=== PATIENT | female | born 1940 | race Caucasian/White ===

== ENCOUNTER 2016-12-22 07:22 | Day surgery (SDC) | payer MEDICARE, BC ==
[2016-12-22] MEDS ORDERED: Dextrose 5%-Lactated Ringers 1,000 ML IV SCH (07:45)
[2016-12-22] MEDS ORDERED: Midazolam 1 MG/ML 2 ML SDV ONE (08:13)
[2016-12-22] MEDS ORDERED: Propofol 200 MG/20 ML SDV ONE (08:13)
[2016-12-22] MEDS ORDERED: fentaNYL 100 MCG/2 ML SDV ONE (08:13)
[2016-12-22] MEDS ORDERED: Glycopyrrolate 0.2 MG/ML 2 ML SYRINGE IVPUSH ONE (08:15)
[2016-12-22 11:10] VITALS: BP 144/96
--- NOTE | 2016-12-28 16:12 | OR ---
DATE OF PROCEDURE: 12/22/2016 PREOPERATIVE DIAGNOSES: 1. Increasing gastroesophageal reflux symptoms. 2. Constipation, alternating with diarrhea. POSTOPERATIVE DIAGNOSES: 1. Diffuse bile gastritis with large volume of retained gastric bile. 2. Uncomplicated left colonic diverticulosis. OPERATIVE PROCEDURE: 1. Esophagogastroduodenoscopy with biopsies of antrum for CLOtest. 2. Flexible colonoscopy. ANESTHESIA: IV sedation. 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 She has had increasing problems with reflux symptoms. In the past, she has been treated successfully with Reglan and/or erythromycin; presently, she has omeprazole 20 mg a day. Additionally, the patient has some constipation, alternating with frequent loose stools or diarrhea. CT scan showed some colonic diverticulosis on the left side, but otherwise was unremarkable. Plan is to proceed with upper and lower endoscopy with biopsies as indicated. Potential risks including bleeding and perforation were discussed, and the patient wishes to proceed. DETAILS OF PROCEDURE: The patient was taken to the operating room and placed in left lateral decubitus position. IV sedation was administered, after which the upper GI endoscope was passed orally through the length of the esophagus. The patient had a relatively short esophagus with a cervical-esophagogastric anastomosis, this was widely patent. Upon entering the stomach, the patient had a large volume of bile and had a more or less diffuse gastritis, likely related to the bile retention. The pyloric channel and proximal duodenum were otherwise unremarkable. The patient had a concurrent pyloroplasty at the time of the esophagectomy and this was widely patent. 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 Biopsies were obtained from the stomach and sent for CLOtest to assess the patient's H. pylori status. After evacuation of the bowel, scope was then withdrawn and the procedure then concluded. At this point, an initial digital rectal exam was performed and was unremarkable. Colonoscope was then passed into the rectum with retroflexion revealing complicated hemorrhoidal columns. The scope was then eventually passed to the level of cecum. The prep was fairly good with there being only a small amount of liquid stool present. The patient had some uncomplicated left colonic diverticulosis. Otherwise, there were no areas of concern. Specifically, no areas of colitis, and no polyps or signs of neoplasia. The scope was then withdrawn. The above findings reconfirmed, and the procedure was then concluded. Plan will be to have the patient continue the omeprazole 20 mg a day. We will add erythromycin 125 mg p.o. t.i.d., to be taken one-half hour before breakfast, supper, and at bedtime, to augment gastric motility. We will see her back in 2 to 3 weeks for a recheck and make any adjustments as needed at that point. Benton Washington MD /[id number]
== END 2016-12-22 11:00 | disposition home or self-care (01) ==
LOC: JP.SDS 07:22
PROVIDERS: ATTEND Surgery
DX: K29.70 Gastritis, unspecified, without bleeding (principal); K57.30 Diverticulosis of large intestine without perforation or abscess without bleeding; I10 Essential (primary) hypertension; E78.00 Pure hypercholesterolemia, unspecified; K21.9 Gastro-esophageal reflux disease without esophagitis; Z88.8 Allergy status to other drugs, medicaments and biological substances; Z91.013 Allergy to seafood
CPT/HCPCS: 43239; 45378; 87081; J2250; J2704; J3010; J7042

== ENCOUNTER 2016-12-29 07:05 | Day surgery (SDC) | payer MEDICARE, BC ==
[~2016-12-29 07:05] MED LIST: Lidocaine 1% with EPINEPHrine 1:100,000 50 ML MDV ONE; Sodium Chloride 0.9% 1,000 ML IV SCH; Sodium Chloride 0.9% 10 ML ONE; Sodium Tetradecyl Sulfate 1% 20 MG/2 ML SDV ONE
[2016-12-29] MEDS ORDERED: fentaNYL 100 MCG/2 ML SDV ONE (08:03)
[2016-12-29] MEDS ORDERED: Propofol 200 MG/20 ML SDV ONE ×2 (08:03→08:38)
[2016-12-29] MEDS ORDERED: Midazolam 1 MG/ML 2 ML SDV ONE (08:03)
[2016-12-29] MEDS: Lidocaine 1% w/EPINEPHrine 50 ML, Sodium Bicarbonate 5 MEQ in Sodium Chloride 0.9% 950 ML INJECT SCH (08:46)
[2016-12-29 10:00] VITALS: BP 124/82
--- NOTE | 2016-12-29 14:52 | OR ---
DATE OF PROCEDURE: 12/29/2016 PROCEDURE: 1. Radiofrequency ablation of the left lesser saphenous vein. 2. Radiofrequency ablation of right greater saphenous vein. 3. Sclerotherapy, left leg, multiple. 4. Sclerotherapy, right leg, multiple. COMPLICATION: None. STOCK DRIER TENDER: None. ANESTHESIA: MAC/local. INDICATIONS: Risks, benefits, alternatives, including, but not limited to infection, bleeding, and DVT were explained to the patient, who wished to proceed. PROCEDURE IN DETAIL: The patient was placed in supine position. The left LSV was identified at the level of the ankle first. This was accessed using a 0.035 wire via a 21- gauge needle. This was then exchanged for a 7-Ukrainian sheath. RFA probe was advanced to 3 cm from the deep junction. Tumescent fluid was injected a 1 cm jacket around this and verified a second and third time. Direct even pressure was held as the RFA probe was deployed x2 proximally and distally and x1 in all other segments. The sheath and device were then removed. Dermabond was applied. The GSV on the right leg was then performed in the same manner, same fashion, same technique, and same sequence using the same equipment. This was also verified a second and third time with tumescent fluid. Sclerotherapy was then performed in left and right legs using 0.33% sodium tetradecyl, slightly drawn back to ensure intravascular injection. It was 6 on the right and 6 on the left. Dressings were applied. The patient tolerated the procedure well. Diaz Arias MD /[id number]
== END 2016-12-29 11:00 | disposition home or self-care (01) ==
LOC: JP.SDS 07:05
PROVIDERS: ATTEND Surgery
DX: M79.605 Pain in left leg (principal); M79.89 Other specified soft tissue disorders; M79.604 Pain in right leg; I10 Essential (primary) hypertension; E78.5 Hyperlipidemia, unspecified; Z88.8 Allergy status to other drugs, medicaments and biological substances
CPT/HCPCS: 36471; 36475; J1642; J2250; J2704; J3010; J7040; J7050; J3490

== ENCOUNTER 2018-03-19 10:26 | Emergency (ER) | payer MEDICARE, BC ==
[2018-03-19] MEDS ORDERED: Sodium Chloride 0.9% 10 ML Syringe FLUSH PRN (12:05)
[2018-03-19] MEDS ORDERED: Nitroglycerin 0.4 MG Tab.SL SL ONE (12:08)
--- NOTE | 2018-03-19 12:34 | EDM.PDOC ---
ED HPI GENERAL MEDICAL PROBLEM - General Chief Complaint: Cardiovascular Problem Stated Complaint: RINGING IN EARS BLOOD PRESSURE UP??? Time Seen by Provider: 03/19/18 12:10 Source of Information: Reports: Patient History Limitations: Reports: No Limitations - History of Present Illness INITIAL COMMENTS - FREE TEXT/NARRATIVE: Aby is a 77-year-old female, history of osteoporosis and hypertension who presents to the emergency Department today with complaints of lightheadedness, shortness of breath and headache. Patient reports that her blood pressure has been running high, they recently decreased her Hytrin secondary to kidney issues and increased her lisinopril. Patient reports her lisinopril was increased to 40 mg a day a week ago. Patient reports her blood pressure has not been any better. Patient denies any chest pain. Patient does report that her left leg has been swollen which is unusual for her. Patient denies any fever chills, cough or cold symptoms. Patient denies any vomiting or diarrhea. Patient reports that they told her to increase her fluid intake, she reports she has been drinking quite a bit of water daily. Patient arrives here mildly hypertensive, more concerning her heart rate is 50, her last clinic visit her heart rate was 68. Onset: Gradual Duration: Day(s): (2) Headache Pain Score (Numeric/FACES): 5 - Related Data Allergies Allergy/AdvReac Type Severity Reaction Status Date / Time amlodipine [From Norvasc] Allergy Other Verified 03/19/18 12:08 metronidazole [From Flagyl] Allergy Difficulty Verified 03/19/18 12:08 Breathing shellfish derived Allergy Difficulty Verified 03/19/18 12:08 Swallowing Home Meds: Home Meds Metoprolol Tartrate [Lopressor] 25 mg PO BID 08/27/14 [History] Naproxen Sodium [Aleve] 220 mg PO DAILY 08/27/14 [History] Omeprazole [Prilosec] 20 mg PO DAILY 08/27/14 [History] Terazosin [Hytrin] 2 mg PO BID 08/27/14 [History] Acetaminophen 500 mg PO Q6HR PRN 03/01/16 [History] Cyanocobalamin (Vitamin B-12) [B-12] 1,000 mcg PO DAILY 03/01/16 [History] Fluticasone Propionate [Flonase] 2 sprays NS DAILY 03/01/16 [History] Folic Acid 1 mg PO DAILY 03/01/16 [History] Gabapentin [Neurontin] 300 mg PO BEDTIME 03/01/16 [History] Potassium Chloride [Klor-Con] 20 meq PO DAILY 10/26/16 [History] Ranitidine HCl [Ranitidine] 1 tab PO BID 03/19/18 [History] Past Medical History HEENT History: Reports: Allergic Rhinitis, Impaired Vision Cardiovascular History: Reports: Hypertension Respiratory History: Reports: None Gastrointestinal History: Reports: Cholelithiasis, Colon Polyp, GERD, Other ( See Below) Other Gastrointestinal History: Hx of Barretts Genitourinary History: Reports: Urinary Incontinence, UTI, Recurrent CATHE[employer] INS[employer]OR History: Reports: Dysfunctional Uterine Bleeding, , Prolapsed Uterus Musculoskeletal History: Reports: Back Pain, Chronic, Osteoarthritis Other Musculoskeletal History: right knee pain Neurological History: Reports: Neuropathy, Peripheral Psychiatric History: Reports: None Endocrine/Metabolic History: Reports: Osteoporosis Hematologic History: Reports: Anemia, B12 Deficiency, Blood Transfusion(s), Iron Deficiency Oncologic (Cancer) History: Reports: None Dermatologic History: Reports: None - Infectious Disease History Infectious Disease History: Reports: Chicken Pox, Measles, Mumps Other Infectious Disease History: abdomen mesh - Past Surgical History Head Surgeries/Procedures: Reports: None HEENT Surgical History: Reports: Naso-Sinus Surgery GI Surgical History: Reports: Cholecystectomy, Colonoscopy, EGD, Hernia, Inguinal, Other (See Below) Other GI Surgeries/Procedures: 2 hernia repair, esophagus removed Female Surgical History: Reports: Breast Biopsy, Hysterectomy, Oophorectomy Musculoskeletal Surgical History: Reports: Shoulder Surgery Oncologic Surgical History: Reports: Biopsy of Breast Social & Family History - Family History Family Medical History: Noncontributory - Tobacco Use Smoking Status *Q: Never Smoker - Caffeine Use Caffeine Use: Reports: Coffee - Alcohol Use Days Per Week of Alcohol Use: 3 Number of Drinks Per Day: 2 Total Drinks Per Week: 6 - Recreational Drug Use Recreational Drug Use: No ED ROS GENERAL - Review of Systems Review Of Systems: See Below Constitutional: Reports: No Symptoms HEENT: Reports: No Symptoms Respiratory: Reports: Shortness of Breath Cardiovascular: Denies: Chest Pain Endocrine: Reports: No Symptoms GI/Abdominal: Reports: No Symptoms : Reports: No Symptoms Musculoskeletal: Reports: No Symptoms Skin: Reports: No Symptoms Neurological: Reports: Dizziness, Headache Psychiatric: Reports: No Symptoms Hematologic/Lymphatic: Reports: No Symptoms Immunologic: Reports: No Symptoms ED EXAM, GENERAL - Physical Exam Exam: See Below Exam Limited By: No Limitations General Appearance: Alert, WD/WN, No Apparent Distress Eye Exam: Bilateral Eye: EOMI, PERRL Ears: Normal External Exam Throat/Mouth: Normal Inspection, Normal Oropharynx Head: Atraumatic Neck: Normal Inspection Respiratory/Chest: Crackles (Bibasilar) Cardiovascular: Bradycardia, Other (Left lower extremity swelling from mid ramírez down to the foot, nonpitting) GI/Abdominal: Normal Bowel Sounds, Soft Extremities: Normal Inspection Neurological: Alert, Oriented, CN II-XII Intact Psychiatric: Normal Affect, Normal Mood Skin Exam: Warm, Dry, Intact Lymphatic: No Adenopathy EKG INTERPRETATION EKG Date: 03/19/18 Time: 12:37 Rhythm: NSR Rate (Beats/Min): 61 Sigurd: Normal P-Wave: Present QRS: Normal ST-T: Normal QT: Normal EKG Interpretation Comments: T wave inversion V4 Course - Vital Signs Last Recorded V/S: Last Vital Signs Temp 35.9 C 03/19/18 12:07 Pulse 60 03/19/18 13:27 Resp 16 03/19/18 13:27 BP 159/120 H 03/19/18 14:41 Pulse Ox 95 03/19/18 12:36 Aby is a 77-year-old female who presents to the emergency Department today concerned for her hypertension and headache. Patient arrives here pressure 170/ 90, initially and ordered a dose of nitroglycerin for patient to bring her blood pressure down in the hopes of not affecting her heart rate as it is only 50. Throat ED stay however, patient's blood pressure has come down on its own nicely to 146/98. Blood work was obtained to rule out any electrolyte abnormalities as well as BNP to rule out failure as patient does have lower extremity edema to the left side and bibasilar crackles, BNP is normal, troponin is undetectable, EKG is negative for any acute ischemic findings. CBC returns with a mildly low lymphocyte count, CMP returns with a calcium of 8.2 and potassium of 3.5 and is otherwise within normal limits. Magnesium is normal today. Patient was given a dose of oral potassium for replacement here, chest x- ray was obtained and is consistent with CHF with left sided effusion, reviewed with Officer. 1320-patient is lying in the bed in no acute distress, it was noted on the electronic device monitor at the nursing station the patient's heart rate has dipped as low as 38 and has a tendency to hang around in the low 40s before climbed back up to 60 and then going down again. There is no evidence to indicate a block as there is P waves with every QRS complex it is likely this is what is attributing to patient's dizziness and mild fluid up status. 1425-Discussed findings with patient, would like to admit patient for ongoing monitoring and medication adjustments, likely needs decrease in her metoprolol and restarted on HCTZ. We unfortunately have no beds here. Patient really does not want to be transferred. Heart rate at present time in the mid to upper 50's. I discussed with patient giving her lasix here and monitoring her here for a couple of hours to see how she does. She is agreeable to this. 1535-patient is feeling much better here, her heart rate has stayed above 60 for the last hour and a half. Patient has urinated over 800 mL's of urine. Her color has improved, her blood pressure has remained stable, she is eaten lunch and a feeling this time she is stable to be discharged home. For now I am going to decrease her metoprolol to 12.5 mg twice daily and restart her hydrochlorothiazide at 12.5 mg once daily. A follow-up appointment was made with her primary care provider for Monday at 1:30. Patient was encouraged to stay well-hydrated, avoid excessive salt and if she experiences any worsening symptoms or changes to return to the emergency department. Patient is agreeable to plan of care and was discharged in stable condition. - Orders/Labs/Meds Orders: Active Orders 24 hr Category Date Time Status EKG Documentation Completion [RC] ASDIRECTED Care 03/19/18 12:06 Active Peripheral IV Care [RC] . DIRECTED Care 03/19/18 12:05 Active URINALYSIS W/MICROSCOPIC [UA W/MICROSCOPIC] [URIN] Stat Lab 03/19/18 14:56 Ordered Sodium Chloride 0.9% [Saline Flush] Med 03/19/18 12:05 Active 10 ml FLUSH ASDIRECTED PRN Peripheral IV Insertion Adult [OM.PC] Routine Oth 03/19/18 12:05 Ordered EKG 12 Lead [EK] Stat Ther 03/19/18 12:06 Ordered Medication Orders Sodium Chloride (Saline Flush) 10 ml FLUSH ASDIRECTED PRN PRN Reason: Keep Vein Open Last Admin: 03/19/18 14:42 Dose: 10 ml Labs: Laboratory Tests 03/19/18 03/19/18 03/19/18 Range/Units 12:17 12:17 12:17 WBC 5.1 (4.5-11.0) K/uL RBC 4.15 (3.30-5.50) M/uL Hgb 12.6 (12.0-15.0) g/dL Hct 37.8 (36.0-48.0) % MCV 91 (80-98) fL MCH 30 (27-31) pg MCHC 33 (32-36) % Plt Count 265 (150-400) K/uL Neut % (Auto) 63 (36-66) % Lymph % (Auto) 23 L (24-44) % [place] % (Auto) 10 H (2-6) % Eos % (Auto) 4 (2-4) % Baso % (Auto) 0 (0-1) % Sodium 140 (140-148) mmol/L Potassium 3.5 L (3.6-5.2) mmol/L Chloride 103 (100-108) mmol/L Carbon Dioxide 31 (21-32) mmol/L Anion Gap 9.5 (5.0-14.0) mmol/L BUN 13 (7-18) mg/dL Creatinine 0.9 (0.6-1.0) mg/dL Est Cr Clr Drug Dosing 44.68 mL/min Estimated GFR (MDRD) > 60 (>60) Glucose 93 (74-106) mg/dL Calcium 8.2 L (8.5-10.1) mg/dL Magnesium 1.9 (1.8-2.4) mg/dL Total Bilirubin 0.6 (0.2-1.0) mg/dL AST 24 (15-37) U/L ALT 21 (12-78) U/L Alkaline Phosphatase 89 (46-116) U/L Troponin I < 0.017 (0.000-0.056) ng/mL NT-Pro-B Natriuret Pep 444 (5-450) pg/mL Total Protein 6.9 (6.4-8.2) g/dL Albumin 3.5 (3.4-5.0) g/dL Globulin 3.4 (2.3-3.5) g/dL Albumin/Globulin Ratio 1.0 L (1.2-2.2) Urine Color Urine Appearance Urine pH (4.5-8.0) Ur Specific [place] (1.008-1.030) Urine Protein (NEGATIVE) mg/dL Urine Glucose (UA) (NEGATIVE) mg/dL Urine Ketones (NEGATIVE) mg/dL Urine Occult Blood (NEGATIVE) Urine Nitrite (NEGATIVE) Urine Bilirubin (NEGATIVE) Urine Urobilinogen (NORMAL) mg/dL Ur Leukocyte Esterase (NEGATIVE) Urine RBC (0-5) Urine WBC (0-5) Ur Epithelial Cells Amorphous Sediment Urine Bacteria Urine Mucus 03/19/18 Range/Units 14:56 WBC (4.5-11.0) K/uL RBC (3.30-5.50) M/uL Hgb (12.0-15.0) g/dL Hct (36.0-48.0) % MCV (80-98) fL MCH (27-31) pg MCHC (32-36) % Plt Count (150-400) K/uL Neut % (Auto) (36-66) % Lymph % (Auto) (24-44) % [place] % (Auto) (2-6) % Eos % (Auto) (2-4) % Baso % (Auto) (0-1) % Sodium (140-148) mmol/L Potassium (3.6-5.2) mmol/L Chloride (100-108) mmol/L Carbon Dioxide (21-32) mmol/L Anion Gap (5.0-14.0) mmol/L BUN (7-18) mg/dL Creatinine (0.6-1.0) mg/dL Est Cr Clr Drug Dosing mL/min Estimated GFR (MDRD) (>60) Glucose (74-106) mg/dL Calcium (8.5-10.1) mg/dL Magnesium (1.8-2.4) mg/dL Total Bilirubin (0.2-1.0) mg/dL AST (15-37) U/L ALT (12-78) U/L Alkaline Phosphatase (46-116) U/L Troponin I (0.000-0.056) ng/mL NT-Pro-B Natriuret Pep (5-450) pg/mL Total Protein (6.4-8.2) g/dL Albumin (3.4-5.0) g/dL Globulin (2.3-3.5) g/dL Albumin/Globulin Ratio (1.2-2.2) Urine Color Yellow Urine Appearance Clear Urine pH 8.0 (4.5-8.0) Ur Specific [place] 1.010 (1.008-1.030) Urine Protein Negative (NEGATIVE) mg/dL Urine Glucose (UA) Normal (NEGATIVE) mg/dL Urine Ketones Negative (NEGATIVE) mg/dL Urine Occult Blood Negative (NEGATIVE) Urine Nitrite Negative (NEGATIVE) Urine Bilirubin Negative (NEGATIVE) Urine Urobilinogen Normal (NORMAL) mg/dL Ur Leukocyte Esterase Negative (NEGATIVE) Urine RBC 0-5 (0-5) Urine WBC Not seen (0-5) Ur Epithelial Cells Not seen Amorphous Sediment Not seen Urine Bacteria Not seen Urine Mucus Not seen Meds: Medications Generic Name Dose Route Start Last Admin Trade Name Fretonie PRN Reason Stop Dose Admin Sodium Chloride 10 ml 03/19/18 12:05 03/19/18 14:42 Saline Flush FLUSH 10 ml ASDIRECTED PRN Administration Keep Vein Open Discontinued Medications Generic Name Dose Route Start Last Admin Trade Name Fretonie PRN Reason Stop Dose Admin Acetaminophen 650 mg 03/19/18 12:39 03/19/18 13:26 Tylenol PO 03/19/18 12:40 650 mg NOW ONE Administration Furosemide 40 mg 03/19/18 14:24 03/19/18 14:41 Lasix IVPUSH 03/19/18 14:25 40 mg ONETIME ONE Administration Nitroglycerin 0.4 mg 03/19/18 12:08 Nitrostat SL 03/19/18 12:09 ONETIME ONE Potassium Chloride 40 meq 03/19/18 13:04 03/19/18 13:26 Klor-Con M20 PO 03/19/18 13:05 40 meq ONETIME ONE Administration Departure - Departure Time of Disposition: 16:00 Disposition: Home, Self-Care 01 Condition: Good Clinical Impression: Bradycardia, Pleural effusion due to congestive heart failure Hypertension Qualifiers: Hypertension type: unspecified Qualified Code(s): I10 - Essential (primary) hypertension Instructions: Bradycardia, Adult, Heart Failure, Edema, [id number] Referrals: Filiberto Perdue MD [Primary Care Provider] - Forms: ED Department Discharge Additional Instructions: Decrease your metoprolol to 12.5 mg twice daily, take first dose this evening. Restart HCTC starting tomorrow morning. Follow-up with Dr. Loera on Monday at 1:30 PM. Make sure you are staying well-hydrated. If you develop any other complications or worsening symptoms and will need to return to the emergency department. Please make sure when you get up from a sitting position or lying position you are getting up slowly. - My Orders Last 24 Hours: My Active Orders 03/19/18 12:05 Peripheral IV Care [RC] . DIRECTED Sodium Chloride 0.9% [Saline Flush] 10 ml FLUSH ASDIRECTED PRN Peripheral IV Insertion Adult [OM.PC] Routine 03/19/18 12:06 EKG Documentation Completion [RC] ASDIRECTED EKG 12 Lead [EK] Stat 03/19/18 14:56 URINALYSIS W/MICROSCOPIC [UA W/MICROSCOPIC] [URIN] Stat - Assessment/Plan Last 24 Hours: My Active Orders 03/19/18 12:05 Peripheral IV Care [RC] . DIRECTED Sodium Chloride 0.9% [Saline Flush] 10 ml FLUSH ASDIRECTED PRN Peripheral IV Insertion Adult [OM.PC] Routine 03/19/18 12:06 EKG Documentation Completion [RC] ASDIRECTED EKG 12 Lead [EK] Stat 03/19/18 14:56 URINALYSIS W/MICROSCOPIC [UA W/MICROSCOPIC] [URIN] Stat
[2018-03-19] MEDS ORDERED: Acetaminophen 325 MG Tab PO ONE (12:39)
[2018-03-19] MEDS ORDERED: Potassium Chloride 20 MEQ Tab.ER PO ONE (13:04)
--- NOTE | 2018-03-19 13:54 | CR ---
Chest 2V INDICATION: crackles to bases FINDINGS: Comparison 04/19/2011. Opacity in the left lung base, worrisome for infiltrate. A lateral vi ew would be helpful when clinically feasible. Mild cardiac enlargement. Exam otherwise unremarkable.
[2018-03-19] MEDS ORDERED: Furosemide 40 MG/4 ML VIAL IVPUSH ONE (14:24)
[2018-03-19 14:41] VITALS: BP 159/120
== END 2018-03-19 16:16 | disposition home or self-care (01) ==
LOC: JP.ED 10:26
DX: I11.0 Hypertensive heart disease with heart failure (principal); I50.9 Heart failure, unspecified; J90 Pleural effusion, not elsewhere classified; D64.9 Anemia, unspecified; Z79.899 Other long term (current) drug therapy; Z91.013 Allergy to seafood; Z88.8 Allergy status to other drugs, medicaments and biological substances
CPT/HCPCS: 36415; 71046; 80053; 81001; 83735; 83880; 84484; 85025; 93005; 96374; 99284; A9270; J1940; J7050

== ENCOUNTER 2018-04-19 19:59 | Observation (INO) | payer MEDICARE, BC ==
[2018-04-19] MEDS ORDERED: Ketorolac 30 MG/ML SDV IM ONE (22:26)
[2018-04-19] MEDS ORDERED: Colchicine 0.6 MG Tab PO ONE (22:26)
--- NOTE | 2018-04-19 22:30 | EDM.PDOC ---
ED HPI GENERAL MEDICAL PROBLEM - General Chief Complaint: Lower Extremity Injury/Pain Stated Complaint: UNABLE TO WALK, BOTH KNEES HURT Time Seen by Provider: 04/19/18 22:20 Source of Information: Reports: Patient, Family, Old Records, RN Notes Reviewed History Limitations: Reports: No Limitations - History of Present Illness INITIAL COMMENTS - FREE TEXT/NARRATIVE: 77-year-old female presents emergency department today complaint of bilateral knee pain she does have a history of severe osteoarthritis with a history of pseudogout as well, was scheduled to have bilateral knee replacement however canceled the surgery has received steroid injections in both knees which did provide significant relief., She states the pain has gotten padded both knees to the point where she can no longer ambulate Treatments LICENSED AUDIOLOGIST: Reports: Other (see below) Other Treatments LICENSED AUDIOLOGIST: none Right and Left Knees Pain Score (Numeric/FACES): 9 - Related Data Allergies Allergy/AdvReac Type Severity Reaction Status Date / Time amlodipine [From Norvasc] Allergy Other Verified 04/19/18 20:59 metronidazole [From Flagyl] Allergy Difficulty Verified 04/19/18 20:59 Breathing shellfish derived Allergy Difficulty Verified 04/19/18 20:59 Swallowing Home Meds: Home Meds Metoprolol Tartrate [Lopressor] 25 mg PO BID 08/27/14 [History] Naproxen Sodium [Aleve] 220 mg PO DAILY 08/27/14 [History] Omeprazole [Prilosec] 20 mg PO DAILY 08/27/14 [History] Terazosin [Hytrin] 2 mg PO BID 08/27/14 [History] Acetaminophen 500 mg PO Q6HR PRN 03/01/16 [History] Cyanocobalamin (Vitamin B-12) [B-12] 1,000 mcg PO DAILY 03/01/16 [History] Fluticasone Propionate [Flonase] 2 sprays NS DAILY 03/01/16 [History] Folic Acid 1 mg PO DAILY 03/01/16 [History] Gabapentin [Neurontin] 300 mg PO BEDTIME 03/01/16 [History] Potassium Chloride [Klor-Con] 20 meq PO DAILY 10/26/16 [History] Ranitidine HCl [Ranitidine] 1 tab PO BID 03/19/18 [History] Past Medical History HEENT History: Reports: Allergic Rhinitis, Impaired Vision Cardiovascular History: Reports: Hypertension Gastrointestinal History: Reports: Cholelithiasis, Colon Polyp, GERD, Other ( See Below) Other Gastrointestinal History: Hx of Barretts Genitourinary History: Reports: Urinary Incontinence, UTI, 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: Dysfunctional Uterine Bleeding, , Prolapsed Uterus Musculoskeletal History: Reports: Back Pain, Chronic, Osteoarthritis Other Musculoskeletal History: right knee pain Neurological History: Reports: Neuropathy, Peripheral Endocrine/Metabolic History: Reports: Osteoporosis Hematologic History: Reports: Anemia, B12 Deficiency, Blood Transfusion(s), Iron Deficiency - Infectious Disease History Infectious Disease History: Reports: Chicken Pox Other Infectious Disease History: abdomen mesh - Past Surgical History HEENT Surgical History: Reports: Naso-Sinus Surgery GI Surgical History: Reports: Cholecystectomy, Colonoscopy, EGD, Hernia, Inguinal, Other (See Below) Other GI Surgeries/Procedures: 2 hernia repair, esophagus removed Female Surgical History: Reports: Breast Biopsy, Hysterectomy, Oophorectomy Musculoskeletal Surgical History: Reports: Shoulder Surgery Oncologic Surgical History: Reports: Biopsy of Breast Social & Family History - Family History Family Medical History: Noncontributory - Tobacco Use Smoking Status *Q: Never Smoker Second Hand Smoke Exposure: No - Caffeine Use Caffeine Use: Reports: Coffee - Recreational Drug Use Recreational Drug Use: No Review of Systems - Review of Systems Review Of Systems: See Below Musculoskeletal: Reports: Joint Pain ED EXAM, GENERAL - Physical Exam Exam: See Below Free Text/Narrative:: Examination of both knees she does have limited range of motion secondary to pain I don't appreciate any warmth there is no edema there is no erythema noted Exam Limited By: No Limitations General Appearance: Alert, WD/WN, No Apparent Distress Course - Vital Signs Last Recorded V/S: Last Vital Signs Temp 98.5 F 04/20/18 02:16 Pulse 83 04/20/18 02:16 Resp 14 04/20/18 02:16 BP 178/99 H 04/20/18 02:16 Pulse Ox 94 L 04/20/18 02:16 - Orders/Labs/Meds Orders: Active Orders 24 hr Category Date Time Status Peripheral IV Care [RC] . DIRECTED Care 04/20/18 01:07 Active Knee 3V Bi [CR] Stat Exams 04/20/18 00:48 Taken URIC ACID [CHEM] Stat Lab 04/20/18 01:00 Ordered URINALYSIS W/MICROSCOPIC [UA W/MICROSCOPIC] [URIN] Stat Lab 04/19/18 23:41 Ordered Potassium Chloride [KCL 20 MEQ in Water 100 ML] 20 meq Med 04/20/18 01:39 Active Premix Bag 1 bag IV ONETIME Sodium Chloride 0.9% [Saline Flush] Med 04/20/18 01:07 Active 10 ml FLUSH ASDIRECTED PRN Peripheral IV Insertion Adult [OM.PC] Urgent Oth 04/20/18 01:07 Ordered Medication Orders Potassium Chloride 20 meq/ (Premix) 100 mls @ 50 mls/hr IV ONETIME ONE Stop: 04/20/18 03:38 Last Admin: 04/20/18 02:01 Dose: 50 mls/hr Sodium Chloride (Saline Flush) 10 ml FLUSH ASDIRECTED PRN PRN Reason: Keep Vein Open Last Admin: 04/20/18 01:45 Dose: 10 ml Labs: Laboratory Tests 04/19/18 04/20/18 04/20/18 Range/Units 23:41 01:00 01:00 WBC 10.0 (4.5-11.0) K/uL RBC 3.90 (3.30-5.50) M/uL Hgb 11.9 L (12.0-15.0) g/dL Hct 34.1 L (36.0-48.0) % MCV 87 (80-98) fL MCH 31 (27-31) pg MCHC 35 (32-36) % Plt Count 241 (150-400) K/uL Neut % (Auto) 76 H (36-66) % Lymph % (Auto) 10 L (24-44) % [place] % (Auto) 14 H (2-6) % Eos % (Auto) 1 L (2-4) % Baso % (Auto) 0 (0-1) % Sodium (140-148) mmol/L Potassium (3.6-5.2) mmol/L Chloride (100-108) mmol/L Carbon Dioxide (21-32) mmol/L Anion Gap (5.0-14.0) mmol/L BUN (7-18) mg/dL Creatinine (0.6-1.0) mg/dL Est Cr Clr Drug Dosing mL/min Estimated GFR (MDRD) (>60) Glucose (74-106) mg/dL Uric Acid 5.1 (2.6-6.2) mg/dL Calcium (8.5-10.1) mg/dL Total Bilirubin (0.2-1.0) mg/dL AST (15-37) U/L ALT (12-78) U/L Alkaline Phosphatase (46-116) U/L C-Reactive Protein (0.0-0.3) mg/dL Total Protein (6.4-8.2) g/dL Albumin (3.4-5.0) g/dL Globulin (2.3-3.5) g/dL Albumin/Globulin Ratio (1.2-2.2) Urine Color Yellow Urine Appearance Clear Urine pH 6.5 (4.5-8.0) Ur Specific [place] 1.010 (1.008-1.030) Urine Protein Negative (NEGATIVE) mg/dL Urine Glucose (UA) Normal (NEGATIVE) mg/dL Urine Ketones 15 H (NEGATIVE) mg/dL Urine Occult Blood Moderate (NEGATIVE) Urine Nitrite Negative (NEGATIVE) Urine Bilirubin Negative (NEGATIVE) Urine Urobilinogen Normal (NORMAL) mg/dL Ur Leukocyte Esterase Negative (NEGATIVE) Urine RBC 0-5 (0-5) Urine WBC 0-5 (0-5) Ur Epithelial Cells Rare Amorphous Sediment Not seen Urine Bacteria Rare Urine Mucus Not seen 04/20/18 Range/Units 01:00 WBC (4.5-11.0) K/uL RBC (3.30-5.50) M/uL Hgb (12.0-15.0) g/dL Hct (36.0-48.0) % MCV (80-98) fL MCH (27-31) pg MCHC (32-36) % Plt Count (150-400) K/uL Neut % (Auto) (36-66) % Lymph % (Auto) (24-44) % [place] % (Auto) (2-6) % Eos % (Auto) (2-4) % Baso % (Auto) (0-1) % Sodium 128 L (140-148) mmol/L Potassium 2.5 L* (3.6-5.2) mmol/L Chloride 91 L (100-108) mmol/L Carbon Dioxide 28 (21-32) mmol/L Anion Gap 11.5 (5.0-14.0) mmol/L BUN 15 (7-18) mg/dL Creatinine 0.8 (0.6-1.0) mg/dL Est Cr Clr Drug Dosing 50.26 mL/min Estimated GFR (MDRD) > 60 (>60) Glucose 133 H (74-106) mg/dL Uric Acid (2.6-6.2) mg/dL Calcium 8.0 L (8.5-10.1) mg/dL Total Bilirubin 0.9 (0.2-1.0) mg/dL AST 21 (15-37) U/L ALT 19 (12-78) U/L Alkaline Phosphatase 79 (46-116) U/L C-Reactive Protein 13.25 H (0.0-0.3) mg/dL Total Protein 6.5 (6.4-8.2) g/dL Albumin 2.9 L (3.4-5.0) g/dL Globulin 3.6 H (2.3-3.5) g/dL Albumin/Globulin Ratio 0.8 L (1.2-2.2) Urine Color Urine Appearance Urine pH (4.5-8.0) Ur Specific [place] (1.008-1.030) Urine Protein (NEGATIVE) mg/dL Urine Glucose (UA) (NEGATIVE) mg/dL Urine Ketones (NEGATIVE) mg/dL Urine Occult Blood (NEGATIVE) Urine Nitrite (NEGATIVE) Urine Bilirubin (NEGATIVE) Urine Urobilinogen (NORMAL) mg/dL Ur Leukocyte Esterase (NEGATIVE) Urine RBC (0-5) Urine WBC (0-5) Ur Epithelial Cells Amorphous Sediment Urine Bacteria Urine Mucus Meds: Medications Generic Name Dose Route Start Last Admin Trade Name Freq PRN Reason Stop Dose Admin Potassium Chloride 20 meq/ 100 mls @ 50 mls/hr 04/20/18 01:39 04/20/18 02:01 Premix IV 04/20/18 03:38 50 mls/hr ONETIME ONE Administration Sodium Chloride 10 ml 04/20/18 01:07 04/20/18 01:45 Saline Flush FLUSH 10 ml ASDIRECTED PRN Administration Keep Vein Open Discontinued Medications Generic Name Dose Route Start Last Admin Trade Name Freq PRN Reason Stop Dose Admin Colchicine 1.2 mg 04/19/18 22:26 04/19/18 23:05 Colcrys PO 04/19/18 22:27 1.2 mg ONETIME ONE Administration Fentanyl 50 mcg 04/20/18 01:07 04/20/18 01:45 Sublimaze IVPUSH 04/20/18 01:08 50 mcg ONETIME ONE Administration Hydromorphone HCl 1 mg 04/19/18 23:23 04/19/18 23:35 Dilaudid IM 04/19/18 23:24 1 mg ONETIME ONE Administration Hydromorphone HCl 1 mg 04/20/18 03:26 Dilaudid IVPUSH 04/20/18 03:27 ONETIME ONE Lactated Ringer's 1,000 mls @ 999 mls/hr 04/20/18 01:07 04/20/18 01:43 Ringers, Lactated IV 04/20/18 02:07 999 mls/hr BOLUS ONE Administration Ketorolac Tromethamine 30 mg 04/19/18 22:26 04/19/18 22:42 Toradol IM 04/19/18 22:27 30 mg ONETIME ONE Administration Lidocaine HCl 2 ml 04/20/18 01:51 04/20/18 02:06 Xylocaine-Mpf 1% INJECT 04/20/18 01:52 2 ml ONETIME ONE Administration Potassium Chloride 40 meq 04/20/18 01:39 04/20/18 01:57 Klor-Con M20 PO 04/20/18 01:40 40 meq ONETIME ONE Administration Departure - Departure Time of Disposition: 03:33 Disposition: Admitted As Inpatient 68 Condition: Fair Clinical Impression: Weakness - Discharge Information Referrals: Filiberto Perdue MD [Primary Care Provider] - Forms: ED Department Discharge - My Orders Last 24 Hours: My Active Orders 04/19/18 23:41 URINALYSIS W/MICROSCOPIC [UA W/MICROSCOPIC] [URIN] Stat 04/20/18 00:48 Knee 3V Bi [CR] Stat 04/20/18 01:00 URIC ACID [CHEM] Stat 04/20/18 01:07 Peripheral IV Care [RC] . DIRECTED Sodium Chloride 0.9% [Saline Flush] 10 ml FLUSH ASDIRECTED PRN Peripheral IV Insertion Adult [OM.PC] Urgent 04/20/18 01:39 Potassium Chloride [KCL 20 MEQ in Water 100 ML] 20 meq Premix Bag 1 bag IV ONETIME - Assessment/Plan Last 24 Hours: My Active Orders 04/19/18 23:41 URINALYSIS W/MICROSCOPIC [UA W/MICROSCOPIC] [URIN] Stat 04/20/18 00:48 Knee 3V Bi [CR] Stat 04/20/18 01:00 URIC ACID [CHEM] Stat 04/20/18 01:07 Peripheral IV Care [RC] . DIRECTED Sodium Chloride 0.9% [Saline Flush] 10 ml FLUSH ASDIRECTED PRN Peripheral IV Insertion Adult [OM.PC] Urgent 04/20/18 01:39 Potassium Chloride [KCL 20 MEQ in Water 100 ML] 20 meq Premix Bag 1 bag IV ONETIME Plan: Assessment Acuity = acute Site and laterality = bilateral knee pain probable related to the CP DD with pain control complicated patient with known history of hypertension Etiology = unclear etiology of exacerbation Manifestations = severe pain weakness unable to walk or bend knees Location of injury = Home Lab values = CBC unremarkable sodium low at 128 consistent hyponatremia potassium low at 2.5 consistent hypokalemia CRP elevated at 13.25, urinalysis unremarkable x-rays show severe osteoarthritis but otherwise no acute process Plan I did call discussed case with Dr. Hobbs kindly agreed to evaluate the patient in the hospital she'll be admitted for pain control and further evaluation by orthopedics in the morning This note was dictated using [email or web address] voice recognition software please call with any questions on syntax or grammar.
[2018-04-19] MEDS ORDERED: HYDROmorphone 1 MG/ML Syringe IM ONE (23:23)
[2018-04-20] MEDS ORDERED: fentaNYL 100 MCG/2 ML SDV IVPUSH ONE (01:07)
[2018-04-20] MEDS ORDERED: Lactated Ringers 1,000 ML IV ONE (01:07)
[2018-04-20] MEDS ORDERED: Potassium Chloride 20 MEQ Tab.ER PO ONE ×2 (01:39→08:00)
[2018-04-20] MEDS ORDERED: Potassium Chloride 20 MEQ in Premix Bag 1 BAG IV ONE (01:39)
[2018-04-20] MEDS: Sodium Chloride 0.9% 10 ML Syringe FLUSH PRN ×2 (01:45→03:39)
[2018-04-20] MEDS ORDERED: HYDROmorphone 1 MG/ML Syringe IVPUSH ONE (03:26)
[2018-04-20] MEDS ORDERED: Ondansetron 4 MG Tab.DIS PO PRN ×2 (03:35→07:49)
[2018-04-20] MEDS ORDERED: Acetaminophen/HYDROcodone 325-5 MG Tab PO PRN (03:35)
[2018-04-20] MEDS ORDERED: Lactated Ringers 1,000 ML IV SCH ×2 (03:45→07:45)
[2018-04-20] MEDS ORDERED: Pantoprazole 40 MG Tab.CR PO SCH (07:30)
--- NOTE | 2018-04-20 07:41 | PCM.HP ---
H&P History of Present Illness - General Date of Service: 04/20/18 Admit Problem/Dx: Admission Diagnosis/Problem Admission Diagnosis/Problem Weakness Source of Information: Patient History Limitations: Reports: No Limitations Right and Left Knees Pain Score (Numeric/FACES): 6 - Related Data Allergies/Adverse Reactions: Allergies Allergy/AdvReac Type Severity Reaction Status Date / Time metronidazole [From Flagyl] Allergy Severe Difficulty Verified 04/20/18 07:15 Breathing shellfish derived Allergy Intermediate Difficulty Verified 04/20/18 07:15 Swallowing amlodipine [From Norvasc] Allergy Other Verified 04/19/18 20:59 Home Medications: Home Meds Metoprolol Tartrate [Lopressor] 25 mg PO BID 08/27/14 [History] Naproxen Sodium [Aleve] 220 mg PO DAILY 08/27/14 [History] Omeprazole [Prilosec] 20 mg PO DAILY 08/27/14 [History] Terazosin [Hytrin] 2 mg PO BID 08/27/14 [History] Acetaminophen 500 mg PO Q6HR PRN 03/01/16 [History] Cyanocobalamin (Vitamin B-12) [B-12] 1,000 mcg PO DAILY 03/01/16 [History] Fluticasone Propionate [Flonase] 2 sprays NS DAILY 03/01/16 [History] Folic Acid 1 mg PO DAILY 03/01/16 [History] Gabapentin [Neurontin] 300 mg PO BEDTIME 03/01/16 [History] Potassium Chloride [Klor-Con] 20 meq PO DAILY 10/26/16 [History] Ranitidine HCl [Ranitidine] 1 tab PO BID 03/19/18 [History] Past Medical History HEENT History: Reports: Allergic Rhinitis, Impaired Vision Cardiovascular History: Reports: Hypertension Respiratory History: Reports: None Gastrointestinal History: Reports: Cholelithiasis, Colon Polyp, GERD, Other ( See Below) Other Gastrointestinal History: Hx of Barretts Genitourinary History: Reports: Urinary Incontinence, UTI, Recurrent [employer] History: Reports: Dysfunctional Uterine Bleeding, , Prolapsed Uterus Musculoskeletal History: Reports: Back Pain, Chronic, Osteoarthritis Other Musculoskeletal History: right knee pain Neurological History: Reports: Neuropathy, Peripheral Psychiatric History: Reports: None Endocrine/Metabolic History: Reports: Osteoporosis Hematologic History: Reports: Anemia, B12 Deficiency, Blood Transfusion(s), Iron Deficiency Oncologic (Cancer) History: Reports: None Dermatologic History: Reports: None - Infectious Disease History Infectious Disease History: Reports: Chicken Pox Other Infectious Disease History: abdomen mesh - Past Surgical History Head Surgeries/Procedures: Reports: None HEENT Surgical History: Reports: Naso-Sinus Surgery GI Surgical History: Reports: Cholecystectomy, Colonoscopy, EGD, Hernia, Inguinal, Other (See Below) Other GI Surgeries/Procedures: 2 hernia repair, esophagus removed Female Surgical History: Reports: Breast Biopsy, Hysterectomy, Oophorectomy Musculoskeletal Surgical History: Reports: Shoulder Surgery Oncologic Surgical History: Reports: Biopsy of Breast Social & Family History - Family History Family Medical History: Noncontributory - Tobacco Use Smoking Status *Q: Never Smoker Second Hand Smoke Exposure: No - Caffeine Use Caffeine Use: Reports: Coffee - Recreational Drug Use Recreational Drug Use: No H&P Review of Systems - Review of Systems: Review Of Systems: See Below General: Denies: Fever, Chills Pulmonary: Denies: Shortness of Breath, Wheezing, Pleuritic Chest Pain, Cough Cardiovascular: Denies: Chest Pain, Palpitations, Dyspnea on Exertion, Orthopnea Gastrointestinal: Denies: Abdominal Pain Genitourinary: Denies: Dysuria, Frequency Musculoskeletal: Reports: Joint Pain, Joint Swelling, Muscle Pain, Muscle Stiffness. Denies: Neck Pain, Shoulder Pain Skin: Denies: Cyanosis, Jaundice, Mottled Psychiatric: Denies: Confusion, Depression Neurological: Denies: Confusion, Dizziness Hematologic/Lymphatic: Denies: Anemia Exam - Exam Exam: See Below - Vital Signs Vital Signs: Last Vital Signs Temp 37.5 C 04/20/18 04:21 Pulse 86 04/20/18 04:21 Resp 16 04/20/18 04:21 BP 174/94 H 04/20/18 04:21 Pulse Ox 96 04/20/18 04:21 Weight: 72.121 kg - Exam General: Alert, Oriented Neck: Supple, Trachea Midline Lungs: Clear to Auscultation, Normal Respiratory Effort Cardiovascular: Regular Rate, Regular Rhythm GI/Abdominal Exam: Normal Bowel Sounds, Soft Extremities: Joint Swelling, Leg Pain, Limited Range of Motion, Increased Warmth. No: Pallor, Redness - Patient Data Lab Results Last 24 hrs: Laboratory Results - last 24 hr 04/19/18 04/20/18 04/20/18 Range/Units 23:41 01:00 01:00 WBC 10.0 (4.5-11.0) K/uL RBC 3.90 (3.30-5.50) M/uL Hgb 11.9 L (12.0-15.0) g/dL Hct 34.1 L (36.0-48.0) % MCV 87 (80-98) fL MCH 31 (27-31) pg MCHC 35 (32-36) % Plt Count 241 (150-400) K/uL Neut % (Auto) 76 H (36-66) % Lymph % (Auto) 10 L (24-44) % [place] % (Auto) 14 H (2-6) % Eos % (Auto) 1 L (2-4) % Baso % (Auto) 0 (0-1) % Sodium (140-148) mmol/L Potassium (3.6-5.2) mmol/L Chloride (100-108) mmol/L Carbon Dioxide (21-32) mmol/L Anion Gap (5.0-14.0) mmol/L BUN (7-18) mg/dL Creatinine (0.6-1.0) mg/dL Est Cr Clr Drug Dosing mL/min Estimated GFR (MDRD) (>60) Glucose (74-106) mg/dL Uric Acid 5.1 (2.6-6.2) mg/dL Calcium (8.5-10.1) mg/dL Total Bilirubin (0.2-1.0) mg/dL AST (15-37) U/L ALT (12-78) U/L Alkaline Phosphatase (46-116) U/L C-Reactive Protein (0.0-0.3) mg/dL Total Protein (6.4-8.2) g/dL Albumin (3.4-5.0) g/dL Globulin (2.3-3.5) g/dL Albumin/Globulin Ratio (1.2-2.2) Urine Color Yellow Urine Appearance Clear Urine pH 6.5 (4.5-8.0) Ur Specific [place] 1.010 (1.008-1.030) Urine Protein Negative (NEGATIVE) mg/dL Urine Glucose (UA) Normal (NEGATIVE) mg/dL Urine Ketones 15 H (NEGATIVE) mg/dL Urine Occult Blood Moderate (NEGATIVE) Urine Nitrite Negative (NEGATIVE) Urine Bilirubin Negative (NEGATIVE) Urine Urobilinogen Normal (NORMAL) mg/dL Ur Leukocyte Esterase Negative (NEGATIVE) Urine RBC 0-5 (0-5) Urine WBC 0-5 (0-5) Ur Epithelial Cells Rare Amorphous Sediment Not seen Urine Bacteria Rare Urine Mucus Not seen 04/20/18 04/20/18 04/20/18 Range/Units 01:00 05:00 05:00 WBC 11.8 H (4.5-11.0) K/uL RBC 4.03 (3.30-5.50) M/uL Hgb 12.4 (12.0-15.0) g/dL Hct 35.3 L (36.0-48.0) % MCV 88 (80-98) fL MCH 31 (27-31) pg MCHC 35 (32-36) % Plt Count 251 (150-400) K/uL Neut % (Auto) 81 H (36-66) % Lymph % (Auto) 6 L (24-44) % [place] % (Auto) 13 H (2-6) % Eos % (Auto) 0 L (2-4) % Baso % (Auto) 0 (0-1) % Sodium 128 L 128 L (140-148) mmol/L Potassium 2.5 L* 2.7 L* (3.6-5.2) mmol/L Chloride 91 L 90 L (100-108) mmol/L Carbon Dioxide 28 29 (21-32) mmol/L Anion Gap 11.5 11.7 (5.0-14.0) mmol/L BUN 15 12 (7-18) mg/dL Creatinine 0.8 0.8 (0.6-1.0) mg/dL Est Cr Clr Drug Dosing 50.26 50.26 mL/min Estimated GFR (MDRD) > 60 > 60 (>60) Glucose 133 H 141 H (74-106) mg/dL Uric Acid (2.6-6.2) mg/dL Calcium 8.0 L 8.3 L (8.5-10.1) mg/dL Total Bilirubin 0.9 (0.2-1.0) mg/dL AST 21 (15-37) U/L ALT 19 (12-78) U/L Alkaline Phosphatase 79 (46-116) U/L C-Reactive Protein 13.25 H (0.0-0.3) mg/dL Total Protein 6.5 (6.4-8.2) g/dL Albumin 2.9 L (3.4-5.0) g/dL Globulin 3.6 H (2.3-3.5) g/dL Albumin/Globulin Ratio 0.8 L (1.2-2.2) Urine Color Urine Appearance Urine pH (4.5-8.0) Ur Specific [place] (1.008-1.030) Urine Protein (NEGATIVE) mg/dL Urine Glucose (UA) (NEGATIVE) mg/dL Urine Ketones (NEGATIVE) mg/dL Urine Occult Blood (NEGATIVE) Urine Nitrite (NEGATIVE) Urine Bilirubin (NEGATIVE) Urine Urobilinogen (NORMAL) mg/dL Ur Leukocyte Esterase (NEGATIVE) Urine RBC (0-5) Urine WBC (0-5) Ur Epithelial Cells Amorphous Sediment Urine Bacteria Urine Mucus Result Diagrams: 04/20/18 05:00 04/20/18 05:00 - Problem List (1) Hx of calcium pyrophosphate deposition disease (CPPD) SNOMED Code(s): 768896485, 814084818 ICD Code: Z87.39 - PERSONAL HISTORY OF DISEASES OF THE MS SYS AND CONN TISS Status: Acute Current Visit: Yes (2) Weakness SNOMED Code(s): 41250321 ICD Code: R53.1 - WEAKNESS Status: Acute Current Visit: Yes (3) Hypertension SNOMED Code(s): 75073850 ICD Code: I10 - ESSENTIAL (PRIMARY) HYPERTENSION Status: Acute Current Visit: No Qualifiers: Hypertension type: unspecified Qualified Code(s): I10 - Essential (primary ) hypertension (4) Bilateral primary osteoarthritis of knee SNOMED Code(s): 794387978, 308618735419321, 506579271617709 ICD Code: M17.0 - BILATERAL PRIMARY OSTEOARTHRITIS OF KNEE Status: Chronic Current Visit: No (5) Gastroesophageal reflux disease SNOMED Code(s): 385206143 ICD Code: K21.9 - GASTRO-ESOPHAGEAL REFLUX DISEASE WITHOUT ESOPHAGITIS Status: Chronic Current Visit: No Problem List Initiated/Reviewed/Updated: Yes Orders Last 24hrs: Active Orders 24 hr Category Date Time Status Patient Status [ADT] Routine ADT 04/20/18 03:35 Active Height and Weight [RC] DAILY Care 04/20/18 03:35 Active Intake and Output [RC] QSHIFT Care 04/20/18 03:36 Active Notify Provider Consults [RC] ASDIRECTED Care 04/20/18 07:11 Active Oxygen Therapy [RC] PRN Care 04/20/18 03:35 Active Peripheral IV Care [RC] . DIRECTED Care 04/20/18 01:07 Active Up With Assistance [RC] ASDIRECTED Care 04/20/18 03:35 Active VTE/DVT Education [RC] Per Unit Routine Care 04/20/18 03:35 Active Vital Signs [RC] Q4H Care 04/20/18 03:35 Active Consult to Physician [CONS] Routine Cons 04/20/18 07:10 Ordered Regular Diet [DIET] Diet 04/20/18 Breakfast Active Knee 3V Bi [CR] Stat Exams 04/20/18 00:48 Taken URIC ACID [CHEM] Stat Lab 04/20/18 01:00 Ordered URINALYSIS W/MICROSCOPIC [UA W/MICROSCOPIC] [URIN] Stat Lab 04/19/18 23:41 Ordered Acetaminophen/HYDROcodone [Avon 325-5 MG] Med 04/20/18 03:35 Active 1 tab PO Q4H PRN Cyanocobalamin (Vitamin B12) [Vitamin B12] Med 04/20/18 09:00 Active 1,000 mcg PO DAILY Enoxaparin [Lovenox] Med 04/20/18 09:00 Active 40 mg SUBCUT DAILY Fluticasone Propionate [Flonase] Med 04/20/18 09:00 Active 0 gm JORGE DAILY Folic Acid Med 04/20/18 09:00 Active 1 mg PO DAILY Gabapentin [Neurontin] Med 04/20/18 21:00 Active 300 mg PO BEDTIME Lactated Ringers [Ringers, Lactated] 1,000 ml Med 04/20/18 03:45 Active IV ASDIRECTED Metoprolol Tartrate [Lopressor] Med 04/20/18 09:00 Active 25 mg PO BID Ondansetron [Zofran ODT] Med 04/20/18 03:35 Active 4 mg PO Q6H PRN Pantoprazole [ProTONIX] Med 04/20/18 07:30 Active 40 mg PO ACBREAKFAST Potassium Chloride [Klor-Con M20] Med 04/20/18 08:00 Once 40 meq PO ONETIME ONE Potassium Chloride [Potassium Chloride Solution] Med 04/20/18 09:00 Active 20 meq PO DAILY Ranitidine [Zantac] Med 04/20/18 09:00 Active 150 mg PO BID Sodium Chloride 0.9% [Saline Flush] Med 04/20/18 01:07 Active 10 ml FLUSH ASDIRECTED PRN Terazosin [Hytrin] Med 04/20/18 09:00 Active 2 mg PO BID Peripheral IV Insertion Adult [OM.PC] Urgent Oth 04/20/18 01:07 Ordered Resuscitation Status Routine Resus Stat 04/20/18 03:35 Ordered Medication Orders Hydrocodone Bitart/Acetaminophen (Avon 325-5 Mg) 1 tab PO Q4H PRN PRN Reason: Pain (moderate 4-6) Last Admin: 04/20/18 04:47 Dose: 1 tab Cyanocobalamin (Vitamin B12) 1,000 mcg PO DAILY [facility] Enoxaparin Sodium (Lovenox) 40 mg SUBCUT DAILY [facility] Fluticasone Propionate (Flonase) 0 gm JORGE DAILY [facility] Folic Acid (Folic Acid) 1 mg PO DAILY [facility] Gabapentin (Neurontin) 300 mg PO BEDTIME LORENA Lactated Ringer's (Ringers, Lactated) 1,000 mls @ 125 mls/hr IV ASDIRECTED LORENA Last Admin: 04/20/18 04:17 Dose: 125 mls/hr Metoprolol Tartrate (Lopressor) 25 mg PO BID [facility] Non-Formulary Medication (Terazosin [Hytrin]) 2 mg PO BID [place] Ondansetron HCl (Zofran Odt) 4 mg PO Q6H PRN PRN Reason: Nausea able to take PO Pantoprazole Sodium (Protonix) 40 mg PO ACBREAKFAST [facility] Potassium Chloride (Potassium Chloride Solution) 20 meq PO DAILY [facility] Potassium Chloride (Klor-Con M20) 40 meq PO ONETIME ONE Stop: 04/20/18 08:01 Ranitidine HCl (Zantac) 150 mg PO BID [facility] Sodium Chloride (Saline Flush) 10 ml FLUSH ASDIRECTED PRN PRN Reason: Keep Vein Open Last Admin: 04/20/18 03:39 Dose: 10 ml Admin: 04/20/18 01:45 Dose: 10 ml Assessment/Plan Comment:: 76-year-old female with past medical history of severe bilateral knee osteoarthritis, hypertension, hypokalemia came to the ED with the concerns of severe knee pain associated with restriction of movements. Patient admitted to the hospital in observation status for pain control and further management of acute on chronic knee osteoarthritis. Patient x-ray showed significant severe bilateral knee osteoarthritis, patient wbc count is elevated. Patient recently received steroid injection in bilateral knees. Acute onset since last 2 days Cannot rule out septic arthritis Will continue pain management with Avon and morphine as needed Patient K levels are low, supplemented,repeat K in 6 hours DVT prophylaxis Lovenox 40 mg subcutaneous daily Diet regular diet IV Fluids Ringer lactate 125 mL per hour CODE STATUS full code
[2018-04-20] MEDS ORDERED: Morphine 2 MG/ML Syringe IVPUSH PRN (07:45)
[2018-04-20] MEDS ORDERED: Acetaminophen/oxyCODONE 325-7.5 MG Tab PO PRN (07:45)
[2018-04-20 08:09] VITALS: BP 145/78
[2018-04-20] MEDS ORDERED: Magnesium Sulfate/Water 2 GM in Premix Bag 1 BAG IV ONE (08:30)
--- NOTE | 2018-04-20 08:38 | CR ---
Knee 3V Bi CLINICAL HISTORY: Pain, history of calcium deposition disease FINDINGS: Limited study. Lateral view could not be obtained. No acute fracture or dislocation is note d. There are no osseous lesions. There is joint space narrowing in the lateral compartment. There is moderate periarticular spurring. There is meniscal calcification. Impression: Limited study Advanced osteoarthritic change Calcification of the menisci correlates to the history of calcium deposition disease
[2018-04-20] MEDS ORDERED: Cyanocobalamin (Vitamin B12) 1,000 MCG Tab PO SCH (09:00)
[2018-04-20] MEDS ORDERED: Fluticasone Propionate Nasal Spray 16 GM Bottle NAS SCH (09:00)
[2018-04-20] MEDS ORDERED: TERAZOSIN 2 MG PO SCH (09:00)
[2018-04-20] MEDS ORDERED: Enoxaparin 40 MG/0.4 ML Syringe SUBCUT SCH (09:00)
[2018-04-20] MEDS ORDERED: Folic Acid 1 MG Tab PO SCH (09:00)
[2018-04-20] MEDS ORDERED: Magnesium Oxide 400 MG Tab PO SCH (09:00)
[2018-04-20] MEDS ORDERED: Potassium Chloride 10% 20 MEQ/15 ML Soln 15 ML UD Cup PO SCH (09:00)
[2018-04-20] MEDS ORDERED: Metoprolol Tartrate 25 MG Tab PO SCH (09:00)
--- NOTE | 2018-04-20 11:14 | PCM.HPR ---
H & P Addendum review - H & P Addendum Review Date of Original H & P: 04/20/18 Date Reviewed: 04/20/18 Time Reviewed: 08:30 Patient was Examined: No Changes (Patient complaining of severe pain in the bilateral knees unable to ambulate. Today there is no orthopedic services are available in the hospital. Discussed with the patient and patient agreed to transfer to higher center. Discussed with hospitalist at [facility], who kindly accepted the patient. Transferred the patient in ambulance. All questions are answered.)
[2018-04-20] MEDS ORDERED: Gabapentin 300 MG Cap PO SCH (21:00)
== END 2018-04-20 10:30 ==
LOC: JP.ED 19:59 → JP.MS 04-20 03:35
PROVIDERS: ADMIT Family Medicine; ATTEND Internal Medicine
DX: M17.0 Bilateral primary osteoarthritis of knee (principal); I10 Essential (primary) hypertension; J30.9 Allergic rhinitis, unspecified; K21.9 Gastro-esophageal reflux disease without esophagitis; M81.0 Age-related osteoporosis without current pathological fracture; D50.9 Iron deficiency anemia, unspecified; E53.8 Deficiency of other specified B group vitamins; E87.6 Hypokalemia; Z79.899 Other long term (current) drug therapy; Z88.1 Allergy status to other antibiotic agents; Z88.8 Allergy status to other drugs, medicaments and biological substances; Z91.013 Allergy to seafood
CPT/HCPCS: 36415; 73562; 80048; 80053; 81001; 83735; 84550; 85025; 85651; 86140; 96361; 96372; 96374; 96375; 99285; A9270; J1170; J1650; J1885; J2270; J3010; J3475; J3480; J7050; J7120; 99283

== ENCOUNTER 2018-06-18 07:05 | Day surgery (SDC) | payer MEDICARE, BC ==
[~2018-06-18 07:05] MED LIST changes: -Lidocaine 1% with EPINEPHrine 1:100,000 50 ML MDV ONE; +Propofol 200 MG/20 ML SDV ONE; -Sodium Chloride 0.9% 1,000 ML IV SCH; -Sodium Chloride 0.9% 10 ML ONE; -Sodium Tetradecyl Sulfate 1% 20 MG/2 ML SDV ONE; +fentaNYL 100 MCG/2 ML SDV ONE
[2018-06-18] MEDS ORDERED: Dextrose 5%-Lactated Ringers 1,000 ML IV SCH (07:30)
[2018-06-18 11:22] VITALS: BP 168/94
--- NOTE | 2018-06-25 15:06 | OR ---
DATE OF PROCEDURE: 06/18/2018 PREOPERATIVE DIAGNOSES: 1. 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 2. Gastric bezoars. POSTOPERATIVE DIAGNOSES: 1. 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 2. Persistent gastric bezoar. PROCEDURE: Esophagogastroduodenoscopy with a biopsies of antrum for CLOtest. ANESTHESIA: IV sedation. 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 She is undergoing followup endoscopy for followup of any possible remaining recurrent Tam esophagus. She also has history of gastric bezoar for which she has been receiving Zofran, which seems to help quite a bit with regard to her nausea associated with this. She is also on Zantac. She reports that her insurance coverage for Zofran for control of nausea associated with bezoar is coming to an end. Plan is to proceed with upper GI endoscopy with biopsies as indicated. Potential risks including bleeding and perforation were discussed, and the patient wishes to proceed. DETAILS OF PROCEDURE: The patient was taken to the operating room and placed in a left lateral decubitus position. IV sedation was administered, after which the upper GI endoscope was passed orally through the length of the esophagus, which was within the level of the cervical esophagus through the esophagojejunostomy, from there through the length of the stomach and through the pyloric channel and into the proximal duodenum. Findings included minimal inflammation present at the level of the esophagojejunostomy and no stricturing or other complications noted within the remaining stomach. There was a large amount of bezoar present, was associated with some mild contact-type gastritis, but without erosions or ulcers. The pyloric channel and proximal duodenum were wide open, i.e. 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 At this point, biopsies were obtained from the area of the esophagogastrostomy and sent for histologic evaluation. Procedure was then concluded. Given the insurance coverage stopping for the Zofran, we will try a course of Compazine 5 mg p.o. t.i.d. one-half hour before meals. If this fails or has significant side effects, we could then recontact the insurance company to restart the Zofran, which has been working fairly well. Otherwise, we will have Dietary review the anti-bezoar diet with the patient and we will see the patient back in 1 week for recheck to see how well the Compazine is working at that point. There will be no indication for restarting any proton pump inhibitors since result in a significant improvement in patient's symptoms given what is presently only mild contact gastritis associated with bezoar. Benton Washington MD /[id number]
== END 2018-06-18 11:36 | disposition home or self-care (01) ==
LOC: JP.SDS 07:05
PROVIDERS: ATTEND Surgery
DX: K22.70 Barrett's esophagus without dysplasia (principal); T18.2XXA Foreign body in stomach, initial encounter; Z88.8 Allergy status to other drugs, medicaments and biological substances; Z91.013 Allergy to seafood; Z90.49 Acquired absence of other specified parts of digestive tract
CPT/HCPCS: 43239; 88305; J2704; J3010; J7042

== ENCOUNTER 2018-12-24 20:40 | Emergency (ER) | payer MEDICARE, BC ==
[2018-12-24] MEDS ORDERED: Sodium Chloride 0.9% 10 ML Syringe FLUSH PRN (21:44)
[2018-12-24] MEDS ORDERED: Lactated Ringers 1,000 ML IV SCH (21:45)
--- NOTE | 2018-12-24 21:49 | EDM.PDOC ---
ED HPI GENERAL MEDICAL PROBLEM - General Chief Complaint: Gastrointestinal Problem Stated Complaint: PASSING BLOOD Time Seen by Provider: 12/24/18 21:38 Source of Information: Reports: Patient, Family, RN Notes Reviewed History Limitations: Reports: No Limitations - History of Present Illness INITIAL COMMENTS - FREE TEXT/NARRATIVE: 78-year-old female presents to the emergency department today with complaint of bright red blood per rectum, she states this just started today she has felt lightheaded and weak prior to this she noticed some dark tarry stools. Has had a colonoscopy last was in 2017 does have a history of diverticular disease as well as gastritis. States she has had multiple bloody stools today, stool is present while she is in the emergency department it is bright red Bilateral Lower Abdomen Pain Score (Numeric/FACES): 5 - Related Data Allergies Allergy/AdvReac Type Severity Reaction Status Date / Time metronidazole [From Flagyl] Allergy Severe Difficulty Verified 12/24/18 20:59 Breathing shellfish derived Allergy Intermediate Difficulty Verified 12/24/18 20:59 Swallowing amlodipine [From Norvasc] Allergy Other Verified 12/24/18 20:59 Home Meds: Home Meds Metoprolol Tartrate [Lopressor] 25 mg PO BID 08/27/14 [History] Naproxen Sodium [Aleve] 220 mg PO DAILY PRN 08/27/14 [History] Omeprazole [Prilosec] 20 mg PO DAILY 08/27/14 [History] Terazosin [Hytrin] 2 mg PO BID 08/27/14 [History] Acetaminophen 500 mg PO Q6HR PRN 03/01/16 [History] Cyanocobalamin (Vitamin B-12) [B-12] 1,000 mcg PO DAILY 03/01/16 [History] Fluticasone Propionate [Flonase] 2 sprays NS DAILY 03/01/16 [History] Folic Acid 1 mg PO DAILY 03/01/16 [History] Gabapentin [Neurontin] 300 mg PO BEDTIME 03/01/16 [History] Potassium Chloride [Klor-Con] 20 meq PO DAILY 10/26/16 [History] Ranitidine HCl [Ranitidine] 1 tab PO BID 03/19/18 [History] Cetirizine HCl [Zyrtec] 10 mg PO DAILY PRN 06/14/18 [History] Docusate Sodium [Stool Softener] 2 tab PO DAILY 06/14/18 [History] Ketotifen [Ketotifen 0.025% Ophth Soln] 1 drop EYEBOTH BID PRN 06/14/18 [History ] Lisinopril [Prinivil] 40 mg PO BID 06/14/18 [History] Ondansetron [Zofran ODT] 4 mg SL Q4HR PRN 06/14/18 [History] Sodium Chloride 0.65% [[place] Saline] 0.1 ml JORGE DAILY PRN 06/14/18 [History] Aspirin [Aspirin EC] 1 tab PO BID 12/24/18 [History] Furosemide [Lasix] 20 mg PO DAILY 12/24/18 [History] Hydrocodone/Acetaminophen [Hydrocodon-Acetaminophn 10-325] 1 tab PO Q4H PRN [History] Polyethylene Glycol 3350 [MiraLAX] 17 gm PO DAILY 12/24/18 [History] Prochlorperazine [Compazine] 5 mg PO TID 12/24/18 [History] Past Medical History HEENT History: Reports: Allergic Rhinitis, Impaired Vision Cardiovascular History: Reports: Hypertension Gastrointestinal History: Reports: Cholelithiasis, Colon Polyp, Diverticulosis, GERD, Other (See Below) Other Gastrointestinal History: Hx of Barretts Genitourinary History: Reports: Urinary Incontinence, UTI, 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 History: Reports: Dysfunctional Uterine Bleeding, , Prolapsed Uterus Musculoskeletal History: Reports: Back Pain, Chronic, Osteoarthritis Other Musculoskeletal History: right knee pain Neurological History: Reports: Neuropathy, Peripheral Endocrine/Metabolic History: Reports: Osteoporosis Hematologic History: Reports: Anemia, B12 Deficiency, Blood Transfusion(s), Iron Deficiency Oncologic (Cancer) History: Reports: None Dermatologic History: Reports: None - Infectious Disease History Infectious Disease History: Reports: None Other Infectious Disease History: abdomen mesh - Past Surgical History Head Surgeries/Procedures: Reports: None HEENT Surgical History: Reports: Naso-Sinus Surgery Cardiovascular Surgical History: Reports: None GI Surgical History: Reports: Cholecystectomy, Colonoscopy, EGD, Hernia, Inguinal, Other (See Below) Other GI Surgeries/Procedures: 2 hernia repair, esophagus removed Female Surgical History: Reports: Breast Biopsy, Hysterectomy, Oophorectomy Endocrine Surgical History: Reports: None Neurological Surgical History: Reports: None Musculoskeletal Surgical History: Reports: Shoulder Surgery, Other (See Below) Other Musculoskeletal Surgeries/Procedures:: back surgery x2 Oncologic Surgical History: Reports: Biopsy of Breast Dermatological Surgical History: Reports: None Social & Family History - Family History Family Medical History: Noncontributory HEENT: Reports: Impaired Vision Cardiac: Reports: Hypertension Respiratory: Reports: COPD GI: Reports: Cholelithiasis, Colon Polyps, GERD OBGYN: Reports: Musculoskeletal: Reports: Gout Endocrine/Metabolic: Reports: Diabetes, type II Oncologic: Reports: Prostate, Renal - Tobacco Use Smoking Status *Q: Never Smoker Second Hand Smoke Exposure: No - Caffeine Use Caffeine Use: Reports: Coffee, Soda, Tea Caffeine Use Comment: DAILY - Alcohol Use Days Per Week of Alcohol Use: 3 Number of Drinks Per Day: 2 Total Drinks Per Week: 6 Date of Last Drink: 12/22/18 Time of Last Drink: 18:00 - Recreational Drug Use Recreational Drug Use: No ED ROS GENERAL - Review of Systems Review Of Systems: See Below Constitutional: Reports: Weakness HEENT: Reports: No Symptoms Respiratory: Reports: No Symptoms Cardiovascular: Reports: Lightheadedness GI/Abdominal: Reports: Abdominal Pain, Black Stool, Bloody Stool. Denies: Nausea, Vomiting : Reports: No Symptoms Musculoskeletal: Reports: No Symptoms Skin: Reports: No Symptoms Neurological: Reports: No Symptoms ED EXAM, GI/ABD - Physical Exam Exam: See Below Exam Limited By: No Limitations General Appearance: Alert Throat/Mouth: Normal Inspection, Normal Lips, Normal Teeth, Normal Gums, Normal Oropharynx, Normal Voice, No Airway Compromise Head: Atraumatic, Normocephalic Respiratory/Chest: No Respiratory Distress, Lungs Clear, Normal Breath Sounds, No Accessory Muscle Use, Chest Non-Tender Cardiovascular: Regular Rate, Rhythm, No Murmur, Irregularly Irregular GI/Abdominal Exam: Non-Tender Rectal (Female) Exam: Hemorrhoids. No: Bloody Stool, Decreased Rectal Tone, Perirectal Abscess, Rectal Fissure, Tenderness Back Exam: Normal Inspection, Full Range of Motion. No: CVA Tenderness (R), CVA Tenderness (L) Course - Vital Signs Last Recorded V/S: Last Vital Signs Temp 96.5 F 12/24/18 20:55 Pulse 69 12/24/18 23:05 Resp 18 12/24/18 23:05 BP 147/88 H 12/24/18 23:05 Pulse Ox 96 12/24/18 23:05 - Orders/Labs/Meds Orders: Active Orders 24 hr Category Date Time Status Peripheral IV Care [RC] . DIRECTED Care 12/24/18 21:45 Active Lactated Ringers [Ringers, Lactated] 1,000 ml Med 12/24/18 21:45 Active IV ASDIRECTED Sodium Chloride 0.9% [Saline Flush] Med 12/24/18 21:44 Active 10 ml FLUSH ASDIRECTED PRN Peripheral IV Insertion Adult [OM.PC] Urgent Oth 12/24/18 21:44 Ordered Medication Orders Lactated Ringer's (Ringers, Lactated) 1,000 mls @ 125 mls/hr IV ASDIRECTED LORENA Last Admin: 12/24/18 22:28 Dose: 125 mls/hr Sodium Chloride (Saline Flush) 10 ml FLUSH ASDIRECTED PRN PRN Reason: Keep Vein Open Last Admin: 12/24/18 22:29 Dose: 10 ml Labs: Laboratory Tests 12/24/18 12/24/18 12/24/18 Range/Units 22:11 22:11 22:11 WBC 9.8 (4.5-11.0) K/uL RBC 4.40 (3.30-5.50) M/uL Hgb 12.4 (12.0-15.0) g/dL Hct 38.6 (36.0-48.0) % MCV 88 (80-98) fL MCH 28 (27-31) pg MCHC 32 (32-36) % Plt Count 293 (150-400) K/uL Neut % (Auto) 78 H (36-66) % Lymph % (Auto) 13 L (24-44) % [place] % (Auto) 8 H (2-6) % Eos % (Auto) 1 L (2-4) % Baso % (Auto) 0 (0-1) % PT 10.7 (9.5-12.0) sec INR 0.97 (0.80-1.20) APTT 26.8 L (27.0-36.0) sec Sodium 138 L (140-148) mmol/L Potassium 3.7 (3.6-5.2) mmol/L Chloride 101 (100-108) mmol/L Carbon Dioxide 27 (21-32) mmol/L Anion Gap 13.7 (5.0-14.0) mmol/L BUN 22 H D (7-18) mg/dL Creatinine 1.1 H (0.6-1.0) mg/dL Est Cr Clr Drug Dosing 35.99 mL/min Estimated GFR (MDRD) 48 L (>60) Glucose 102 (74-106) mg/dL Lactic Acid (0.4-2.0) mmol/L Calcium 9.1 (8.5-10.1) mg/dL Total Bilirubin 0.6 (0.2-1.0) mg/dL AST 20 (15-37) U/L ALT 14 (12-78) U/L Alkaline Phosphatase 103 (46-116) U/L Total Protein 7.3 (6.4-8.2) g/dL Albumin 3.5 (3.4-5.0) g/dL Globulin 3.8 H (2.3-3.5) g/dL Albumin/Globulin Ratio 0.9 L (1.2-2.2) 12/24/18 Range/Units 22:11 WBC (4.5-11.0) K/uL RBC (3.30-5.50) M/uL Hgb (12.0-15.0) g/dL Hct (36.0-48.0) % MCV (80-98) fL MCH (27-31) pg MCHC (32-36) % Plt Count (150-400) K/uL Neut % (Auto) (36-66) % Lymph % (Auto) (24-44) % [place] % (Auto) (2-6) % Eos % (Auto) (2-4) % Baso % (Auto) (0-1) % PT (9.5-12.0) sec INR (0.80-1.20) APTT (27.0-36.0) sec Sodium (140-148) mmol/L Potassium (3.6-5.2) mmol/L Chloride (100-108) mmol/L Carbon Dioxide (21-32) mmol/L Anion Gap (5.0-14.0) mmol/L BUN (7-18) mg/dL Creatinine (0.6-1.0) mg/dL Est Cr Clr Drug Dosing mL/min Estimated GFR (MDRD) (>60) Glucose (74-106) mg/dL Lactic Acid 1.2 (0.4-2.0) mmol/L Calcium (8.5-10.1) mg/dL Total Bilirubin (0.2-1.0) mg/dL AST (15-37) U/L ALT (12-78) U/L Alkaline Phosphatase (46-116) U/L Total Protein (6.4-8.2) g/dL Albumin (3.4-5.0) g/dL Globulin (2.3-3.5) g/dL Albumin/Globulin Ratio (1.2-2.2) Meds: Medications Generic Name Dose Route Start Last Admin Trade Name Freq PRN Reason Stop Dose Admin Lactated Ringer's 1,000 mls @ 125 mls/hr 12/24/18 21:45 12/24/18 22:28 Ringers, Lactated IV 125 mls/hr ASDIRECTED LORENA Administration Sodium Chloride 10 ml 12/24/18 21:44 12/24/18 22:29 Saline Flush FLUSH 10 ml ASDIRECTED PRN Administration Keep Vein Open Departure - Departure Time of Disposition: 00:17 Disposition: Refer to Observation Condition: Fair Clinical Impression: Bright red blood per rectum - Discharge Information Referrals: Filiberto Perdue MD [Primary Care Provider] - Forms: ED Department Discharge - My Orders Last 24 Hours: My Active Orders 12/24/18 21:44 Sodium Chloride 0.9% [Saline Flush] 10 ml FLUSH ASDIRECTED PRN Peripheral IV Insertion Adult [OM.PC] Urgent 12/24/18 21:45 Peripheral IV Care [RC] . DIRECTED Lactated Ringers [Ringers, Lactated] 1,000 ml IV ASDIRECTED - Assessment/Plan Last 24 Hours: My Active Orders 12/24/18 21:44 Sodium Chloride 0.9% [Saline Flush] 10 ml FLUSH ASDIRECTED PRN Peripheral IV Insertion Adult [OM.PC] Urgent 12/24/18 21:45 Peripheral IV Care [RC] . DIRECTED Lactated Ringers [Ringers, Lactated] 1,000 ml IV ASDIRECTED Plan: Assessment Acuity = acute Site and laterality = bright red blood per rectum Etiology = probable GI bleed Manifestations = lightheadedness Location of injury = Home Lab values = hemoglobin 12.4 normal at this time creatinine elevated 1.1 consistent chronic renal failure stage GIII a Plan Called discussed case with Dr. Salamanca physician real estate consultant at 11:30 he kindly agreed to admit the patient will evaluate the patient in the hospital plan for colonoscopy and EGD with Dr. Washington serial hemoglobins This note was dictated using [employer] voice recognition software please call with any questions on syntax or grammar.
[2018-12-25] MEDS ORDERED: Pantoprazole 40 MG Vial IV ONE (00:19)
[2018-12-25] MEDS ORDERED: Ondansetron 4 MG Tab.DIS PO PRN (00:22)
[2018-12-25] MEDS ORDERED: Acetaminophen/HYDROcodone 325-10 MG Tab PO PRN (00:22)
[2018-12-25] MEDS ORDERED: Acetaminophen 500 MG Tab PO PRN (00:22)
[2018-12-25] MEDS ORDERED: Ketotifen 0.025% Ophth Soln 5 ML Bottle EYEBOTH PRN (00:22)
[2018-12-25] MEDS ORDERED: Polyethylene Glycol 3350 Powder 238 GM Bot PO ONE (00:41)
[2018-12-25] MEDS ORDERED: Bisacodyl 5 MG Tab PO ONE (00:43)
[2018-12-25] MEDS: Lactated Ringers 1,000 ML IV SCH ×3 (06:12→22:00)
--- NOTE | 2018-12-25 07:49 | HP ---
CHIEF COMPLAINT: Blood in stool. HISTORY OF PRESENT ILLNESS: A 78-year-old who states that on the , started having some abdominal discomfort, felt nauseated, but cannot throw up because she had her esophagus surgically removed because of the Tam esophagus, started having bloody stools. She described as bright red blood, but it sounds like it was dark at times too. She felt lightheaded and weak, came into the emergency room. Hemoglobin was stable, but definitely had blood in her stool. She had a colonoscopy, evidence of some diverticula back in 2017. I was asked to admit the patient for further evaluation and treatment. The patient otherwise denies any other complaints. PAST MEDICAL HISTORY: 1. Removal of esophagus for Tam esophagus. 2. Cholecystectomy. 3. Hysterectomy with the left one ovary. 4. Two hernia repairs in the past. 5. Breast biopsy. 6. Essential hypertension. 7. Diverticulosis. 8. Gastroesophageal reflux disease. 9. Recurrent urinary tract infections with urinary incontinence. 10.Hysterectomy for dysfunctional uterine bleeding and prolapse. 11.Chronic back pain. 12.Osteoarthritis. 13.Peripheral neuropathy. 14.B12 deficiency. 15.Iron deficiency. MEDICATIONS: Metoprolol 25 mg b.i.d., naproxen 220 mg p.r.n., omeprazole 20 mg daily, terazosin 2 mg b.i.d., acetaminophen p.r.n., B12 daily, Flonase 2 sprays daily, folic acid 1 mg daily, gabapentin 300 mg at bedtime, potassium chloride 20 mEq daily, ranitidine b.i.d., cetirizine 10 mg daily p.r.n., ketotifen eyedrops, lisinopril 40 mg b.i.d., Zofran p.r.n., aspirin one b.i.d., Lasix 20 mg daily, hydrocodone p.r.n., MiraLax p.r.n., Compazine p.r.n. ALLERGIES: METRONIDAZOLE, SHELLFISH, AMLODIPINE. SOCIAL HISTORY: Never smoked. Alcohol: She does drink 3 days a week socially. Sounds like she has a couple each time. FAMILY HISTORY: Positive for COPD, reflux, gout, diabetes, prostate, and kidney cancer. REVIEW OF SYSTEMS: Denies headaches, vision changes, upper respiratory symptoms. No chest pain, shortness of breath, cough. She does have nausea but cannot throw out. She has had bloody bright red blood and dark stools and abdominal pain. Denies any urinary problems other than above. No swelling in her legs. No skin problems reported. Neurologic complaints as above. OBJECTIVE: VITAL SIGNS: Pulse 69, blood pressure 147/88, respirations 18, O2 saturation 96% on room air. GENERAL: The patient is alert and oriented x3. HEENT: Pharynx is clear. NECK: Supple. No adenopathy, thyromegaly, JVD, carotid bruits. LUNGS: Clear. HEART: Regular without murmurs. ABDOMEN: Soft. Mild diffuse tenderness throughout. No distention, mass, organomegaly palpated. EXTREMITIES: No significant edema. SKIN: Negative. NEUROLOGIC: She does have peripheral neuropathy in her feet. LABORATORY DATA: Hemoglobin 12.4, white count 9.8, platelets 293,000. PT 10.7, INR 0.97, PTT 26.8. Sodium 138, potassium 3.7, chloride 101, BUN is 22, creatinine 1.1. Liver functions were normal. ASSESSMENT: 1. Gastrointestinal bleed. Consult Dr. Washington for upper and lower endoscopy to see if we can find a source for bleeding. We will check serial hemoglobins. Continue with IV fluid that was started in the ER. 2. Essential hypertension, which is stable. 3. Gastroesophageal reflux disease with Tam esophagus and esophagus removal in the past. Other surgeries and medical problems as listed above. Paulo Salamanca MD /[id number]
[2018-12-25] MEDS ORDERED: Lisinopril 20 MG Tab PO SCH (09:00)
[2018-12-25] MEDS ORDERED: Terazosin 1 MG Cap PO SCH (09:00)
--- NOTE | 2018-12-25 09:09 | CONS ---
DATE OF SERVICE: 12/25/2018 REFERRING PHYSICIAN: CONSULTING PHYSICIAN: Hemalatha Naranjo PA-C HISTORY OF PRESENT ILLNESS: Aby is a 78-year-old female, who presented to the emergency room yesterday with complaints of bright red blood per rectum less than 24 hours. She states she is feeling lightheaded and weak prior to noticing on her stools. Her stools are anywhere from bright red to dark tarry stools. History of diverticulitis as well as gastritis. She states she has had too many bloody stools to count. Reports generalized abdominal pain more in the form of cramping pain; on the pain scale of 1-10, she reports as 5. ALLERGIES: FLAGYL, SHELLFISH, AND AMLODIPINE. HOME MEDICATION: Lopressor 25 mg p.o. b.i.d., naproxen (Aleve) 220 mg p.o. daily p.r.n. pain, omeprazole 20 mg p.o. daily, terazosin (Hytrin) 2 mg p.o. b.i.d., acetaminophen 500 mg p.o. q.6 hours p.r.n. pain, vitamin B12 1000 mcg p.o. oral, Flonase 2 sprays in each nostril at bedtime, folic acid 1 mg p.o. daily, gabapentin (Neurontin) 300 mg p.o. at bedtime, potassium chloride 20 mEq p.o. daily, ranitidine one tablet p.o. b.i.d., zyrtec 10 mg p.o. daily p.r.n., Colace two tabs p.o. daily, ketotifen 0.025% ophthalmic solution 1 drop both eyes b.i.d. p.r.n., lisinopril 40 mg p.o. b.i.d., Zofran ODT 4 mg sublingual q.4 hours p.r.n. nausea, aspirin 1 tablet p.o. b.i.d., dose not listed, Lasix 20 mg p.o. daily, [place] 10/325 mg one tablet every 4 hours p.r.n. pain, MiraLAX 17 g p.o. daily, and Compazine 5 mg p.o. t.i.d. PAST MEDICAL HISTORY: HEENT: Allergic rhinitis, impaired vision, nearsighted and farsightedness. CARDIOVASCULAR: Hypertension. GI: Diverticulitis, GERD, colon polyp and Tam's esophagus as well as bezoar. : Urinary incontinence, has recurrent UTI. 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 MUSCULOSKELETAL: Osteoarthritis, chronic back pain, right knee pain. NEUROLOGICAL: Peripheral neuropathy, TIA. ENDOCRINE: Osteoporosis. HEMATOLOGY: Anemia, B12 deficiency, has had history of blood transfusion and iron deficiency anemia. INFECTIOUS DISEASE: Negative. PAST SURGICAL HISTORY: 1. Nasal sinus surgery. 2. Cholecystectomy. 3. several EGDs and colonoscopies. 4. Inguinal hernia x2. 5. Esophagogastrectomy. 6. Breast biopsy. 7. Hysterectomy with oophorectomy. 8. Shoulder surgery. 9. Back surgery x2. 10.Breast biopsy. FAMILY HISTORY: Noncontributory. SOCIAL HISTORY: Does not smoke. Alcohol, two drinks three times weekly. Daily use of caffeine in the form of coffee, soda and tea. REVIEW OF SYSTEMS: GENERAL: Reports dizziness and weakness. No headache. HEENT: Negative. RESPIRATORY: No shortness of breath or cough. CARDIOVASCULAR: No chest pain, shortness of breath, fast or irregular heart beat. GI: As above. : Negative. MUSCULOSKELETAL: Chronic back and knee pain. SKIN: No rash. NEURO: Neuropathy bilaterally. EXTREMITIES and SKIN: No rash. PHYSICAL EXAMINATION: GENERAL: Aby Dumont is a pleasant 78-year-old female, height is 5 feet 3 inches. Weight is 144 pounds. BMI is 25.5. TPR is 98, 66, 18, blood pressure 144/80. HEENT: Negative. NECK: Supple. HEART: Regular rate and rhythm. LUNGS: Clear. ABDOMEN: Generalized tenderness. Slight distention. EXTREMITIES: Without peripheral edema. NEURO: Intact. SKIN: Without rash. PSYCHIATRIC: Mood and affect appropriate. ASSESSMENT: Gastrointestinal bleed, weakness, hypertension, osteoarthritis, gastroesophageal reflux disease, bilateral primary osteoarthritis of knees, history of transient ischemic attack, history of Tam's esophagus, urinary incontinence, history of blood transfusion B12 deficiency, iron deficiency anemia, diverticulosis. PLAN: Schedule and have consent signed for upper endoscopy and colonoscopy with possible hemorrhoid banding. Case to follow 12/25/2018, IV local sedation, n.p.o., Benton Washington MD. Check CBC, CMP, mag, phos, and BNP in a.m. We will evaluate p.r.n. or in a.m. Thank you for this consultation. Hemalatha Naranjo PA-C /[id number]
[2018-12-25] MEDS ORDERED: fentaNYL 100 MCG/2 ML SDV ONE (10:08)
[2018-12-25] MEDS ORDERED: Propofol 200 MG/20 ML SDV ONE (10:08)
[2018-12-25] MEDS: METOPROLOL TARTRATE 25 MG PO SCH ×2 (10:24→20:13)
--- NOTE | 2018-12-25 12:22 | PCM.PN ---
- General Info Date of Service: 12/25/18 Subjective Update: Ayb was admitted last night after episodes of abdominal pain and bright red blood per rectum. She had a bowel prep overnight which was uneventful. EGD this morning showed some gastritis. Colonoscopy showed colitis of the descending colon. I was asked to comment on the nature of the colitis today. She reports mild left upper quadrant abdominal pain. She has been passing gas. No significant blood in her stool since the bowel prep. Symptoms came on suddenly yesterday and were associated with diaphoresis and chills. Clostridium difficile testing was negative. No sick contacts or travel. Functional Status: Reports: Pain Controlled - Review of Systems General: Denies: Fever Gastrointestinal: Reports: Abdominal Pain, Diarrhea, Hematochezia - Patient Data Vitals - Most Recent: Last Vital Signs Temp 36.1 C 12/25/18 11:26 Pulse 62 12/25/18 11:26 Resp 18 12/25/18 11:26 BP 156/89 H 12/25/18 11:26 Pulse Ox 100 12/25/18 11:26 Weight - Most Recent: 65.317 kg I&O - Last 24 Hours: Intake & Output 12/24/18 12/25/18 12/25/18 22:59 06:59 14:59 Intake Total 1983 Output Total 200 50 Balance 1783 -50 Lab Results Last 24 Hours: Laboratory Results - last 24 hr 12/24/18 12/24/18 12/24/18 Range/Units 22:11 22:11 22:11 WBC 9.8 (4.5-11.0) K/uL RBC 4.40 (3.30-5.50) M/uL Hgb 12.4 (12.0-15.0) g/dL Hct 38.6 (36.0-48.0) % MCV 88 (80-98) fL MCH 28 (27-31) pg MCHC 32 (32-36) % Plt Count 293 (150-400) K/uL Neut % (Auto) 78 H (36-66) % Lymph % (Auto) 13 L (24-44) % Howard % (Auto) 8 H (2-6) % Eos % (Auto) 1 L (2-4) % Baso % (Auto) 0 (0-1) % PT 10.7 (9.5-12.0) sec INR 0.97 (0.80-1.20) APTT 26.8 L (27.0-36.0) sec Sodium 138 L (140-148) mmol/L Potassium 3.7 (3.6-5.2) mmol/L Chloride 101 (100-108) mmol/L Carbon Dioxide 27 (21-32) mmol/L Anion Gap 13.7 (5.0-14.0) mmol/L BUN 22 H D (7-18) mg/dL Creatinine 1.1 H (0.6-1.0) mg/dL Est Cr Clr Drug Dosing 35.99 mL/min Estimated GFR (MDRD) 48 L (>60) Glucose 102 (74-106) mg/dL Lactic Acid (0.4-2.0) mmol/L Calcium 9.1 (8.5-10.1) mg/dL Total Bilirubin 0.6 (0.2-1.0) mg/dL AST 20 (15-37) U/L ALT 14 (12-78) U/L Alkaline Phosphatase 103 (46-116) U/L Total Protein 7.3 (6.4-8.2) g/dL Albumin 3.5 (3.4-5.0) g/dL Globulin 3.8 H (2.3-3.5) g/dL Albumin/Globulin Ratio 0.9 L (1.2-2.2) 12/24/18 12/25/18 12/25/18 Range/Units 22:11 00:19 03:31 WBC (4.5-11.0) K/uL RBC (3.30-5.50) M/uL Hgb 11.6 L 11.6 L (12.0-15.0) g/dL Hct (36.0-48.0) % MCV (80-98) fL MCH (27-31) pg MCHC (32-36) % Plt Count (150-400) K/uL Neut % (Auto) (36-66) % Lymph % (Auto) (24-44) % Howard % (Auto) (2-6) % Eos % (Auto) (2-4) % Baso % (Auto) (0-1) % PT (9.5-12.0) sec INR (0.80-1.20) APTT (27.0-36.0) sec Sodium (140-148) mmol/L Potassium (3.6-5.2) mmol/L Chloride (100-108) mmol/L Carbon Dioxide (21-32) mmol/L Anion Gap (5.0-14.0) mmol/L BUN (7-18) mg/dL Creatinine (0.6-1.0) mg/dL Est Cr Clr Drug Dosing mL/min Estimated GFR (MDRD) (>60) Glucose (74-106) mg/dL Lactic Acid 1.2 (0.4-2.0) mmol/L Calcium (8.5-10.1) mg/dL Total Bilirubin (0.2-1.0) mg/dL AST (15-37) U/L ALT (12-78) U/L Alkaline Phosphatase (46-116) U/L Total Protein (6.4-8.2) g/dL Albumin (3.4-5.0) g/dL Globulin (2.3-3.5) g/dL Albumin/Globulin Ratio (1.2-2.2) 12/25/18 12/25/18 12/25/18 Range/Units 05:43 07:25 09:25 WBC (4.5-11.0) K/uL RBC (3.30-5.50) M/uL Hgb 11.3 L 11.3 L 10.8 L (12.0-15.0) g/dL Hct (36.0-48.0) % MCV (80-98) fL MCH (27-31) pg MCHC (32-36) % Plt Count (150-400) K/uL Neut % (Auto) (36-66) % Lymph % (Auto) (24-44) % Howard % (Auto) (2-6) % Eos % (Auto) (2-4) % Baso % (Auto) (0-1) % PT (9.5-12.0) sec INR (0.80-1.20) APTT (27.0-36.0) sec Sodium (140-148) mmol/L Potassium (3.6-5.2) mmol/L Chloride (100-108) mmol/L Carbon Dioxide (21-32) mmol/L Anion Gap (5.0-14.0) mmol/L BUN (7-18) mg/dL Creatinine (0.6-1.0) mg/dL Est Cr Clr Drug Dosing mL/min Estimated GFR (MDRD) (>60) Glucose (74-106) mg/dL Lactic Acid (0.4-2.0) mmol/L Calcium (8.5-10.1) mg/dL Total Bilirubin (0.2-1.0) mg/dL AST (15-37) U/L ALT (12-78) U/L Alkaline Phosphatase (46-116) U/L Total Protein (6.4-8.2) g/dL Albumin (3.4-5.0) g/dL Globulin (2.3-3.5) g/dL Albumin/Globulin Ratio (1.2-2.2) Med Orders - Current: Current Medications Acetaminophen (Tylenol Extra Strength) 500 mg PO Q6H PRN PRN Reason: Pain Hydrocodone Bitart/Acetaminophen ([place] 325-10 Mg) 1 tab PO Q4H PRN PRN Reason: Pain Furosemide (Lasix) 20 mg PO DAILY [facility] Gabapentin (Neurontin) 300 mg PO BEDTIME [facility] Lactated Ringer's (Ringers, Lactated) 1,000 mls @ 125 mls/hr IV ASDIRECTED [facility] Last Admin: 12/25/18 06:12 Dose: 125 mls/hr Ciprofloxacin/Dextrose 400 mg/ (Premix) 200 mls @ 200 mls/hr IV Q12H [facility] Ketotifen Fumarate (Ketotifen 0.025% Ophth Soln) 0 ml EYEBOTH BID PRN PRN Reason: Allergies Metoprolol Tartrate (Lopressor) 25 mg PO BID [facility] Last Admin: 12/25/18 10:24 Dose: 25 mg Ondansetron HCl (Zofran Odt) 4 mg PO Q4H PRN PRN Reason: Nausea Lisinopril 40mg ( (Ptom)) 0 each PO BID [facility] Terazosin 2mg (Ptom) 0 each PO BID [facility] Potassium Chloride (Klor-Con M20) 20 meq PO DAILY [facility] Sodium Chloride (Saline Flush) 10 ml FLUSH ASDIRECTED PRN PRN Reason: Keep Vein Open Last Admin: 12/24/18 22:29 Dose: 10 ml Discontinued Medications Bisacodyl (Dulcolax) 10 mg PO ONETIME ONE Stop: 12/25/18 00:44 Last Admin: 12/25/18 01:29 Dose: 10 mg Fentanyl (Sublimaze) Confirm Administered Dose 100 mcg .ROUTE .STK-MED ONE Stop: 12/25/18 10:09 Lactated Ringer's (Ringers, Lactated) 1,000 mls @ 125 mls/hr IV ASDIRECTED [facility] Last Admin: 12/24/18 22:28 Dose: 125 mls/hr Pantoprazole Sodium (Protonix Iv) 40 mg IV ONETIME ONE Stop: 12/25/18 00:20 Last Admin: 12/25/18 01:30 Dose: 40 mg Polyethylene Glycol (Miralax) 238 gm PO ONETIME ONE Stop: 12/25/18 00:42 Last Admin: 12/25/18 01:29 Dose: 238 gm Propofol (Diprivan 20 Ml) Confirm Administered Dose 200 mg .ROUTE .STK-MED ONE Stop: 12/25/18 10:09 - Exam Quality Assessment: No: Supplemental Oxygen General: Alert, Oriented, Cooperative, No Acute Distress Lungs: Normal Respiratory Effort GI/Abdominal Exam: Soft, No Distention, Tender Extremities: No Pedal Edema Psy/Mental Status: Alert, Normal Affect - Problem List & Annotations (1) Colitis presumed infectious SNOMED Code(s): 59415893 Code(s): K52.9 - NONINFECTIVE GASTROENTERITIS AND COLITIS, UNSPECIFIED Status: Acute Current Visit: Yes - Problem List Review Problem List Initiated/Reviewed/Updated: Yes - My Orders Last 24 Hours: My Active Orders 12/25/18 12:16 Ang Abdomen [CT] Routine 12/25/18 12:30 Ciprofloxacin in D5W [Cipro in D5W 400 MG/200 ML] 400 mg Premix Bag 1 bag IV Q12H - Plan Plan:: ASSESSMENT AND PLAN - Colitis involving the descending colon - most likely infectious. CT scan of the abdomen did not show any vascular abnormalities. Symptom onset was associated with diaphoresis and chills raising concern for bacterial infection. No suspect ingestions or recent travel or sick contacts. Stool studies are pending but Clostridium difficile testing was negative. -Empiric ciprofloxacin -Follow-up stool studies and culture -Follow-up biopsy results -Pain control and symptom management Acute gastrointestinal bleeding - Seems to be relatively mild at this time with only minimal drop in hemoglobin. No indication for transfusion. Bleeding likely related to the colitis. -Recheck hemoglobin in the morning and management as above Maintenance issues - - DVT prophylaxis - mechanical with active bleeding - GI prophylaxis - PPI - Nutrition - nothing by mouth currently Disposition - I would anticipate discharge home after the hospital stay Holland Bruce M.D.
[2018-12-25] MEDS: POTASSIUM CHLORIDE 20 MEQ PO SCH (13:15)
[2018-12-25] MEDS ORDERED: Sodium Chloride 0.9% 10 ML Syringe FLUSH ONE (13:17)
[2018-12-25] MEDS: TERAZOSIN 2 MG PO SCH ×2 (13:17→20:13)
[2018-12-25] MEDS: Furosemide 20 MG Tab PO SCH (13:18)
[2018-12-25] MEDS: LISINOPRIL 40MG (PTOM) PO SCH ×2 (13:19→20:14)
[2018-12-25] MEDS ORDERED: Iopamidol 755 Mg/ML 100 ML Bottle IV SCH (13:30)
[2018-12-25] MEDS ORDERED: Sodium Chloride 0.9% 100 ML IV SCH (13:30)
[2018-12-25] MEDS: Ciprofloxacin in D5W 400 MG in Premix Bag 1 BAG IV SCH ×4 (14:00→23:57)
--- NOTE | 2018-12-25 14:25 | CRLCT ---
INDICATION: Left-sided colitis. Assess for SYLVIA occlusion. TECHNIQUE: CT abdomen angio acquired with 100 cc Isovue 370 IV contrast. COMPARISON: None. FINDINGS: Lower chest: Large hiatal hernia contains the majority of the stomach. Liver: Unremarkable. Normal in size and attenuation. No masses. Gallbladder and bile ducts: Status post cholecystectomy. Pancreas: Unremarkable. No mass or inflammation. Spleen: Unremarkable. Normal in size. No masses. Adrenal glands: Unremarkable. No nodules. Kidneys: Unremarkable. No masses, stones, or hydronephrosis. GI tract: Wall thickening and inflammation in the descending colon consistent with colitis. There is air and fluid distension of the remainder of the colon proximal to the colitis. Small bowel is unremarkable. Vasculature: Mild ectasia of the abdominal aorta without aneurysm. The celiac, superior mesenteric, and inferior mesenteric arteries are patent. Lymph nodes: No lymphadenopathy. Omentum/Peritoneum/Abdominal Wall: Ventral midline abdominal hernia repair changes are present. No free air and no fluid collection. Bones: Unremarkable for age. IMPRESSION: 1. Acute colitis in the descending colon, likely infectious in nature. 2. Unremarkable vasculature. The mesenteric arteries are patent. 3. Large hiatal hernia with the majority of the stomach in the chest. Dictated by Andrea Perry MD @ 12/25/2018 2:23:59 PM Please note that all CT scans at this facility use dose modulation, iterative reconstruction, and/or weight-based dosing when appropriate to reduce radiation dose to as low as reasonably achievable. Dictated by: Andrea Perry MD @ 12/25/2018 14:24:07 (Electronically Signed)
[2018-12-25] MEDS: Pantoprazole 40 MG Vial IV SCH (15:30)
[2018-12-25] MEDS: Gabapentin 300 MG (PTOM) PO SCH (20:12)
[2018-12-26] MEDS: Pantoprazole 40 MG Vial IV SCH (01:31)
[2018-12-26] MEDS: Furosemide 20 MG Tab PO SCH (09:19)
[2018-12-26] MEDS: TERAZOSIN 2 MG PO SCH ×2 (09:20→21:57)
[2018-12-26] MEDS: LISINOPRIL 40MG (PTOM) PO SCH ×2 (09:20→21:59)
[2018-12-26] MEDS: METOPROLOL TARTRATE 25 MG PO SCH ×2 (09:20→21:59)
[2018-12-26] MEDS: POTASSIUM CHLORIDE 20 MEQ PO SCH (09:21)
[2018-12-26] MEDS ORDERED: Potassium Chloride 20 MEQ Tab.ER PO ONE (09:30)
--- NOTE | 2018-12-26 10:10 | PN ---
DATE OF SERVICE: 12/26/2018 SUBJECTIVE: Aby had an EGD and colonoscopy yesterday, did show some gastritis and severe colitis. She was started on Cipro. She continues to have red stools, which is concerning for her. Hemoglobin this morning was 10.6. Reports minimal pain. REVIEW OF SYSTEMS: Remainder of review of systems negative for any pertinent positives and negatives. OBJECTIVE: GENERAL: Aby Dumont is a 78-year-old female. She is alert, orientated, color pale. VITAL SIGNS: TPR 97.6, 57, 16, blood pressure is 138/77. HEENT: Negative. NECK: Supple. HEART: Regular rate and rhythm. LUNGS: Clear. ABDOMEN: Soft. Minimal tenderness is noted in all 4 quadrants. EXTREMITIES: Without peripheral edema. ASSESSMENT: 1. Colitis. 2. Gastritis. 3. EGD and colonoscopy, date 12/25/2018. PLAN: 1. Continue same orders. 2. We will evaluate p.r.n. or in a.m. Hemalatha Naranjo PA-C /[id number]
[2018-12-26] MEDS ORDERED: Magnesium Sulfate/Water 2 GM in Premix Bag 1 BAG IV ONE (10:30)
[2018-12-26] MEDS: Ciprofloxacin in D5W 400 MG in Premix Bag 1 BAG IV SCH ×2 (11:46)
--- NOTE | 2018-12-26 13:40 | PCM.PN ---
- General Info Date of Service: 12/26/18 Subjective Update: there were no acute events overnight. She has only very mild left-sided abdominal pain. She does continue to have some blood in her diarrhea bowel movements. These are less frequent. She has not had any fevers. Stool studies so far are unremarkable. She feels a fair amount better today than yesterday. Appetite is improving. Tolerating full liquids with no problems. Hemoglobin stable. Functional Status: Reports: Pain Controlled, Tolerating Diet - Review of Systems General: Denies: Fever Gastrointestinal: Reports: Abdominal Pain (mild), Hematochezia - Patient Data Vitals - Most Recent: Last Vital Signs Temp 36.3 C 12/26/18 08:16 Pulse 59 L 12/26/18 10:59 Resp 16 12/26/18 10:59 BP 156/84 H 12/26/18 10:59 Pulse Ox 98 12/26/18 10:59 Weight - Most Recent: 65.771 kg I&O - Last 24 Hours: Intake & Output 12/25/18 12/26/18 12/26/18 22:59 06:59 14:59 Intake Total 1437 1732 480 Output Total 900 2200 1500 Balance 537 468 1020 Lab Results Last 24 Hours: Laboratory Results - last 24 hr 12/26/18 12/26/18 Range/Units 04:20 04:20 WBC 7.0 (4.5-11.0) K/uL RBC 3.78 (3.30-5.50) M/uL Hgb 10.6 L (12.0-15.0) g/dL Hct 33.4 L (36.0-48.0) % MCV 88 (80-98) fL MCH 28 (27-31) pg MCHC 32 (32-36) % Plt Count 260 (150-400) K/uL Sodium 141 (140-148) mmol/L Potassium 3.0 L (3.6-5.2) mmol/L Chloride 104 (100-108) mmol/L Carbon Dioxide 28 (21-32) mmol/L Anion Gap 12.0 (5.0-14.0) mmol/L BUN 10 D (7-18) mg/dL Creatinine 0.7 (0.6-1.0) mg/dL Est Cr Clr Drug Dosing 56.54 mL/min Estimated GFR (MDRD) > 60 (>60) Glucose 86 (74-106) mg/dL Calcium 8.5 (8.5-10.1) mg/dL Phosphorus 3.4 (2.5-4.9) mg/dL Magnesium 1.5 L (1.8-2.4) mg/dL Total Bilirubin 0.5 (0.2-1.0) mg/dL AST 13 L (15-37) U/L ALT 11 L (12-78) U/L Alkaline Phosphatase 78 (46-116) U/L Total Protein 5.8 L (6.4-8.2) g/dL Albumin 2.6 L (3.4-5.0) g/dL Globulin 3.2 (2.3-3.5) g/dL Albumin/Globulin Ratio 0.8 L (1.2-2.2) [place] Results Last 24 Hours: Microbiology 12/25/18 10:54 CLOtest - Final Stomach NEGATIVE CLOTEST 12/25/18 11:32 Stool Culture - Preliminary Stool / Feces - Stool, Liquid NORMAL ENTERIC AISHA 1 DAY Shiga Toxin I - Final NEGATIVE FOR SHIGA TOXIN 1 Shiga Toxin II - Final NEGATIVE FOR SHIGA TOXIN 2 Clostridium difficile (PCR) - Final NEGATIVE CDIFF TOXIN Med Orders - Current: Current Medications Acetaminophen (Tylenol Extra Strength) 500 mg PO Q6H PRN PRN Reason: Pain Last Admin: 12/25/18 17:12 Dose: 500 mg Hydrocodone Bitart/Acetaminophen ([place] 325-10 Mg) 1 tab PO Q4H PRN PRN Reason: Pain Ciprofloxacin (Ciprofloxacin Hcl) 500 mg PO BID [facility] Ciprofloxacin (Ciprofloxacin Hcl) 500 mg PO ONETIME ONE Stop: 12/26/18 23:01 Furosemide (Lasix) 20 mg PO DAILY [facility] Last Admin: 12/26/18 09:19 Dose: 20 mg Gabapentin (Neurontin) 300 mg PO BEDTIME [facility] Last Admin: 12/25/18 20:12 Dose: 300 mg Ciprofloxacin/Dextrose 400 mg/ (Premix) 200 mls @ 200 mls/hr IV Q12H [facility] Stop: 12/26/18 15:00 Last Admin: 12/26/18 11:46 Dose: 200 mls/hr Magnesium Sulfate 2 gm/ Premix 50 mls @ 12.5 mls/hr IV ONETIME ONE Stop: 12/26/18 14:29 Ketotifen Fumarate (Ketotifen 0.025% Ophth Soln) 0 ml EYEBOTH BID PRN PRN Reason: Allergies Lactobacillus Rhamnosus (Culturelle) 1 cap PO BID [facility] Metoprolol Tartrate (Lopressor) 25 mg PO BID [facility] Last Admin: 12/26/18 09:20 Dose: 25 mg Ondansetron HCl (Zofran Odt) 4 mg PO Q4H PRN PRN Reason: Nausea Pantoprazole Sodium (Protonix) 40 mg PO BIDAC [facility] Lisinopril 40mg ( (Ptom)) 0 each PO BID [facility] Last Admin: 12/26/18 09:20 Dose: 1 each Terazosin 2mg (Ptom) 0 each PO BID [facility] Last Admin: 12/26/18 09:20 Dose: 1 each Potassium Chloride (Klor-Con M20) 20 meq PO DAILY [facility] Last Admin: 12/26/18 09:21 Dose: 20 meq Sodium Chloride (Saline Flush) 10 ml FLUSH ASDIRECTED PRN PRN Reason: Keep Vein Open Last Admin: 12/24/18 22:29 Dose: 10 ml Discontinued Medications Bisacodyl (Dulcolax) 10 mg PO ONETIME ONE Stop: 12/25/18 00:44 Last Admin: 12/25/18 01:29 Dose: 10 mg Fentanyl (Sublimaze) Confirm Administered Dose 100 mcg .ROUTE .STK-MED ONE Stop: 12/25/18 10:09 Lactated Ringer's (Ringers, Lactated) 1,000 mls @ 125 mls/hr IV ASDIRECTED [facility] Last Admin: 12/24/18 22:28 Dose: 125 mls/hr Lactated Ringer's (Ringers, Lactated) 1,000 mls @ 125 mls/hr IV ASDIRECTED [facility] Last Admin: 12/25/18 22:00 Dose: 125 mls/hr Sodium Chloride (Normal Saline) 100 mls @ 3 mls/sec IV ASDIRECTED [facility] Stop: 12/25/18 14:00 Last Admin: 12/25/18 13:47 Dose: 3 mls/sec Iopamidol (Isovue-370 (76%)) 100 ml IV . DIRECTED [facility] Stop: 12/25/18 14:00 Last Admin: 12/25/18 13:47 Dose: 100 ml Pantoprazole Sodium (Protonix Iv) 40 mg IV ONETIME ONE Stop: 12/25/18 00:20 Last Admin: 12/25/18 01:30 Dose: 40 mg Pantoprazole Sodium (Protonix Iv) 40 mg IV Q12H [facility] Last Admin: 12/26/18 01:31 Dose: 40 mg Polyethylene Glycol (Miralax) 238 gm PO ONETIME ONE Stop: 12/25/18 00:42 Last Admin: 12/25/18 01:29 Dose: 238 gm Potassium Chloride (Klor-Con M20) 40 meq PO ONETIME ONE Stop: 12/26/18 09:31 Last Admin: 12/26/18 09:23 Dose: 40 meq Propofol (Diprivan 20 Ml) Confirm Administered Dose 200 mg .ROUTE .STK-MED ONE Stop: 12/25/18 10:09 Sodium Chloride (Saline Flush) 10 ml FLUSH ONETIME ONE Stop: 12/25/18 13:18 Last Admin: 12/25/18 13:48 Dose: 10 ml - Exam Quality Assessment: No: Supplemental Oxygen General: Alert, Oriented, Cooperative, No Acute Distress Lungs: Normal Respiratory Effort GI/Abdominal Exam: Soft, No Distention Extremities: No Pedal Edema Psy/Mental Status: Alert, Normal Affect - Problem List & Annotations (1) Colitis presumed infectious SNOMED Code(s): 60240395 Code(s): K52.9 - NONINFECTIVE GASTROENTERITIS AND COLITIS, UNSPECIFIED Status: Acute Current Visit: Yes - Problem List Review Problem List Initiated/Reviewed/Updated: Yes - My Orders Last 24 Hours: My Active Orders 12/26/18 10:30 Magnesium Sulfate/Water [Magnesium Sulfate 2 GM in Water 50 ML] 2 gm Premix Bag 1 bag IV ONETIME 12/26/18 16:30 Pantoprazole [ProTONIX] 40 mg PO BIDAC 12/26/18 21:00 Lactobacillus Rhamnosus GG [Culturelle] 1 cap PO BID 12/26/18 23:00 Ciprofloxacin [Ciprofloxacin HCl] 500 mg PO ONETIME ONE 12/26/18 Lunch Mechanical Soft Diet [DIET] 12/27/18 05:00 BASIC METABOLIC PANEL,BMP [CHEM] Timed HGB [HEMOGLOBIN] [HEME] Timed 12/27/18 09:00 Ciprofloxacin [Ciprofloxacin HCl] 500 mg PO BID - Plan Plan:: ASSESSMENT AND PLAN - Colitis involving the descending colon - most likely infectious. CT scan of the abdomen did not show any vascular abnormalities. stool studies unremarkable so far. Still having some hematochezia but clinically improving and the amount of blood is decreasing. bacterial source still suspected. -Empiric ciprofloxacin (transitioning to oral this evening) -probiotics -Follow-up stool studies and culture -Follow-up biopsy results -Pain control and symptom management Acute gastrointestinal bleeding - mild but persistent. Hemoglobin stable. Secondary to colitis. -Recheck hemoglobin in the morning and management as above Gastritis - noted on the EGD. Moderate in nature. -Twice daily PPI Maintenance issues - - DVT prophylaxis - mechanical with active bleeding - GI prophylaxis - PPI - Nutrition - mechanical soft diet Disposition - I would anticipate discharge home after the hospital stay Holland Bruce M.D.
[2018-12-26] MEDS: Pantoprazole 40 MG Tab.CR PO SCH (17:54)
[2018-12-26] MEDS: Lactobacillus Rhamnosus GG (Probiotic) Cap PO SCH (21:57)
[2018-12-26] MEDS: Gabapentin 300 MG (PTOM) PO SCH (21:59)
[2018-12-26] MEDS ORDERED: Ciprofloxacin 500 MG Tab PO ONE (23:00)
[2018-12-27] MEDS: Pantoprazole 40 MG Tab.CR PO SCH (07:41)
[2018-12-27] MEDS: Lactobacillus Rhamnosus GG (Probiotic) Cap PO SCH (08:50)
[2018-12-27] MEDS: POTASSIUM CHLORIDE 20 MEQ PO SCH (08:52)
[2018-12-27] MEDS: METOPROLOL TARTRATE 25 MG PO SCH (08:53)
[2018-12-27] MEDS: LISINOPRIL 40MG (PTOM) PO SCH (08:53)
[2018-12-27] MEDS: Furosemide 20 MG Tab PO SCH (08:53)
[2018-12-27] MEDS: TERAZOSIN 2 MG PO SCH (08:55)
[2018-12-27] MEDS ORDERED: Potassium Chloride 20 MEQ Tab.ER PO ONE (09:00)
[2018-12-27] MEDS ORDERED: Ciprofloxacin 500 MG Tab PO SCH (09:00)
[2018-12-27 11:29] VITALS: BP 174/92
--- NOTE | 2018-12-27 11:50 | PN ---
DATE OF SERVICE: 12/27/2018 SUBJECTIVE: Aby will be discharged today per Holland Bruce MD. She has had no further bloody stools. She is on ciprofloxacin twice daily, tolerating that well. REVIEW OF SYSTEMS: HEENT: Negative. NECK: Negative. HEART: No chest pain, shortness of breath, fast or irregular heart beat. LUNGS: No shortness of breath. ABDOMEN: No further bloody stools. Denies any heartburn, nausea, vomiting, diarrhea, or constipation. EXTREMITIES: Negative. NEUROLOGIC: Negative for headache or dizziness. PSYCHIATRIC: Negative. SKIN: Negative for rash. Remainder of review of systems negative for any pertinent positives and negatives. OBJECTIVE: GENERAL: Aby Dumont is a pleasant 78-year-old female. VITAL SIGNS: TPR, 97.2, 57, 18, blood pressure 165/97. HEENT: Negative. NECK: Supple. HEART: Regular rate and rhythm. LUNGS: Clear. ABDOMEN: Soft, nontender. EXTREMITIES: Without peripheral edema. NEUROLOGIC: Intact. PSYCHIATRIC: Mood and affect appropriate. ASSESSMENT: 1. Colitis. 2. Minimal gastritis seen on EGD. 3. EGD and colonoscopy, B[place] MD, 12/25/2018. PLAN: Discharge orders per Holland Bruce MD. Hemalatha Naranjo PA-C /[id number]
--- NOTE | 2018-12-27 11:59 | PCM.DCSUM1 ---
Discharge Summary - Hospital Course Brief History: 78-year-old female who presented with bright red blood per rectum and left-sided abdominal pain. She was admitted for management of GI bleed. Diagnosis: Stroke: No - Discharge Data Discharge Date: 12/27/18 Discharge Disposition: Home, Self-Care 01 Condition: Good - Discharge Diagnosis/Problem(s) (1) Colitis presumed infectious SNOMED Code(s): 42088845 ICD Code: K52.9 - NONINFECTIVE GASTROENTERITIS AND COLITIS, UNSPECIFIED Status: Acute (2) Bright red blood per rectum SNOMED Code(s): 48699516 ICD Code: K62.5 - HEMORRHAGE OF ANUS AND RECTUM Status: Acute - Patient Summary/Data Consults: Consultations 12/25/18 12:20 Consult to Physician [CONS] Routine Consulting Provider: Benton Washington Call Completed to Consulting Physician: Yes Reason for Consult: colitis Person Notified: Yes Date Notified: 12/25/18 Time Notified: 12:21 Special Instructions: Notified by Dr. Washington Labs Pending at D/C: Colonoscopy biopsy results are pending at the time of discharge Hospital Course: Aby presented to the emergency room with left-sided abdominal pain, nausea and bloody stools. Workup in the emergency room revealed a stable hemoglobin and mildly elevated white blood cell count. There was theo blood noted in her stool in the emergency room. She was admitted for EGD and colonoscopy as well as further evaluation and management. The morning after admission she had an EGD which showed some gastritis and a hiatal hernia. She also had a colonoscopy which showed colitis with evidence for some bleeding on the left side of her colon mostly in the descending colon. Biopsies were taken. Internal medicine was consulted after the colonoscopy revealed colitis and a CT scan was obtained. This was done with IV contrast to look for evidence of obstruction of the inferior mesenteric artery and for chewing on was seen. It did confirm colitis involving the descending colon and appeared to be infectious based on its appearance. She was empirically started on ciprofloxacin and stool studies were obtained. Clostridium difficile testing was negative and stool studies have all been unremarkable throughout the first 48 hours postoperatively. Her pain and bleeding have improved significantly. She has not had any blood in her stool in 24 hours. She has not had any fevers. Appetite has been good and she's been tolerating advances in her diet. The exact cause for the colitis is not entirely clear but I'm strongly suspecting that this was a bacterial infection. She seems to be getting better with the ciprofloxacin and I will continue this for a total of one week of therapy. She will be following up in 1 week's time and will return if symptoms do not continue to get better or if they worsen in the meantime. In addition to her prescription for ciprofloxacin she does have a prescription for pantoprazole which she will take twice daily to help with her gastritis as well as a probiotics for the next 2 weeks or so. - Patient Instructions Diet: Regular Diet as Tolerated Activity: As Tolerated Showering/Bathing: May Shower Notify Provider of: Fever, Increased Pain, Nausea and/or Vomiting Other/Special Instructions: 1. You were in the hospital for evaluation of bright red blood per rectum. We performed an EGD which revealed some inflammation in your stomach but was likely not the source of bleeding. I do recommend pantoprazole 40 mg twice daily with meals for one month to help heal up the inflammation. We also completed a colonoscopy which showed colitis involving the left side of your colon. I suspect that this was related to a bacterial infection though we did not determine a definite causative bacteria. I recommend 11 additional doses of ciprofloxacin. You should take 500 mg twice daily with your next dose being due tonight. I would also recommend that you take a probiotic twice daily for the next 2 weeks or so. This will help to restore normal bacterial micaela in your intestine and improve your digestive health. 2. Continue your other home medications as previously prescribed. 3. Follow up with Dr. Perdue next week as scheduled. 4. Seek medical attention if you have fever greater than 101, significant blood in your stool or if you develop severe abdominal pain. - Discharge Plan *PRESCRIPTION DRUG MONITORING PROGRAM REVIEWED*: Not Applicable *COPY OF PRESCRIPTION DRUG MONITORING REPORT IN PATIENT JESUS: Not Applicable Prescriptions/Med Rec: Ciprofloxacin [Ciprofloxacin HCl] 500 mg PO BID #11 tablet Pantoprazole [ProTONIX] 40 mg PO BIDAC #60 tab.cr Home Medications: Home Meds Metoprolol Tartrate [Lopressor] 25 mg PO BID 08/27/14 [History] Naproxen Sodium [Aleve] 220 mg PO DAILY PRN 08/27/14 [History] Terazosin [Hytrin] 2 mg PO BID 08/27/14 [History] Acetaminophen 500 mg PO Q6HR PRN 03/01/16 [History] Cyanocobalamin (Vitamin B-12) [B-12] 1,000 mcg PO DAILY 03/01/16 [History] Fluticasone Propionate [Flonase] 2 sprays NS DAILY 03/01/16 [History] Folic Acid 1 mg PO DAILY 03/01/16 [History] Gabapentin [Neurontin] 300 mg PO BEDTIME 03/01/16 [History] Potassium Chloride [Klor-Con] 20 meq PO DAILY 10/26/16 [History] Ranitidine HCl [Ranitidine] 1 tab PO BID 03/19/18 [History] Cetirizine HCl [Zyrtec] 10 mg PO DAILY PRN 06/14/18 [History] Docusate Sodium [Stool Softener] 2 tab PO DAILY 06/14/18 [History] Ketotifen [Ketotifen 0.025% Ophth Soln] 1 drop EYEBOTH BID PRN 06/14/18 [History ] Lisinopril [Prinivil] 40 mg PO BID 06/14/18 [History] Ondansetron [Zofran ODT] 4 mg SL Q4HR PRN 06/14/18 [History] Sodium Chloride 0.65% [[place] Saline] 0.1 ml JORGE DAILY PRN 06/14/18 [History] Aspirin [Aspirin EC] 1 tab PO BID 12/24/18 [History] Furosemide [Lasix] 20 mg PO DAILY 12/24/18 [History] Hydrocodone/Acetaminophen [Hydrocodon-Acetaminophn 10-325] 1 tab PO Q4H PRN [History] Polyethylene Glycol 3350 [MiraLAX] 17 gm PO DAILY 12/24/18 [History] Prochlorperazine [Compazine] 5 mg PO TID 12/24/18 [History] Ciprofloxacin [Ciprofloxacin HCl] 500 mg PO BID #11 tablet 12/27/18 [Rx] Pantoprazole [ProTONIX] 40 mg PO BIDAC #60 tab.cr 12/27/18 [Rx] Oxygen Therapy Mode: Room Air Patient Handouts: Colitis, Ciprofloxacin tablets Referrals: Filiberto Perdue MD [Primary Care Provider] - 01/02/19 1:00 pm (Please arrive 15 minutes early to register for your appointment.) - Discharge Summary/Plan Comment DC Time >30 min.: No - Patient Data Vitals - Most Recent: Last Vital Signs Temp 36.7 C 12/27/18 11:26 Pulse 52 L 12/27/18 11:26 Resp 16 12/27/18 11:26 BP 174/92 H 12/27/18 11:26 Pulse Ox 96 12/27/18 11:26 Weight - Most Recent: 65.68 kg I&O - Last 24 hours: Intake & Output 12/26/18 12/27/18 12/27/18 22:59 06:59 14:59 Intake Total 500 480 Output Total 200 1200 50 Balance -200 -700 430 Lab Results - Last 24 hrs: Laboratory Results - last 24 hr 12/27/18 12/27/18 Range/Units 04:42 04:42 Hgb 11.5 L (12.0-15.0) g/dL Sodium 142 (140-148) mmol/L Potassium 3.5 L (3.6-5.2) mmol/L Chloride 104 (100-108) mmol/L Carbon Dioxide 29 (21-32) mmol/L Anion Gap 12.5 (5.0-14.0) mmol/L BUN 13 (7-18) mg/dL Creatinine 0.9 (0.6-1.0) mg/dL Est Cr Clr Drug Dosing 43.97 mL/min Estimated GFR (MDRD) > 60 (>60) Glucose 93 (74-106) mg/dL Calcium 8.8 (8.5-10.1) mg/dL NITISH Results - Last 24 hrs: Microbiology 12/25/18 11:32 Stool Culture - Preliminary Stool / Feces - Stool, Liquid NORMAL ENTERIC MICAELA 2 DAYS Shiga Toxin I - Final NEGATIVE FOR SHIGA TOXIN 1 Shiga Toxin II - Final NEGATIVE FOR SHIGA TOXIN 2 Clostridioides difficile (PCR) - Final NEGATIVE CDIFF TOXIN 12/25/18 10:54 CLOtest - Final Stomach NEGATIVE CLOTEST Med Orders - Current: Current Medications Acetaminophen (Tylenol Extra Strength) 500 mg PO Q6H PRN PRN Reason: Pain Last Admin: 12/25/18 17:12 Dose: 500 mg Hydrocodone Bitart/Acetaminophen ([place] 325-10 Mg) 1 tab PO Q4H PRN PRN Reason: Pain Ciprofloxacin (Ciprofloxacin Hcl) 500 mg PO BID [place] Last Admin: 12/27/18 08:49 Dose: 500 mg Furosemide (Lasix) 20 mg PO DAILY [facility] Last Admin: 12/27/18 08:53 Dose: Not Given Gabapentin (Neurontin) 300 mg PO BEDTIME [facility] Last Admin: 12/26/18 21:59 Dose: 300 mg Ketotifen Fumarate (Ketotifen 0.025% Ophth Soln) 0 ml EYEBOTH BID PRN PRN Reason: Allergies Lactobacillus Rhamnosus (Culturelle) 1 cap PO BID [facility] Last Admin: 12/27/18 08:50 Dose: Not Given Metoprolol Tartrate (Lopressor) 25 mg PO BID [facility] Last Admin: 12/27/18 08:53 Dose: 25 mg Ondansetron HCl (Zofran Odt) 4 mg PO Q4H PRN PRN Reason: Nausea Pantoprazole Sodium (Protonix) 40 mg PO BIDAC [facility] Last Admin: 12/27/18 07:41 Dose: 40 mg Lisinopril 40mg ( (Ptom)) 0 each PO BID [facility] Last Admin: 12/27/18 08:53 Dose: 1 each Terazosin 2mg (Ptom) 0 each PO BID [facility] Last Admin: 12/27/18 08:55 Dose: 1 each Potassium Chloride (Klor-Con M20) 20 meq PO DAILY [facility] Last Admin: 12/27/18 08:52 Dose: 20 meq Sodium Chloride (Saline Flush) 10 ml FLUSH ASDIRECTED PRN PRN Reason: Keep Vein Open Last Admin: 12/24/18 22:29 Dose: 10 ml Discontinued Medications Bisacodyl (Dulcolax) 10 mg PO ONETIME ONE Stop: 12/25/18 00:44 Last Admin: 12/25/18 01:29 Dose: 10 mg Ciprofloxacin (Ciprofloxacin Hcl) 500 mg PO ONETIME ONE Stop: 12/26/18 23:01 Last Admin: 12/26/18 22:00 Dose: 500 mg Fentanyl (Sublimaze) Confirm Administered Dose 100 mcg .ROUTE .STK-MED ONE Stop: 12/25/18 10:09 Lactated Ringer's (Ringers, Lactated) 1,000 mls @ 125 mls/hr IV ASDIRECTED [facility] Last Admin: 12/24/18 22:28 Dose: 125 mls/hr Lactated Ringer's (Ringers, Lactated) 1,000 mls @ 125 mls/hr IV ASDIRECTED [facility] Last Admin: 12/25/18 22:00 Dose: 125 mls/hr Ciprofloxacin/Dextrose 400 mg/ (Premix) 200 mls @ 200 mls/hr IV Q12H [facility] Stop: 12/26/18 15:00 Last Admin: 12/26/18 11:46 Dose: 200 mls/hr Sodium Chloride (Normal Saline) 100 mls @ 3 mls/sec IV ASDIRECTED [facility] Stop: 12/25/18 14:00 Last Admin: 12/25/18 13:47 Dose: 3 mls/sec Magnesium Sulfate 2 gm/ Premix 50 mls @ 12.5 mls/hr IV ONETIME ONE Stop: 12/26/18 14:29 Last Admin: 12/26/18 13:50 Dose: Not Given Iopamidol (Isovue-370 (76%)) 100 ml IV . DIRECTED [facility] Stop: 12/25/18 14:00 Last Admin: 12/25/18 13:47 Dose: 100 ml Pantoprazole Sodium (Protonix Iv) 40 mg IV ONETIME ONE Stop: 12/25/18 00:20 Last Admin: 12/25/18 01:30 Dose: 40 mg Pantoprazole Sodium (Protonix Iv) 40 mg IV Q12H [facility] Last Admin: 12/26/18 01:31 Dose: 40 mg Polyethylene Glycol (Miralax) 238 gm PO ONETIME ONE Stop: 12/25/18 00:42 Last Admin: 12/25/18 01:29 Dose: 238 gm Potassium Chloride (Klor-Con M20) 40 meq PO ONETIME ONE Stop: 12/26/18 09:31 Last Admin: 12/26/18 09:23 Dose: 40 meq Potassium Chloride (Klor-Con M20) 40 meq PO ONETIME ONE Stop: 12/27/18 09:01 Last Admin: 12/27/18 08:52 Dose: 40 meq Propofol (Diprivan 20 Ml) Confirm Administered Dose 200 mg .ROUTE .STK-MED ONE Stop: 12/25/18 10:09 Sodium Chloride (Saline Flush) 10 ml FLUSH ONETIME ONE Stop: 12/25/18 13:18 Last Admin: 12/25/18 13:48 Dose: 10 ml - Exam Quality Assessment: Denies: Supplemental Oxygen General: Reports: Alert, Oriented, Cooperative, No Acute Distress Lungs: Reports: Normal Respiratory Effort GI/Abdominal Exam: Soft, No Distention Extremities: No Pedal Edema Psy/Mental Status: Reports: Alert, Normal Affect
--- NOTE | 2018-12-27 15:10 | OR ---
DATE OF PROCEDURE: 12/25/2018 PREOPERATIVE DIAGNOSIS: Rectal bleeding. POSTOPERATIVE DIAGNOSES: 1. Erosive antral gastritis. 2. Severe colitis involving the descending and sigmoid colon. OPERATIVE PROCEDURES: 1. Esophagogastroduodenoscopy with antral biopsies for CLOtest (37895). 2. Flexible colonoscopy with: a. Collection of stool for culture and sensitivity (38487). b. Biopsies of the descending and sigmoid colon (68445). ANESTHESIA: IV sedation. INDICATIONS FOR PROCEDURE: This is a 78-year-old presenting overnight with some rectal bleeding, along with some lower abdominal pain. The plan was to proceed with upper and lower endoscopy. The potential risks, including bleeding and perforation, were discussed, and the patient wished to proceed. DETAILS OF PROCEDURE: The patient was taken to the operating room and placed in a left lateral decubitus position. IV sedation was administered, after which the upper GI endoscope was passed orally through the cervical esophagogastric anastomosis and from there into the stomach, through the pyloric channel, and into the proximal duodenum. Findings included normal hypopharynx, larynx, and upper esophageal sphincter. Just below the upper esophageal sphincter was the esophagogastric anastomosis, with the patient having had a previous transhiatal esophagectomy for early-stage carcinoma in the mid . To that level, no abnormalities were noted. In the stomach, the patient, as expected, did have some persistent bezoar formation and some patchy areas of gastritis in the antrum. No blood or bleeding was seen in these areas. The pyloric channel and proximal duodenum were unremarkable. Biopsy was then obtained from the antrum and sent for CLOtest for H. pylori. Minimal bleeding from the biopsy site was seen, and the procedure was then concluded. Attention was then taken to the colonoscopy. Initial digital rectal examination was performed and was unremarkable. Colonoscope was then passed up to the level of the cecum. The patient had severe colitis beginning around 10 cm to 15 cm in from the dentate line. There was rectal sparing. The worst of this was in the sigmoid colon, where there was diffuse ulceration, a large amount of fibrinous exudate, and some scattered blood present. Above the level of the splenic flexure, the findings normalized, and the more proximal colon was unremarkable. Stool was collected diffusely through the exam and was sent for microbiologic workup, and then multiple biopsies in the sigmoid and descending colon were obtained for histologic evaluation. Minimal bleeding from the biopsy site was seen, and the procedure was then concluded. The patient was taken to the recovery room in satisfactory condition. PLAN: The case was reviewed with Dr. Bruce, the hospitalist, who will assume care of this issue. We will obtain a CT angiogram of the abdomen and pelvis to rule out any vascular compromise, as the distribution would be in the inferior mesenteric artery distribution. It will also tell us whether or not there is anyting else going on in the abdomen or pelvis, and we will, in the meantime, add Protonix 40 mg IV q.12 hours for the gastritis. Benton Washington MD /[id number]
== END 2018-12-27 13:23 | disposition home or self-care (01) ==
LOC: JP.ED 20:40 → JP.MS 12-25 00:19
PROVIDERS: ADMIT Family Medicine; ATTEND Surgery
DX: K62.5 Hemorrhage of anus and rectum (principal); I10 Essential (primary) hypertension; K21.9 Gastro-esophageal reflux disease without esophagitis; Z79.899 Other long term (current) drug therapy; Z79.82 Long term (current) use of aspirin; Z88.8 Allergy status to other drugs, medicaments and biological substances
CPT/HCPCS: 36415; 43239; 45380; 74175; 80048; 80053; 83605; 83735; 84100; 85018; 85025; 85027; 85610; 85730; 87046; 87081; 87177; 87209; 87493; 87899; 88305; 96361; 96365; 96366; 96375; 96376; 99284; 99285; A9270; C9113; G0378; J0744; J2704; J3010; J7030; J7120; Q9967; 96360

== ENCOUNTER 2020-01-18 14:45 | Emergency (ER) | payer MEDICARE, BC ==
[2020-01-18] MEDS ORDERED: Aspirin 325 MG Tab.EC PO ONE (15:24)
--- NOTE | 2020-01-18 15:29 | EDM.PDOC ---
ED HPI GENERAL MEDICAL PROBLEM - General Chief Complaint: Neuro Symptoms/Deficits Stated Complaint: STROKE? Time Seen by Provider: 01/18/20 15:12 Source of Information: Reports: Patient, Family, RN Notes Reviewed History Limitations: Reports: No Limitations - History of Present Illness INITIAL COMMENTS - FREE TEXT/NARRATIVE: 79-year-old female presents emergency department today with complaint of disrupted speech, she states that happened about 1400 this afternoon where she had a half an hour episode of difficulty speaking by the time she arrived to the emergency department all of her symptoms now have resolved 1 hour later she states the only past medical history she has is reflux, hypertension and sinus problems - Related Data Allergies Allergy/AdvReac Type Severity Reaction Status Date / Time metronidazole [From Flagyl] Allergy Severe Difficulty Verified 01/18/20 14:53 Breathing shellfish derived Allergy Intermediate Difficulty Verified 01/18/20 14:53 Swallowing amlodipine [From Norvasc] Allergy Other Verified 01/18/20 14:53 Home Meds: Home Meds Metoprolol Tartrate [Lopressor] 25 mg PO BID 08/27/14 [History] Naproxen Sodium [Aleve] 220 mg PO DAILY PRN 08/27/14 [History] Terazosin [Hytrin] 2 mg PO BID 08/27/14 [History] Acetaminophen 500 mg PO Q6HR PRN 03/01/16 [History] Cyanocobalamin (Vitamin B-12) [B-12] 1,000 mcg PO DAILY 03/01/16 [History] Fluticasone Propionate [Flonase] 2 sprays NS DAILY 03/01/16 [History] Folic Acid 1 mg PO DAILY 03/01/16 [History] Gabapentin [Neurontin] 300 mg PO BEDTIME 03/01/16 [History] Potassium Chloride [Klor-Con] 20 meq PO DAILY 10/26/16 [History] Cetirizine HCl [Zyrtec] 10 mg PO DAILY PRN 06/14/18 [History] Docusate Sodium [Stool Softener] 2 tab PO DAILY 06/14/18 [History] Sodium Chloride 0.65% [[place] Saline] 0.1 ml JORGE DAILY PRN 06/14/18 [History] lisinopriL [Prinivil] 40 mg PO BID 06/14/18 [History] polyethylene glycoL 3350 [MiraLAX] 17 gm PO DAILY 12/24/18 [History] Cefdinir 300 mg PO Q12H 01/18/20 [History] Pantoprazole [ProTONIX] 20 mg PO BIDAC 01/18/20 [History] Prochlorperazine [Compazine] 1 tab PO TID 01/18/20 [History] Past Medical History HEENT History: Reports: Allergic Rhinitis, Impaired Vision Cardiovascular History: Reports: Hypertension Gastrointestinal History: Reports: Cholelithiasis, Colon Polyp, Diverticulosis, GERD, Other (See Below) Other Gastrointestinal History: Hx of Barretts Genitourinary History: Reports: Urinary Incontinence, UTI, Recurrent STAND GRINDER History: Reports: Dysfunctional Uterine Bleeding, , Prolapsed Uterus Musculoskeletal History: Reports: Back Pain, Chronic, Osteoarthritis Other Musculoskeletal History: right knee pain. left knee pain Neurological History: Reports: Neuropathy, Peripheral Endocrine/Metabolic History: Reports: Osteoporosis Hematologic History: Reports: Anemia, B12 Deficiency, Blood Transfusion(s), Iron Deficiency - Infectious Disease History Other Infectious Disease History: abdomen mesh - Past Surgical History HEENT Surgical History: Reports: Naso-Sinus Surgery Cardiovascular Surgical History: Reports: None GI Surgical History: Reports: Cholecystectomy, Colonoscopy, EGD, Hernia, Inguinal, Other (See Below) Other GI Surgeries/Procedures: 2 hernia repair, esophagus removed Female Surgical History: Reports: Breast Biopsy, Hysterectomy, Oophorectomy Endocrine Surgical History: Reports: None Neurological Surgical History: Reports: Laminectomy Musculoskeletal Surgical History: Reports: Knee Replacement, Shoulder Surgery, Other (See Below) Other Musculoskeletal Surgeries/Procedures:: back surgery x2 right total knee Oncologic Surgical History: Reports: Biopsy of Breast Dermatological Surgical History: Reports: None Social & Family History - Family History Family Medical History: Noncontributory HEENT: Reports: Impaired Vision Cardiac: Reports: Hypertension Respiratory: Reports: COPD GI: Reports: Cholelithiasis, Colon Polyps, GERD OBGYN: Reports: Musculoskeletal: Reports: Gout Endocrine/Metabolic: Reports: None Hematologic: Reports: None Oncologic: Reports: Prostate, Renal - Tobacco Use Smoking Status *Q: Never Smoker - Caffeine Use Caffeine Use: Reports: Coffee Caffeine Use Comment: DAILY ED ROS GENERAL - Review of Systems Review Of Systems: See Below Constitutional: Reports: No Symptoms HEENT: Reports: No Symptoms Respiratory: Reports: No Symptoms Cardiovascular: Reports: No Symptoms GI/Abdominal: Reports: No Symptoms : Reports: No Symptoms Musculoskeletal: Reports: No Symptoms Neurological: Reports: Trouble Speaking ED EXAM, NEURO - Physical Exam Exam: See Below Text/Narrative:: General: Female, not in any distress, alert and oriented x3 HEENT: head is atraumatic normocephalic, eyes pupils equal round reactive to light, sclera clear no conjunctivitis appreciated, extraocular eye movements intact. Ears tympanic membranes clear and andrade landmarks and light reflex are present bilaterally canals are clear. Nose no septal deviation, nares are clear, no blood present. Mouth mucosa is moist and pink no erythema or exudate noted in soft palate, tongue is midline uvula is midline, dentition is intact. Neck: Supple no thyromegaly no tracheal deviation. Nodes: Cervical nodes subclavicular nodes nontender no palpable lymphadenopathy noted. Lungs: clear to auscultation bilaterally with symmetrical respirations, no adventitious noise appreciated. CV: Regular rate and rhythm S1 and S2 appreciated no murmurs rubs or gallops noted. Abdomen: Soft, nontender, no palpable masses or organomegaly appreciated, no distention no guarding bowel sounds are present, [scars ]. Neuro: Cranial nerves II test with pupillary light reflex 3 mm to 2 mm bilaterally, CN III test pupillary constriction, lid elevation and eye abduction bilaterally, CN IV downward movement of eyes bilaterally, CN V good jaw movement, CN lateral deviation of the eyes bilaterally to finger movement , CN VII symmetrical smile shows teeth without difficulty, CN VIII pass finger rub to ears bilaterally, CN IX adequate voice and tone, CN X adequate voice and tone no difficulty swallowing, CN XI can shrug shoulders without difficulty, CN XII can stick tongue out without difficulty, cranial nerves II to XII intact as tested, power is 5 out 5 in upper and lower extremities, patellar reflex, biceps reflex +2 can do finger to nose without difficulty, no dysdiadochokinesis , no difficulty with rapid alternating movements can do [id number] without difficulty, Romberg is negative, no focal neurologic deficit Skin: Warm and dry, intact Extremities: No lower extremity edema appreciated Course - Vital Signs Last Recorded V/S: Last Vital Signs Temp 97.2 F 01/18/20 15:03 Pulse 57 L 01/18/20 17:37 Resp 16 01/18/20 15:17 BP 163/101 H 01/18/20 17:37 Pulse Ox 96 01/18/20 17:37 - Orders/Labs/Meds Orders: Active Orders 24 hr Category Date Time Status EKG Documentation Completion [RC] ASDIRECTED Care 01/18/20 15:23 Active Peripheral IV Care [RC] . DIRECTED Care 01/18/20 16:43 Active Iopamidol [Isovue-370 (76%)] Med 01/18/20 17:00 Active 100 ml IV . DIRECTED Sodium Chloride 0.9% [Normal Saline] 1,000 ml Med 01/18/20 16:45 Active IV ASDIRECTED Sodium Chloride 0.9% [Normal Saline] 100 ml Med 01/18/20 17:00 Active IV ASDIRECTED Sodium Chloride 0.9% [Saline Flush] Med 01/18/20 16:43 Active 10 ml FLUSH ASDIRECTED PRN Peripheral IV Insertion Adult [OM.PC] Urgent Oth 01/18/20 16:43 Ordered EKG 12 Lead [EK] Urgent Ther 01/18/20 15:22 Ordered Medication Orders Sodium Chloride (Normal Saline) 1,000 mls @ 500 mls/hr IV ASDIRECTED [facility] Last Admin: 01/18/20 17:27 Dose: 500 mls/hr Sodium Chloride (Normal Saline) 100 mls @ 3 mls/sec IV ASDIRECTED [facility] Last Admin: 01/18/20 18:01 Dose: 4 mls/sec Iopamidol (Isovue-370 (76%)) 100 ml IV . DIRECTED [facility] Last Admin: 01/18/20 18:00 Dose: 100 ml Sodium Chloride (Saline Flush) 10 ml FLUSH ASDIRECTED PRN PRN Reason: Keep Vein Open Last Admin: 01/18/20 18:00 Dose: 10 ml Labs: Laboratory Tests 01/18/20 01/18/20 01/18/20 Range/Units 15:36 15:36 15:36 WBC 6.8 (4.5-11.0) K/uL RBC 4.28 (3.30-5.50) M/uL Hgb 12.9 (12.0-15.0) g/dL Hct 39.4 (36.0-48.0) % MCV 92 (80-98) fL MCH 30 (27-31) pg MCHC 33 (32-36) % Plt Count 258 (150-400) K/uL Neut % (Auto) 70 H (36-66) % Lymph % (Auto) 18 L (24-44) % [place] % (Auto) 8 H (2-6) % Eos % (Auto) 4 (2-4) % Baso % (Auto) 0 (0-1) % PT 10.0 (9.5-12.0) sec INR 0.92 (0.80-1.20) APTT 26.3 L (27.0-36.0) sec Sodium 135 L (140-148) mmol/L Potassium 3.5 L (3.6-5.2) mmol/L Chloride 101 (100-108) mmol/L Carbon Dioxide 28 (21-32) mmol/L Anion Gap 9.5 (5.0-14.0) mmol/L BUN 23 H D (7-18) mg/dL Creatinine 1.0 (0.6-1.0) mg/dL Est Cr Clr Drug Dosing 39.83 mL/min Estimated GFR (MDRD) 54 L (>60) Glucose 123 H (74-106) mg/dL Lactic Acid (0.4-2.0) mmol/L Calcium 8.5 (8.5-10.1) mg/dL Total Bilirubin 0.5 (0.2-1.0) mg/dL AST 17 (15-37) U/L ALT 20 D (12-78) U/L Alkaline Phosphatase 115 (46-116) U/L Total Protein 7.0 (6.4-8.2) g/dL Albumin 3.2 L (3.4-5.0) g/dL Globulin 3.8 H (2.3-3.5) g/dL Albumin/Globulin Ratio 0.8 L (1.2-2.2) / Range/Units 15:36 WBC (4.5-11.0) K/uL RBC (3.30-5.50) M/uL Hgb (12.0-15.0) g/dL Hct (36.0-48.0) % MCV (80-98) fL MCH (27-31) pg MCHC (32-36) % Plt Count (150-400) K/uL Neut % (Auto) (36-66) % Lymph % (Auto) (24-44) % [place] % (Auto) (2-6) % Eos % (Auto) (2-4) % Baso % (Auto) (0-1) % PT (9.5-12.0) sec INR (0.80-1.20) APTT (27.0-36.0) sec Sodium (140-148) mmol/L Potassium (3.6-5.2) mmol/L Chloride (100-108) mmol/L Carbon Dioxide (21-32) mmol/L Anion Gap (5.0-14.0) mmol/L BUN (7-18) mg/dL Creatinine (0.6-1.0) mg/dL Est Cr Clr Drug Dosing mL/min Estimated GFR (MDRD) (>60) Glucose (74-106) mg/dL Lactic Acid 1.8 (0.4-2.0) mmol/L Calcium (8.5-10.1) mg/dL Total Bilirubin (0.2-1.0) mg/dL AST (15-37) U/L ALT (12-78) U/L Alkaline Phosphatase (46-116) U/L Total Protein (6.4-8.2) g/dL Albumin (3.4-5.0) g/dL Globulin (2.3-3.5) g/dL Albumin/Globulin Ratio (1.2-2.2) Meds: Medications Generic Name Dose Route Start Last Admin Trade Name Freq PRN Reason Stop Dose Admin Sodium Chloride 1,000 mls @ 500 mls/hr 01/18/20 16:45 01/18/20 17:27 Normal Saline IV 500 mls/hr ASDIRECTED LORENA Administration Sodium Chloride 100 mls @ 3 mls/sec 01/18/20 17:00 01/18/20 18:01 Normal Saline IV 4 mls/sec ASDIRECTED LORENA Administration Iopamidol 100 ml 01/18/20 17:00 01/18/20 18:00 Isovue-370 (76%) IV 100 ml . DIRECTED LORENA Administration Sodium Chloride 10 ml 01/18/20 16:43 01/18/20 18:00 Saline Flush FLUSH 10 ml ASDIRECTED PRN Administration Keep Vein Open Discontinued Medications Generic Name Dose Route Start Last Admin Trade Name Freq PRN Reason Stop Dose Admin Aspirin 325 mg 01/18/20 15:24 01/18/20 15:34 Ecotrin PO 01/18/20 15:25 325 mg ONETIME ONE Administration Sodium Chloride 10 ml 01/18/20 16:48 01/18/20 17:27 Saline Flush FLUSH 01/18/20 16:49 10 ml ONETIME ONE Administration - Re-Assessments/Exams Free Text/Narrative Re-Assessment/Exam: 01/18/20 16:46 Called and discussed the case with Dr. [place] interventional neurology at [address] [facility] recommends CTA head neck if normal get echocardiogram and MRI within the next week if abnormal transfer to [place], start on daily aspirin 01/18/20 16:47 Departure - Departure Time of Disposition: 18:22 Disposition: Home, Self-Care 01 Condition: Fair Clinical Impression: TIA (transient ischemic attack) - Discharge Information Instructions: Transient Ischemic Attack Referrals: Filiberto Perdue MD [Primary Care Provider] - Forms: ED Department Discharge Additional Instructions: Please contact your primary care provider on Monday recommended tests from neurology including MRI and an echocardiogram recommend these tests be done within the next week Sepsis Event Note - Evaluation Sepsis Screening Result: No Definite Risk - Focused Exam Vital Signs: Vital Signs Temp Pulse Resp BP Pulse Ox 01/18/20 17:37 57 L 163/101 H 96 01/18/20 17:21 56 L 173/104 H 01/18/20 16:28 52 L 160/91 H 96 01/18/20 15:45 57 L 150/88 H 97 01/18/20 15:17 74 16 168/100 H 96 01/18/20 15:03 97.2 F 76 18 175/102 H 97 01/18/20 14:52 97.2 F 76 18 175/102 H 97 Date Exam was Performed: 01/18/20 Time Exam was Performed: 18:21 - My Orders Last 24 Hours: My Active Orders 01/18/20 15:22 EKG 12 Lead [EK] Urgent 01/18/20 15:23 EKG Documentation Completion [RC] ASDIRECTED 01/18/20 16:43 Peripheral IV Care [RC] . DIRECTED Sodium Chloride 0.9% [Saline Flush] 10 ml FLUSH ASDIRECTED PRN Peripheral IV Insertion Adult [OM.PC] Urgent 01/18/20 16:45 Sodium Chloride 0.9% [Normal Saline] 1,000 ml IV ASDIRECTED 01/18/20 17:00 Iopamidol [Isovue-370 (76%)] 100 ml IV . DIRECTED Sodium Chloride 0.9% [Normal Saline] 100 ml IV ASDIRECTED - Assessment/Plan Last 24 Hours: My Active Orders 01/18/20 15:22 EKG 12 Lead [EK] Urgent 01/18/20 15:23 EKG Documentation Completion [RC] ASDIRECTED 01/18/20 16:43 Peripheral IV Care [RC] . DIRECTED Sodium Chloride 0.9% [Saline Flush] 10 ml FLUSH ASDIRECTED PRN Peripheral IV Insertion Adult [OM.PC] Urgent 01/18/20 16:45 Sodium Chloride 0.9% [Normal Saline] 1,000 ml IV ASDIRECTED 01/18/20 17:00 Iopamidol [Isovue-370 (76%)] 100 ml IV . DIRECTED Sodium Chloride 0.9% [Normal Saline] 100 ml IV ASDIRECTED Plan: Assessment Acuity = acute Site and laterality = dysarthria consistent with TIA Etiology = unknown Manifestations = none Location of injury = Home Lab values = CBC, CMP, EKG unremarkable CT scan of the head shows no acute process CTA head and neck also no acute process Plan She will start an aspirin daily full dose plan is to get MRI of the head and echocardiogram within the next week I have asked her to contact her primary care on Monday to arrange for these tests This note was dictated using [employer] voice recognition software please call with any questions on syntax or grammar.
--- NOTE | 2020-01-18 16:16 | CRLCT ---
TECHNIQUE: CT head without IV contrast. Indication : Dysarthria COMPARISON: MRI brain 10/27/2016. FINDINGS: No intracranial hemorrhage. Patchy low density change in the white matter of both cerebral hemispheres which allowing for differences in technique has progressed since 2016. Some of the signal areas of abnormality in the white matter of the cerebral hemispheres on the prior MRI were rounded in the right frontal parietal region including a 1.6 cm rounded area of abnormal signal abnormality. In this region today, there is a more prominent focal area of low-density today be measuring 1.7 cm. The findings are likely all related to small vessel ischemic disease which is thought to be most likely, although the possibility of low-density in the right frontal region being related to a white infarct other lesion is less likely. Mild cerebral and minimal cerebellar atrophy. Remainder negative. IMPRESSION: 1. No acute intracranial disease. 2. Patchy [id number] confluent and nodular areas of abnormal low density throughout the white matter of both cerebral hemispheres has progressed since 2016 for likely related small vessel ischemic disease. More prominent focal area of low-density in the right frontal white matter is likely related to more severe small vessel ischemic disease less likely old white matter infarct. Other chronic changes as above. Please note that all CT scans at this facility use dose modulation, iterative reconstruction, and/or weight-based dosing when appropriate to reduce radiation dose to as low as reasonably achievable. Dictated by Adi Perez MD @ Jan 18 2020 4:08PM Signed by Dr. Adi Perez @ Jan 18 2020 4:15PM
[2020-01-18] MEDS ORDERED: Sodium Chloride 0.9% 10 ML Syringe FLUSH PRN (16:43)
[2020-01-18] MEDS ORDERED: Sodium Chloride 0.9% 1,000 ML IV SCH (16:45)
[2020-01-18] MEDS ORDERED: Sodium Chloride 0.9% 10 ML Syringe FLUSH ONE (16:48)
[2020-01-18] MEDS ORDERED: Iopamidol 755 Mg/ML 100 ML Bottle IV SCH (17:00)
[2020-01-18] MEDS ORDERED: Sodium Chloride 0.9% 100 ML IV SCH (17:00)
[2020-01-18 17:37] VITALS: BP 163/101; PULSE 57
--- NOTE | 2020-01-18 18:11 | CRLCT ---
DATE: 01/18/2020 CLINICAL HISTORY: Patient with transient neurological deficits. TECHNIQUE: Standard helical CT image acquisition through the head and neck was performed after intravenous contrast bolus enhancement. Multiplanar reconstructed images were performed and interpreted. COMPARISON: CT same day. FINDINGS: The origins of the great vessels from the aortic arch are patent. The origin of the right vertebral artery is patent. The origin of the left vertebral artery is patent. The common carotid arteries are patent There is no stenosis at the origin of the right internal carotid artery. There is no stenosis at the origin of the left internal carotid artery. The rest of the cervical segments of the internal carotid arteries are patent up to their intracranial segments. The intracranial segments of the internal carotid arteries are patent. The left vertebral artery is dominant. The cervical segments of the vertebral arteries are patent. The intracranial segments of the vertebral arteries are patent. The middle cerebral arteries are normal without aneurysm or proximal occlusion identified. The anterior cerebral arteries are normal without aneurysm or proximal occlusion identified. The anterior communicating artery is well visualized and appears normal. The basilar artery is normal without aneurysm or occlusion. The posterior cerebral arteries are normal without aneurysm or proximal occlusion. There is normal opacification of major intracranial venous structures. The visualized lung apices are unremarkable The thyroid gland is unremarkable. The soft tissues of the neck demonstrate marked esophageal dilatation. There are degenerative changes in the cervical spine. IMPRESSION: 1. Patent cervical and proximal intracranial vasculature. 2. Marked esophageal dilatation. Clinical correlation and if indicated further evaluation with an esophagogram is recommended. Please note that all CT scans at this facility use dose modulation, iterative reconstruction, and/or weight-based dosing when appropriate to reduce radiation dose to as low as reasonably achievable. Dictated by Elina Phipps MD @ Jan 18 2020 6:46PM Signed by Dr. Elina Phipps @ Jan 18 2020 7:16PM
== END 2020-01-18 18:44 | disposition home or self-care (01) ==
LOC: JP.ED 14:45
DX: G45.9 Transient cerebral ischemic attack, unspecified (principal); I10 Essential (primary) hypertension; K21.9 Gastro-esophageal reflux disease without esophagitis; Z88.8 Allergy status to other drugs, medicaments and biological substances; Z91.013 Allergy to seafood; Z79.899 Other long term (current) drug therapy
CPT/HCPCS: 36415; 70450; 70496; 70498; 80053; 83605; 85025; 85610; 85730; 93005; 96360; 99285; A9270; J7030; J7050; Q9967

== ENCOUNTER 2020-02-15 21:30 | Emergency (ER) | payer MEDICARE, BC ==
[2020-02-15] MEDS ORDERED: LORazepam 1 MG Tab PO ONE (22:06)
--- NOTE | 2020-02-15 22:09 | EDM.PDOC ---
ED HPI GENERAL MEDICAL PROBLEM - General Chief Complaint: Cardiovascular Problem Stated Complaint: HIGH BLOOD PRESSURE Time Seen by Provider: 02/15/20 21:57 Source of Information: Reports: Patient, Old Records, RN Notes Reviewed History Limitations: Reports: No Limitations - History of Present Illness INITIAL COMMENTS - FREE TEXT/NARRATIVE: 79-year-old female presents emergency department today concerned about blood pressure, she does have blood pressure cuff at home she takes her blood pressure multiple times per day at home blood pressure was around 200 systolically she states that she has been trying to decrease her salt intake but today she had chicken wild rice hot dish where she made it with a can of cream of mushroom soup and a can of cream of chicken soup., She is asymptomatic with her blood pressure at this time - Related Data Allergies Allergy/AdvReac Type Severity Reaction Status Date / Time metronidazole [From Flagyl] Allergy Severe Difficulty Verified 02/15/20 21:48 Breathing shellfish derived Allergy Intermediate Difficulty Verified 02/15/20 21:48 Swallowing amlodipine [From Norvasc] Allergy Other Verified 02/15/20 21:48 Home Meds: Home Meds Metoprolol Tartrate [Lopressor] 25 mg PO BID 08/27/14 [History] Naproxen Sodium [Aleve] 220 mg PO DAILY PRN 08/27/14 [History] Terazosin [Hytrin] 2 mg PO BID 08/27/14 [History] Acetaminophen 500 mg PO Q6HR PRN 03/01/16 [History] Fluticasone Propionate [Flonase] 2 sprays NS DAILY 03/01/16 [History] Gabapentin [Neurontin] 300 mg PO BEDTIME 03/01/16 [History] Potassium Chloride [Klor-Con] 20 meq PO DAILY 10/26/16 [History] Cetirizine HCl [Zyrtec] 10 mg PO DAILY PRN 06/14/18 [History] Docusate Sodium [Stool Softener] 2 tab PO DAILY PRN 06/14/18 [History] Sodium Chloride 0.65% [[place] Saline] 0.1 ml JORGE DAILY PRN 06/14/18 [History] lisinopriL [Prinivil] 40 mg PO BID 06/14/18 [History] polyethylene glycoL 3350 [MiraLAX] 17 gm PO DAILY PRN 12/24/18 [History] Prochlorperazine [Compazine] 1 tab PO TID PRN 01/18/20 [History] Aspirin 325 mg PO DAILY 02/15/20 [History] Omeprazole 20 mg PO DAILY PRN 02/15/20 [History] Ondansetron [Zofran ODT] 4 mg PO Q6H PRN 02/15/20 [History] Rosuvastatin Calcium 1 tab PO DAILY 02/15/20 [History] Past Medical History HEENT History: Reports: Allergic Rhinitis, Impaired Vision Cardiovascular History: Reports: High Cholesterol, Hypertension Gastrointestinal History: Reports: Cholelithiasis, Colon Polyp, Diverticulosis, GERD, Other (See Below) Other Gastrointestinal History: Hx of Barretts Genitourinary History: Reports: Urinary Incontinence, UTI, 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 left knee pain Neurological History: Reports: Neuropathy, Peripheral, TIA, Other (See Below) Other Neuro History: TIA December 2019 Endocrine/Metabolic History: Reports: Osteoporosis Hematologic History: Reports: Anemia, B12 Deficiency, Blood Transfusion(s), Iron Deficiency Immunologic History: Reports: None Oncologic (Cancer) History: Reports: None Dermatologic History: Reports: None - Infectious Disease History Other Infectious Disease History: abdomen mesh - Past Surgical History HEENT Surgical History: Reports: Naso-Sinus Surgery Cardiovascular Surgical History: Reports: None GI Surgical History: Reports: Cholecystectomy, Colonoscopy, EGD, Hernia, Inguinal, Other (See Below) Other GI Surgeries/Procedures: 2 hernia repair, esophagus removed Female Surgical History: Reports: Breast Biopsy, Hysterectomy, Oophorectomy Endocrine Surgical History: Reports: None Neurological Surgical History: Reports: Laminectomy Musculoskeletal Surgical History: Reports: Knee Replacement, Shoulder Surgery, Other (See Below) Other Musculoskeletal Surgeries/Procedures:: back surgery x2 right total knee Oncologic Surgical History: Reports: Biopsy of Breast Dermatological Surgical History: Reports: None Social & Family History - Family History Family Medical History: Noncontributory HEENT: Reports: Impaired Vision Cardiac: Reports: Hypertension Respiratory: Reports: COPD GI: Reports: Cholelithiasis, Colon Polyps, GERD OBGYN: Reports: Musculoskeletal: Reports: Gout Endocrine/Metabolic: Reports: None Hematologic: Reports: None Oncologic: Reports: Prostate, Renal - Tobacco Use Smoking Status *Q: Never Smoker - Caffeine Use Caffeine Use: Reports: Coffee, Tea Caffeine Use Comment: DAILY - Alcohol Use Days Per Week of Alcohol Use: 3 Number of Drinks Per Day: 1 Total Drinks Per Week: 3 - Recreational Drug Use Recreational Drug Use: No ED ROS GENERAL - Review of Systems Review Of Systems: See Below Constitutional: Reports: No Symptoms HEENT: Reports: No Symptoms Respiratory: Reports: No Symptoms Cardiovascular: Reports: Blood Pressure Problem GI/Abdominal: Reports: No Symptoms ED EXAM, GENERAL - Physical Exam Exam: See Below Exam Limited By: No Limitations General Appearance: Alert, WD/WN, Anxious Respiratory/Chest: No Respiratory Distress, Lungs Clear, Normal Breath Sounds, No Accessory Muscle Use, Chest Non-Tender Cardiovascular: Regular Rate, Rhythm, No Murmur GI/Abdominal: Soft, Non-Tender Extremities: No Pedal Edema Course - Vital Signs Last Recorded V/S: Last Vital Signs Temp 98.2 F 02/15/20 21:52 Pulse 55 L 02/15/20 22:54 Resp 16 02/15/20 21:52 BP 134/93 H 02/15/20 23:13 Pulse Ox 96 02/15/20 21:52 - Orders/Labs/Meds Meds: Medications Discontinued Medications Generic Name Dose Route Start Last Admin Trade Name Freq PRN Reason Stop Dose Admin Lorazepam 1 mg 02/15/20 22:06 02/15/20 22:13 Ativan PO 02/15/20 22:07 1 mg ONETIME ONE Administration Nitroglycerin 0.4 mg 02/15/20 23:03 02/15/20 23:08 Nitrostat SL 02/15/20 23:04 0.4 mg ONETIME ONE Administration Departure - Departure Time of Disposition: 23:15 Disposition: Home, Self-Care 01 Condition: Fair Clinical Impression: HTN, Benign hypertension Instructions: Hypertension, Adult, [id number] Referrals: Filiberto Perdue MD [Primary Care Provider] - Forms: ED Department Discharge Additional Instructions: Continue with your regular medications, please followup with your primary care provider in 3-5 days if not better, please call return to the emergency department with worsening of symptoms. Sepsis Event Note - Evaluation Sepsis Screening Result: No Definite Risk - Focused Exam Vital Signs: Vital Signs Temp Pulse Resp BP BP Pulse Ox 02/15/20 23:13 134/93 H 02/15/20 23:08 176/113 H 02/15/20 22:54 55 L 176/113 H 02/15/20 22:17 53 L 179/105 H 02/15/20 21:52 98.2 F 54 L 16 180/113 H 96 Date Exam was Performed: 02/15/20 Time Exam was Performed: 23:14 - Assessment/Plan Plan: Assessment Acuity = acute Site and laterality = hypertensive urgency Etiology = probably related to salt intake Manifestations = none Location of injury = Home Lab values = none Plan Initially was given Ativan and rest with no improvement in her blood pressure subsequently given 1 nitro which improved her blood pressure significantly she remained asymptomatic of asked her to review her salt intake and then follow-up with her primary care in the next 3 to 5 days for reevaluation This note was dictated using [employer] voice recognition software please call with any questions on syntax or grammar.
[2020-02-15] MEDS ORDERED: Nitroglycerin 0.4 MG Tab.SL SL ONE (23:03)
[2020-02-15 23:15] VITALS: PULSE 55
[2020-02-15 23:18] VITALS: BP 144/96
== END 2020-02-15 23:24 | disposition home or self-care (01) ==
LOC: JP.ED 21:30
DX: I10 Essential (primary) hypertension (principal); E78.00 Pure hypercholesterolemia, unspecified; K21.9 Gastro-esophageal reflux disease without esophagitis; M19.90 Unspecified osteoarthritis, unspecified site; Z86.73 Personal history of transient ischemic attack (TIA), and cerebral infarction without residual deficits; Z91.013 Allergy to seafood; Z88.8 Allergy status to other drugs, medicaments and biological substances; Z79.899 Other long term (current) drug therapy; Z79.82 Long term (current) use of aspirin
CPT/HCPCS: 99283; A9270

== ENCOUNTER 2020-02-27 09:13 | Observation (INO) | payer MEDICARE, BC ==
[2020-02-27] MEDS ORDERED: Aspirin 81 MG Tab.Chew PO ONE (09:28)
--- NOTE | 2020-02-27 09:31 | EDM.PDOC ---
ED HPI GENERAL MEDICAL PROBLEM - General Chief Complaint: Chest Pain Stated Complaint: FAILED STRESS TEST Time Seen by Provider: 02/27/20 09:29 Source of Information: Reports: Patient History Limitations: Reports: No Limitations - History of Present Illness INITIAL COMMENTS - FREE TEXT/NARRATIVE: pt arrived with pain in the left chest. She has been having pain in the left shoulder and did see a chiropractor yesterday. Onset: Other (pt was in the midst of a chemical stress test for her heart and the camera broke. ) Duration: Hour(s): Location: Reports: Chest, Other (left shoulder area. ) Associated Symptoms: Reports: Other (pt has had some upper abdoman discomfort. She has had surgery on her esophagus. ) Left Upper Chest Pain Score (Numeric/FACES): 8 Left Posterior Shoulder Pain Score (Numeric/FACES): 3 - Related Data Allergies Allergy/AdvReac Type Severity Reaction Status Date / Time metronidazole [From Flagyl] Allergy Severe Difficulty Verified 02/27/20 09:22 Breathing shellfish derived Allergy Intermediate Difficulty Verified 02/27/20 09:22 Swallowing amlodipine [From Norvasc] Allergy Other Verified 02/27/20 09:22 Home Meds: Home Meds Metoprolol Tartrate [Lopressor] 25 mg PO BID 08/27/14 [History] Naproxen Sodium [Aleve] 220 mg PO DAILY PRN 08/27/14 [History] Terazosin [Hytrin] 2 mg PO BID 08/27/14 [History] Acetaminophen 500 mg PO Q6HR PRN 03/01/16 [History] Fluticasone Propionate [Flonase] 2 sprays NS DAILY 03/01/16 [History] Gabapentin [Neurontin] 300 mg PO BEDTIME 03/01/16 [History] Potassium Chloride [Klor-Con] 20 meq PO DAILY 10/26/16 [History] Cetirizine HCl [Zyrtec] 10 mg PO DAILY PRN 06/14/18 [History] Docusate Sodium [Stool Softener] 2 tab PO DAILY PRN 06/14/18 [History] Sodium Chloride 0.65% [[place] Saline] 0.1 ml JORGE DAILY PRN 06/14/18 [History] lisinopriL [Prinivil] 40 mg PO BID 06/14/18 [History] polyethylene glycoL 3350 [MiraLAX] 17 gm PO DAILY PRN 12/24/18 [History] Prochlorperazine [Compazine] 1 tab PO TID PRN 01/18/20 [History] Aspirin 325 mg PO DAILY 02/15/20 [History] Omeprazole 20 mg PO DAILY PRN 02/15/20 [History] Ondansetron [Zofran ODT] 4 mg PO Q6H PRN 02/15/20 [History] Rosuvastatin Calcium 1 tab PO DAILY 02/15/20 [History] Furosemide [Lasix] 20 mg PO DAILY 02/25/20 [History] Past Medical History HEENT History: Reports: Allergic Rhinitis, Impaired Vision Cardiovascular History: Reports: High Cholesterol, Hypertension Respiratory History: Reports: None Gastrointestinal History: Reports: Cholelithiasis, Colon Polyp, Diverticulosis, GERD, Other (See Below) Other Gastrointestinal History: Hx of Barretts Genitourinary History: Reports: Urinary Incontinence, UTI, 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 left knee pain Neurological History: Reports: Neuropathy, Peripheral, TIA, Other (See Below) Other Neuro History: TIA December 2019 Psychiatric History: Reports: None Endocrine/Metabolic History: Reports: Osteoporosis Hematologic History: Reports: Anemia, B12 Deficiency, Blood Transfusion(s), Iron Deficiency Immunologic History: Reports: None Oncologic (Cancer) History: Reports: None Dermatologic History: Reports: None - Infectious Disease History Other Infectious Disease History: abdomen mesh - Past Surgical History HEENT Surgical History: Reports: Naso-Sinus Surgery Cardiovascular Surgical History: Reports: None GI Surgical History: Reports: Cholecystectomy, Colonoscopy, EGD, Hernia, Inguinal, Other (See Below) Other GI Surgeries/Procedures: 2 hernia repair, esophagus removed Female Surgical History: Reports: Breast Biopsy, Hysterectomy, Oophorectomy Endocrine Surgical History: Reports: None Neurological Surgical History: Reports: Laminectomy Musculoskeletal Surgical History: Reports: Knee Replacement, Shoulder Surgery, Other (See Below) Other Musculoskeletal Surgeries/Procedures:: back surgery x2 right total knee Oncologic Surgical History: Reports: Biopsy of Breast Dermatological Surgical History: Reports: None Social & Family History - Family History Family Medical History: Noncontributory HEENT: Reports: Impaired Vision Cardiac: Reports: Hypertension Respiratory: Reports: COPD GI: Reports: Cholelithiasis, Colon Polyps, GERD OBGYN: Reports: Musculoskeletal: Reports: Gout Endocrine/Metabolic: Reports: None Hematologic: Reports: None Oncologic: Reports: Prostate, Renal - Caffeine Use Caffeine Use: Reports: Coffee, Tea Caffeine Use Comment: DAILY ED ROS GENERAL - Review of Systems Review Of Systems: See Below Constitutional: Reports: No Symptoms HEENT: Reports: No Symptoms Respiratory: Reports: Shortness of Breath Cardiovascular: Reports: Chest Pain, Other (left shoulder pain) Endocrine: Reports: No Symptoms GI/Abdominal: Reports: Other (pt has upper abdomanal distress. ) : Reports: No Symptoms Musculoskeletal: Reports: No Symptoms Skin: Reports: No Symptoms Neurological: Reports: No Symptoms Psychiatric: Reports: Anxiety ED EXAM, GENERAL - Physical Exam Exam: See Below Free Text/Narrative:: pt arrived having left sied chest pain. She was in the xray department getting a cardiac stress test when the camera broke. She was still having chest pain so she was sent here. Exam Limited By: No Limitations General Appearance: Alert, Anxious, Moderate Distress, Other (pupils equal and reactive. ) Ears: Normal TMs Nose: Normal Inspection Throat/Mouth: Normal Inspection Head: Atraumatic Neck: Normal Inspection Respiratory/Chest: No Respiratory Distress Cardiovascular: Regular Rate, Rhythm, Bradycardia GI/Abdominal: Soft, Non-Tender (Female) Exam: Deferred Rectal (Female) Exam: Deferred Back Exam: Normal Inspection Extremities: Normal Inspection Neurological: Alert, Oriented, Normal Cognition Course - Vital Signs Last Recorded V/S: Last Vital Signs Temp 36.1 C 02/27/20 09:37 Pulse 54 L 02/27/20 10:22 Resp 14 02/27/20 10:22 BP 123/79 02/27/20 10:22 Pulse Ox 92 L 02/27/20 10:22 - Orders/Labs/Meds Orders: Active Orders 24 hr Category Date Time Status EKG Documentation Completion [RC] ASDIRECTED Care 02/27/20 09:23 Active Nitroglycerin [Nitrostat] Med 02/27/20 09:29 Active 0.4 mg SL Q5M PRN Sodium Chloride 0.9% [Normal Saline] 1,000 ml Med 02/27/20 10:30 Active IV ASDIRECTED EKG 12 Lead [EK] Routine Ther 02/27/20 09:22 Ordered Medication Orders Sodium Chloride (Normal Saline) 1,000 mls @ 500 mls/hr IV ASDIRECTED LORENA Last Admin: 02/27/20 10:29 Dose: 500 mls/hr Nitroglycerin (Nitrostat) 0.4 mg SL Q5M PRN PRN Reason: Chest Pain Last Admin: 02/27/20 09:44 Dose: 0.4 mg Admin: 02/27/20 09:36 Dose: 0.4 mg Labs: Laboratory Tests 02/27/20 02/27/20 Range/Units 09:27 09:27 WBC 6.5 (4.5-11.0) K/uL RBC 4.23 (3.30-5.50) M/uL Hgb 12.9 (12.0-15.0) g/dL Hct 38.9 (36.0-48.0) % MCV 92 (80-98) fL MCH 31 (27-31) pg MCHC 33 (32-36) % Plt Count 265 (150-400) K/uL Neut % (Auto) 68 H (36-66) % Lymph % (Auto) 16 L (24-44) % [place] % (Auto) 8 H (2-6) % Eos % (Auto) 7 H (2-4) % Baso % (Auto) 1 (0-1) % Sodium 140 (140-148) mmol/L Potassium 3.4 L (3.6-5.2) mmol/L Chloride 101 (100-108) mmol/L Carbon Dioxide 29 (21-32) mmol/L Anion Gap 13.4 (5.0-14.0) mmol/L BUN 18 (7-18) mg/dL Creatinine 0.9 (0.6-1.0) mg/dL Est Cr Clr Drug Dosing 43.30 mL/min Estimated GFR (MDRD) > 60 (>60) Glucose 85 (74-106) mg/dL Calcium 8.6 (8.5-10.1) mg/dL Total Bilirubin 0.5 (0.2-1.0) mg/dL AST 20 (15-37) U/L ALT 22 (12-78) U/L Alkaline Phosphatase 100 (46-116) U/L Troponin I 0.029 (0.000-0.056) ng/mL Total Protein 7.4 (6.4-8.2) g/dL Albumin 3.3 L (3.4-5.0) g/dL Globulin 4.1 H (2.3-3.5) g/dL Albumin/Globulin Ratio 0.8 L (1.2-2.2) Meds: Medications Generic Name Dose Route Start Last Admin Trade Name Freq PRN Reason Stop Dose Admin Sodium Chloride 1,000 mls @ 500 mls/hr 02/27/20 10:30 02/27/20 10:29 Normal Saline IV 500 mls/hr ASDIRECTED LORENA Administration Nitroglycerin 0.4 mg 02/27/20 09:29 02/27/20 09:44 Nitrostat SL 0.4 mg Q5M PRN Administration Chest Pain Discontinued Medications Generic Name Dose Route Start Last Admin Trade Name Freq PRN Reason Stop Dose Admin Aspirin 324 mg 02/27/20 09:28 02/27/20 09:36 Aspirin PO 02/27/20 09:29 324 mg ONETIME ONE Administration Hydromorphone HCl 0.5 mg 02/27/20 10:43 02/27/20 10:50 Dilaudid IVPUSH 02/27/20 10:44 0.5 mg ONETIME ONE Administration - Re-Assessments/Exams Free Text/Narrative Re-Assessment/Exam: 02/27/20 11:09 pt has a normal trop. She is noted to have a petiachal rash on her upper breast. She alos has an area over her upper blade area posteriorly. She states the rash appeared this am. She was in the midst of a cardiac stress test today when the camera broke and she had chest pain so she was sent to The ER. 02/27/20 11:12 Her Ekg does show some T wave inversion otherwise no acute changes. Departure - Departure Time of Disposition: 11:13 Disposition: Admitted As Inpatient 68 Condition: Fair Clinical Impression: Atypical chest pain, Shingles outbreak Referrals: PCP,None [Primary Care Provider] - Forms: ED Department Discharge Care Plan Goals: admit to Dr Glass Sepsis Event Note - Focused Exam Vital Signs: Vital Signs Temp Pulse Resp BP BP Pulse Ox 02/27/20 10:22 54 L 14 123/79 92 L 02/27/20 10:17 53 L 13 63/30 L 93 L 02/27/20 10:12 51 L 16 84/64 L 89 L 02/27/20 10:05 49 L 9 L 74/48 L 94 L 02/27/20 09:59 56 L 11 L 94/61 92 L 02/27/20 09:44 63 13 155/109 H 92 L 02/27/20 09:37 36.1 C 50 L 19 205/111 H 02/27/20 09:36 192/104 H 02/27/20 09:16 36.1 C 50 L 19 205/111 H Date Exam was Performed: 02/27/20 Time Exam was Performed: 11:15 - My Orders Last 24 Hours: My Active Orders 02/27/20 09:22 EKG 12 Lead [EK] Routine 02/27/20 09:23 EKG Documentation Completion [RC] ASDIRECTED 02/27/20 09:29 Nitroglycerin [Nitrostat] 0.4 mg SL Q5M PRN 02/27/20 10:30 Sodium Chloride 0.9% [Normal Saline] 1,000 ml IV ASDIRECTED - Assessment/Plan Last 24 Hours: My Active Orders 02/27/20 09:22 EKG 12 Lead [EK] Routine 02/27/20 09:23 EKG Documentation Completion [RC] ASDIRECTED 02/27/20 09:29 Nitroglycerin [Nitrostat] 0.4 mg SL Q5M PRN 02/27/20 10:30 Sodium Chloride 0.9% [Normal Saline] 1,000 ml IV ASDIRECTED
[2020-02-27] MEDS: Nitroglycerin 0.4 MG Tab.SL SL PRN ×2 (09:36→09:44)
--- NOTE | 2020-02-27 10:21 | CR ---
CHEST: Portable 02/27/2020 19/07/1957 CLINICAL HISTORY:Chest pain COMPARISON:2018 FINDINGS: Patient has had a previous partial esophagectomy and gastric pull-up. There is some elevation of the left hemidiaphragm as well as a large portion of the stomach superimposed over the left heart. There is some scarring and/or atelectasis in the left lower lobe and lingula. Heart size and pulmonary vascularity are normal. Right lung is clear. There are atherosclerotic changes in the aorta. IMPRESSION: Retrocardiac and left lung base density is secondary to previous partial esophagectomy and gastric pull-up procedure. Appearance is similar to 2018 There is some patchy left lower lobe airspace disease which is likely scarring and atelectasis
[2020-02-27] MEDS ORDERED: Sodium Chloride 0.9% 1,000 ML IV SCH (10:30)
[2020-02-27] MEDS ORDERED: HYDROmorphone 0.5 MG/0.5 ML Syringe IVPUSH ONE (10:43)
--- NOTE | 2020-02-27 10:54 | CT ---
Head wo Cont CLINICAL HISTORY: Syncopal episode COMPARISON: MR brain 01/23/2020 TECHNIQUE: Transverse scans were obtained from the base of the skull through the vertex without IV contrast on a multislice, multidetector CT scanner. Auto dosage reduction and iterative reconstruction techniques employed. FINDINGS: No focal abnormal parenchymal density is identified. There is some moderate periventricular lucency bilaterally greater in the right frontoparietal junction region. This correlates to chronic ischemic microvascular changes which were seen on the prior MR.. There is no mass effect, hemorrhage, or extraaxial collection. The basal cisterns and sulci over the convexities are prominent. The ventricles are normal for age. There is some calcified plaque in the carotid siphons IMPRESSION: Chronic ischemic microvascular changes as seen on recent MRI Age-related atrophy No mass lesion hemorrhage or extra-axial collection Atheromatous changes in the carotid arteries
--- NOTE | 2020-02-27 11:50 | PCM.HP.2 ---
H&P History of Present Illness - General Date of Service: 02/27/20 Admit Problem/Dx: Admission Diagnosis/Problem Admission Diagnosis/Problem Chest pain Source of Information: Patient, Provider, RN Notes Reviewed History Limitations: Reports: No Limitations - History of Present Illness Initial Comments - Free Text/Narative: Ms. Dumont is a 79-year-old woman who was admitted to observation status through the emergency department for further evaluation of chest pain. She has had some intermittent difficulty with chest pain and had been scheduled for a [employer] Myoview study this morning for further evaluation. Over the last 24 hours she is experienced a different pain in her left chest and back described as a persistent ache/burning pain. She has never had this pain in the past and also has noted a rash across her left breast. Unfortunately she was unable to complete her Myoview study as the nuclear camera malfunctioned and needs to be repaired. Risk factors for coronary artery disease include hypertension, hyper cholesterolemia, and a positive family history. Patient denies a personal history of diabetes or tobacco use. Open and level is within normal range, EKG shows mild nonspecific changes in the anterolateral leads. Left Upper Chest Pain Score (Numeric/FACES): 8 Left Posterior Shoulder Pain Score (Numeric/FACES): 3 - Related Data Allergies/Adverse Reactions: Allergies Allergy/AdvReac Type Severity Reaction Status Date / Time metronidazole [From Flagyl] Allergy Severe Difficulty Verified 02/27/20 09:22 Breathing shellfish derived Allergy Intermediate Difficulty Verified 02/27/20 09:22 Swallowing amlodipine [From Norvasc] Allergy Other Verified 02/27/20 09:22 Home Medications: Home Meds Metoprolol Tartrate [Lopressor] 25 mg PO BID 08/27/14 [History] Naproxen Sodium [Aleve] 220 mg PO DAILY PRN 08/27/14 [History] Terazosin [Hytrin] 2 mg PO BID 08/27/14 [History] Acetaminophen 500 mg PO Q6HR PRN 03/01/16 [History] Fluticasone Propionate [Flonase] 2 sprays NS DAILY 03/01/16 [History] Gabapentin [Neurontin] 300 mg PO BEDTIME 03/01/16 [History] Potassium Chloride [Klor-Con] 20 meq PO DAILY 10/26/16 [History] Cetirizine HCl [Zyrtec] 10 mg PO DAILY PRN 06/14/18 [History] Docusate Sodium [Stool Softener] 2 tab PO DAILY PRN 06/14/18 [History] Sodium Chloride 0.65% [[place] Saline] 0.1 ml JORGE DAILY PRN 06/14/18 [History] lisinopriL [Prinivil] 40 mg PO BID 06/14/18 [History] polyethylene glycoL 3350 [MiraLAX] 17 gm PO DAILY PRN 12/24/18 [History] Prochlorperazine [Compazine] 1 tab PO TID PRN 01/18/20 [History] Aspirin 325 mg PO DAILY 02/15/20 [History] Omeprazole 20 mg PO DAILY PRN 02/15/20 [History] Ondansetron [Zofran ODT] 4 mg PO Q6H PRN 02/15/20 [History] Rosuvastatin Calcium 1 tab PO DAILY 02/15/20 [History] Furosemide [Lasix] 20 mg PO DAILY 02/25/20 [History] Past Medical History HEENT History: Reports: Allergic Rhinitis, Impaired Vision Cardiovascular History: Reports: High Cholesterol, Hypertension Respiratory History: Reports: None Gastrointestinal History: Reports: Cholelithiasis, Colon Polyp, Diverticulosis, GERD, Other (See Below) Other Gastrointestinal History: Hx of Barretts Genitourinary History: Reports: Urinary Incontinence, UTI, Recurrent [employer] History: Reports: Dysfunctional Uterine Bleeding, , Prolapsed Uterus Musculoskeletal History: Reports: Back Pain, Chronic, Osteoarthritis Other Musculoskeletal History: right knee pain. left knee pain Neurological History: Reports: Neuropathy, Peripheral, TIA, Other (See Below) Other Neuro History: TIA December 2019 Psychiatric History: Reports: None Endocrine/Metabolic History: Reports: Osteoporosis Hematologic History: Reports: Anemia, B12 Deficiency, Blood Transfusion(s), Iron Deficiency Immunologic History: Reports: None Oncologic (Cancer) History: Reports: None Dermatologic History: Reports: None - Infectious Disease History Infectious Disease History: Reports: Chicken Pox, Measles, Mumps Other Infectious Disease History: abdomen mesh - Past Surgical History HEENT Surgical History: Reports: Naso-Sinus Surgery Cardiovascular Surgical History: Reports: None GI Surgical History: Reports: Cholecystectomy, Colonoscopy, EGD, Hernia, Inguinal, Other (See Below) Other GI Surgeries/Procedures: 2 hernia repair, esophagus removed Female Surgical History: Reports: Breast Biopsy, Hysterectomy, Oophorectomy Endocrine Surgical History: Reports: None Neurological Surgical History: Reports: Laminectomy Musculoskeletal Surgical History: Reports: Knee Replacement, Shoulder Surgery, Other (See Below) Other Musculoskeletal Surgeries/Procedures:: back surgery x2 right total knee Oncologic Surgical History: Reports: Biopsy of Breast Dermatological Surgical History: Reports: None Social & Family History - Family History Family Medical History: Noncontributory HEENT: Reports: Impaired Vision Cardiac: Reports: Hypertension Respiratory: Reports: COPD GI: Reports: Cholelithiasis, Colon Polyps, GERD OBGYN: Reports: Musculoskeletal: Reports: Gout Endocrine/Metabolic: Reports: None Hematologic: Reports: None Oncologic: Reports: Prostate, Renal - Tobacco Use Smoking Status *Q: Never Smoker Second Hand Smoke Exposure: No - Caffeine Use Caffeine Use: Reports: Coffee, Tea Caffeine Use Comment: DAILY - Alcohol Use Days Per Week of Alcohol Use: 5 Number of Drinks Per Day: 1 Total Drinks Per Week: 5 - Recreational Drug Use Recreational Drug Use: No H&P Review of Systems - Review of Systems: Review Of Systems: See Below General: Reports: No Symptoms HEENT: Reports: No Symptoms Pulmonary: Reports: No Symptoms Cardiovascular: Reports: Chest Pain. Denies: Palpitations, Dyspnea on Exertion , Orthopnea, PND, Edema, Lightheadedness Gastrointestinal: Reports: No Symptoms Genitourinary: Reports: No Symptoms Musculoskeletal: Reports: No Symptoms Skin: Reports: Other (Erythematous rash anterior chest and back) Psychiatric: Reports: No Symptoms Neurological: Reports: No Symptoms Hematologic/Lymphatic: Reports: No Symptoms Immunologic: Reports: No Symptoms Exam - Exam Exam: See Below - Vital Signs Vital Signs: Last Vital Signs Temp 97 F 02/27/20 09:37 Pulse 54 L 02/27/20 10:22 Resp 14 02/27/20 10:22 BP 123/79 02/27/20 10:22 Pulse Ox 92 L 02/27/20 10:22 Weight: 144 lb - Exam Quality Assessment: DVT Prophylaxis General: Alert, Oriented, Cooperative, Mild Distress HEENT: Conjunctiva Clear, Hearing Intact, Mucosa Moist & [place], Normal Nasal Septum, Posterior Pharynx Clear, Pupils Equal Neck: Supple, Trachea Midline, +2 Carotid Pulse wo Bruit Lungs: Clear to Auscultation, Normal Respiratory Effort, Decreased Breath Sounds Cardiovascular: Regular Rate, Regular Rhythm, Normal S1, Normal S2. No: Systolic Murmur, Diastolic Murmur GI/Abdominal Exam: Soft, Non-Tender, No Organomegaly, No Distention Back Exam: Normal Inspection, Full Range of Motion Extremities: Non-Tender, No Pedal Edema Skin: Rash (Erythematous chest and back, no obvious vesicular lesions at this time) Neurological: Cranial Nerves Intact, Strength Equal Bilateral, Normal Speech, Normal Tone, Sensation Intact. No: Focal Deficit Neuro Extensive - Mental Status: Alert, Oriented x3, Normal Mood/Affect, Normal Cognition, Memory Intact - Patient Data Lab Results Last 24 hrs: Laboratory Results - last 24 hr 02/27/20 02/27/20 Range/Units 09:27 09:27 WBC 6.5 (4.5-11.0) K/uL RBC 4.23 (3.30-5.50) M/uL Hgb 12.9 (12.0-15.0) g/dL Hct 38.9 (36.0-48.0) % MCV 92 (80-98) fL MCH 31 (27-31) pg MCHC 33 (32-36) % Plt Count 265 (150-400) K/uL Neut % (Auto) 68 H (36-66) % Lymph % (Auto) 16 L (24-44) % [place] % (Auto) 8 H (2-6) % Eos % (Auto) 7 H (2-4) % Baso % (Auto) 1 (0-1) % Sodium 140 (140-148) mmol/L Potassium 3.4 L (3.6-5.2) mmol/L Chloride 101 (100-108) mmol/L Carbon Dioxide 29 (21-32) mmol/L Anion Gap 13.4 (5.0-14.0) mmol/L BUN 18 (7-18) mg/dL Creatinine 0.9 (0.6-1.0) mg/dL Est Cr Clr Drug Dosing 43.30 mL/min Estimated GFR (MDRD) > 60 (>60) Glucose 85 (74-106) mg/dL Calcium 8.6 (8.5-10.1) mg/dL Total Bilirubin 0.5 (0.2-1.0) mg/dL AST 20 (15-37) U/L ALT 22 (12-78) U/L Alkaline Phosphatase 100 (46-116) U/L Troponin I 0.029 (0.000-0.056) ng/mL Total Protein 7.4 (6.4-8.2) g/dL Albumin 3.3 L (3.4-5.0) g/dL Globulin 4.1 H (2.3-3.5) g/dL Albumin/Globulin Ratio 0.8 L (1.2-2.2) Result Diagrams: 02/27/20 09:27 02/27/20 09:27 Sepsis Event Note - Evaluation Sepsis Screening Result: No Definite Risk - Focused Exam Vital Signs: Vital Signs Temp Pulse Resp BP BP Pulse Ox 02/27/20 10:22 54 L 14 123/79 92 L 02/27/20 10:17 53 L 13 63/30 L 93 L 02/27/20 10:12 51 L 16 84/64 L 89 L 02/27/20 10:05 49 L 9 L 74/48 L 94 L 02/27/20 09:59 56 L 11 L 94/61 92 L 02/27/20 09:44 63 13 155/109 H 92 L 02/27/20 09:37 97 F 50 L 19 205/111 H 02/27/20 09:36 192/104 H 02/27/20 09:16 97 F 50 L 19 205/111 H Date Exam was Performed: 02/27/20 Time Exam was Performed: 18:44 *Q Meaningful Use (ADM) - VTE Risk Assess *Q Each Risk Factor Represents 1 Point: Obesity ( BMI > 25 kg/m2) Total Score 1 Point Risk Factors: 1 Each Risk Factor Represents 2 Points: None Total Score 2 Point Risk Factors: 0 Each Risk Factor Represents 3 Points: Age 75 Years or Greater Total Score 3 Point Risk Factors: 3 Each Risk Factor Represents 5 Points: None Total Score 5 Point Risk Factors: 0 Venous Thromboembolism Risk Factor Score *Q: 4 Problem List Initiated/Reviewed/Updated: Yes Orders Last 24hrs: Active Orders 24 hr Category Date Time Status Patient Status Manage Transfer [TRANSFER] Routine ADT 02/27/20 11:40 Active EKG Documentation Completion [RC] ASDIRECTED Care 02/27/20 09:23 Active Nitroglycerin [Nitrostat] Med 02/27/20 09:29 Active 0.4 mg SL Q5M PRN Sodium Chloride 0.9% [Normal Saline] 1,000 ml Med 02/27/20 10:30 Active IV ASDIRECTED Resuscitation Status Routine Resus Stat 02/27/20 11:43 Ordered EKG 12 Lead [EK] Routine Ther 02/27/20 09:22 Ordered Medication Orders Sodium Chloride (Normal Saline) 1,000 mls @ 500 mls/hr IV ASDIRECTED [facility] Last Admin: 02/27/20 10:29 Dose: 500 mls/hr Nitroglycerin (Nitrostat) 0.4 mg SL Q5M PRN PRN Reason: Chest Pain Last Admin: 02/27/20 09:44 Dose: 0.4 mg Admin: 02/27/20 09:36 Dose: 0.4 mg Assessment/Plan Comment:: ASSESSMENT AND PLAN CHEST PAIN-history of intermittent pain over the past few weeks with some associated hypertension. Scheduled for a chemical Myoview study this morning, not completed because of malfunction of the nuclear camera. 24-hour history of chest pain different to what she had experienced in the past with associated rash. -Monitor rash for development of shingles -Serial troponin levels -Outpatient Lexiscan Myoview study PROBABLE SHINGLES-pain with developing rash over the last 24 hours. Rashes erythematous, currently no vesicular lesions -Valacyclovir 1000 mg 3 times daily MAINTENANCE ISSUES -DVT prophylaxis; Lovenox 40 mg subcu daily -GI prophylaxis; continue outpatient H2 samy therapy -Marcial catheter; not indicated -Nutrition; 2 g sodium diet -Nicotine dependence; not required CODE STATUS-FULL CODE ADMISSION STATUS-this patient will be admitted to observation status, expect no more than a one night hospital stay for evaluation and management of problems as outlined above. DISPOSITION-anticipate discharge to home after the hospital stay. PRIMARY CARE PROVIDER- - Mortality Measure Prognosis:: Good
[2020-02-27] MEDS ORDERED: Nitroglycerin 0.4 MG Tab.SL SL PRN (13:26)
[2020-02-27] MEDS ORDERED: Sodium Chloride 0.9% 10 ML Syringe FLUSH PRN (13:26)
[2020-02-27] MEDS ORDERED: Ondansetron 4 MG/2 ML SDV IV PRN (13:26)
[2020-02-27] MEDS ORDERED: Polyethylene Glycol 3350 Powder 17 GM Packet PO PRN (13:26)
[2020-02-27] MEDS ORDERED: Enoxaparin 40 MG/0.4 ML Syringe SUBCUT SCH (14:00)
[2020-02-27] MEDS ORDERED: Potassium Chloride 20 MEQ Tab.ER PO ONE ×2 (15:00→17:00)
[2020-02-27] MEDS: valACYclovir 1,000 MG Tab PO SCH ×2 (15:37→20:49)
[2020-02-27] MEDS: oxyCODONE 5 MG Tab PO PRN (17:04)
[2020-02-27] MEDS: Acetaminophen 325 MG Tab PO PRN (18:48)
[2020-02-27] MEDS: Pantoprazole 40 MG Tab.CR PO SCH (20:46)
[2020-02-27] MEDS: TERAZOSIN 2 MG PO SCH (20:49)
[2020-02-27] MEDS: Metoprolol Tartrate 25 MG Tab **OWN MED PO SCH (20:53)
[2020-02-27] MEDS ORDERED: Metoprolol Tartrate 25 MG Tab PO SCH (21:00)
[2020-02-27] MEDS ORDERED: Gabapentin 300 MG Cap PO SCH (21:00)
[2020-02-27] MEDS ORDERED: Metoprolol Tartrate 25 MG Tab **OWN MED PO SCH (21:00)
[2020-02-27] MEDS ORDERED: Lisinopril 20 MG Tab PO SCH (21:00)
[2020-02-27] MEDS ORDERED: Terazosin 1 MG Cap PO SCH (21:00)
[2020-02-27] MEDS ORDERED: Gabapentin 300 MG Cap **OWN MED PO SCH (21:00)
[2020-02-28] MEDS: Acetaminophen 325 MG Tab PO PRN ×3 (01:31→12:51)
[2020-02-28] MEDS: oxyCODONE 5 MG Tab PO PRN ×3 (01:31→12:51)
[2020-02-28] MEDS ORDERED: Potassium Chloride 20 MEQ Tab.ER PO SCH (08:00)
[2020-02-28] MEDS ORDERED: Aspirin 81 MG Tab.Chew PO SCH (09:00)
[2020-02-28] MEDS ORDERED: Furosemide 20 MG Tab*POM PO SCH (09:00)
[2020-02-28] MEDS ORDERED: ROSUVASTATIN 5 MG PO SCH (09:00)
[2020-02-28] MEDS ORDERED: Aspirin 325 MG Tab.EC PO SCH (09:00)
[2020-02-28] MEDS ORDERED: Fluticasone Propionate Nasal Spray 16 GM Bottle NAS SCH (09:00)
[2020-02-28] MEDS: Metoprolol Tartrate 25 MG Tab **OWN MED PO SCH (10:52)
[2020-02-28] MEDS: Pantoprazole 40 MG Tab.CR PO SCH (10:53)
[2020-02-28] MEDS: valACYclovir 1,000 MG Tab PO SCH (10:54)
[2020-02-28] MEDS: TERAZOSIN 2 MG PO SCH (10:54)
[2020-02-28 10:55] VITALS: PULSE 75
--- NOTE | 2020-02-28 12:19 | PCM.DCSUM1 ---
Discharge Summary - Hospital Course Brief History: Ms. Dumont is a 79-year-old woman who was admitted through the emergency department for further evaluation and management of chest pain. - Discharge Data Discharge Date: 02/28/20 Discharge Disposition: Home, Self-Care 01 Condition: Fair - Referral to Home Health Primary Care Physician: PCP None - Discharge Diagnosis/Problem(s) (1) Atypical chest pain SNOMED Code(s): 961349079 ICD Code: R07.89 - OTHER CHEST PAIN Status: Acute Current Visit: Yes (2) Shingles outbreak SNOMED Code(s): 9670096 ICD Code: B02.9 - ZOSTER WITHOUT COMPLICATIONS Status: Acute Current Visit: Yes (3) Hypertension SNOMED Code(s): 20564770 ICD Code: I10 - ESSENTIAL (PRIMARY) HYPERTENSION Status: Acute Current Visit: No Qualifiers: Hypertension type: unspecified Qualified Code(s): I10 - Essential (primary ) hypertension - Patient Summary/Data Hospital Course: Ms. Dumont is a 79-year-old woman who was admitted to observation status through the emergency department for further evaluation of chest pain. She has had some intermittent difficulty with chest pain and had been scheduled for a [employer] Myoview study this morning for further evaluation. Over the last 24 hours she is experienced a different pain in her left chest and back described as a persistent ache/burning pain. She has never had this pain in the past and also has noted a rash across her left breast. Unfortunately she was unable to complete her Myoview study as the nuclear camera malfunctioned and needs to be repaired. Risk factors for coronary artery disease include hypertension, hyper cholesterolemia, and a positive family history. Patient denies a personal history of diabetes or tobacco use. Initial troponin level level was within normal range, EKG showed mild nonspecific changes in the anterolateral leads. Admitted to observation status and serial troponin levels were obtained which remained in normal range. She was started on valacyclovir 1 g 3 times daily at the time of admission. By the following morning she continued to experience chest pain and her rash was more obvious as far as representing underlying herpes zoster. She will be continued on the valacyclovir for an additional 6 days as an outpatient and will be discharged with a limited amount of oxycodone as needed for pain. Follow-up appointment will be scheduled with her primary care provider within 1 week. Myoview study that was canceled because of camera dysfunction will be rescheduled for early next week. Activity will be as tolerated and she will resume her usual low-sodium diet. - Patient Instructions Diet: Low Sodium Activity: As Tolerated Other/Special Instructions: Please have Myoview study that was canceled yesterday rescheduled for early next week. Please schedule follow-up appointment with primary care provider within 1 week. - Discharge Plan *PRESCRIPTION DRUG MONITORING PROGRAM REVIEWED*: Not Applicable *COPY OF PRESCRIPTION DRUG MONITORING REPORT IN PATIENT JESUS: Not Applicable Prescriptions/Med Rec: oxyCODONE 5 mg PO Q4H PRN #20 tablet PRN Reason: Pain (Moderate 4-6) valACYclovir [Valtrex] 1,000 mg PO TID #18 tablet Home Medications: Home Meds Metoprolol Tartrate [Lopressor] 25 mg PO BID 08/27/14 [History] Naproxen Sodium [Aleve] 220 mg PO DAILY PRN 08/27/14 [History] Terazosin [Hytrin] 2 mg PO BID 08/27/14 [History] Acetaminophen 500 mg PO Q6HR PRN 03/01/16 [History] Fluticasone Propionate [Flonase] 2 sprays NS DAILY 03/01/16 [History] Gabapentin [Neurontin] 300 mg PO BEDTIME 03/01/16 [History] Potassium Chloride [Klor-Con] 20 meq PO DAILY 10/26/16 [History] Cetirizine HCl [Zyrtec] 10 mg PO DAILY PRN 06/14/18 [History] Docusate Sodium [Stool Softener] 2 tab PO DAILY PRN 06/14/18 [History] Sodium Chloride 0.65% [[place] Saline] 0.1 ml OJRGE DAILY PRN 06/14/18 [History] lisinopriL [Prinivil] 40 mg PO BID 06/14/18 [History] polyethylene glycoL 3350 [MiraLAX] 17 gm PO DAILY PRN 12/24/18 [History] Prochlorperazine [Compazine] 1 tab PO TID PRN 01/18/20 [History] Aspirin 325 mg PO DAILY 02/15/20 [History] Omeprazole 20 mg PO DAILY PRN 02/15/20 [History] Ondansetron [Zofran ODT] 4 mg PO Q6H PRN 02/15/20 [History] Rosuvastatin Calcium 1 tab PO DAILY 02/15/20 [History] Furosemide [Lasix] 20 mg PO DAILY 02/25/20 [History] oxyCODONE 5 mg PO Q4H PRN #20 tablet 02/28/20 [Rx] valACYclovir [Valtrex] 1,000 mg PO TID #18 tablet 02/28/20 [Rx] Referrals: Filiberto Perdue MD [Physician] - 03/04/20 10:00 am (Please arrive 15 minutes early to register for your appointment. Please wear a mask for your appointment. If you have one.) - Discharge Summary/Plan Comment DC Time >30 min.: No - Patient Data Vitals - Most Recent: Last Vital Signs Temp 96 F L 02/28/20 07:40 Pulse 75 02/28/20 10:52 Resp 10 L 02/28/20 10:00 BP 122/79 02/28/20 10:52 Pulse Ox 98 02/28/20 10:00 Weight - Most Recent: 144 lb I&O - Last 24 hours: Intake & Output 02/27/20 02/28/20 02/28/20 22:59 06:59 14:59 Intake Total 760 500 240 Output Total 150 850 700 Balance 610 350 460 Lab Results - Last 24 hrs: Laboratory Results - last 24 hr 02/27/20 02/27/20 02/28/20 Range/Units 16:00 21:55 04:00 Sodium 139 L (140-148) mmol/L Potassium 4.2 (3.6-5.2) mmol/L Chloride 104 (100-108) mmol/L Carbon Dioxide 31 (21-32) mmol/L Anion Gap 8.2 (5.0-14.0) mmol/L BUN 15 (7-18) mg/dL Creatinine 0.8 (0.6-1.0) mg/dL Est Cr Clr Drug Dosing 48.72 mL/min Estimated GFR (MDRD) > 60 (>60) Glucose 77 (74-106) mg/dL Calcium 8.2 L (8.5-10.1) mg/dL Troponin I 0.034 0.023 (0.000-0.056) ng/mL Med Orders - Current: Current Medications Acetaminophen (Tylenol) 650 mg PO Q4H PRN PRN Reason: Pain (Mild 1-3)/fever Last Admin: 02/28/20 07:36 Dose: 650 mg Aspirin (Aspirin) 81 mg PO DAILY [facility] Last Admin: 02/28/20 10:52 Dose: 81 mg Enoxaparin Sodium (Lovenox) 40 mg SUBCUT Q24H [facility] Last Admin: 02/27/20 15:37 Dose: 40 mg Fluticasone Propionate (Flonase) 0 gm JORGE DAILY [facility] Last Admin: 02/28/20 10:55 Dose: Not Given Furosemide (Lasix) 20 mg PO DAILY [facility] Last Admin: 02/28/20 10:52 Dose: 20 mg Gabapentin (Neurontin) 300 mg PO BEDTIME [facility] Last Admin: 02/27/20 20:48 Dose: 300 mg Metoprolol Tartrate (Lopressor) 12.5 mg PO BID [facility] Last Admin: 02/28/20 10:52 Dose: 12.5 mg Rosuvastatin 5mg * (Pom*) 1 each PO DAILY [facility] Last Admin: 02/28/20 10:52 Dose: 1 each Ondansetron HCl (Zofran) 4 mg IV Q4H PRN PRN Reason: Nausea/Vomiting Last Admin: 02/28/20 07:46 Dose: 4 mg Oxycodone HCl (Oxycodone) 5 mg PO Q4H PRN PRN Reason: Pain (moderate 4-6) Last Admin: 02/28/20 07:36 Dose: 5 mg Pantoprazole Sodium (Protonix) 40 mg PO DAILY [facility] Last Admin: 02/28/20 10:53 Dose: 40 mg Terazosin 2 Mg Cap * (*Own Med) 0 each PO BID [facility] Last Admin: 02/28/20 10:54 Dose: 1 each Lisinopril 40 Mg Tab (Own Med) 0 each PO BID [facility] Last Admin: 02/28/20 10:53 Dose: 1 each Polyethylene Glycol (Miralax) 17 gm PO DAILY PRN PRN Reason: Constipation Potassium Chloride (Klor-Con M20) 20 meq PO DAILY@0800 [facility] Last Admin: 02/28/20 10:51 Dose: 20 meq Sodium Chloride (Saline Flush) 10 ml FLUSH ASDIRECTED PRN PRN Reason: Keep Vein Open Valacyclovir HCl (Valtrex) 1,000 mg PO TID [facility] Last Admin: 02/28/20 10:54 Dose: 1,000 mg Discontinued Medications Aspirin (Aspirin) 324 mg PO ONETIME ONE Stop: 02/27/20 09:29 Last Admin: 02/27/20 09:36 Dose: 324 mg Aspirin (Ecotrin) 325 mg PO DAILY [facility] Gabapentin (Neurontin) 300 mg PO BEDTIME [facility] Hydromorphone HCl (Dilaudid) 0.5 mg IVPUSH ONETIME ONE Stop: 02/27/20 10:44 Last Admin: 02/27/20 10:50 Dose: 0.5 mg Sodium Chloride (Normal Saline) 1,000 mls @ 500 mls/hr IV ASDIRECTED [facility] Last Admin: 02/27/20 10:29 Dose: 500 mls/hr Lisinopril (Prinivil) 40 mg PO BID [facility] Metoprolol Tartrate (Lopressor) 25 mg PO BID [facility] Metoprolol Tartrate (Lopressor) 25 mg PO BID [facility] Nitroglycerin (Nitrostat) 0.4 mg SL Q5M PRN PRN Reason: Chest Pain Last Admin: 02/27/20 09:44 Dose: 0.4 mg Nitroglycerin (Nitrostat) 0.4 mg SL Q5M PRN PRN Reason: Chest Pain Stop: 02/28/20 11:46 Potassium Chloride (Klor-Con M20) 40 meq PO ONETIME ONE Stop: 02/27/20 15:01 Last Admin: 02/27/20 15:37 Dose: 40 meq Potassium Chloride (Klor-Con M20) 40 meq PO ONETIME ONE Stop: 02/27/20 17:01 Last Admin: 02/27/20 20:46 Dose: 40 meq Terazosin HCl (Hytrin) 2 mg PO BID [facility] - Exam Quality Assessment: Reports: DVT Prophylaxis General: Reports: Alert, Oriented, Cooperative, Moderate Distress Lungs: Reports: Clear to Auscultation, Normal Respiratory Effort Cardiovascular: Reports: Regular Rate, Regular Rhythm, No Murmurs GI/Abdominal Exam: Soft, Non-Tender, No Organomegaly, No Distention Skin: Reports: Rash (Left posterior and anterior chest wall consistent with herpes zoster)
[2020-02-28 12:49] VITALS: BP 130/86
== END 2020-02-28 14:15 | disposition home or self-care (01) ==
LOC: JP.ED 09:13 → JP.ICU 11:40
PROVIDERS: ADMIT Hospitalist; ATTEND Hospitalist
DX: R07.89 Other chest pain (principal); B02.9 Zoster without complications; E78.00 Pure hypercholesterolemia, unspecified; I10 Essential (primary) hypertension; K21.9 Gastro-esophageal reflux disease without esophagitis; Z88.1 Allergy status to other antibiotic agents; Z91.013 Allergy to seafood; Z88.8 Allergy status to other drugs, medicaments and biological substances; Z79.82 Long term (current) use of aspirin; Z79.899 Other long term (current) drug therapy
CPT/HCPCS: 36415; 70450; 71045; 80048; 80053; 84484; 85025; 93005; 96374; 99285; A9270; J1170; J1650; J2405; J7030; 93010

== ENCOUNTER 2020-03-23 13:32 | Inpatient (IN) | payer MEDICARE, BC ==
--- NOTE | 2020-03-23 14:14 | EDM.PDOC ---
ED HPI GENERAL MEDICAL PROBLEM - General Chief Complaint: Neurological Problem Stated Complaint: [facility] Time Seen by Provider: 03/23/20 13:50 Source of Information: Reports: Patient, EMS, Family History Limitations: Reports: No Limitations - History of Present Illness INITIAL COMMENTS - FREE TEXT/NARRATIVE: 79-year-old female was feeling her normal self this morning when she felt nauseated and decided to lay down for a while. Afterwards she got up and went into the bathroom and while sitting on the stool she had a syncopal episode. She became very pale, diaphoretic, and was not answering questions from the family so the ambulance was called. By the time EMS arrived she was returning to baseline. She never completely lost consciousness. She has been having persistent diarrhea for the past several days and some lower abdominal cramping. No fevers or chills, no shortness of breath, no chest pain. She has undergone 2 cataract surgeries in the last week and a half. Per EMS EKG was normal, [place] stroke scale negative and glucometer revealed a normal glucose. EKG was reviewed on arrival and does appear to be normal sinus bradycardia. By report she was hypotensive at home, she is now normal. Onset: Sudden Associated Symptoms: Reports: Confusion, Diaphoresis, Loss of Appetite, Malaise , Nausea/Vomiting, Syncope, Weakness. 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: Other (see below) (Received some IV normal saline in route) Lower Abdominal Pain Score (Numeric/FACES): 6 Left Upper Abdomen Pain Score (Numeric/FACES): 4 - Related Data Allergies Allergy/AdvReac Type Severity Reaction Status Date / Time metronidazole [From Flagyl] Allergy Severe Difficulty Verified 03/23/20 13:53 Breathing shellfish derived Allergy Intermediate Difficulty Verified 03/23/20 13:53 Swallowing amlodipine [From Norvasc] Allergy Other Verified 03/23/20 13:53 Home Meds: Home Meds Metoprolol Tartrate [Lopressor] 25 mg PO BID 08/27/14 [History] Naproxen Sodium [Aleve] 220 mg PO DAILY PRN 08/27/14 [History] Terazosin [Hytrin] 2 mg PO BID 08/27/14 [History] Acetaminophen 500 mg PO Q6HR PRN 03/01/16 [History] Fluticasone Propionate [Flonase] 2 sprays NS DAILY 03/01/16 [History] Gabapentin [Neurontin] 300 mg PO BEDTIME 03/01/16 [History] Potassium Chloride [Klor-Con] 20 meq PO DAILY 10/26/16 [History] Cetirizine HCl [Zyrtec] 10 mg PO DAILY PRN 06/14/18 [History] Docusate Sodium [Stool Softener] 2 tab PO DAILY PRN 06/14/18 [History] Sodium Chloride 0.65% [[place] Saline] 0.1 ml JORGE DAILY PRN 06/14/18 [History] lisinopriL [Prinivil] 40 mg PO BID 06/14/18 [History] polyethylene glycoL 3350 [MiraLAX] 17 gm PO DAILY PRN 12/24/18 [History] Aspirin 325 mg PO DAILY 02/15/20 [History] Omeprazole 20 mg PO DAILY 02/15/20 [History] Ondansetron [Zofran ODT] 4 mg PO Q6H PRN 02/15/20 [History] Rosuvastatin Calcium 1 tab PO DAILY 02/15/20 [History] Furosemide [Lasix] 20 mg PO DAILY 02/25/20 [History] oxyCODONE 5 mg PO Q4H PRN #20 tablet 02/28/20 [Rx] Cinnamon Bark [Cinnamon] 1 tab PO DAILY 03/02/20 [History] Fish Oil/[place]-3 Fatty Acids [Fish Oil 1,000 MG] 1 tab PO DAILY 03/02/20 [ History] Past Medical History HEENT History: Reports: Allergic Rhinitis, Impaired Vision Other HEENT History: cataracts Cardiovascular History: Reports: High Cholesterol, Hypertension Other Cardiovascular History: TIA in December Respiratory History: Reports: None Gastrointestinal History: Reports: Cholelithiasis, Colon Polyp, Diverticulosis, GERD, Other (See Below) Other Gastrointestinal History: Hx of Barretts Genitourinary History: Reports: Urinary Incontinence, UTI, Recurrent [employer] History: Reports: Dysfunctional Uterine Bleeding, , Prolapsed Uterus Musculoskeletal History: Reports: Back Pain, Chronic, Osteoarthritis Other Musculoskeletal History: right knee pain. left knee pain Neurological History: Reports: Neuropathy, Peripheral, TIA, Other (See Below) Other Neuro History: TIA December 2019 Psychiatric History: Reports: None Endocrine/Metabolic History: Reports: Osteoporosis Hematologic History: Reports: Anemia, B12 Deficiency, Blood Transfusion(s), Iron Deficiency Immunologic History: Reports: None Oncologic (Cancer) History: Reports: None Dermatologic History: Reports: None - Infectious Disease History Infectious Disease History: Reports: Chicken Pox, Measles, Mumps Other Infectious Disease History: abdomen mesh - Past Surgical History Head Surgeries/Procedures: Reports: None HEENT Surgical History: Reports: Naso-Sinus Surgery Cardiovascular Surgical History: Reports: None GI Surgical History: Reports: Cholecystectomy, Colonoscopy, EGD, Hernia, Inguinal, Other (See Below) Other GI Surgeries/Procedures: 2 hernia repair, esophagus removed Female Surgical History: Reports: Breast Biopsy, Hysterectomy, Oophorectomy Endocrine Surgical History: Reports: None Neurological Surgical History: Reports: Laminectomy Musculoskeletal Surgical History: Reports: Knee Replacement, Shoulder Surgery, Other (See Below) Other Musculoskeletal Surgeries/Procedures:: back surgery x2 right total knee Oncologic Surgical History: Reports: Biopsy of Breast Dermatological Surgical History: Reports: None Social & Family History - Family History Family Medical History: Noncontributory HEENT: Reports: Impaired Vision Cardiac: Reports: Hypertension Respiratory: Reports: COPD GI: Reports: Cholelithiasis, Colon Polyps, GERD OBGYN: Reports: Musculoskeletal: Reports: Gout Endocrine/Metabolic: Reports: None Hematologic: Reports: None Oncologic: Reports: Prostate, Renal - Tobacco Use Smoking Status *Q: Never Smoker Second Hand Smoke Exposure: No - Caffeine Use Caffeine Use: Reports: Coffee Caffeine Use Comment: DAILY - Recreational Drug Use Recreational Drug Use: No ED ROS GENERAL - Review of Systems Review Of Systems: See Below Constitutional: Reports: Malaise, Decreased Appetite. Denies: Fever HEENT: Reports: No Symptoms Respiratory: Denies: Shortness of Breath Cardiovascular: Denies: Chest Pain GI/Abdominal: Reports: Abdominal Pain, Diarrhea. Denies: Vomiting : Reports: No Symptoms Skin: Reports: Pallor Neurological: Reports: Dizziness, Syncope, Weakness ED EXAM, NEURO - Physical Exam Exam: See Below Exam Limited By: No Limitations General Appearance: Alert, No Apparent Distress, Other (Appears tired but answering questions appropriately, alert and oriented) Eye Exam: Bilateral Eye: EOMI Head Exam: Atraumatic Respiratory/Chest: No Respiratory Distress, Other (A few basilar crackles of the left base) Cardiovascular: Regular Rate, Rhythm, Bradycardia GI/Abdominal: Soft, Other (Reacts to some mild discomfort with palpation across the lower abdomen but no focal guarding or rebound, bowel sounds are normal) Neurological: Alert, No Motor/Sensory Deficits, Oriented x 3 Extremities: No: Pedal Edema Psychiatric: Flat Affect Skin Exam: Warm, Dry Course - Vital Signs Last Recorded V/S: Last Vital Signs Temp 101 F H 03/24/20 07:12 Pulse 75 03/24/20 10:17 Resp 18 03/24/20 07:12 BP 95/59 L 03/24/20 10:17 Pulse Ox 94 L 03/24/20 07:12 - Orders/Labs/Meds Orders: Active Orders 24 hr Category Date Time Status CULTURE STOOL + SHIGATOX [] Stat Lab 03/23/20 16:52 Results Clostridium [CLOS DIFFICILE PCR W/REFLEX] [] Stat Lab 03/23/20 16:52 Results Medication Orders Acetaminophen (Tylenol) 650 mg PO Q4H PRN PRN Reason: Pain (Mild 1-3)/fever Last Admin: 03/24/20 06:24 Dose: 650 mg Admin: 03/24/20 00:50 Dose: 650 mg Aspirin (Ecotrin) 325 mg PO DAILY [facility] Last Admin: 03/24/20 10:15 Dose: 325 mg Cetirizine HCl (Zyrtec) 10 mg PO DAILY PRN PRN Reason: Allergies Enoxaparin Sodium (Lovenox) 30 mg SUBCUT QPM [facility] Fluticasone Propionate (Flonase) 0 gm NASBOTH DAILY [facility] Last Admin: 03/24/20 10:16 Dose: 2 spray Gabapentin (Neurontin) 300 mg PO BEDTIME [facility] Last Admin: 03/24/20 08:04 Dose: Hydromorphone HCl (Dilaudid) 0.5 mg IVPUSH Q2H PRN PRN Reason: Pain (severe 7-10) Last Admin: 03/24/20 04:46 Dose: 0.5 mg Sodium Chloride (Normal Saline) 1,000 mls @ 125 mls/hr IV ASDIRECTED [facility] Last Admin: 03/24/20 04:15 Dose: 125 mls/hr Infusion: 03/24/20 02:00 Dose: 125 mls/hr Admin: 03/23/20 18:00 Dose: 125 mls/hr Ciprofloxacin/Dextrose 400 mg/ (Premix) 200 mls @ 200 mls/hr IV Q12H [facility] Last Admin: 03/24/20 06:26 Dose: 200 mls/hr Infusion: 03/23/20 22:09 Dose: 200 mls/hr Admin: 03/23/20 21:09 Dose: 200 mls/hr Clindamycin Phosphate 600 mg/ (Sodium Chloride) 54 mls @ 100 mls/hr IV Q6H [facility] Magnesium Sulfate 2 gm/ Premix 50 mls @ 25 mls/hr IV ONETIME ONE Stop: 03/24/20 10:59 Last Admin: 03/24/20 10:16 Dose: 25 mls/hr Lactobacillus Rhamnosus (Culturelle) 1 cap PO BID [facility] Last Admin: 03/24/20 10:15 Dose: 1 cap Admin: 03/23/20 21:10 Dose: Not Given Admin: 03/23/20 19:47 Dose: 1 cap Magnesium Oxide (Magnesium Oxide) 400 mg PO BID [facility] Last Admin: 03/24/20 10:16 Dose: 400 mg Metoprolol Tartrate (Lopressor) 25 mg PO BID [facility] Last Admin: 03/24/20 10:17 Dose: 25 mg Admin: 03/23/20 21:00 Dose: Ondansetron HCl (Zofran) 4 mg IV Q4H PRN PRN Reason: Nausea/Vomiting Oxycodone HCl (Oxycodone) 5 mg PO Q4H PRN PRN Reason: Pain (moderate 4-6) Pantoprazole Sodium (Protonix) 40 mg PO ACBREAKFAST [facility] Last Admin: 03/24/20 10:14 Dose: 40 mg Potassium Chloride (Klor-Con M20) 20 meq PO DAILY [facility] Last Admin: 03/24/20 10:16 Dose: 20 meq Rosuvastatin Calcium (Crestor) 5 mg PO DAILY [facility] Last Admin: 03/24/20 10:14 Dose: 5 mg Sodium Chloride (Saline Flush) 10 ml FLUSH ASDIRECTED PRN PRN Reason: Keep Vein Open Labs: Laboratory Tests 03/23/20 03/23/20 03/23/20 Range/Units 14:25 14:25 14:25 WBC 9.9 (4.5-11.0) K/uL RBC 4.31 (3.30-5.50) M/uL Hgb 13.3 (12.0-15.0) g/dL Hct 40.8 (36.0-48.0) % MCV 95 (80-98) fL MCH 31 (27-31) pg MCHC 33 (32-36) % Plt Count 273 (150-400) K/uL Neut % (Auto) 86 H (36-66) % Lymph % (Auto) 7 L (24-44) % [place] % (Auto) 7 H (2-6) % Eos % (Auto) 0 L (2-4) % Baso % (Auto) 0 (0-1) % Sodium 138 L (140-148) mmol/L Potassium 4.4 (3.6-5.2) mmol/L Chloride 104 (100-108) mmol/L Carbon Dioxide 27 (21-32) mmol/L Anion Gap 11.4 (5.0-14.0) mmol/L BUN 25 H D (7-18) mg/dL Creatinine 1.5 H D (0.6-1.0) mg/dL Est Cr Clr Drug Dosing 25.98 mL/min Estimated GFR (MDRD) 34 L (>60) Glucose 122 H (74-106) mg/dL Calcium 8.5 (8.5-10.1) mg/dL Total Bilirubin 1.0 D (0.2-1.0) mg/dL AST 26 (15-37) U/L ALT 27 (12-78) U/L Alkaline Phosphatase 92 (46-116) U/L Troponin I < 0.017 (0.000-0.056) ng/mL Total Protein 6.8 (6.4-8.2) g/dL Albumin 3.1 L (3.4-5.0) g/dL Globulin 3.7 H (2.3-3.5) g/dL Albumin/Globulin Ratio 0.8 L (1.2-2.2) Lipase 159 (73-393) U/L Meds: Medications Generic Name Dose Route Start Last Admin Trade Name Freq PRN Reason Stop Dose Admin Acetaminophen 650 mg 03/23/20 17:41 03/24/20 06:24 Tylenol PO 650 mg Q4H PRN Administration Pain (Mild 1-3)/fever Aspirin 325 mg 03/24/20 09:00 03/24/20 10:15 Ecotrin PO 325 mg DAILY [facility] Administration Cetirizine HCl 10 mg 03/23/20 17:41 Zyrtec PO DAILY PRN Allergies Enoxaparin Sodium 30 mg 03/24/20 17:00 Lovenox SUBCUT QPM [facility] Fluticasone Propionate 0 gm 03/24/20 09:00 03/24/20 10:16 Flonase NASBOTH 2 spray DAILY [facility] Administration Gabapentin 300 mg 03/23/20 21:00 03/24/20 08:04 Neurontin PO Not Given BEDTIME [facility] Hydromorphone HCl 0.5 mg 03/23/20 18:37 03/24/20 04:46 Dilaudid IVPUSH 0.5 mg Q2H PRN Administration Pain (severe 7-10) Sodium Chloride 1,000 mls @ 125 mls/hr 03/23/20 17:41 03/24/20 04:15 Normal Saline IV 125 mls/hr ASDIRECTED [facility] Administration Ciprofloxacin/Dextrose 400 mg/ 200 mls @ 200 mls/hr 03/23/20 18:45 03/24/20 06:26 Premix IV 200 mls/hr Q12H [facility] Administration Clindamycin Phosphate 600 mg/ 54 mls @ 100 mls/hr 03/24/20 12:00 Sodium Chloride IV Q6H [facility] Magnesium Sulfate 2 gm/ Premix 50 mls @ 25 mls/hr 03/24/20 09:00 03/24/20 10: 16 IV 03/24/20 10:59 25 mls/hr ONETIME ONE Administration Lactobacillus Rhamnosus 1 cap 03/23/20 18:45 03/24/20 10:15 Culturelle PO 1 cap BID [facility] Administration Magnesium Oxide 400 mg 03/24/20 09:00 03/24/20 10:16 Magnesium Oxide PO 400 mg BID [facility] Administration Metoprolol Tartrate 25 mg 03/23/20 21:00 03/24/20 10:17 Lopressor PO 25 mg BID [facility] Administration Ondansetron HCl 4 mg 03/23/20 17:41 Zofran IV Q4H PRN Nausea/Vomiting Oxycodone HCl 5 mg 03/23/20 17:41 Oxycodone PO Q4H PRN Pain (moderate 4-6) Pantoprazole Sodium 40 mg 03/24/20 07:30 03/24/20 10:14 Protonix PO 40 mg ACBREAKFAST [facility] Administration Potassium Chloride 20 meq 03/24/20 09:00 03/24/20 10:16 Klor-Con M20 PO 20 meq DAILY [facility] Administration Rosuvastatin Calcium 5 mg 03/24/20 09:00 03/24/20 10:14 Crestor PO 5 mg DAILY [facility] Administration Sodium Chloride 10 ml 03/23/20 17:41 Saline Flush FLUSH ASDIRECTED PRN Keep Vein Open Discontinued Medications Generic Name Dose Route Start Last Admin Trade Name Freq PRN Reason Stop Dose Admin Acetaminophen 325 mg 03/23/20 16:17 03/23/20 16:29 Tylenol PO 325 mg Q4H PRN Administration Fever Enoxaparin Sodium 30 mg 03/23/20 17:41 03/23/20 18:41 Lovenox SUBCUT 30 mg DAILY [facility] Administration Sodium Chloride 1,000 mls @ 1,000 mls/hr 03/23/20 15:00 03/23/20 15:01 Normal Saline IV 1,000 mls/hr ASDIRECTED [facility] Administration Clindamycin Phosphate 600 mg/ 54 mls @ 100 mls/hr 03/23/20 18:45 03/24/20 05: 51 Sodium Chloride IV 100 mls/hr Q6H [facility] Administration Lisinopril 40 mg 03/23/20 21:00 03/23/20 21:00 Prinivil PO Not Given BID [facility] Lisinopril 40mg 0 each 03/24/20 09:00 Ptom PO BID [facility] Terazosin HCl 2 mg 03/23/20 21:00 03/23/20 21:00 Hytrin PO Not Given BID [facility] - Re-Assessments/Exams Free Text/Narrative Re-Assessment/Exam: 03/23/20 14:13 Vitals and EKG per EMS were reviewed. Normal saline was continued, CBC BMP and troponin were obtained and a stool sample collected for culture, WBC and C. difficile. 03/23/20 15:11 Patient received 500 cc of normal saline but still felt very weak, continued to have watery diarrhea and felt fatigued. CBC returned basically normal but BMP showed an elevated BUN at 25, elevated creatinine at 1.5 and GFR 34, these are usually normal. An additional liter of fluid was started. Sodium is 138, potassium chloride and anion gap are all normal 03/23/20 15:12 Still unable to collect a stool as the patient has watery diarrhea. She does not feel like she has the strength to go home, and the daughter is concerned that only her 84-year-old who is weak himself is the only one that can assist her. I discussed this with Dr. Glass and he agreed to assess the patient for admission for watery diarrhea, dehydration and weakness along with a significant vasovagal syncopal episode. It may be helpful to continue to try to obtain a stool sample. Departure - Departure Time of Disposition: 16:35 Disposition: Admitted As Inpatient 68 Clinical Impression: Dehydration, Vasovagal syncope Diarrhea Qualifiers: Diarrhea type: unspecified type Qualified Code(s): R19.7 - Diarrhea, unspecified - Discharge Information Sepsis Event Note - Evaluation Sepsis Screening Result: No Definite Risk - Focused Exam Date Exam was Performed: 03/24/20 Time Exam was Performed: 10:36 - My Orders Last 24 Hours: My Active Orders 03/23/20 16:52 CULTURE STOOL + SHIGATOX [RM] Stat Clostridium [CLOS DIFFICILE PCR W/REFLEX] [RM] Stat - Assessment/Plan Last 24 Hours: My Active Orders 03/23/20 16:52 CULTURE STOOL + SHIGATOX [RM] Stat Clostridium [CLOS DIFFICILE PCR W/REFLEX] [RM] Stat
[2020-03-23] MEDS ORDERED: Sodium Chloride 0.9% 1,000 ML IV SCH (15:00)
--- NOTE | 2020-03-23 15:52 | PCM.HP.2 ---
H&P History of Present Illness - General Date of Service: 03/23/20 Admit Problem/Dx: Admission Diagnosis/Problem Admission Diagnosis/Problem Gastroenteritis Source of Information: Patient, Family, Old Records, Provider, RN Notes Reviewed History Limitations: Reports: No Limitations - History of Present Illness Initial Comments - Free Text/Narative: Ms. Dumont is a 79-year-old woman who was admitted through the emergency department with nausea, diarrhea, and weakness, likely secondary to viral gastroenteritis. She reports that she felt well throughout the day yesterday and even initially after getting up this morning. She developed acute symptoms of nausea associated with upper abdominal pain and profuse watery diarrhea. She did experience an episode of lightheadedness, never lost consciousness but was very confused and weak. EMS was activated and ambulance crew noted bradycardia and hypotension when they arrived. She was brought into the emergency department for further evaluation. She continues to have watery diarrhea, stool studies are pending. She has been chilling but not had significant temperature elevation. She continues to experience significant abdominal pain. Vital signs are now stable and labs for the most part unremarkable except for elevation in creatinine from baseline. Lower Abdominal Pain Score (Numeric/FACES): 6 - Related Data Allergies/Adverse Reactions: Allergies Allergy/AdvReac Type Severity Reaction Status Date / Time metronidazole [From Flagyl] Allergy Severe Difficulty Verified 03/23/20 13:53 Breathing shellfish derived Allergy Intermediate Difficulty Verified 03/23/20 13:53 Swallowing amlodipine [From Norvasc] Allergy Other Verified 03/23/20 13:53 Home Medications: Home Meds Metoprolol Tartrate [Lopressor] 25 mg PO BID 08/27/14 [History] Naproxen Sodium [Aleve] 220 mg PO DAILY PRN 08/27/14 [History] Terazosin [Hytrin] 2 mg PO BID 08/27/14 [History] Acetaminophen 500 mg PO Q6HR PRN 03/01/16 [History] Fluticasone Propionate [Flonase] 2 sprays NS DAILY 03/01/16 [History] Gabapentin [Neurontin] 300 mg PO BEDTIME 03/01/16 [History] Potassium Chloride [Klor-Con] 20 meq PO DAILY 10/26/16 [History] Cetirizine HCl [Zyrtec] 10 mg PO DAILY PRN 06/14/18 [History] Docusate Sodium [Stool Softener] 2 tab PO DAILY PRN 06/14/18 [History] Sodium Chloride 0.65% [[place] Saline] 0.1 ml JORGE DAILY PRN 06/14/18 [History] lisinopriL [Prinivil] 40 mg PO BID 06/14/18 [History] polyethylene glycoL 3350 [MiraLAX] 17 gm PO DAILY PRN 12/24/18 [History] Aspirin 325 mg PO DAILY 02/15/20 [History] Omeprazole 20 mg PO DAILY 02/15/20 [History] Ondansetron [Zofran ODT] 4 mg PO Q6H PRN 02/15/20 [History] Rosuvastatin Calcium 1 tab PO DAILY 02/15/20 [History] Furosemide [Lasix] 20 mg PO DAILY 02/25/20 [History] oxyCODONE 5 mg PO Q4H PRN #20 tablet 02/28/20 [Rx] Cinnamon Bark [Cinnamon] 1 tab PO DAILY 03/02/20 [History] Fish Oil/[place]-3 Fatty Acids [Fish Oil 1,000 MG] 1 tab PO DAILY 03/02/20 [ History] Past Medical History HEENT History: Reports: Allergic Rhinitis, Impaired Vision Other HEENT History: cataracts Cardiovascular History: Reports: High Cholesterol, Hypertension Other Cardiovascular History: TIA in December Respiratory History: Reports: None Gastrointestinal History: Reports: Cholelithiasis, Colon Polyp, Diverticulosis, GERD, Other (See Below) Other Gastrointestinal History: Hx of Barretts Genitourinary History: Reports: Urinary Incontinence, UTI, 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 left knee pain Neurological History: Reports: Neuropathy, Peripheral, TIA, Other (See Below) Other Neuro History: TIA December 2019 Psychiatric History: Reports: None Endocrine/Metabolic History: Reports: Osteoporosis Hematologic History: Reports: Anemia, B12 Deficiency, Blood Transfusion(s), Iron Deficiency Immunologic History: Reports: None Oncologic (Cancer) History: Reports: None Dermatologic History: Reports: None - Infectious Disease History Infectious Disease History: Reports: Chicken Pox, Measles, Mumps Other Infectious Disease History: abdomen mesh - Past Surgical History Head Surgeries/Procedures: Reports: None HEENT Surgical History: Reports: Naso-Sinus Surgery Cardiovascular Surgical History: Reports: None GI Surgical History: Reports: Cholecystectomy, Colonoscopy, EGD, Hernia, Inguinal, Other (See Below) Other GI Surgeries/Procedures: 2 hernia repair, esophagus removed Female Surgical History: Reports: Breast Biopsy, Hysterectomy, Oophorectomy Endocrine Surgical History: Reports: None Neurological Surgical History: Reports: Laminectomy Musculoskeletal Surgical History: Reports: Knee Replacement, Shoulder Surgery, Other (See Below) Other Musculoskeletal Surgeries/Procedures:: back surgery x2 right total knee Oncologic Surgical History: Reports: Biopsy of Breast Dermatological Surgical History: Reports: None Social & Family History - Family History Family Medical History: Noncontributory HEENT: Reports: Impaired Vision Cardiac: Reports: Hypertension Respiratory: Reports: COPD GI: Reports: Cholelithiasis, Colon Polyps, GERD OBGYN: Reports: Musculoskeletal: Reports: Gout Endocrine/Metabolic: Reports: None Hematologic: Reports: None Oncologic: Reports: Prostate, Renal - Tobacco Use Smoking Status *Q: Never Smoker Second Hand Smoke Exposure: No - Caffeine Use Caffeine Use: Reports: Coffee Caffeine Use Comment: DAILY - Recreational Drug Use Recreational Drug Use: No H&P Review of Systems - Review of Systems: Review Of Systems: See Below General: Reports: Chills, Malaise, Weakness, Diaphoresis HEENT: Reports: No Symptoms Pulmonary: Reports: No Symptoms Cardiovascular: Reports: No Symptoms Gastrointestinal: Reports: Abdominal Pain, Diarrhea, Nausea. Denies: Difficulty Swallowing, Distension, Hematemesis, Hematochezia, Melena, Vomiting Genitourinary: Reports: No Symptoms Musculoskeletal: Reports: No Symptoms Skin: Reports: No Symptoms Psychiatric: Reports: No Symptoms Neurological: Reports: No Symptoms Hematologic/Lymphatic: Reports: No Symptoms Immunologic: Reports: No Symptoms Exam - Exam Exam: See Below - Vital Signs Vital Signs: Last Vital Signs Temp 98 F 03/23/20 13:47 Pulse 64 03/23/20 15:00 Resp 13 03/23/20 15:00 BP 101/71 03/23/20 15:00 Pulse Ox 94 L 03/23/20 15:00 Weight: 145 lb - Exam Quality Assessment: DVT Prophylaxis General: Alert, Oriented, Cooperative, Moderate Distress HEENT: Conjunctiva Clear, Hearing Intact, Normal Nasal Septum, Posterior Pharynx Clear, Pupils Equal. No: Mucosa Moist & [place] Neck: Supple, Trachea Midline, +2 Carotid Pulse wo Bruit Lungs: Clear to Auscultation, Normal Respiratory Effort, Decreased Breath Sounds Cardiovascular: Regular Rate, Regular Rhythm, Normal S1, Normal S2. No: Systolic Murmur, Diastolic Murmur GI/Abdominal Exam: Soft, Non-Tender, No Organomegaly, No Distention Extremities: Normal Inspection, Non-Tender, No Pedal Edema Skin: Warm, Dry Neurological: Cranial Nerves Intact, Strength Equal Bilateral, Normal Speech, Normal Tone, Sensation Intact. No: Focal Deficit Neuro Extensive - Mental Status: Alert, Oriented x3, Normal Mood/Affect, Normal Cognition, Memory Intact - Patient Data Lab Results Last 24 hrs: Laboratory Results - last 24 hr 03/23/20 03/23/20 Range/Units 14:25 14:25 WBC 9.9 (4.5-11.0) K/uL RBC 4.31 (3.30-5.50) M/uL Hgb 13.3 (12.0-15.0) g/dL Hct 40.8 (36.0-48.0) % MCV 95 (80-98) fL MCH 31 (27-31) pg MCHC 33 (32-36) % Plt Count 273 (150-400) K/uL Neut % (Auto) 86 H (36-66) % Lymph % (Auto) 7 L (24-44) % [place] % (Auto) 7 H (2-6) % Eos % (Auto) 0 L (2-4) % Baso % (Auto) 0 (0-1) % Sodium 138 L (140-148) mmol/L Potassium 4.4 (3.6-5.2) mmol/L Chloride 104 (100-108) mmol/L Carbon Dioxide 27 (21-32) mmol/L Anion Gap 11.4 (5.0-14.0) mmol/L BUN 25 H D (7-18) mg/dL Creatinine 1.5 H D (0.6-1.0) mg/dL Est Cr Clr Drug Dosing 25.98 mL/min Estimated GFR (MDRD) 34 L (>60) Glucose 122 H (74-106) mg/dL Calcium 8.5 (8.5-10.1) mg/dL Total Bilirubin 1.0 D (0.2-1.0) mg/dL AST 26 (15-37) U/L ALT 27 (12-78) U/L Alkaline Phosphatase 92 (46-116) U/L Troponin I < 0.017 (0.000-0.056) ng/mL Total Protein 6.8 (6.4-8.2) g/dL Albumin 3.1 L (3.4-5.0) g/dL Globulin 3.7 H (2.3-3.5) g/dL Albumin/Globulin Ratio 0.8 L (1.2-2.2) Result Diagrams: 03/23/20 14:25 03/23/20 14:25 Sepsis Event Note - Evaluation Sepsis Screening Result: No Definite Risk - Focused Exam Vital Signs: Vital Signs Temp Pulse Resp BP Pulse Ox 03/23/20 15:00 64 13 101/71 94 L 03/23/20 13:50 58 L 14 98 03/23/20 13:47 98 F 60 16 116/54 L 97 03/23/20 13:40 98 F 60 16 116/54 L 97 Date Exam was Performed: 03/23/20 Time Exam was Performed: 16:29 *Q Meaningful Use (ADM) - VTE Risk Assess *Q Each Risk Factor Represents 1 Point: None Total Score 1 Point Risk Factors: 0 Each Risk Factor Represents 2 Points: None Total Score 2 Point Risk Factors: 0 Each Risk Factor Represents 3 Points: Age 75 Years or Greater Total Score 3 Point Risk Factors: 3 Each Risk Factor Represents 5 Points: None Total Score 5 Point Risk Factors: 0 Venous Thromboembolism Risk Factor Score *Q: 3 Problem List Initiated/Reviewed/Updated: Yes Orders Last 24hrs: Active Orders 24 hr Category Date Time Status Patient Status Manage Transfer [TRANSFER] Routine ADT 03/23/20 15:45 Ordered CULTURE STOOL + SHIGATOX [RM] Stat Lab 03/23/20 14:08 Ordered Clostridium [CLOS DIFFICILE PCR W/REFLEX] [RM] Stat Lab 03/23/20 14:08 Ordered WBC, STOOL [OP] Stat Lab 03/23/20 14:08 Ordered Sodium Chloride 0.9% [Normal Saline] 1,000 ml Med 03/23/20 15:00 Active IV ASDIRECTED Resuscitation Status Routine Resus Stat 03/23/20 15:49 Ordered Medication Orders Sodium Chloride (Normal Saline) 1,000 mls @ 1,000 mls/hr IV ASDIRECTED [facility] Last Admin: 03/23/20 15:01 Dose: 1,000 mls/hr Assessment/Plan Comment:: ASSESSMENT AND PLAN VIRAL GASTROENTERITIS-most likely cause of pain with nausea and diarrhea. Because of the significant abdominal pain we will plan to proceed with CT scan of the abdomen and pelvis, this will need to be done without contrast because of her elevation in creatinine. -Lipase level pending -CT scan of the abdomen and pelvis without contrast -Medication for pain and nausea as needed -IV fluids for hydration ACUTE KIDNEY INJURY-likely secondary to dehydration associated with current GI infection -IV fluids as above -Closely monitor urine output and renal function MAINTENANCE ISSUES -DVT prophylaxis; Lovenox 40 mg subcu daily -GI prophylaxis; continue outpatient PPI therapy -Marcial catheter; not indicated -Nutrition; regular diet as tolerated -Nicotine dependence; not required CODE STATUS-FULL CODE ADMISSION STATUS-this patient will be admitted to observation status, expect no more than a one night hospital stay for evaluation and management of problems as outlined above. DISPOSITION-anticipate discharge to home after the hospital stay. PRIMARY CARE PROVIDER-Dr. Perdue - Mortality Measure Prognosis:: Good
[2020-03-23] MEDS ORDERED: Acetaminophen 325 MG Tab PO PRN (16:17)
[2020-03-23] MEDS ORDERED: Cetirizine 10 MG Tab PO PRN (17:41)
[2020-03-23] MEDS ORDERED: Enoxaparin 30 MG/0.3 ML Syringe SUBCUT SCH (17:41)
[2020-03-23] MEDS ORDERED: Sodium Chloride 0.9% 10 ML Syringe FLUSH PRN (17:41)
[2020-03-23] MEDS ORDERED: Ondansetron 4 MG/2 ML SDV IV PRN (17:41)
[2020-03-23] MEDS ORDERED: oxyCODONE 5 MG Tab PO PRN (17:41)
[2020-03-23] MEDS: Sodium Chloride 0.9% 1,000 ML IV SCH (18:00)
--- NOTE | 2020-03-23 18:38 | CRLCT ---
HISTORY: Left upper quadrant and epigastric pain. Nausea and diarrhea. Comparison : 11/16/2016. Technique : Noncontrast axial images were obtained through the abdomen and pelvis without contrast. FINDINGS: Mild ground-glass opacities in the lower lungs. There is a hiatal hernia containing stomach and left colon, unchanged. Acute inflammatory changes including wall thickening and inflammatory fat stranding involving the transverse and visualized left colon. No evidence for bowel obstruction. Cholecystectomy. The liver, spleen, pancreas, adrenal glands and kidneys are within normal. Degenerative changes in the spine. IMPRESSION: Acute inflammatory changes involving the transverse and left colon consistent with colitis. This includes possible ischemic colitis. Results were discussed with Dr. Glass. Please note that all CT scans at this facility use dose modulation, iterative reconstruction, and/or weight-based dosing when appropriate to reduce radiation dose to as low as reasonably achievable. Dictated by France Nieto MD @ Mar 23 2020 6:21PM Signed by Dr. France Nieto @ Mar 23 2020 6:36PM
[2020-03-23] MEDS: Lactobacillus Rhamnosus GG (Probiotic) Cap PO SCH ×2 (19:47→21:10)
[2020-03-23] MEDS: TERAZOSIN 1 MG PO SCH ×2 (20:00→21:00)
[2020-03-23] MEDS: Gabapentin 300 MG **PTOM PO SCH (20:01)
[2020-03-23] MEDS: Lisinopril 20 MG Tab PO SCH ×2 (20:01→21:00)
[2020-03-23] MEDS: Metoprolol Tartrate 25 MG **PTOM PO SCH ×2 (20:01→21:00)
[2020-03-23] MEDS: Ciprofloxacin in D5W 400 MG in Premix Bag 1 BAG IV SCH ×2 (21:09)
[2020-03-24] MEDS: Acetaminophen 325 MG Tab PO PRN ×4 (00:50→23:39)
[2020-03-24] MEDS: Sodium Chloride 0.9% 1,000 ML IV SCH ×3 (04:15→20:18)
[2020-03-24] MEDS: HYDROmorphone 0.5 MG/0.5 ML Syringe IVPUSH PRN (04:46)
[2020-03-24] MEDS: Ciprofloxacin in D5W 400 MG in Premix Bag 1 BAG IV SCH ×4 (06:26→18:04)
[2020-03-24] MEDS: Gabapentin 300 MG **PTOM PO SCH (08:04)
[2020-03-24] MEDS ORDERED: Magnesium Sulfate/Water 2 GM in Premix Bag 1 BAG IV ONE (09:00)
[2020-03-24] MEDS ORDERED: LISINOPRIL 40MG **PTOM PO SCH (09:00)
[2020-03-24] MEDS: Rosuvastatin 10 MG Tab PO SCH (10:14)
[2020-03-24] MEDS: Pantoprazole 40 MG Tab.CR PO SCH (10:14)
[2020-03-24] MEDS: Aspirin 325 MG Tab.EC PO SCH (10:15)
[2020-03-24] MEDS: Lactobacillus Rhamnosus GG (Probiotic) Cap PO SCH ×2 (10:15→20:11)
[2020-03-24] MEDS: Fluticasone Propionate Nasal Spray 16 GM Bottle NASBOTH SCH (10:16)
[2020-03-24] MEDS: Magnesium Oxide 400 MG Tab PO SCH ×2 (10:16→20:27)
[2020-03-24] MEDS: Potassium Chloride 20 MEQ Tab.ER PO SCH (10:16)
[2020-03-24] MEDS: Metoprolol Tartrate 25 MG **PTOM PO SCH (10:17)
--- NOTE | 2020-03-24 10:57 | PCM.PN ---
- General Info Date of Service: 03/24/20 Subjective Update: Ms. Tim rick modest improvement since yesterday, less diarrhea and blood. Abdominal pain has also modestly improved. After admission yesterday she did develop hematochezia with her diarrhea. CT scan of the abdomen obtained after admission showed evidence of colitis in the transverse colon. Functional Status: Reports: Urinating - Review of Systems General: Reports: Fever, Weakness. Denies: Chills Pulmonary: Reports: No Symptoms Cardiovascular: Reports: No Symptoms Gastrointestinal: Reports: Abdominal Pain, Diarrhea, Hematochezia. Denies: Difficulty Swallowing, Nausea, Vomiting - Patient Data Vitals - Most Recent: Last Vital Signs Temp 101 F H 03/24/20 07:12 Pulse 75 03/24/20 10:17 Resp 18 03/24/20 07:12 BP 95/59 L 03/24/20 10:17 Pulse Ox 94 L 03/24/20 07:12 Weight - Most Recent: 148 lb 6.4 oz I&O - Last 24 Hours: Intake & Output 03/23/20 03/24/20 03/24/20 22:59 06:59 14:59 Intake Total 360 2505 50 Balance 360 2505 50 Lab Results Last 24 Hours: Laboratory Results - last 24 hr 03/23/20 03/23/20 03/23/20 Range/Units 14:25 14:25 14:25 WBC 9.9 (4.5-11.0) K/uL RBC 4.31 (3.30-5.50) M/uL Hgb 13.3 (12.0-15.0) g/dL Hct 40.8 (36.0-48.0) % MCV 95 (80-98) fL MCH 31 (27-31) pg MCHC 33 (32-36) % Plt Count 273 (150-400) K/uL Neut % (Auto) 86 H (36-66) % Lymph % (Auto) 7 L (24-44) % [place] % (Auto) 7 H (2-6) % Eos % (Auto) 0 L (2-4) % Baso % (Auto) 0 (0-1) % Sodium 138 L (140-148) mmol/L Potassium 4.4 (3.6-5.2) mmol/L Chloride 104 (100-108) mmol/L Carbon Dioxide 27 (21-32) mmol/L Anion Gap 11.4 (5.0-14.0) mmol/L BUN 25 H D (7-18) mg/dL Creatinine 1.5 H D (0.6-1.0) mg/dL Est Cr Clr Drug Dosing 25.98 mL/min Estimated GFR (MDRD) 34 L (>60) Glucose 122 H (74-106) mg/dL Calcium 8.5 (8.5-10.1) mg/dL Magnesium (1.8-2.4) mg/dL Total Bilirubin 1.0 D (0.2-1.0) mg/dL AST 26 (15-37) U/L ALT 27 (12-78) U/L Alkaline Phosphatase 92 (46-116) U/L Troponin I < 0.017 (0.000-0.056) ng/mL Total Protein 6.8 (6.4-8.2) g/dL Albumin 3.1 L (3.4-5.0) g/dL Globulin 3.7 H (2.3-3.5) g/dL Albumin/Globulin Ratio 0.8 L (1.2-2.2) Lipase 159 (73-393) U/L 03/23/20 03/24/20 03/24/20 Range/Units 23:00 05:55 05:55 WBC 12.6 H (4.5-11.0) K/uL RBC 3.68 (3.30-5.50) M/uL Hgb 12.2 11.3 L (12.0-15.0) g/dL Hct 34.5 L (36.0-48.0) % MCV 94 (80-98) fL MCH 31 (27-31) pg MCHC 33 (32-36) % Plt Count 225 (150-400) K/uL Neut % (Auto) 85 H (36-66) % Lymph % (Auto) 7 L (24-44) % [place] % (Auto) 8 H (2-6) % Eos % (Auto) 0 L (2-4) % Baso % (Auto) 0 (0-1) % Sodium 134 L (140-148) mmol/L Potassium 4.0 (3.6-5.2) mmol/L Chloride 102 (100-108) mmol/L Carbon Dioxide 23 (21-32) mmol/L Anion Gap 13.0 (5.0-14.0) mmol/L BUN 30 H (7-18) mg/dL Creatinine 1.6 H (0.6-1.0) mg/dL Est Cr Clr Drug Dosing 24.36 mL/min Estimated GFR (MDRD) 31 L (>60) Glucose 144 H (74-106) mg/dL Calcium 7.3 L (8.5-10.1) mg/dL Magnesium 1.7 L (1.8-2.4) mg/dL Total Bilirubin (0.2-1.0) mg/dL AST (15-37) U/L ALT (12-78) U/L Alkaline Phosphatase (46-116) U/L Troponin I (0.000-0.056) ng/mL Total Protein (6.4-8.2) g/dL Albumin (3.4-5.0) g/dL Globulin (2.3-3.5) g/dL Albumin/Globulin Ratio (1.2-2.2) Lipase (73-393) U/L [place] Results Last 24 Hours: Microbiology 03/23/20 16:52 Stool Culture - Preliminary Stool / Feces NORMAL ENTERIC AISHA 1 DAY Shiga Toxin I - Final NEGATIVE FOR SHIGA TOXIN 1 Shiga Toxin II - Final NEGATIVE FOR SHIGA TOXIN 2 REFERENCE RANGE: NEGATIVE Clostridioides difficile (PCR) - Final 03/23/20 17:53 Stool Occult Blood (COSTA) - Final Stool / Feces 03/23/20 16:52 Stool for WBCs - Final Stool / Feces NO WBC SEEN REFERENCE RANGE: NO WBC SEEN Med Orders - Current: Current Medications Acetaminophen (Tylenol) 650 mg PO Q4H PRN PRN Reason: Pain (Mild 1-3)/fever Last Admin: 03/24/20 06:24 Dose: 650 mg Aspirin (Ecotrin) 325 mg PO DAILY [facility] Last Admin: 03/24/20 10:15 Dose: 325 mg Cetirizine HCl (Zyrtec) 10 mg PO DAILY PRN PRN Reason: Allergies Enoxaparin Sodium (Lovenox) 30 mg SUBCUT QPM [facility] Fluticasone Propionate (Flonase) 0 gm NASBOTH DAILY [facility] Last Admin: 03/24/20 10:16 Dose: 2 spray Gabapentin (Neurontin) 300 mg PO BEDTIME [facility] Last Admin: 03/24/20 08:04 Dose: Not Given Hydromorphone HCl (Dilaudid) 0.5 mg IVPUSH Q2H PRN PRN Reason: Pain (severe 7-10) Last Admin: 03/24/20 04:46 Dose: 0.5 mg Sodium Chloride (Normal Saline) 1,000 mls @ 125 mls/hr IV ASDIRECTED [facility] Last Admin: 03/24/20 04:15 Dose: 125 mls/hr Ciprofloxacin/Dextrose 400 mg/ (Premix) 200 mls @ 200 mls/hr IV Q12H [facility] Last Admin: 03/24/20 06:26 Dose: 200 mls/hr Clindamycin Phosphate 600 mg/ (Sodium Chloride) 54 mls @ 100 mls/hr IV Q6H [facility] Magnesium Sulfate 2 gm/ Premix 50 mls @ 25 mls/hr IV ONETIME ONE Stop: 03/24/20 10:59 Last Admin: 03/24/20 10:16 Dose: 25 mls/hr Lactobacillus Rhamnosus (Culturelle) 1 cap PO BID [facility] Last Admin: 03/24/20 10:15 Dose: 1 cap Magnesium Oxide (Magnesium Oxide) 400 mg PO BID [facility] Last Admin: 03/24/20 10:16 Dose: 400 mg Metoprolol Tartrate (Lopressor) 25 mg PO BID [facility] Last Admin: 03/24/20 10:17 Dose: 25 mg Ondansetron HCl (Zofran) 4 mg IV Q4H PRN PRN Reason: Nausea/Vomiting Oxycodone HCl (Oxycodone) 5 mg PO Q4H PRN PRN Reason: Pain (moderate 4-6) Pantoprazole Sodium (Protonix) 40 mg PO ACBREAKFAST [facility] Last Admin: 03/24/20 10:14 Dose: 40 mg Potassium Chloride (Klor-Con M20) 20 meq PO DAILY [facility] Last Admin: 03/24/20 10:16 Dose: 20 meq Rosuvastatin Calcium (Crestor) 5 mg PO DAILY [facility] Last Admin: 03/24/20 10:14 Dose: 5 mg Sodium Chloride (Saline Flush) 10 ml FLUSH ASDIRECTED PRN PRN Reason: Keep Vein Open Discontinued Medications Acetaminophen (Tylenol) 325 mg PO Q4H PRN PRN Reason: Fever Last Admin: 03/23/20 16:29 Dose: 325 mg Enoxaparin Sodium (Lovenox) 30 mg SUBCUT DAILY [facility] Last Admin: 03/23/20 18:41 Dose: 30 mg Sodium Chloride (Normal Saline) 1,000 mls @ 1,000 mls/hr IV ASDIRECTED [facility] Last Admin: 03/23/20 15:01 Dose: 1,000 mls/hr Clindamycin Phosphate 600 mg/ (Sodium Chloride) 54 mls @ 100 mls/hr IV Q6H [facility] Last Admin: 03/24/20 05:51 Dose: 100 mls/hr Lisinopril (Prinivil) 40 mg PO BID [facility] Last Admin: 03/23/20 21:00 Dose: Not Given Lisinopril 40mg (Ptom) 0 each PO BID [facility] Terazosin HCl (Hytrin) 2 mg PO BID [facility] Last Admin: 03/23/20 21:00 Dose: Not Given - Exam Quality Assessment: DVT Prophylaxis General: Alert, Oriented, Cooperative, Mild Distress Lungs: Clear to Auscultation, Normal Respiratory Effort Cardiovascular: Regular Rate, Regular Rhythm, No Murmurs GI/Abdominal Exam: Soft, No Organomegaly, Tender. No: Distended, Guarding, Rigid, Rebound Extremities: Non-Tender, No Pedal Edema Sepsis Event Note - Evaluation Sepsis Screening Result: No Definite Risk - Focused Exam Vital Signs: Vital Signs Temp Temp Pulse Pulse Resp BP BP 03/24/20 10:17 75 95/59 L 03/24/20 07:12 101 F H 75 18 95/59 L 03/24/20 04:17 100.8 F H 81 18 124/77 03/24/20 01:20 100.0 F 03/24/20 00:50 100.1 F Pulse Ox 03/24/20 10:17 03/24/20 07:12 94 L 03/24/20 04:17 95 03/24/20 01:20 03/24/20 00:50 Date Exam was Performed: 03/24/20 Time Exam was Performed: 10:54 - Problem List Review Problem List Initiated/Reviewed/Updated: Yes - My Orders Last 24 Hours: My Active Orders 03/23/20 15:49 Resuscitation Status Routine 03/23/20 17:41 Patient Status [ADT] Routine Ambulate [RC] QID Height and Weight [RC] DAILY Intake and Output [RC] QSHIFT Notify Provider Vital Signs [RC] ASDIRECTED Oxygen Therapy [RC] PRN Peripheral IV Care [RC] . DIRECTED Up With Assistance [RC] ASDIRECTED Up to Chair [RC] QID VTE/DVT Education [RC] Per Unit Routine Vital Signs [RC] Q4H Acetaminophen [Tylenol] 650 mg PO Q4H PRN Cetirizine [ZyrTEC] 10 mg PO DAILY PRN Ondansetron [Zofran] 4 mg IV Q4H PRN Sodium Chloride 0.9% [Normal Saline] 1,000 ml IV ASDIRECTED Sodium Chloride 0.9% [Saline Flush] 10 ml FLUSH ASDIRECTED PRN oxyCODONE 5 mg PO Q4H PRN Peripheral IV Insertion Adult [OM.PC] Routine 03/23/20 18:37 HYDROmorphone [Dilaudid] 0.5 mg IVPUSH Q2H PRN 03/23/20 18:45 Ciprofloxacin in D5W [Cipro in D5W 400 MG/200 ML] 400 mg Premix Bag 1 bag IV Q12H Lactobacillus Rhamnosus GG [Culturelle] 1 cap PO BID 03/23/20 21:00 Gabapentin [Neurontin] 300 mg PO BEDTIME Metoprolol Tartrate [Lopressor] 25 mg PO BID 03/24/20 07:30 Pantoprazole [ProTONIX] 40 mg PO ACBREAKFAST 03/24/20 09:00 Aspirin [Ecotrin] 325 mg PO DAILY Fluticasone Propionate [Flonase] 0 gm NASBOTH DAILY Magnesium Oxide 400 mg PO BID Magnesium Sulfate/Water [Magnesium Sulfate in Water Premix] 2 gm Premix Bag 1 bag IV ONETIME Potassium Chloride [Klor-Con M20] 20 meq PO DAILY Rosuvastatin [Crestor] 5 mg PO DAILY 03/24/20 12:00 Clindamycin Phosphate [Cleocin] 600 mg Sodium Chloride 0.9% [Normal Saline] 50 ml IV Q6H 03/24/20 17:00 Enoxaparin [Lovenox] 30 mg SUBCUT QPM 03/24/20 Lunch NPO Now [Nothing per Oral Now Diet] [DIET] 03/25/20 05:00 BASIC METABOLIC PANEL,BMP [CHEM] Timed CBC WITH AUTO DIFF [HEME] Timed MAGNESIUM [CHEM] Timed - Plan Plan:: ASSESSMENT AND PLAN ISCHEMIC COLITIS-T scan of the abdomen obtained after admission shows evidence of transverse colitis. Associated with hematochezia that has developed after admission. Symptoms have modestly improved since admission with less pain and diarrhea. -CT scan of the abdomen and pelvis without contrast -Medication for pain and nausea as needed -IV fluids for hydration -IV ciprofloxacin and clindamycin ACUTE KIDNEY INJURY-likely secondary to dehydration associated with current GI infection, no function mildly improved with hydration -IV fluids as above -Closely monitor urine output and renal function MAINTENANCE ISSUES -DVT prophylaxis; Lovenox 40 mg subcu daily -GI prophylaxis; continue outpatient PPI therapy -Marcial catheter; not indicated -Nutrition; regular diet as tolerated -Nicotine dependence; not required CODE STATUS-FULL CODE ADMISSION STATUS-this patient will be admitted to observation status, expect no more than a one night hospital stay for evaluation and management of problems as outlined above. DISPOSITION-anticipate discharge to home after the hospital stay. PRIMARY CARE PROVIDER-Dr. Perdue
[2020-03-24] MEDS: Enoxaparin 30 MG/0.3 ML Syringe SUBCUT SCH (17:14)
[2020-03-24] MEDS: Gabapentin 300 MG Cap PO SCH (20:27)
[2020-03-24] MEDS: Metoprolol Tartrate 25 MG Tab PO SCH (20:39)
[2020-03-25] MEDS: Ciprofloxacin in D5W 400 MG in Premix Bag 1 BAG IV SCH ×4 (05:51→18:12)
[2020-03-25] MEDS: Acetaminophen 325 MG Tab PO PRN ×3 (06:05→22:33)
[2020-03-25] MEDS: Pantoprazole 40 MG Tab.CR PO SCH (07:18)
[2020-03-25] MEDS: Metoprolol Tartrate 25 MG Tab PO SCH ×2 (09:26→20:29)
[2020-03-25] MEDS: Lactobacillus Rhamnosus GG (Probiotic) Cap PO SCH ×2 (09:26→20:28)
[2020-03-25] MEDS: Aspirin 325 MG Tab.EC PO SCH (09:27)
[2020-03-25] MEDS: Fluticasone Propionate Nasal Spray 16 GM Bottle NASBOTH SCH (09:27)
[2020-03-25] MEDS: Magnesium Oxide 400 MG Tab PO SCH ×2 (09:27→20:28)
[2020-03-25] MEDS: Rosuvastatin 10 MG Tab PO SCH (09:27)
[2020-03-25] MEDS: Potassium Chloride 20 MEQ Tab.ER PO SCH (09:27)
--- NOTE | 2020-03-25 11:02 | PCM.PN ---
- General Info Date of Service: 03/25/20 Subjective Update: Ms. Dumont has been stable since yesterday, no nausea or vomiting, diarrhea. Vital signs have remained stable and she has been afebrile. Continues to experience upper abdominal pain although it has improved since yesterday and from admission. Functional Status: Reports: Ambulating, Urinating - Review of Systems General: Reports: Weakness. Denies: Fever, Chills Pulmonary: Reports: No Symptoms Cardiovascular: Reports: No Symptoms Gastrointestinal: Reports: Abdominal Pain. Denies: Diarrhea, Hematochezia, Nausea, Vomiting - Patient Data Vitals - Most Recent: Last Vital Signs Temp 99.2 F 03/25/20 09:23 Pulse 77 03/25/20 09:26 Resp 18 03/25/20 09:23 BP 136/87 03/25/20 09:26 Pulse Ox 95 03/25/20 09:23 Weight - Most Recent: 155 lb I&O - Last 24 Hours: Intake & Output 03/24/20 03/25/20 03/25/20 22:59 06:59 14:59 Intake Total 1575 1337 55 Balance 1575 1337 55 Lab Results Last 24 Hours: Laboratory Results - last 24 hr 03/25/20 03/25/20 Range/Units 04:25 04:25 WBC 11.6 H (4.5-11.0) K/uL RBC 3.57 (3.30-5.50) M/uL Hgb 11.1 L (12.0-15.0) g/dL Hct 33.6 L (36.0-48.0) % MCV 94 (80-98) fL MCH 31 (27-31) pg MCHC 33 (32-36) % Plt Count 203 (150-400) K/uL Neut % (Auto) 85 H (36-66) % Lymph % (Auto) 7 L (24-44) % [place] % (Auto) 7 H (2-6) % Eos % (Auto) 1 L (2-4) % Baso % (Auto) 0 (0-1) % Sodium 136 L (140-148) mmol/L Potassium 3.8 (3.6-5.2) mmol/L Chloride 104 (100-108) mmol/L Carbon Dioxide 25 (21-32) mmol/L Anion Gap 10.8 (5.0-14.0) mmol/L BUN 20 H (7-18) mg/dL Creatinine 1.2 H (0.6-1.0) mg/dL Est Cr Clr Drug Dosing 32.48 mL/min Estimated GFR (MDRD) 44 L (>60) Glucose 105 (74-106) mg/dL Calcium 7.9 L (8.5-10.1) mg/dL Magnesium 2.2 (1.8-2.4) mg/dL [place] Results Last 24 Hours: Microbiology 03/23/20 16:52 Stool Culture - Preliminary Stool / Feces NORMAL ENTERIC AISHA 2 DAYS Shiga Toxin I - Final NEGATIVE FOR SHIGA TOXIN 1 Shiga Toxin II - Final NEGATIVE FOR SHIGA TOXIN 2 REFERENCE RANGE: NEGATIVE Clostridioides difficile (PCR) - Final Med Orders - Current: Current Medications Acetaminophen (Tylenol) 650 mg PO Q4H PRN PRN Reason: Pain (Mild 1-3)/fever Last Admin: 03/25/20 06:05 Dose: 650 mg Aspirin (Ecotrin) 325 mg PO DAILY [facility] Last Admin: 03/25/20 09:27 Dose: 325 mg Cetirizine HCl (Zyrtec) 10 mg PO DAILY PRN PRN Reason: Allergies Enoxaparin Sodium (Lovenox) 30 mg SUBCUT QPM [facility] Last Admin: 03/24/20 17:14 Dose: 30 mg Fluticasone Propionate (Flonase) 0 gm NASBOTH DAILY [facility] Last Admin: 03/25/20 09:27 Dose: 2 spray Gabapentin (Neurontin) 300 mg PO BEDTIME [facility] Last Admin: 03/24/20 20:27 Dose: 300 mg Hydromorphone HCl (Dilaudid) 0.5 mg IVPUSH Q2H PRN PRN Reason: Pain (severe 7-10) Last Admin: 03/24/20 04:46 Dose: 0.5 mg Ciprofloxacin/Dextrose 400 mg/ (Premix) 200 mls @ 200 mls/hr IV Q12H [facility] Last Admin: 03/25/20 05:51 Dose: 200 mls/hr Clindamycin Phosphate 600 mg/ (Sodium Chloride) 54 mls @ 100 mls/hr IV Q6H [facility] Last Admin: 03/25/20 07:18 Dose: 100 mls/hr Lactobacillus Rhamnosus (Culturelle) 1 cap PO BID [facility] Last Admin: 03/25/20 09:26 Dose: 1 cap Magnesium Oxide (Magnesium Oxide) 400 mg PO BID [facility] Last Admin: 03/25/20 09:27 Dose: 400 mg Metoprolol Tartrate (Lopressor) 25 mg PO BID [facility] Last Admin: 03/25/20 09:26 Dose: 25 mg Ondansetron HCl (Zofran) 4 mg IV Q4H PRN PRN Reason: Nausea/Vomiting Oxycodone HCl (Oxycodone) 5 mg PO Q4H PRN PRN Reason: Pain (moderate 4-6) Pantoprazole Sodium (Protonix) 40 mg PO ACBREAKFAST [facility] Last Admin: 03/25/20 07:18 Dose: 40 mg Potassium Chloride (Klor-Con M20) 20 meq PO DAILY [facility] Last Admin: 03/25/20 09:27 Dose: 20 meq Rosuvastatin Calcium (Crestor) 5 mg PO DAILY [facility] Last Admin: 03/25/20 09:27 Dose: 5 mg Sodium Chloride (Saline Flush) 10 ml FLUSH ASDIRECTED PRN PRN Reason: Keep Vein Open Discontinued Medications Acetaminophen (Tylenol) 325 mg PO Q4H PRN PRN Reason: Fever Last Admin: 03/23/20 16:29 Dose: 325 mg Enoxaparin Sodium (Lovenox) 30 mg SUBCUT DAILY [facility] Last Admin: 03/23/20 18:41 Dose: 30 mg Gabapentin (Neurontin) 300 mg PO BEDTIME [facility] Last Admin: 03/24/20 08:04 Dose: Not Given Sodium Chloride (Normal Saline) 1,000 mls @ 1,000 mls/hr IV ASDIRECTED [facility] Last Admin: 03/23/20 15:01 Dose: 1,000 mls/hr Sodium Chloride (Normal Saline) 1,000 mls @ 125 mls/hr IV ASDIRECTED [facility] Last Admin: 03/24/20 20:18 Dose: 125 mls/hr Clindamycin Phosphate 600 mg/ (Sodium Chloride) 54 mls @ 100 mls/hr IV Q6H [facility] Last Admin: 03/24/20 05:51 Dose: 100 mls/hr Magnesium Sulfate 2 gm/ Premix 50 mls @ 25 mls/hr IV ONETIME ONE Stop: 03/24/20 10:59 Last Admin: 03/24/20 10:16 Dose: 25 mls/hr Lisinopril (Prinivil) 40 mg PO BID [facility] Last Admin: 03/23/20 21:00 Dose: Not Given Metoprolol Tartrate (Lopressor) 25 mg PO BID [facility] Last Admin: 03/24/20 10:17 Dose: 25 mg Lisinopril 40mg (Ptom) 0 each PO BID [facility] Terazosin HCl (Hytrin) 2 mg PO BID [facility] Last Admin: 03/23/20 21:00 Dose: Not Given - Exam Quality Assessment: DVT Prophylaxis General: Alert, Oriented, Cooperative, Mild Distress Lungs: Clear to Auscultation Cardiovascular: Regular Rate, Regular Rhythm, No Murmurs GI/Abdominal Exam: Soft, No Organomegaly, Tender. No: Distended, Guarding, Rigid, Rebound Extremities: Non-Tender, No Pedal Edema Sepsis Event Note - Evaluation Sepsis Screening Result: No Definite Risk - Focused Exam Vital Signs: Vital Signs Temp Pulse Pulse Resp BP BP Pulse Ox 03/25/20 09:26 77 136/87 03/25/20 09:23 99.2 F 77 18 136/87 95 03/25/20 07:09 100.4 F 75 16 150/102 H 95 03/25/20 03:00 99.8 F 84 16 153/82 H 92 L Date Exam was Performed: 03/25/20 Time Exam was Performed: 10:59 - Problem List Review Problem List Initiated/Reviewed/Updated: Yes - My Orders Last 24 Hours: My Active Orders 03/24/20 10:57 Patient Status [ADT] Routine 03/24/20 12:00 Clindamycin Phosphate [Cleocin] 600 mg Sodium Chloride 0.9% [Normal Saline] 50 ml IV Q6H 03/24/20 17:00 Enoxaparin [Lovenox] 30 mg SUBCUT QPM 03/24/20 21:00 Gabapentin [Neurontin] 300 mg PO BEDTIME Metoprolol Tartrate [Lopressor] 25 mg PO BID 03/25/20 10:58 Convert IV to Saline Lock [OM.PC] Routine 03/25/20 Breakfast Full Liquid Diet [DIET] 03/26/20 05:00 BASIC METABOLIC PANEL,BMP [CHEM] Timed CBC WITH AUTO DIFF [HEME] Timed - Plan Plan:: ASSESSMENT AND PLAN ISCHEMIC COLITIS-CT scan of the abdomen obtained after admission shows evidence of transverse colitis. Symptomatically improved, mild to moderate upper abdominal pain, no nausea, diarrhea, or hematochezia -Medication for pain and nausea as needed -Saline lock IV -IV ciprofloxacin and clindamycin -Liquid diet ACUTE KIDNEY INJURY-stable with hydration -Closely monitor urine output and renal function MAINTENANCE ISSUES -DVT prophylaxis; Lovenox 40 mg subcu daily -GI prophylaxis; continue outpatient PPI therapy -Marcial catheter; not indicated -Nutrition; regular diet as tolerated -Nicotine dependence; not required CODE STATUS-FULL CODE ADMISSION STATUS-this patient will be admitted to observation status, expect no more than a one night hospital stay for evaluation and management of problems as outlined above. DISPOSITION-anticipate discharge to home after the hospital stay. PRIMARY CARE PROVIDER-Dr. Perdue
[2020-03-25] MEDS: Enoxaparin 30 MG/0.3 ML Syringe SUBCUT SCH (17:36)
[2020-03-25] MEDS: HYDROmorphone 0.5 MG/0.5 ML Syringe IVPUSH PRN (17:58)
[2020-03-25] MEDS: Gabapentin 300 MG Cap PO SCH (20:29)
[2020-03-25] MEDS ORDERED: Sodium Chloride 0.9% 500 ML IV ONE (22:49)
[2020-03-26] MEDS: Ciprofloxacin in D5W 400 MG in Premix Bag 1 BAG IV SCH ×4 (06:19→18:14)
--- NOTE | 2020-03-26 09:53 | PCM.PN ---
- General Info Date of Service: 03/26/20 Subjective Update: She did have recurrent temperature elevation last night up to 101 degrees as well as a few episodes of diarrhea yesterday. Abdominal pain overall improved but she continues to also experience some intermittent nausea. She seems to be tolerating current full liquid diet but is not interested in advancing diet today. Functional Status: Reports: Tolerating Diet, Ambulating, Urinating - Review of Systems General: Reports: Fever, Weakness. Denies: Chills Pulmonary: Reports: No Symptoms Cardiovascular: Reports: No Symptoms Gastrointestinal: Reports: Abdominal Pain, Diarrhea, Nausea. Denies: Difficulty Swallowing, Hematochezia, Melena, Vomiting Genitourinary: Reports: No Symptoms - Patient Data Vitals - Most Recent: Last Vital Signs Temp 97.7 F 03/26/20 07:12 Pulse 72 03/26/20 07:12 Resp 16 03/26/20 07:12 BP 161/89 H 03/26/20 07:12 Pulse Ox 95 03/26/20 07:12 Weight - Most Recent: 147 lb 14.4 oz I&O - Last 24 Hours: Intake & Output 03/25/20 03/26/20 03/26/20 22:59 06:59 14:59 Intake Total 855 1525 Output Total 400 Balance 455 1525 Lab Results Last 24 Hours: Laboratory Results - last 24 hr 03/26/20 03/26/20 Range/Units 05:00 05:00 WBC 11.7 H (4.5-11.0) K/uL RBC 3.44 (3.30-5.50) M/uL Hgb 10.7 L (12.0-15.0) g/dL Hct 32.3 L (36.0-48.0) % MCV 94 (80-98) fL MCH 31 (27-31) pg MCHC 33 (32-36) % Plt Count 191 (150-400) K/uL Neut % (Auto) 82 H (36-66) % Lymph % (Auto) 8 L (24-44) % [place] % (Auto) 8 H (2-6) % Eos % (Auto) 2 (2-4) % Baso % (Auto) 0 (0-1) % Sodium 133 L (140-148) mmol/L Potassium 3.8 (3.6-5.2) mmol/L Chloride 103 (100-108) mmol/L Carbon Dioxide 24 (21-32) mmol/L Anion Gap 9.8 (5.0-14.0) mmol/L BUN 12 (7-18) mg/dL Creatinine 0.9 (0.6-1.0) mg/dL Est Cr Clr Drug Dosing 43.30 mL/min Estimated GFR (MDRD) > 60 (>60) Glucose 108 H (74-106) mg/dL Calcium 7.5 L (8.5-10.1) mg/dL [place] Results Last 24 Hours: Microbiology 03/23/20 16:52 Stool Culture - Final Stool / Feces NORMAL ENTERIC AISHA. NO SALMONELLA, SHIGELLA, CAMPYLOBACTER OR E.COLI O157 ISOLATED. Shiga Toxin I - Final NEGATIVE FOR SHIGA TOXIN 1 Shiga Toxin II - Final NEGATIVE FOR SHIGA TOXIN 2 REFERENCE RANGE: NEGATIVE Clostridioides difficile (PCR) - Final Med Orders - Current: Current Medications Acetaminophen (Tylenol) 650 mg PO Q4H PRN PRN Reason: Pain (Mild 1-3)/fever Last Admin: 03/25/20 22:33 Dose: 650 mg Aspirin (Ecotrin) 325 mg PO DAILY [facility] Last Admin: 03/25/20 09:27 Dose: 325 mg Cetirizine HCl (Zyrtec) 10 mg PO DAILY PRN PRN Reason: Allergies Enoxaparin Sodium (Lovenox) 30 mg SUBCUT QPM [facility] Last Admin: 03/25/20 17:36 Dose: 30 mg Fluticasone Propionate (Flonase) 0 gm NASBOTH DAILY [facility] Last Admin: 03/25/20 09:27 Dose: 2 spray Gabapentin (Neurontin) 300 mg PO BEDTIME [facility] Last Admin: 03/25/20 20:29 Dose: 300 mg Hydromorphone HCl (Dilaudid) 0.5 mg IVPUSH Q2H PRN PRN Reason: Pain (severe 7-10) Last Admin: 03/25/20 17:58 Dose: 0.5 mg Ciprofloxacin/Dextrose 400 mg/ (Premix) 200 mls @ 200 mls/hr IV Q12H [facility] Last Admin: 03/26/20 06:19 Dose: 200 mls/hr Clindamycin Phosphate 600 mg/ (Sodium Chloride) 54 mls @ 100 mls/hr IV Q6H [facility] Last Admin: 03/26/20 05:22 Dose: 100 mls/hr Lactobacillus Rhamnosus (Culturelle) 1 cap PO BID [facility] Last Admin: 03/25/20 20:28 Dose: 1 cap Magnesium Oxide (Magnesium Oxide) 400 mg PO BID [facility] Last Admin: 03/25/20 20:28 Dose: 400 mg Metoprolol Tartrate (Lopressor) 25 mg PO BID [facility] Last Admin: 03/25/20 20:29 Dose: 25 mg Ondansetron HCl (Zofran) 4 mg IV Q4H PRN PRN Reason: Nausea/Vomiting Last Admin: 03/26/20 05:59 Dose: 4 mg Oxycodone HCl (Oxycodone) 5 mg PO Q4H PRN PRN Reason: Pain (moderate 4-6) Pantoprazole Sodium (Protonix) 40 mg PO ACBREAKFAST [facility] Last Admin: 03/25/20 07:18 Dose: 40 mg Potassium Chloride (Klor-Con M20) 20 meq PO DAILY [facility] Last Admin: 03/25/20 09:27 Dose: 20 meq Rosuvastatin Calcium (Crestor) 5 mg PO DAILY [facility] Last Admin: 03/25/20 09:27 Dose: 5 mg Sodium Chloride (Saline Flush) 10 ml FLUSH ASDIRECTED PRN PRN Reason: Keep Vein Open Discontinued Medications Acetaminophen (Tylenol) 325 mg PO Q4H PRN PRN Reason: Fever Last Admin: 03/23/20 16:29 Dose: 325 mg Enoxaparin Sodium (Lovenox) 30 mg SUBCUT DAILY [facility] Last Admin: 03/23/20 18:41 Dose: 30 mg Gabapentin (Neurontin) 300 mg PO BEDTIME [facility] Last Admin: 03/24/20 08:04 Dose: Not Given Sodium Chloride (Normal Saline) 1,000 mls @ 1,000 mls/hr IV ASDIRECTED [facility] Last Admin: 03/23/20 15:01 Dose: 1,000 mls/hr Sodium Chloride (Normal Saline) 1,000 mls @ 125 mls/hr IV ASDIRECTED [facility] Last Admin: 03/24/20 20:18 Dose: 125 mls/hr Clindamycin Phosphate 600 mg/ (Sodium Chloride) 54 mls @ 100 mls/hr IV Q6H [facility] Last Admin: 03/24/20 05:51 Dose: 100 mls/hr Magnesium Sulfate 2 gm/ Premix 50 mls @ 25 mls/hr IV ONETIME ONE Stop: 03/24/20 10:59 Last Admin: 03/24/20 10:16 Dose: 25 mls/hr Sodium Chloride (Normal Saline) 500 mls @ 250 mls/hr IV ONETIME ONE Stop: 03/26/20 00:48 Last Admin: 03/25/20 22:58 Dose: 250 mls/hr Lisinopril (Prinivil) 40 mg PO BID [facility] Last Admin: 03/23/20 21:00 Dose: Not Given Metoprolol Tartrate (Lopressor) 25 mg PO BID [facility] Last Admin: 03/24/20 10:17 Dose: 25 mg Lisinopril 40mg (Ptom) 0 each PO BID [facility] Terazosin HCl (Hytrin) 2 mg PO BID [facility] Last Admin: 03/23/20 21:00 Dose: Not Given - Exam Quality Assessment: DVT Prophylaxis General: Alert, Oriented, Cooperative, Mild Distress Lungs: Clear to Auscultation, Normal Respiratory Effort Cardiovascular: Regular Rate, Regular Rhythm, No Murmurs GI/Abdominal Exam: Soft, No Organomegaly, Tender. No: Distended, Guarding, Rigid, Rebound Extremities: Non-Tender, No Pedal Edema Sepsis Event Note - Evaluation Sepsis Screening Result: No Definite Risk - Focused Exam Vital Signs: Vital Signs Temp Temp Pulse Resp BP Pulse Ox 03/26/20 07:12 97.7 F 72 16 161/89 H 95 03/26/20 04:00 98.6 F 16 135/83 95 03/26/20 00:00 99.0 F 03/25/20 23:03 100.7 F H 03/25/20 22:42 172/102 H 03/25/20 22:38 101.0 F H 173/108 H 03/25/20 22:33 101.0 F H 03/25/20 22:24 101.0 F H 73 18 182/102 H 94 L Date Exam was Performed: 03/26/20 Time Exam was Performed: 09:47 - Problem List Review Problem List Initiated/Reviewed/Updated: Yes - My Orders Last 24 Hours: My Active Orders 03/25/20 10:58 Convert IV to Saline Lock [OM.PC] Routine 03/27/20 05:00 BASIC METABOLIC PANEL,BMP [CHEM] Timed CBC WITH AUTO DIFF [HEME] Timed - Plan Plan:: ASSESSMENT AND PLAN ISCHEMIC COLITIS-CT scan of the abdomen obtained after admission shows evidence of transverse colitis. Current fever yesterday with a few episodes of diarrhea. Nausea this morning, abdominal pain has improved. -Medication for pain and nausea as needed -Saline lock IV -IV ciprofloxacin and clindamycin -Full liquid diet ACUTE KIDNEY INJURY-stable with hydration -Closely monitor urine output and renal function MAINTENANCE ISSUES -DVT prophylaxis; Lovenox 40 mg subcu daily -GI prophylaxis; continue outpatient PPI therapy -Marcial catheter; not indicated -Nutrition; regular diet as tolerated -Nicotine dependence; not required CODE STATUS-FULL CODE ADMISSION STATUS-this patient will be admitted to observation status, expect no more than a one night hospital stay for evaluation and management of problems as outlined above. DISPOSITION-anticipate discharge to home after the hospital stay. PRIMARY CARE PROVIDER-Dr. Perdue
[2020-03-26] MEDS: Fluticasone Propionate Nasal Spray 16 GM Bottle NASBOTH SCH (10:01)
[2020-03-26] MEDS: Metoprolol Tartrate 25 MG Tab PO SCH ×2 (10:02→20:05)
[2020-03-26] MEDS: Potassium Chloride 20 MEQ Tab.ER PO SCH (10:03)
[2020-03-26] MEDS: Aspirin 325 MG Tab.EC PO SCH (10:03)
[2020-03-26] MEDS: Rosuvastatin 10 MG Tab PO SCH (10:03)
[2020-03-26] MEDS: Pantoprazole 40 MG Tab.CR PO SCH (10:03)
[2020-03-26] MEDS: Lactobacillus Rhamnosus GG (Probiotic) Cap PO SCH ×2 (10:03→20:05)
[2020-03-26] MEDS: Magnesium Oxide 400 MG Tab PO SCH ×2 (10:04→20:05)
[2020-03-26] MEDS: Enoxaparin 40 MG/0.4 ML Syringe SUBCUT SCH (17:20)
[2020-03-26] MEDS: HYDROmorphone 0.5 MG/0.5 ML Syringe IVPUSH PRN (17:31)
[2020-03-26] MEDS: Terazosin 1 MG Cap PO SCH ×2 (18:08→20:06)
[2020-03-26] MEDS: Gabapentin 300 MG Cap PO SCH (20:05)
[2020-03-26] MEDS: Lisinopril 20 MG Tab PO SCH (20:06)
[2020-03-26] MEDS: Acetaminophen 325 MG Tab PO PRN (23:06)
[2020-03-27] MEDS: Ciprofloxacin in D5W 400 MG in Premix Bag 1 BAG IV SCH ×4 (06:19→18:10)
[2020-03-27] MEDS: Acetaminophen 325 MG Tab PO PRN (08:14)
[2020-03-27] MEDS: Aspirin 325 MG Tab.EC PO SCH (08:20)
[2020-03-27] MEDS: Rosuvastatin 10 MG Tab PO SCH (08:20)
[2020-03-27] MEDS: Metoprolol Tartrate 25 MG Tab PO SCH ×2 (08:20→21:11)
[2020-03-27] MEDS: Pantoprazole 40 MG Tab.CR PO SCH (08:21)
[2020-03-27] MEDS: Magnesium Oxide 400 MG Tab PO SCH ×2 (08:21→21:11)
[2020-03-27] MEDS: Potassium Chloride 20 MEQ Tab.ER PO SCH (08:21)
[2020-03-27] MEDS: Lactobacillus Rhamnosus GG (Probiotic) Cap PO SCH ×2 (08:21→21:12)
[2020-03-27] MEDS: Fluticasone Propionate Nasal Spray 16 GM Bottle NASBOTH SCH (08:21)
[2020-03-27] MEDS: Ondansetron 4 MG Tab.DIS PO PRN ×2 (08:26→19:26)
[2020-03-27] MEDS: Lisinopril 20 MG Tab PO SCH ×2 (09:08→21:10)
[2020-03-27] MEDS: Terazosin 1 MG Cap PO SCH ×2 (09:09→21:12)
--- NOTE | 2020-03-27 09:12 | PCM.PN ---
- General Info Date of Service: 03/27/20 Subjective Update: Ms. Dumont unfortunately continues to experience nausea with poor oral intake, abdominal pain improved and she is not had further diarrhea. She has been afebrile over the past 36 hours and white blood cell count has normalized. Functional Status: Reports: Ambulating, Urinating. Denies: Tolerating Diet - Review of Systems General: Reports: Weakness. Denies: Fever, Chills, Appetite Pulmonary: Reports: No Symptoms Cardiovascular: Reports: No Symptoms Gastrointestinal: Reports: Abdominal Pain, Nausea. Denies: Diarrhea, Difficulty Swallowing, Hematochezia, Melena - Patient Data Vitals - Most Recent: Last Vital Signs Temp 98.8 F 03/27/20 06:00 Pulse 84 03/27/20 08:20 Resp 16 03/27/20 06:00 BP 165/98 H 03/27/20 08:20 Pulse Ox 95 03/27/20 06:00 Weight - Most Recent: 147 lb 14.4 oz I&O - Last 24 Hours: Intake & Output 03/26/20 03/27/20 03/27/20 22:59 06:59 14:59 Intake Total 705 600 Balance 705 600 Lab Results Last 24 Hours: Laboratory Results - last 24 hr 03/27/20 03/27/20 Range/Units 04:18 04:18 WBC 8.0 (4.5-11.0) K/uL RBC 3.32 (3.30-5.50) M/uL Hgb 10.4 L (12.0-15.0) g/dL Hct 30.7 L (36.0-48.0) % MCV 93 (80-98) fL MCH 31 (27-31) pg MCHC 34 (32-36) % Plt Count 210 (150-400) K/uL Neut % (Auto) 79 H (36-66) % Lymph % (Auto) 9 L (24-44) % [place] % (Auto) 8 H (2-6) % Eos % (Auto) 3 (2-4) % Baso % (Auto) 0 (0-1) % Sodium 131 L (140-148) mmol/L Potassium 3.8 (3.6-5.2) mmol/L Chloride 101 (100-108) mmol/L Carbon Dioxide 24 (21-32) mmol/L Anion Gap 9.8 (5.0-14.0) mmol/L BUN 8 (7-18) mg/dL Creatinine 0.8 (0.6-1.0) mg/dL Est Cr Clr Drug Dosing 48.72 mL/min Estimated GFR (MDRD) > 60 (>60) Glucose 109 H (74-106) mg/dL Calcium 7.7 L (8.5-10.1) mg/dL [place] Results Last 24 Hours: Microbiology 03/25/20 22:50 Aerobic Blood Culture - Preliminary Blood - Venous NO GROWTH AFTER 1 DAY Anaerobic Blood Culture - Preliminary NO GROWTH AFTER 1 DAY 03/25/20 23:10 Aerobic Blood Culture - Preliminary Blood - Venous - Lab Draw NO GROWTH AFTER 1 DAY Anaerobic Blood Culture - Preliminary NO GROWTH AFTER 1 DAY 03/23/20 16:52 Stool Culture - Final Stool / Feces NORMAL ENTERIC AISHA. NO SALMONELLA, SHIGELLA, CAMPYLOBACTER OR E.COLI O157 ISOLATED. Shiga Toxin I - Final NEGATIVE FOR SHIGA TOXIN 1 Shiga Toxin II - Final NEGATIVE FOR SHIGA TOXIN 2 REFERENCE RANGE: NEGATIVE Clostridioides difficile (PCR) - Final Med Orders - Current: Current Medications Acetaminophen (Tylenol) 650 mg PO Q4H PRN PRN Reason: Pain (Mild 1-3)/fever Last Admin: 03/27/20 08:14 Dose: 650 mg Aspirin (Ecotrin) 325 mg PO DAILY [facility] Last Admin: 03/27/20 08:20 Dose: 325 mg Cetirizine HCl (Zyrtec) 10 mg PO DAILY PRN PRN Reason: Allergies Enoxaparin Sodium (Lovenox) 40 mg SUBCUT QPM [facility] Last Admin: 03/26/20 17:20 Dose: 40 mg Fluticasone Propionate (Flonase) 0 gm NASBOTH DAILY [facility] Last Admin: 03/27/20 08:21 Dose: 2 spray Gabapentin (Neurontin) 300 mg PO BEDTIME [facility] Last Admin: 03/26/20 20:05 Dose: 300 mg Hydromorphone HCl (Dilaudid) 0.5 mg IVPUSH Q2H PRN PRN Reason: Pain (severe 7-10) Last Admin: 03/26/20 17:31 Dose: 0.5 mg Ciprofloxacin/Dextrose 400 mg/ (Premix) 200 mls @ 200 mls/hr IV Q12H [facility] Last Admin: 03/27/20 06:19 Dose: 200 mls/hr Clindamycin Phosphate 600 mg/ (Sodium Chloride) 54 mls @ 100 mls/hr IV Q6H [facility] Last Admin: 03/27/20 05:47 Dose: 100 mls/hr Sodium Chloride (Normal Saline) 1,000 mls @ 75 mls/hr IV ASDIRECTED [facility] Lactobacillus Rhamnosus (Culturelle) 1 cap PO BID [facility] Last Admin: 03/27/20 08:21 Dose: 1 cap Lisinopril (Prinivil) 40 mg PO BID [facility] Last Admin: 03/26/20 20:06 Dose: Not Given Magnesium Oxide (Magnesium Oxide) 400 mg PO BID [facility] Last Admin: 03/27/20 08:21 Dose: 400 mg Metoprolol Tartrate (Lopressor) 25 mg PO BID [facility] Last Admin: 03/27/20 08:20 Dose: 25 mg Ondansetron HCl (Zofran) 4 mg IV Q4H PRN PRN Reason: Nausea/Vomiting Last Admin: 03/26/20 05:59 Dose: 4 mg Ondansetron HCl (Zofran Odt) 4 mg PO Q4H PRN PRN Reason: Nausea/Vomiting Last Admin: 03/27/20 08:26 Dose: 4 mg Oxycodone HCl (Oxycodone) 5 mg PO Q4H PRN PRN Reason: Pain (moderate 4-6) Pantoprazole Sodium (Protonix) 40 mg PO ACBREAKFAST [facility] Last Admin: 03/27/20 08:21 Dose: 40 mg Potassium Chloride (Klor-Con M20) 20 meq PO DAILY [facility] Last Admin: 03/27/20 08:21 Dose: 20 meq Rosuvastatin Calcium (Crestor) 5 mg PO DAILY [facility] Last Admin: 03/27/20 08:20 Dose: 5 mg Sodium Chloride (Saline Flush) 10 ml FLUSH ASDIRECTED PRN PRN Reason: Keep Vein Open Terazosin HCl (Hytrin) 2 mg PO BID [facility] Last Admin: 03/26/20 20:06 Dose: Not Given Discontinued Medications Acetaminophen (Tylenol) 325 mg PO Q4H PRN PRN Reason: Fever Last Admin: 03/23/20 16:29 Dose: 325 mg Enoxaparin Sodium (Lovenox) 30 mg SUBCUT DAILY [facility] Last Admin: 03/23/20 18:41 Dose: 30 mg Enoxaparin Sodium (Lovenox) 30 mg SUBCUT QPM [facility] Last Admin: 03/25/20 17:36 Dose: 30 mg Gabapentin (Neurontin) 300 mg PO BEDTIME [facility] Last Admin: 03/24/20 08:04 Dose: Not Given Sodium Chloride (Normal Saline) 1,000 mls @ 1,000 mls/hr IV ASDIRECTED [facility] Last Admin: 03/23/20 15:01 Dose: 1,000 mls/hr Sodium Chloride (Normal Saline) 1,000 mls @ 125 mls/hr IV ASDIRECTED [facility] Last Admin: 03/24/20 20:18 Dose: 125 mls/hr Clindamycin Phosphate 600 mg/ (Sodium Chloride) 54 mls @ 100 mls/hr IV Q6H [facility] Last Admin: 03/24/20 05:51 Dose: 100 mls/hr Magnesium Sulfate 2 gm/ Premix 50 mls @ 25 mls/hr IV ONETIME ONE Stop: 03/24/20 10:59 Last Admin: 03/24/20 10:16 Dose: 25 mls/hr Sodium Chloride (Normal Saline) 500 mls @ 250 mls/hr IV ONETIME ONE Stop: 03/26/20 00:48 Last Admin: 03/25/20 22:58 Dose: 250 mls/hr Lisinopril (Prinivil) 40 mg PO BID [facility] Last Admin: 03/23/20 21:00 Dose: Not Given Metoprolol Tartrate (Lopressor) 25 mg PO BID [facility] Last Admin: 03/24/20 10:17 Dose: 25 mg Lisinopril 40mg (Ptom) 0 each PO BID [facility] Terazosin HCl (Hytrin) 2 mg PO BID [facility] Last Admin: 03/23/20 21:00 Dose: Not Given - Exam Quality Assessment: DVT Prophylaxis General: Alert, Oriented, Cooperative, Mild Distress Lungs: Clear to Auscultation, Normal Respiratory Effort Cardiovascular: Regular Rate, Regular Rhythm, No Murmurs GI/Abdominal Exam: Soft, No Organomegaly, Tender. No: Distended, Guarding, Rigid, Rebound Extremities: Non-Tender, No Pedal Edema Sepsis Event Note - Evaluation Sepsis Screening Result: No Definite Risk - Focused Exam Vital Signs: Vital Signs Temp Pulse Pulse Resp BP BP Pulse Ox 03/27/20 08:20 84 165/98 H 03/27/20 06:00 98.8 F 79 16 159/94 H 95 03/27/20 02:01 98.2 F 75 16 139/86 93 L 03/26/20 22:59 99 F 70 16 122/68 94 L Date Exam was Performed: 03/27/20 Time Exam was Performed: 09:06 - Problem List Review Problem List Initiated/Reviewed/Updated: Yes - My Orders Last 24 Hours: My Active Orders 03/26/20 17:00 Enoxaparin [Lovenox] 40 mg SUBCUT QPM 03/26/20 18:00 Terazosin [Hytrin] 2 mg PO BID 03/26/20 21:00 lisinopriL [Prinivil] 40 mg PO BID 03/27/20 08:13 Ondansetron [Zofran ODT] 4 mg PO Q4H PRN 03/27/20 08:58 Abdomen Pelvis w Cont [CT] Stat 03/27/20 09:15 Sodium Chloride 0.9% [Normal Saline] 1,000 ml IV ASDIRECTED 03/28/20 05:00 BASIC METABOLIC PANEL,BMP [CHEM] Timed CBC WITH AUTO DIFF [HEME] Timed - Plan Plan:: ASSESSMENT AND PLAN ISCHEMIC COLITIS-CT scan of the abdomen obtained after admission shows evidence of transverse colitis. Persistent symptoms of nausea with some abdominal pain. White blood cell count has normalized and she has been afebrile. -Repeat CT scan with IV contrast given prolonged symptoms -Medication for pain and nausea as needed -Saline lock IV -IV ciprofloxacin and clindamycin -Full liquid diet ACUTE KIDNEY INJURY-renal function now within normal range -Closely monitor urine output and renal function MAINTENANCE ISSUES -DVT prophylaxis; Lovenox 40 mg subcu daily -GI prophylaxis; continue outpatient PPI therapy -Marcial catheter; not indicated -Nutrition; regular diet as tolerated -Nicotine dependence; not required CODE STATUS-FULL CODE ADMISSION STATUS-this patient will be admitted to observation status, expect no more than a one night hospital stay for evaluation and management of problems as outlined above. DISPOSITION-anticipate discharge to home after the hospital stay. PRIMARY CARE PROVIDER-Dr. Perdue
[2020-03-27] MEDS ORDERED: Sodium Chloride 0.9% 10 ML Syringe FLUSH PRN (09:47)
[2020-03-27] MEDS ORDERED: Iopamidol 612 MG/ML 500 ML Multipack Bottle IV ONE (09:47)
--- NOTE | 2020-03-27 10:50 | CT ---
Abdomen Pelvis w Cont CLINICAL HISTORY: Nausea and pain COMPARISON: 03/23/2020, November 2018. TECHNIQUE: Axial tomographic images are obtained from the dome of the diaphragm to the pubic symphysis without IV contrast enhancement. No oral contrast was used. Auto dosage reduction and iterative reconstruction techniques employed. FINDINGS: The lung bases are clear. There is herniation into the base of the left hemithorax which contains most all of the stomach and the splenic flexure the colon. There is now a moderate left pleural effusion not seen on the earlier scan. The liver shows no mass. There is intrahepatic biliary dilatation. There is a similar to prior study and likely related to previous cholecystectomy. The spleen has normal size and shape. The pancreas shows no mass or inflammatory change. The adrenal glands appear normal bilaterally. The kidneys show no mass or hydronephrosis. There is a 1.5 cm cyst off the lower pole of the left kidney unchanged from prior studies.. The aorta shows some atheromatous calcification and mild ectasia. There is no suspicious retroperitoneal adenopathy. There is persistent diffuse thickening of the transverse and descending colon. There are some inflammatory changes and stranding in the surrounding fat. This is diminished since the 03/23/2020 study. There is some sigmoid diverticulosis without evidence of inflammation. There is generalized thickening of the bladder wall which is likely hypertrophy. Patient has had a previous ventral hernia repair. IMPRESSION: Very large hiatal hernia which appears to be prior esophageal hernia. This large defect also contains a portion of the hepatic flexure of the colon which is diffusely thickened and inflamed. This has diminished slightly since the earlier study. New left pleural effusion Previous abdominal surgery as well as previous ventral hernia repair. Previous cholecystectomy Intrahepatic biliary ductal dilatation likely related to the above
[2020-03-27] MEDS: Enoxaparin 40 MG/0.4 ML Syringe SUBCUT SCH (16:49)
[2020-03-27] MEDS: Sodium Chloride 0.9% 1,000 ML IV SCH (17:08)
[2020-03-27] MEDS: Gabapentin 300 MG Cap PO SCH (21:11)
[2020-03-27] MEDS ORDERED: LORazepam 2 MG/ML SDV IVPUSH PRN (21:19)
[2020-03-28] MEDS: Fluticasone Propionate Nasal Spray 16 GM Bottle NASBOTH SCH ×2 (04:20→10:45)
[2020-03-28] MEDS: Sodium Chloride 0.9% 1,000 ML IV SCH (05:33)
[2020-03-28] MEDS: Ciprofloxacin in D5W 400 MG in Premix Bag 1 BAG IV SCH ×2 (07:39)
[2020-03-28] MEDS: Pantoprazole 40 MG Tab.CR PO SCH (07:40)
[2020-03-28 10:40] VITALS: BP 138/76; PULSE 88
--- NOTE | 2020-03-28 10:45 | PCM.DCSUM1 ---
Discharge Summary - Hospital Course Brief History: Ms. Dumont is a 79-year-old woman who was admitted through the emergency department with abdominal pain and bloody diarrhea secondary to ischemic colitis - Discharge Data Discharge Date: 03/28/20 Discharge Disposition: Home, Self-Care 01 Condition: Fair - Referral to Home Health Primary Care Physician: PCP None - Discharge Diagnosis/Problem(s) (1) Ischemic colitis SNOMED Code(s): 82250213 ICD Code: K55.9 - VASCULAR DISORDER OF INTESTINE, UNSPECIFIED Status: Acute Current Visit: Yes (2) Dehydration SNOMED Code(s): 27588138 ICD Code: E86.0 - DEHYDRATION Status: Acute Current Visit: Yes (3) Hypertension SNOMED Code(s): 70348195 ICD Code: I10 - ESSENTIAL (PRIMARY) HYPERTENSION Status: Acute Current Visit: No Qualifiers: Hypertension type: unspecified Qualified Code(s): I10 - Essential (primary ) hypertension - Patient Summary/Data Hospital Course: Ms. Dumont is a 79-year-old woman who was admitted through the emergency department with nausea, abdominal pain, and bloody diarrhea, secondary to ischemic colitis. She reports that she felt well throughout the day yesterday and even initially after getting up this morning. She developed acute symptoms of nausea associated with upper abdominal pain and profuse watery diarrhea with blood. She did experience an episode of lightheadedness, never lost consciousness but was very confused and weak. EMS was activated and ambulance crew noted bradycardia and hypotension when they arrived. She was brought into the emergency department for further evaluation. She continues to have watery diarrhea, stool studies are pending. She has been chilling but not had significant temperature elevation. She continues to experience significant abdominal pain. Vital signs are stable and labs for the most part unremarkable except for elevation in creatinine from baseline. After admission she did develop more bloody diarrhea, CT scan of the abdomen and pelvis was obtained. CT scan did document significant inflammation in the transverse colon. Given abrupt onset of symptoms as well as findings of CT scan it was felt likely that she had ischemic colitis. She was started on IV antibiotic therapy with clindamycin and ciprofloxacin. Over the course of her hospital stay symptoms gradually improved to the point where she was only noticing very minimal pain in her left upper quadrant. Follow-up CT scan was obtained on the day prior to discharge because of some ongoing nausea, this did show improved but ongoing inflammation in the colon as well as a large hiatal hernia. On the morning of discharge she had tolerated her diet without difficulty and no recurrent nausea. Abdominal pain had almost totally resolved and she had had no further diarrhea or hematochezia. She will be on a soft low residue diet for the next 2 weeks and activity will be as tolerated. An additional 5 days of oral antibiotic therapy with ciprofloxacin and clindamycin will be provided for after discharge. Follow-up appointment will be scheduled with her primary care provider within 1 week. Consider colonoscopy in 1 month after symptoms have resolved. - Patient Instructions Diet: GI Soft/Low Residue/Low Fiber Activity: As Tolerated Other/Special Instructions: Please schedule follow-up appointment with Dr. Perdue within 1 week. Plan for colonoscopy in 1 month after symptoms have resolved. - Discharge Plan *PRESCRIPTION DRUG MONITORING PROGRAM REVIEWED*: Not Applicable *COPY OF PRESCRIPTION DRUG MONITORING REPORT IN PATIENT JESUS: Not Applicable Prescriptions/Med Rec: Ciprofloxacin HCl [Cipro] 500 mg PO BID #10 tablet Clindamycin HCl 300 mg PO QID #20 capsule Lactobacillus Rhamnosus GG [Culturelle] 1 cap PO BID #60 cap Home Medications: Home Meds Metoprolol Tartrate [Lopressor] 25 mg PO BID 08/27/14 [History] Naproxen Sodium [Aleve] 220 mg PO DAILY PRN 08/27/14 [History] Terazosin [Hytrin] 2 mg PO BID 08/27/14 [History] Acetaminophen 500 mg PO Q6HR PRN 03/01/16 [History] Fluticasone Propionate [Flonase] 2 sprays NS DAILY 03/01/16 [History] Gabapentin [Neurontin] 300 mg PO BEDTIME 03/01/16 [History] Potassium Chloride [Klor-Con] 20 meq PO DAILY 10/26/16 [History] Cetirizine HCl [Zyrtec] 10 mg PO DAILY PRN 06/14/18 [History] Docusate Sodium [Stool Softener] 2 tab PO DAILY PRN 06/14/18 [History] Sodium Chloride 0.65% [Young Harris Saline] 0.1 ml JORGE DAILY PRN 06/14/18 [History] lisinopriL [Prinivil] 40 mg PO BID 06/14/18 [History] polyethylene glycoL 3350 [MiraLAX] 17 gm PO DAILY PRN 12/24/18 [History] Aspirin 325 mg PO DAILY 02/15/20 [History] Omeprazole 20 mg PO DAILY 02/15/20 [History] Ondansetron [Zofran ODT] 4 mg PO Q6H PRN 02/15/20 [History] Rosuvastatin Calcium 1 tab PO DAILY 02/15/20 [History] Furosemide [Lasix] 20 mg PO DAILY 02/25/20 [History] oxyCODONE 5 mg PO Q4H PRN #20 tablet 02/28/20 [Rx] Cinnamon Bark [Cinnamon] 1 tab PO DAILY 03/02/20 [History] Fish Oil/Clymer-3 Fatty Acids [Fish Oil 1,000 MG] 1 tab PO DAILY 03/02/20 [ History] Ciprofloxacin HCl [Cipro] 500 mg PO BID #10 tablet 03/28/20 [Rx] Clindamycin HCl 300 mg PO QID #20 capsule 03/28/20 [Rx] Lactobacillus Rhamnosus GG [Culturelle] 1 cap PO BID #60 cap 03/28/20 [Rx] Referrals: Filiberto Perdue MD [Physician] - 04/07/20 1:30 pm (Please arrive 15 minutes early to register for your appointment.) - Discharge Summary/Plan Comment DC Time >30 min.: No - Patient Data Vitals - Most Recent: Last Vital Signs Temp 98.1 F 03/28/20 10:36 Pulse 88 03/28/20 10:36 Resp 16 03/28/20 10:36 BP 138/76 03/28/20 10:36 Pulse Ox 95 03/28/20 10:36 Weight - Most Recent: 151 lb 9.6 oz I&O - Last 24 hours: Intake & Output 03/27/20 03/28/20 03/28/20 22:59 06:59 14:59 Intake Total 1200 1513 600 Balance 1200 1513 600 Lab Results - Last 24 hrs: Laboratory Results - last 24 hr 03/28/20 03/28/20 Range/Units 04:00 04:00 WBC 6.6 (4.5-11.0) K/uL RBC 3.28 L (3.30-5.50) M/uL Hgb 10.3 L (12.0-15.0) g/dL Hct 30.3 L (36.0-48.0) % MCV 92 (80-98) fL MCH 31 (27-31) pg MCHC 34 (32-36) % Plt Count 216 (150-400) K/uL Add Manual Diff Yes Neutrophils % (Manual) 65 (36-66) % Band Neutrophils % 1 L (5-11) % Lymphocytes % (Manual) 17 L (24-44) % Monocytes % (Manual) 12 H (2-6) % Eosinophils % (Manual) 4 (2-4) % Sodium 132 L (140-148) mmol/L Potassium 3.5 L (3.6-5.2) mmol/L Chloride 101 (100-108) mmol/L Carbon Dioxide 27 (21-32) mmol/L Anion Gap 7.5 (5.0-14.0) mmol/L BUN 6 L (7-18) mg/dL Creatinine 0.7 (0.6-1.0) mg/dL Est Cr Clr Drug Dosing 55.68 mL/min Estimated GFR (MDRD) > 60 (>60) Glucose 97 (74-106) mg/dL Calcium 7.8 L (8.5-10.1) mg/dL NITISH Results - Last 24 hrs: Microbiology 03/25/20 22:50 Aerobic Blood Culture - Preliminary Blood - Venous NO GROWTH AFTER 2 DAYS Anaerobic Blood Culture - Preliminary NO GROWTH AFTER 2 DAYS 03/25/20 23:10 Aerobic Blood Culture - Preliminary Blood - Venous - Lab Draw NO GROWTH AFTER 2 DAYS Anaerobic Blood Culture - Preliminary NO GROWTH AFTER 2 DAYS Med Orders - Current: Current Medications Acetaminophen (Tylenol) 650 mg PO Q4H PRN PRN Reason: Pain (Mild 1-3)/fever Last Admin: 03/27/20 08:14 Dose: 650 mg Aspirin (Ecotrin) 325 mg PO DAILY COUNTS INCLUDE 234 BEDS AT THE [facility] Last Admin: 03/27/20 08:20 Dose: 325 mg Cetirizine HCl (Zyrtec) 10 mg PO DAILY PRN PRN Reason: Allergies Enoxaparin Sodium (Lovenox) 40 mg SUBCUT QPM COUNTS INCLUDE 234 BEDS AT THE [facility] Last Admin: 03/27/20 16:49 Dose: 40 mg Fluticasone Propionate (Flonase) 0 gm NASBOTH DAILY COUNTS INCLUDE 234 BEDS AT THE [facility] Last Admin: 03/28/20 04:20 Dose: 2 spray Gabapentin (Neurontin) 300 mg PO BEDTIME COUNTS INCLUDE 234 BEDS AT THE [facility] Last Admin: 03/27/20 21:11 Dose: 300 mg Hydromorphone HCl (Dilaudid) 0.5 mg IVPUSH Q2H PRN PRN Reason: Pain (severe 7-10) Last Admin: 03/26/20 17:31 Dose: 0.5 mg Ciprofloxacin/Dextrose 400 mg/ (Premix) 200 mls @ 200 mls/hr IV Q12H COUNTS INCLUDE 234 BEDS AT THE [facility] Last Admin: 03/28/20 07:39 Dose: 200 mls/hr Clindamycin Phosphate 600 mg/ (Sodium Chloride) 54 mls @ 100 mls/hr IV Q6H COUNTS INCLUDE 234 BEDS AT THE [facility] Last Admin: 03/28/20 05:33 Dose: 100 mls/hr Sodium Chloride (Normal Saline) 1,000 mls @ 75 mls/hr IV ASDIRECTED COUNTS INCLUDE 234 BEDS AT THE [facility] Last Admin: 03/28/20 05:33 Dose: 75 mls/hr Lactobacillus Rhamnosus (Culturelle) 1 cap PO BID COUNTS INCLUDE 234 BEDS AT THE [facility] Last Admin: 03/27/20 21:12 Dose: 1 cap Lisinopril (Prinivil) 40 mg PO BID COUNTS INCLUDE 234 BEDS AT THE [facility] Last Admin: 03/27/20 21:10 Dose: 40 mg Lorazepam (Ativan) 0.5 mg IVPUSH Q2H PRN PRN Reason: Nausea Last Admin: 03/27/20 22:36 Dose: 0.5 mg Magnesium Oxide (Magnesium Oxide) 400 mg PO BID COUNTS INCLUDE 234 BEDS AT THE [facility] Last Admin: 03/27/20 21:11 Dose: 400 mg Metoprolol Tartrate (Lopressor) 25 mg PO BID COUNTS INCLUDE 234 BEDS AT THE [facility] Last Admin: 03/27/20 21:11 Dose: 25 mg Ondansetron HCl (Zofran) 4 mg IV Q4H PRN PRN Reason: Nausea/Vomiting Last Admin: 03/26/20 05:59 Dose: 4 mg Ondansetron HCl (Zofran Odt) 4 mg PO Q4H PRN PRN Reason: Nausea/Vomiting Last Admin: 03/27/20 19:26 Dose: 4 mg Oxycodone HCl (Oxycodone) 5 mg PO Q4H PRN PRN Reason: Pain (moderate 4-6) Pantoprazole Sodium (Protonix) 40 mg PO ACBREAKFAST COUNTS INCLUDE 234 BEDS AT THE [facility] Last Admin: 03/28/20 07:40 Dose: 40 mg Potassium Chloride (Klor-Con M20) 20 meq PO DAILY COUNTS INCLUDE 234 BEDS AT THE [facility] Last Admin: 03/27/20 08:21 Dose: 20 meq Potassium Chloride (Klor-Con M20) 40 meq PO ONETIME ONE Stop: 03/28/20 11:31 Rosuvastatin Calcium (Crestor) 5 mg PO DAILY COUNTS INCLUDE 234 BEDS AT THE [facility] Last Admin: 03/27/20 08:20 Dose: 5 mg Sodium Chloride (Saline Flush) 10 ml FLUSH ASDIRECTED PRN PRN Reason: Keep Vein Open Terazosin HCl (Hytrin) 2 mg PO BID COUNTS INCLUDE 234 BEDS AT THE [facility] Last Admin: 03/27/20 21:12 Dose: 2 mg Discontinued Medications Acetaminophen (Tylenol) 325 mg PO Q4H PRN PRN Reason: Fever Last Admin: 03/23/20 16:29 Dose: 325 mg Enoxaparin Sodium (Lovenox) 30 mg SUBCUT DAILY COUNTS INCLUDE 234 BEDS AT THE [facility] Last Admin: 03/23/20 18:41 Dose: 30 mg Enoxaparin Sodium (Lovenox) 30 mg SUBCUT QPM COUNTS INCLUDE 234 BEDS AT THE [facility] Last Admin: 03/25/20 17:36 Dose: 30 mg Gabapentin (Neurontin) 300 mg PO BEDTIME COUNTS INCLUDE 234 BEDS AT THE [facility] Last Admin: 03/24/20 08:04 Dose: Not Given Sodium Chloride (Normal Saline) 1,000 mls @ 1,000 mls/hr IV ASDIRECTED COUNTS INCLUDE 234 BEDS AT THE [facility] Last Admin: 03/23/20 15:01 Dose: 1,000 mls/hr Sodium Chloride (Normal Saline) 1,000 mls @ 125 mls/hr IV ASDIRECTED COUNTS INCLUDE 234 BEDS AT THE [facility] Last Admin: 03/24/20 20:18 Dose: 125 mls/hr Clindamycin Phosphate 600 mg/ (Sodium Chloride) 54 mls @ 100 mls/hr IV Q6H COUNTS INCLUDE 234 BEDS AT THE [facility] Last Admin: 03/24/20 05:51 Dose: 100 mls/hr Magnesium Sulfate 2 gm/ Premix 50 mls @ 25 mls/hr IV ONETIME ONE Stop: 03/24/20 10:59 Last Admin: 03/24/20 10:16 Dose: 25 mls/hr Sodium Chloride (Normal Saline) 500 mls @ 250 mls/hr IV ONETIME ONE Stop: 03/26/20 00:48 Last Admin: 03/25/20 22:58 Dose: 250 mls/hr Sodium Chloride (Normal Saline) 70 mls @ 3 mls/sec IV ONETIME ONE Stop: 03/27/20 09:48 Last Admin: 03/27/20 10:13 Dose: 3 mls/sec Iopamidol (Isovue-300 (61%)) 100 ml IV ONETIME ONE Stop: 03/27/20 09:48 Last Admin: 03/27/20 10:13 Dose: 100 ml Lisinopril (Prinivil) 40 mg PO BID COUNTS INCLUDE 234 BEDS AT THE [facility] Last Admin: 03/23/20 21:00 Dose: Not Given Metoprolol Tartrate (Lopressor) 25 mg PO BID COUNTS INCLUDE 234 BEDS AT THE [facility] Last Admin: 03/24/20 10:17 Dose: 25 mg Lisinopril 40mg (Ptom) 0 each PO BID COUNTS INCLUDE 234 BEDS AT THE [facility] Sodium Chloride (Saline Flush) 10 ml FLUSH ONETIME PRN PRN Reason: PER RADIOLOGY PROTOCOL Last Admin: 03/27/20 10:14 Dose: 10 ml Terazosin HCl (Hytrin) 2 mg PO BID COUNTS INCLUDE 234 BEDS AT THE [facility] Last Admin: 03/23/20 21:00 Dose: Not Given - Exam General: Reports: Alert, Oriented, Cooperative, No Acute Distress Lungs: Reports: Clear to Auscultation, Normal Respiratory Effort Cardiovascular: Reports: Regular Rate, Regular Rhythm, No Murmurs GI/Abdominal Exam: Soft, No Organomegaly, Tender. No: Distended, Guarding, Rigid, Rebound Extremities: Non-Tender, No Pedal Edema
[2020-03-28] MEDS: Rosuvastatin 10 MG Tab PO SCH (10:46)
[2020-03-28] MEDS: Lactobacillus Rhamnosus GG (Probiotic) Cap PO SCH (10:46)
[2020-03-28] MEDS: Aspirin 325 MG Tab.EC PO SCH (10:47)
[2020-03-28] MEDS: Terazosin 1 MG Cap PO SCH (10:47)
[2020-03-28] MEDS: Potassium Chloride 20 MEQ Tab.ER PO SCH (10:48)
[2020-03-28] MEDS: Metoprolol Tartrate 25 MG Tab PO SCH (10:48)
[2020-03-28] MEDS: Magnesium Oxide 400 MG Tab PO SCH (10:49)
[2020-03-28] MEDS: Lisinopril 20 MG Tab PO SCH (10:49)
[2020-03-28] MEDS ORDERED: Potassium Chloride 20 MEQ Tab.ER PO ONE (11:30)
== END 2020-03-28 13:00 | disposition home or self-care (01) | DRG 394 ==
LOC: JP.ED 13:32 → JP.MS 15:45 → OBSVTOIN 03-24 10:57
PROVIDERS: ADMIT Hospitalist; ATTEND Hospitalist
DX: K55.9 Vascular disorder of intestine, unspecified (principal); K92.1 Melena; N17.9 Acute kidney failure, unspecified; R55 Syncope and collapse; E86.0 Dehydration; H54.7 Unspecified visual loss; A08.4 Viral intestinal infection, unspecified; I10 Essential (primary) hypertension; E78.00 Pure hypercholesterolemia, unspecified; K21.9 Gastro-esophageal reflux disease without esophagitis; Z86.010 Personal history of colon polyps; K57.90 Diverticulosis of intestine, part unspecified, without perforation or abscess without bleeding; R32 Unspecified urinary incontinence; Z87.440 Personal history of urinary (tract) infections; G89.29 Other chronic pain; M54.9 Dorsalgia, unspecified; M19.90 Unspecified osteoarthritis, unspecified site; G62.9 Polyneuropathy, unspecified; D64.9 Anemia, unspecified; E53.8 Deficiency of other specified B group vitamins; Z90.49 Acquired absence of other specified parts of digestive tract; Z90.710 Acquired absence of both cervix and uterus; Z98.42 Cataract extraction status, left eye; Z98.41 Cataract extraction status, right eye; Z96.651 Presence of right artificial knee joint; M81.0 Age-related osteoporosis without current pathological fracture; Z88.1 Allergy status to other antibiotic agents; Z96.659 Presence of unspecified artificial knee joint; Z88.8 Allergy status to other drugs, medicaments and biological substances; Z91.013 Allergy to seafood; Z79.82 Long term (current) use of aspirin; Z79.899 Other long term (current) drug therapy; Z86.73 Personal history of transient ischemic attack (TIA), and cerebral infarction without residual deficits
CPT/HCPCS: 36415 ×2; 74176; 80048; 80053; 82272; 83690; 83735; 84484; 85018; 85025 ×2; 87046; 87493; 87899 ×2; 89055; 96361 ×3; 96365; 96366; 96367; 96372; 99284; 99285; A9270 ×12; G0378 ×2; J0744 ×2; J1170; J1650; J3475; J3490 ×3; J7030 ×3; J7050 ×3; 74177; 74177-26; 87040; 96360; 99218; J2060; J2405; J7040; Q9967

== ENCOUNTER 2020-04-17 06:34 | Day surgery (SDC) | payer MEDICARE, BC ==
[2020-04-17] MEDS ORDERED: Dextrose 5%-Lactated Ringers 1,000 ML IV SCH (07:00)
[2020-04-17] MEDS ORDERED: Propofol 200 MG/20 ML SDV ONE (07:24)
[2020-04-17] MEDS ORDERED: fentaNYL 100 MCG/2 ML SDV ONE (07:24)
[2020-04-17 10:10] VITALS: BP 142/79
[2020-04-17 10:15] VITALS: PULSE 55
--- NOTE | 2020-04-20 12:48 | OR ---
DATE OF PROCEDURE: 04/17/2020 SURGEON: Benton Washington MD PREOPERATIVE DIAGNOSES: 1. History of Tam esophagus. 2. Recent hospitalization for colitis versus diverticulitis. POSTOPERATIVE DIAGNOSES: 1. History of Tam esophagus. 2. Uncomplicated colonic diverticulosis. OPERATIVE PROCEDURES: 1. Esophagogastroduodenoscopy with biopsies of distal esophagus above the esophagogastric anastomosis. 2. Flexible colonoscopy. ANESTHESIA: IV sedation. INDICATIONS FOR PROCEDURE: This is a 79-year-old status post a transhiatal esophagectomy for Tam esophagus, high-grade dysphagia. This was noted in mid 2 columns and she has had no evidence of recurrence. 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 The plan is to proceed with a followup endoscopy to look for any recurrent Tam esophagus. Otherwise, the patient was recently hospitalized for what was thought to either be colitis or diverticulitis and is undergoing flexible colonoscopy for diagnostic purposes. Potential risks including bleeding and perforation were discussed, and the patient wishes to proceed. DETAILS OF PROCEDURE: The patient was taken to the operating room and placed in a left lateral decubitus position. IV sedation was administered, after which the upper GI endoscope was passed orally through the upper esophageal sphincter and in the upper esophagus. In the cervical area, the esophagogastric anastomosis was recovered. Above that, there was a mild redness, otherwise the mass was wide-open within the area of the stomach which was obviously predominantly into the thoracic. There was some retained bile. Otherwise, some mild diffuse gastritis related to bile retention. Pyloric channel and proximal duodenum were unremarkable. At this point, biopsies were obtained from the distal- most esophagus above the esophagogastric anastomosis and minimal bleeding from the biopsy sites was seen and that procedure was then concluded. Attention was then taken to the colonoscopy. The initial digital rectal exam performed was unremarkable. Colonoscope was then passed into the rectum with retroflexion revealing uncomplicated hemorrhoidal columns. Scope was eventually passed to the cecum. The prep in this case was fairly poor, but we were able to get all the way to the cecum. The patient was noted to have at this point uncomplicated left colonic diverticulosis. There were no areas of colitis identified and otherwise no polyps or other signs of neoplasia. The scope was then withdrawn and the above findings were confirmed and the procedure was then concluded. At this point, colonoscopy could be repeated as necessary based on clinical indications. Otherwise, followup esophagogastroduodenoscopy in 2 years would be warranted for surveillance of Tam's esophagus. Benton Washington MD /[id number]
== END 2020-04-17 10:32 | disposition home or self-care (01) ==
LOC: JP.SDS 06:34
PROVIDERS: ATTEND Surgery
DX: K29.00 Acute gastritis without bleeding (principal); K29.50 Unspecified chronic gastritis without bleeding; K20.9 Esophagitis, unspecified; K57.30 Diverticulosis of large intestine without perforation or abscess without bleeding; I10 Essential (primary) hypertension; E78.5 Hyperlipidemia, unspecified; Z87.19 Personal history of other diseases of the digestive system; Z90.49 Acquired absence of other specified parts of digestive tract
CPT/HCPCS: 43239; 45378; 88305; J2704; J3010; J7121

== ENCOUNTER 2020-05-02 20:24 | Emergency (ER) | payer MEDICARE, BC ==
[2020-05-02 21:12] VITALS: BP 177/103; PULSE 81
--- NOTE | 2020-05-02 21:50 | EDM.PDOC ---
ED HPI GENERAL MEDICAL PROBLEM - General Chief Complaint: Headache Stated Complaint: HEADACHE,NECK HURTS Time Seen by Provider: 05/02/20 21:25 Source of Information: Reports: Patient, Family History Limitations: Reports: No Limitations - History of Present Illness INITIAL COMMENTS - FREE TEXT/NARRATIVE: 79-year-old female with 3 days of neck stiffness especially on the left side which has developed into a generalized headache. Onset: Gradual Associated Symptoms: Reports: Headaches. Denies: Confusion, Chest Pain, Cough, Malaise - Related Data Allergies Allergy/AdvReac Type Severity Reaction Status Date / Time metronidazole [From Flagyl] Allergy Severe Difficulty Verified 05/02/20 21:17 Breathing shellfish derived Allergy Intermediate Difficulty Verified 05/02/20 21:17 Swallowing amlodipine [From Norvasc] Allergy Other Verified 05/02/20 21:17 Home Meds: Home Meds Metoprolol Tartrate [Lopressor] 25 mg PO BID 08/27/14 [History] Naproxen Sodium [Aleve] 220 mg PO DAILY PRN 08/27/14 [History] Terazosin [Hytrin] 2 mg PO BID 08/27/14 [History] Acetaminophen 500 mg PO Q6HR PRN 03/01/16 [History] Fluticasone Propionate [Flonase] 2 sprays NS DAILY 03/01/16 [History] Gabapentin [Neurontin] 300 mg PO BEDTIME 03/01/16 [History] Potassium Chloride [Klor-Con] 20 meq PO DAILY 10/26/16 [History] Cetirizine HCl [Zyrtec] 10 mg PO DAILY PRN 06/14/18 [History] Docusate Sodium [Stool Softener] 2 tab PO DAILY PRN 06/14/18 [History] Sodium Chloride 0.65% [[place] Saline] 0.1 ml JORGE DAILY PRN 06/14/18 [History] lisinopriL [Prinivil] 40 mg PO BID 06/14/18 [History] polyethylene glycoL 3350 [MiraLAX] 17 gm PO DAILY PRN 12/24/18 [History] Aspirin 325 mg PO DAILY 02/15/20 [History] Omeprazole 20 mg PO DAILY 02/15/20 [History] Ondansetron [Zofran ODT] 4 mg PO Q6H PRN 02/15/20 [History] Rosuvastatin Calcium 5 mg PO DAILY 02/15/20 [History] Furosemide [Lasix] 20 mg PO DAILY 02/25/20 [History] Cinnamon Bark [Cinnamon] 1 tab PO DAILY 03/02/20 [History] Lactobacillus Rhamnosus GG [Culturelle] 1 cap PO BID #60 cap 03/28/20 [Rx] Ketotifen Fumarate [Zaditor] 1 drop OP BID PRN 04/15/20 [History] Nystatin [Nystop] 1 applic TOP BID 04/15/20 [History] Past Medical History HEENT History: Reports: Allergic Rhinitis, Impaired Vision Other HEENT History: cataracts Cardiovascular History: Reports: High Cholesterol, Hypertension Other Cardiovascular History: TIA in December Respiratory History: Reports: None Gastrointestinal History: Reports: Cholelithiasis, Colon Polyp, Diverticulosis, GERD, Other (See Below) Other Gastrointestinal History: Hx of Barretts Genitourinary History: Reports: Urinary Incontinence, UTI, Recurrent CHEF DE PARTIE History: Reports: Dysfunctional Uterine Bleeding, , Prolapsed Uterus Musculoskeletal History: Reports: Back Pain, Chronic, Osteoarthritis Other Musculoskeletal History: right knee pain. left knee pain Neurological History: Reports: Neuropathy, Peripheral, TIA, Other (See Below) Other Neuro History: TIA December 2019 Psychiatric History: Reports: None Endocrine/Metabolic History: Reports: Osteoporosis Hematologic History: Reports: Anemia, B12 Deficiency, Blood Transfusion(s), Iron Deficiency Immunologic History: Reports: None Oncologic (Cancer) History: Reports: None Dermatologic History: Reports: None - Infectious Disease History Infectious Disease History: Reports: Chicken Pox, Measles, Mumps, Rubella, Shingles Other Infectious Disease History: abdomen mesh - Past Surgical History Head Surgeries/Procedures: Reports: None HEENT Surgical History: Reports: Cataract Surgery, Naso-Sinus Surgery Cardiovascular Surgical History: Reports: None GI Surgical History: Reports: Cholecystectomy, Colonoscopy, EGD, Hernia, Inguinal, Other (See Below) Other GI Surgeries/Procedures: 2 hernia repair, esophagus removed Female Surgical History: Reports: Breast Biopsy, Hysterectomy, Oophorectomy Endocrine Surgical History: Reports: None Neurological Surgical History: Reports: Laminectomy Musculoskeletal Surgical History: Reports: Knee Replacement, Shoulder Surgery, Other (See Below) Other Musculoskeletal Surgeries/Procedures:: back surgery x3 right total knee Oncologic Surgical History: Reports: Biopsy of Breast Dermatological Surgical History: Reports: None Social & Family History - Family History Family Medical History: Noncontributory HEENT: Reports: Impaired Vision Cardiac: Reports: Hypertension Respiratory: Reports: COPD GI: Reports: Cholelithiasis, Colon Polyps, GERD OBGYN: Reports: Musculoskeletal: Reports: Gout Endocrine/Metabolic: Reports: None Hematologic: Reports: None Oncologic: Reports: Prostate, Renal - Tobacco Use Smoking Status *Q: Never Smoker - Caffeine Use Caffeine Use: Reports: Coffee Caffeine Use Comment: DAILY - Alcohol Use Days Per Week of Alcohol Use: 3 Number of Drinks Per Day: 2 Total Drinks Per Week: 6 - Recreational Drug Use Recreational Drug Use: No ED ROS GENERAL - Review of Systems Review Of Systems: See Below Constitutional: Denies: Fever, Chills HEENT: Denies: Vision Change Respiratory: Denies: Shortness of Breath, Cough Cardiovascular: Denies: Chest Pain GI/Abdominal: Denies: Abdominal Pain, Nausea, Vomiting : Reports: Other (Currently being treated for UTI which was asymptomatic) Musculoskeletal: Reports: Other (Also concerned about some persistent knee swelling, she did have her left knee drained a few weeks ago) Skin: Reports: Other (She has a small red area on the lower right leg she is concerned about, as well as a small bruise on the lateral left knee) Neurological: Reports: Headache. Denies: Confusion, Dizziness, Paresthesia, Trouble Speaking, Difficulty Walking, Change in Speech Psychiatric: Reports: Anxiety - Physical Exam Exam: See Below Exam Limited By: No Limitations General Appearance: Alert, No Apparent Distress Eye Exam: Bilateral Eye: EOMI, Normal Inspection Head Exam: Atraumatic Neck: Other (Paracervical muscles are tender to palpation especially on the left side, proximal muscles just under the occipital scalp. There is a slight pulling sensation with rotation to the left against resistance. She also has some tenderness to palpation of the temporalis muscle on the left side.) Respiratory/Chest: No Respiratory Distress, Lungs Clear Neuro Exam (Abbreviated): Alert, Oriented, No Motor/Sensory Deficits, Other (Symmetric strength and movement of the extremities bilaterally, she can hold her legs up against gravity and her speech is clear) Extremities: Other (Very small bruise on the lateral aspect of the left knee, no hematoma. Also a small red irritated spot on her right ankle which appears to be contact dermatitis) Psychiatric: Anxious Skin Exam: Other (Diffuse skin lesions as described above) Course - Vital Signs Last Recorded V/S: Last Vital Signs Temp 98.3 F 05/02/20 21:23 Pulse 81 05/02/20 21:23 Resp 20 05/02/20 21:23 BP 177/103 H 05/02/20 21:23 Pulse Ox 95 05/02/20 21:23 - Re-Assessments/Exams Free Text/Narrative Re-Assessment/Exam: 05/02/20 22:10 Reassured the patient that this is more of a tension type headache which is grown from a strain in her neck muscle likely from sleeping abnormal or in an awkward position. Encouraged her to start taking her anti-inflammatories on a regular basis which she has not been doing, and also gave her some Flexeril. Warm moist compresses to the neck may be helpful. She does not need a CT scan or work-up for TIA or stroke at this time. She will return if worsening, or consider rechecking in 2 to 3 days if not improving. Departure - Departure Time of Disposition: 22:01 Disposition: Home, Self-Care 01 Clinical Impression: Strain of neck Qualifiers: Encounter type: initial encounter Qualified Code(s): S16.1XXA - Strain of muscle, fascia and tendon at neck level, initial encounter Acute tension headache Qualifiers: Intractability: not intractable Qualified Code(s): G44.209 - Tension-type headache, unspecified, not intractable - Discharge Information Instructions: Tension Headache, Adult, [id number] Referrals: PCP,None [Primary Care Provider] - Forms: ED Department Discharge Care Plan Goals: Try Aleve twice daily along with muscle relaxers as directed and increase activity as tolerated. Moist heat may be beneficial as well. Recheck in 2 to 3 days if not improving satisfactorily, or return sooner if worsening or concerns. Sepsis Event Note (ED) - Evaluation Sepsis Screening Result: No Definite Risk - Focused Exam Vital Signs: Vital Signs Temp Pulse Resp BP Pulse Ox 05/02/20 21:23 98.3 F 81 20 177/103 H 95 05/02/20 21:10 98.3 F 81 20 177/103 H 95
== END 2020-05-02 22:02 | disposition home or self-care (01) ==
LOC: JP.ED 20:24
DX: S16.1XXA Strain of muscle, fascia and tendon at neck level, initial encounter (principal); G44.209 Tension-type headache, unspecified, not intractable; I10 Essential (primary) hypertension; E78.00 Pure hypercholesterolemia, unspecified; K21.9 Gastro-esophageal reflux disease without esophagitis; Z88.8 Allergy status to other drugs, medicaments and biological substances; Z91.013 Allergy to seafood; Z79.899 Other long term (current) drug therapy; Z79.82 Long term (current) use of aspirin; X58.XXXA Exposure to other specified factors, initial encounter
CPT/HCPCS: 99283

== ENCOUNTER 2020-08-24 05:29 | Inpatient (IN) | payer MEDICARE, BC ==
[2020-08-24] MEDS ORDERED: Lactated Ringers 1,000 ML IV SCH (06:00)
[2020-08-24] MEDS ORDERED: Nozin Nasal Sanitizer NASBOTH ONE (06:00)
[2020-08-24] MEDS ORDERED: ceFAZolin 2 GM in Premix Bag 1 BAG IV ONE (06:00)
[2020-08-24] MEDS ORDERED: Povidone-Iodine 10% Soln 118.25 ML Bottle ONE (07:13)
[2020-08-24] MEDS ORDERED: Propofol 200 MG/20 ML SDV ONE (07:51)
[2020-08-24] MEDS ORDERED: fentaNYL 100 MCG/2 ML SDV ONE (07:51)
[2020-08-24] MEDS ORDERED: Midazolam 1 MG/ML 2 ML SDV ONE (07:52)
[2020-08-24] MEDS ORDERED: Acetaminophen/HYDROcodone 325-5 MG Tab PO PRN (09:21)
[2020-08-24] MEDS ORDERED: Magnesium Hydroxide 400 MG/5 ML Susp 30 ML Cup PO PRN (09:21)
[2020-08-24] MEDS ORDERED: Lactated Ringers 1,000 ML ONE (09:24)
[2020-08-24] MEDS ORDERED: Ketotifen 0.025% Ophth Soln 5 ML Bottle EYEBOTH PRN (09:29)
[2020-08-24] MEDS ORDERED: Cetirizine 10 MG Tab PO PRN (09:29)
[2020-08-24] MEDS ORDERED: Sodium Chloride 0.65% Nasal Spray 45 ML Bottle NAS PRN (09:29)
[2020-08-24] MEDS ORDERED: Polyethylene Glycol 3350 Powder 17 GM Packet PO PRN (09:29)
[2020-08-24] MEDS: Ondansetron 4 MG/2 ML SDV IVPUSH PRN (10:29)
--- NOTE | 2020-08-24 10:47 | CR ---
Knee 1V or 2V Lt CLINICAL HISTORY: Total knee arthroplasty FINDINGS: Patient is status post total knee arthroplasty. Components appear well seated. There is intra-articular and subcutaneous air. Impression: Status post recent total knee arthroplasty
[2020-08-24] MEDS: Morphine 2 MG/ML SYRINGE IVPUSH PRN ×2 (11:41→13:04)
[2020-08-24] MEDS: Acetaminophen/oxyCODONE 325-5 MG Tab PO PRN ×3 (14:10→23:05)
[2020-08-24] MEDS: ceFAZolin 1 GM in Premix Bag 1 BAG IV SCH ×2 (14:33→23:00)
[2020-08-24] MEDS: Sodium Chloride 0.9% 1,000 ML IV SCH (16:40)
[2020-08-24] MEDS: Terazosin 1 MG Cap PO SCH (20:31)
[2020-08-24] MEDS: Lisinopril 20 MG Tab PO SCH (20:31)
[2020-08-24] MEDS: Gabapentin 300 MG Cap PO SCH (20:31)
[2020-08-24] MEDS: Metoprolol Tartrate 25 MG Tab PO SCH (20:32)
[2020-08-24] MEDS: Lactobacillus Rhamnosus GG (Probiotic) Cap PO SCH (20:32)
[2020-08-24] MEDS: Docusate Sodium 100 MG Cap PO SCH (20:32)
[2020-08-25] MEDS: Sodium Chloride 0.9% 1,000 ML IV SCH (02:26)
[2020-08-25] MEDS: ceFAZolin 1 GM in Premix Bag 1 BAG IV SCH (06:18)
[2020-08-25] MEDS: Acetaminophen/oxyCODONE 325-5 MG Tab PO PRN ×3 (06:39→20:21)
[2020-08-25] MEDS: Potassium Chloride 20 MEQ Tab.ER PO SCH (08:50)
[2020-08-25] MEDS: Lisinopril 20 MG Tab PO SCH ×2 (08:50→20:27)
[2020-08-25] MEDS: Cholecalciferol (Vitamin D3) 25 MCG Tab PO SCH (08:50)
[2020-08-25] MEDS: Furosemide 20 MG Tab PO SCH (08:50)
[2020-08-25] MEDS: Pantoprazole 40 MG Tab.CR PO SCH (08:50)
[2020-08-25] MEDS: Terazosin 1 MG Cap PO SCH ×2 (08:51→20:26)
[2020-08-25] MEDS: Rosuvastatin 10 MG Tab PO SCH (08:51)
[2020-08-25] MEDS: Aspirin 325 MG Tab.EC PO SCH (08:51)
[2020-08-25] MEDS: Metoprolol Tartrate 25 MG Tab PO SCH ×2 (08:51→20:26)
[2020-08-25] MEDS: Docusate Sodium 100 MG Cap PO SCH ×2 (08:52→20:26)
[2020-08-25] MEDS: Lactobacillus Rhamnosus GG (Probiotic) Cap PO SCH ×2 (08:52→20:26)
[2020-08-25] MEDS: Fluticasone Propionate Nasal Spray 16 GM Bottle NAS SCH (08:54)
[2020-08-25] MEDS: Gabapentin 300 MG Cap PO SCH (20:26)
[2020-08-26] MEDS: Acetaminophen/oxyCODONE 325-5 MG Tab PO PRN ×3 (00:27→10:13)
[2020-08-26] MEDS: Pantoprazole 40 MG Tab.CR PO SCH (08:19)
[2020-08-26] MEDS: Potassium Chloride 20 MEQ Tab.ER PO SCH (08:19)
[2020-08-26] MEDS: Rosuvastatin 10 MG Tab PO SCH (09:24)
[2020-08-26] MEDS: Docusate Sodium 100 MG Cap PO SCH ×2 (09:24→20:17)
[2020-08-26] MEDS: Aspirin 325 MG Tab.EC PO SCH (09:25)
[2020-08-26] MEDS: Lactobacillus Rhamnosus GG (Probiotic) Cap PO SCH ×2 (09:25→20:17)
[2020-08-26] MEDS: Terazosin 1 MG Cap PO SCH (09:26)
[2020-08-26] MEDS: Fluticasone Propionate Nasal Spray 16 GM Bottle NAS SCH (09:26)
[2020-08-26] MEDS: Furosemide 20 MG Tab PO SCH (09:28)
[2020-08-26] MEDS: Metoprolol Tartrate 25 MG Tab PO SCH (09:28)
[2020-08-26] MEDS: Lisinopril 20 MG Tab PO SCH (09:29)
[2020-08-26] MEDS: Cholecalciferol (Vitamin D3) 25 MCG Tab PO SCH (09:30)
--- NOTE | 2020-08-26 13:34 | PCM.SURGPN ---
- General Info Date of Service: 08/25/20 Date of Surgery/Procedure: 08/24/20 POD#: 1 Functional Status: Reports: Pain Controlled, Tolerating Diet, Ambulating - Review of Systems General: Reports: No Symptoms HEENT: Reports: No Symptoms Pulmonary: Reports: No Symptoms Cardiovascular: Reports: No Symptoms Gastrointestinal: Reports: No Symptoms Genitourinary: Reports: No Symptoms Musculoskeletal: Reports: Leg Pain Skin: Reports: No Symptoms Neurological: Reports: No Symptoms Psychiatric: Reports: No Symptoms - Patient Data Vitals - Most Recent: Last Vital Signs Temp 36.5 C 08/26/20 11:00 Pulse 60 08/26/20 11:00 Resp 20 08/26/20 11:00 BP 84/54 L 08/26/20 11:00 Pulse Ox 96 08/26/20 11:00 Weight - Most Recent: 64.864 kg I&O - Last 24 Hours: Intake & Output 08/25/20 08/26/20 08/26/20 22:59 06:59 14:59 Intake Total 240 550 Output Total 750 500 250 Balance -510 -500 300 Med Orders - Current: Current Medications Hydrocodone Bitart/Acetaminophen ([place] 325-5 Mg) 2 tab PO Q4H PRN PRN Reason: Pain (mild 1-3) Aspirin (Ecotrin) 325 mg PO DAILY PEND[facility] SALE TO [facility] Last Admin: 08/26/20 09:25 Dose: 325 mg Documented by: Cetirizine HCl (Zyrtec) 10 mg PO DAILY PRN PRN Reason: Allergies Cholecalciferol (Vitamin D3) 25 mcg PO DAILY [facility] Last Admin: 08/26/20 09:30 Dose: 25 mcg Documented by: Docusate Sodium (Colace) 100 mg PO BID [facility] Last Admin: 08/26/20 09:24 Dose: 100 mg Documented by: Fluticasone Propionate (Flonase) 0 gm JORGE DAILY [facility] Last Admin: 08/26/20 09:26 Dose: 2 spray Documented by: Furosemide (Lasix) 20 mg PO DAILY [facility] Last Admin: 08/26/20 09:28 Dose: 20 mg Documented by: Gabapentin (Neurontin) 300 mg PO BEDTIME [facility] Last Admin: 08/25/20 20:26 Dose: 300 mg Documented by: Sodium Chloride (Normal Saline) 1,000 mls @ 100 mls/hr IV ASDIRECTED PENDING SALE TO [facility] Last Admin: 08/25/20 02:26 Dose: 100 mls/hr Documented by: Ketotifen Fumarate (Ketotifen 0.025% Ophth Soln) 0 ml EYEBOTH BID PRN PRN Reason: Allergies Lactobacillus Rhamnosus (Culturelle) 1 cap PO BID [facility] Last Admin: 08/26/20 09:25 Dose: 1 cap Documented by: Lisinopril (Prinivil) 40 mg PO BID [facility] Last Admin: 08/26/20 09:29 Dose: 40 mg Documented by: Magnesium Hydroxide (Milk Of Magnesia) 30 ml PO BID PRN PRN Reason: Constipation Metoprolol Tartrate (Lopressor) 25 mg PO BID [facility] Last Admin: 08/26/20 09:28 Dose: 25 mg Documented by: Morphine Sulfate (Morphine) 2 mg IVPUSH Q1H PRN PRN Reason: Breakthrough Pain Last Admin: 08/24/20 13:04 Dose: 2 mg Documented by: Ondansetron HCl (Zofran) 4 mg IVPUSH Q6H PRN PRN Reason: Nausea/Vomiting Last Admin: 08/24/20 10:29 Dose: 4 mg Documented by: Oxycodone/Acetaminophen (Percocet 325-5 Mg) 1 - 2 tab PO Q4H PRN PRN Reason: Pain Last Admin: 08/26/20 10:13 Dose: 2 tab Documented by: Pantoprazole Sodium (Protonix) 40 mg PO ACBREAKFAST [facility] Last Admin: 08/26/20 08:19 Dose: 40 mg Documented by: Polyethylene Glycol (Miralax) 17 gm PO DAILY PRN PRN Reason: Constipation Potassium Chloride (Klor-Con M20) 20 meq PO DAILY@0800 [facility] Last Admin: 08/26/20 08:19 Dose: 20 meq Documented by: Rosuvastatin Calcium (Crestor) 5 mg PO DAILY [facility] Last Admin: 08/26/20 09:24 Dose: 5 mg Documented by: Sodium Chloride ([place] Nasal [place]) 0 ml JORGE DAILY PRN PRN Reason: Congestion Terazosin HCl (Hytrin) 2 mg PO BID [facility] Last Admin: 08/26/20 09:26 Dose: 2 mg Documented by: Discontinued Medications Bandage/Support Products ( Nasal Washing Machine Operator) 1 applic NASBOTH ONETIME ONE Stop: 08/24/20 06:01 Last Admin: 08/24/20 06:07 Dose: 1 applic Documented by: Fentanyl (Sublimaze) Confirm Administered Dose 100 mcg .ROUTE .STK-MED ONE Stop: 08/24/20 07:52 Cefazolin Sodium/Dextrose 2 gm (/ Premix) 50 mls @ 100 mls/hr IV ONETIME ONE Stop: 08/24/20 06:29 Last Admin: 08/24/20 07:47 Dose: 100 mls/hr Documented by: Lactated Ringer's (Ringers, Lactated) 1,000 mls @ 75 mls/hr IV ASDIRECTED PENDING SALE TO [facility] Last Admin: 08/24/20 07:15 Dose: 75 mls/hr Documented by: Lactated Ringer's (Ringers, Lactated) Confirm Administered Dose 1,000 mls @ as directed .ROUTE .STK-MED ONE Stop: 08/24/20 09:25 Cefazolin Sodium/Dextrose 1 gm (/ Premix) 50 mls @ 200 mls/hr IV Q8H [facility]END[facility] SALE TO [facility] Stop: 08/25/20 06:14 Last Admin: 08/25/20 06:18 Dose: 200 mls/hr Documented by: Midazolam HCl (Versed 1 Mg/Ml) Confirm Administered Dose 2 mg .ROUTE .STK-MED ONE Stop: 08/24/20 07:53 Povidone Iodine (Betadine 10% Soln) Confirm Administered Dose 1 ml .ROUTE .STK- MED ONE Stop: 08/24/20 07:14 Last Admin: 08/24/20 08:29 Dose: 15 ml Documented by: Propofol (Diprivan 20 Ml) Confirm Administered Dose 200 mg .ROUTE .STK-MED ONE Stop: 08/24/20 07:52 - Exam Wound/Incisions: Dressing Dry and Intact General: Alert, Oriented HEENT: Pupils Equal Neck: Supple Lungs: Clear to Auscultation, Normal Respiratory Effort Cardiovascular: Regular Rate, Regular Rhythm GI/Abdominal Exam: Normal Bowel Sounds, Soft, Non-Tender, No Distention Extremities: Joint Swelling, Limited Range of Motion Skin: Warm, Dry Neurological: No New Focal Deficit Psy/Mental Status: Alert, Normal Affect, Normal Mood Sepsis Event Note - Evaluation Sepsis Screening Result: No Definite Risk - Focused Exam Vital Signs: Vital Signs Temp Pulse Pulse Resp BP BP BP 08/26/20 11:00 36.5 C 60 20 84/54 L 85/57 L 08/26/20 09:29 113/69 08/26/20 09:28 78 113/69 08/26/20 09:26 113/69 08/26/20 07:00 37.2 C 80 13 113/69 08/26/20 03:00 37.2 C 85 18 116/73 Pulse Ox 08/26/20 11:00 96 08/26/20 09:29 08/26/20 09:28 08/26/20 09:26 08/26/20 07:00 93 L 08/26/20 03:00 96 - Problem List & Annotations (1) Status post total left knee replacement SNOMED Code(s): 6552631122424, 3786699838500 Code(s): Z96.652 - PRESENCE OF LEFT ARTIFICIAL KNEE JOINT Status: Acute Current Visit: Yes - Problem List Review Problem List Initiated/Reviewed/Updated: Yes - My Orders Last 24 Hours: Active Orders 24 hr Category Date Time Status Admission Status [Patient Status] [ADT] Routine ADT 08/25/20 12:30 Active Convert IV to Saline Lock [OM.PC] Routine Oth 08/25/20 12:37 Ordered Medication Orders Hydrocodone Bitart/Acetaminophen ([place] 325-5 Mg) 2 tab PO Q4H PRN PRN Reason: Pain (mild 1-3) Aspirin (Ecotrin) 325 mg PO DAILY PENDING SALE TO [facility] Last Admin: 08/26/20 09:25 Dose: 325 mg Documented by: JACOBO Cosigned by: RODRIGUE Admin: 08/25/20 08:51 Dose: 325 mg Documented by: MICHELLE Cetirizine HCl (Zyrtec) 10 mg PO DAILY PRN PRN Reason: Allergies Cholecalciferol (Vitamin D3) 25 mcg PO DAILY PEND[facility] SALE TO [facility] Last Admin: 08/26/20 09:30 Dose: 25 mcg Documented by: JACOBO Cosigned by: RODRIGUE Admin: 08/25/20 08:50 Dose: 25 mcg Documented by: MICHELLE Docusate Sodium (Colace) 100 mg PO BID PENDING SALE TO [facility] Last Admin: 08/26/20 09:24 Dose: 100 mg Documented by: JACOBO Cosigned by: [id number] Admin: 08/25/20 20:26 Dose: 100 mg Documented by: Admin: 08/25/20 08:52 Dose: 100 mg Documented by: Admin: 08/24/20 20:32 Dose: 100 mg Documented by: DIONICIO Fluticasone Propionate (Flonase) 0 gm JORGE DAILY PEND[facility] SALE TO [facility] Last Admin: 08/26/20 09:26 Dose: 2 spray Documented by: JACOBO Cosigned by: RODRIGUE Admin: 08/25/20 08:54 Dose: 2 spray Documented by: MICHELLE Furosemide (Lasix) 20 mg PO DAILY [facility]END[facility] SALE [facility] Last Admin: 08/26/20 09:28 Dose: 20 mg Documented by: JACOBO Cosigned by: RODRIGUE Admin: 08/25/20 08:50 Dose: 20 mg Documented by: MICHELLE Gabapentin (Neurontin) 300 mg PO BEDTIME PENDING SALE TO [facility] Last Admin: 08/25/20 20:26 Dose: 300 mg Documented by: Admin: 08/24/20 20:31 Dose: 300 mg Documented by: DIONICIO Sodium Chloride (Normal Saline) 1,000 mls @ 100 mls/hr IV ASDIRECTED PENDING SALE TO [facility] Last Admin: 08/25/20 02:26 Dose: 100 mls/hr Documented by: Infusion: 08/25/20 02:26 Dose: 100 mls/hr Documented by: Admin: 08/24/20 16:40 Dose: 100 mls/hr Documented by: JULIETA Ketotifen Fumarate (Ketotifen 0.025% Ophth Soln) 0 ml EYEBOTH BID PRN PRN Reason: Allergies Lactobacillus Rhamnosus (Culturelle) 1 cap PO BID PENDING SALE TO [facility] Last Admin: 08/26/20 09:25 Dose: 1 cap Documented by: JACOBO Cosigned by: RODRIGUE Admin: 08/25/20 20:26 Dose: 1 cap Documented by: Admin: 08/25/20 08:52 Dose: 1 cap Documented by: Admin: 08/24/20 20:32 Dose: 1 cap Documented by: DIONICIO Lisinopril (Prinivil) 40 mg PO BID PEND[facility] SALE TO [facility] Last Admin: 08/26/20 09:29 Dose: 40 mg Documented by: JACOBO Cosigned by: RODRIGUE Admin: 08/25/20 20:27 Dose: 40 mg Documented by: Admin: 08/25/20 08:50 Dose: 40 mg Documented by: Admin: 08/24/20 20:31 Dose: 40 mg Documented by: DIONICIO Magnesium Hydroxide (Milk Of Magnesia) 30 ml PO BID PRN PRN Reason: Constipation Metoprolol Tartrate (Lopressor) 25 mg PO BID PENDING SALE TO [facility] Last Admin: 08/26/20 09:28 Dose: 25 mg Documented by: JACOBO Cosigned by: RODRIGUE Admin: 08/25/20 20:26 Dose: 25 mg Documented by: Admin: 08/25/20 08:51 Dose: 25 mg Documented by: Admin: 08/24/20 20:32 Dose: 25 mg Documented by: DIONICIO Morphine Sulfate (Morphine) 2 mg IVPUSH Q1H PRN PRN Reason: Breakthrough Pain Last Admin: 08/24/20 13:04 Dose: 2 mg Documented by: Admin: 08/24/20 11:41 Dose: 2 mg Documented by: JULIETA Ondansetron HCl (Zofran) 4 mg IVPUSH Q6H PRN PRN Reason: Nausea/Vomiting Last Admin: 08/24/20 10:29 Dose: 4 mg Documented by: JULIETA Oxycodone/Acetaminophen (Percocet 325-5 Mg) 1 - 2 tab PO Q4H PRN PRN Reason: Pain Last Admin: 08/26/20 10:13 Dose: 2 tab Documented by: JACOBO Cosigned by: RODRIGUE Admin: 08/26/20 04:59 Dose: 2 tab Documented by: Admin: 08/26/20 00:27 Dose: 2 tab Documented by: Admin: 08/25/20 20:21 Dose: 2 tab Documented by: Admin: 08/25/20 11:35 Dose: 2 tab Documented by: Admin: 08/25/20 06:39 Dose: 2 tab Documented by: Admin: 08/24/20 23:05 Dose: 2 tab Documented by: Admin: 08/24/20 18:28 Dose: 2 tab Documented by: Admin: 08/24/20 14:10 Dose: 2 tab Documented by: JULIETA Pantoprazole Sodium (Protonix) 40 mg PO ACBREAKFAST [facility] Admin: 08/26/20 08:19 Dose: 40 mg Documented by: JACOBO Cosigned by: RODRIGUE Admin: 08/25/20 08:50 Dose: 40 mg Documented by: MICHELLE Polyethylene Glycol (Miralax) 17 gm PO DAILY PRN PRN Reason: Constipation Potassium Chloride (Klor-Con M20) 20 meq PO DAILY@0800 [facility] Admin: 08/26/20 08:19 Dose: 20 meq Documented by: JACOBO Cosigned by: RODRIGUE Admin: 08/25/20 08:50 Dose: 20 meq Documented by: MICHELLE Rosuvastatin Calcium (Crestor) 5 mg PO DAILY [facility] Admin: 08/26/20 09:24 Dose: 5 mg Documented by: JACOBO Cosigned by: RODRIGUE Admin: 08/25/20 08:51 Dose: 5 mg Documented by: MICHELLE Sodium Chloride ([place] Nasal [place]) 0 ml JORGE DAILY PRN PRN Reason: Congestion Terazosin HCl (Hytrin) 2 mg PO BID [facility] Admin: 08/26/20 09:26 Dose: 2 mg Documented by: JACOBO Cosigned by: RODRIGUE Admin: 08/25/20 20:26 Dose: 2 mg Documented by: Admin: 08/25/20 08:51 Dose: 2 mg Documented by: Admin: 08/24/20 20:31 Dose: 2 mg Documented by: DIONICIO - Assessment Assessment (Free Text/Narrative):: Tolerated procedure without complication, some mild nausea post -op, better today, pain controlled, taking PO, has been up in chair and walking in room - Plan Plan (Free Text/Narrative):: Continue PT, change dressing tomorrow, start arrangements for Home Health, discontinue Marcial
[2020-08-26] MEDS: Gabapentin 300 MG Cap PO SCH (20:17)
[2020-08-27] MEDS: Potassium Chloride 20 MEQ Tab.ER PO SCH (07:30)
[2020-08-27] MEDS: Pantoprazole 40 MG Tab.CR PO SCH (07:30)
[2020-08-27] MEDS: Rosuvastatin 10 MG Tab PO SCH (08:04)
[2020-08-27] MEDS: Fluticasone Propionate Nasal Spray 16 GM Bottle NAS SCH (08:05)
[2020-08-27] MEDS: Furosemide 20 MG Tab PO SCH (08:05)
[2020-08-27] MEDS: Aspirin 325 MG Tab.EC PO SCH (08:05)
[2020-08-27] MEDS: Cholecalciferol (Vitamin D3) 25 MCG Tab PO SCH (08:05)
[2020-08-27] MEDS: Lactobacillus Rhamnosus GG (Probiotic) Cap PO SCH ×2 (08:06→20:40)
[2020-08-27] MEDS: Docusate Sodium 100 MG Cap PO SCH ×2 (08:06→20:34)
[2020-08-27] MEDS: Acetaminophen/oxyCODONE 325-5 MG Tab PO PRN ×3 (08:11→20:39)
[2020-08-27] MEDS: Terazosin 1 MG Cap PO SCH ×2 (11:02→22:56)
[2020-08-27] MEDS: Lisinopril 20 MG Tab PO SCH ×2 (11:03→22:55)
[2020-08-27] MEDS: Metoprolol Tartrate 25 MG Tab PO SCH ×2 (11:03→22:55)
[2020-08-27] MEDS: Ondansetron 4 MG/2 ML SDV IVPUSH PRN (13:41)
[2020-08-27] MEDS: Gabapentin 300 MG Cap PO SCH (20:40)
[2020-08-28] MEDS: Ondansetron 4 MG/2 ML SDV IVPUSH PRN (06:11)
[2020-08-28] MEDS: Pantoprazole 40 MG Tab.CR PO SCH (07:56)
[2020-08-28] MEDS: Acetaminophen/oxyCODONE 325-5 MG Tab PO PRN (07:57)
[2020-08-28] MEDS: Potassium Chloride 20 MEQ Tab.ER PO SCH (07:58)
[2020-08-28] MEDS ORDERED: traMADol 50 MG Tab PO PRN (09:25)
[2020-08-28] MEDS: Docusate Sodium 100 MG Cap PO SCH (09:27)
[2020-08-28] MEDS: Lisinopril 20 MG Tab PO SCH (09:27)
[2020-08-28] MEDS: Terazosin 1 MG Cap PO SCH (09:28)
[2020-08-28] MEDS: Fluticasone Propionate Nasal Spray 16 GM Bottle NAS SCH (09:28)
[2020-08-28] MEDS: Lactobacillus Rhamnosus GG (Probiotic) Cap PO SCH (09:28)
[2020-08-28] MEDS: Cholecalciferol (Vitamin D3) 25 MCG Tab PO SCH (09:29)
[2020-08-28] MEDS: Metoprolol Tartrate 25 MG Tab PO SCH (09:29)
[2020-08-28] MEDS: Furosemide 20 MG Tab PO SCH (09:29)
[2020-08-28] MEDS: Aspirin 325 MG Tab.EC PO SCH (09:30)
[2020-08-28] MEDS: Rosuvastatin 10 MG Tab PO SCH (09:34)
[2020-08-28 15:10] VITALS: BP 148/78; PULSE 79
--- NOTE | 2020-09-03 08:31 | OR ---
DATE OF PROCEDURE: 08/24/2020 SURGEON: Geoffrey Duff MD PREOPERATIVE DIAGNOSIS: Osteoarthritis, left knee. POSTOPERATIVE DIAGNOSES: 1. Osteoarthritis, left knee. 2. Synovitis, left knee. PROCEDURE: Left total knee arthroplasty using Daren Persona components with a size 8 femur, B tibia, 10 mm polyethylene, and 29 mm patella. ANESTHESIA: Spinal with sedation. INDICATIONS: Aby is a 80-year-old female with a history of progressive left knee pain which has failed conservative treatment. Examination and x-rays consistent with severe osteoarthritis, particularly of the patellofemoral joint. She now presents for left total knee arthroplasty. Risks, benefits, and potential complications were discussed. DESCRIPTION OF PROCEDURE: After adequate anesthesia was obtained, patient placed supine with a tourniquet about the left upper thigh. Left leg was prepped and draped in a sterile fashion. Leg was exsanguinated and tourniquet inflated to 300 mmHg pressure. A longitudinal incision was made over the anterior aspect of the knee and carried down to the subcutaneous tissues. Medial parapatellar arthrotomy was performed. A moderate sized effusion was present and hypertrophic synovium was present. The patella was everted and this shows severe wear with extremely thin lateral facet. Posterior patella was resected with an oscillating saw. Anterior horn of the medial meniscus was excised and anterior cruciate ligament was divided. Severe arthritic changes noted of the medial compartment as well. Intramedullary canal of the femur was drilled. Intramedullary guide was placed and distal femur was resected. The extramedullary tibial guide was then aligned and secured. Proximal tibia was resected and remaining medial and lateral menisci were excised. Attention returned to the femur, which was sized to a #8 component. The 8 cutting jig was placed onto the distal femur and remaining cuts were made. The trial femoral component was placed and centered and an intercondylar notch cut was made for a posterior cruciate-sacrificing component. Peg holes were drilled. Tibia was sized to a B component. Tibial tray was secured with small pins. Intramedullary canal was reamed and the fins were cut. Trial reduction was made with a 10 mm insert providing very good balance in flexion and extension, full extension. Patella was drilled for a 29 mm polyethylene and this tracked well with no lateral release. The trials were removed. The knee was thoroughly irrigated with the pulse lavage. The bone surfaces were dried. The components were cemented in place and excess cement was removed. The knee was held in full extension as the cement cured with a 10 mm trial insert. Once the cement dried, the knee was taken through range of motion and again found to be very stable with good balance in flexion and extension with a 10 mm trial. The trial was removed. The knee was irrigated, and the final polyethylene was snapped into position. Knee was irrigated once again with a dilute Betadine solution, which was left in place for 2-1/2 minutes followed by irrigation with saline. Knee was then closed with #2 Ethibond in interrupted fashion. The skin was closed with 2-0 Vicryl and a running 3-0 Monocryl. Steri-Strips were applied. Sterile dressing was then placed with a light compressive dressing. The patient tolerated procedure well. No complications. Taken from the operating room in stable condition. Geoffrey Duff MD /[id number] JULISSA
== END 2020-08-28 14:40 | disposition home health service (06) | DRG 470 ==
LOC: JP.SDS 05:29 → JP.MS 09:21 → JP.SDS 08-25 12:30
PROVIDERS: ADMIT Specialist; ATTEND Specialist
PROC: 0SRD0J9 Replacement of Left Knee Joint with Synthetic Substitute, Cemented, Open Approach (ICD-10-PCS; principal; 2020-08-24)
DX: M17.12 Unilateral primary osteoarthritis, left knee (principal); L57.0 Actinic keratosis; K22.719 Barrett's esophagus with dysplasia, unspecified; K21.9 Gastro-esophageal reflux disease without esophagitis; M10.9 Gout, unspecified; M65.862 Other synovitis and tenosynovitis, left lower leg; I10 Essential (primary) hypertension; M19.90 Unspecified osteoarthritis, unspecified site; I87.2 Venous insufficiency (chronic) (peripheral); Z90.49 Acquired absence of other specified parts of digestive tract; Z79.899 Other long term (current) drug therapy; Z79.82 Long term (current) use of aspirin; Z88.8 Allergy status to other drugs, medicaments and biological substances; Z91.013 Allergy to seafood; Z87.440 Personal history of urinary (tract) infections; Z87.891 Personal history of nicotine dependence
CPT/HCPCS: 36415; 73560-26-LT; 73560-LT; 86850; 86900; 86901; 97110-GP; 97116-GP; 97140-GP; 97162-GP; 97530-GP; 97535-GP; A9270-GY; C1713; C1776; J0690; J2250; J2270; J2405; J2704; J3010; J7030; J7120

== ENCOUNTER 2020-09-15 13:47 | Inpatient (IN) | payer MEDICARE, BC ==
[2020-09-15] MEDS ORDERED: Bupivacaine 0.5% 30 ML SDV ONE (14:48)
[2020-09-15] MEDS: Lactated Ringers 1,000 ML IV SCH (15:51)
[2020-09-15] MEDS ORDERED: Midazolam 1 MG/ML 2 ML SDV ONE (16:08)
[2020-09-15] MEDS ORDERED: Propofol 200 MG/20 ML SDV ONE (16:08)
[2020-09-15] MEDS ORDERED: fentaNYL 100 MCG/2 ML SDV ONE (16:08)
[2020-09-15] MEDS ORDERED: Acetaminophen/oxyCODONE 325-5 MG Tab PO PRN (17:03)
[2020-09-15] MEDS ORDERED: Polyethylene Glycol 3350 Powder 17 GM Packet PO PRN (17:04)
[2020-09-15] MEDS ORDERED: Acetaminophen 500 MG Tab PO PRN (17:04)
[2020-09-15] MEDS ORDERED: Cetirizine 10 MG Tab PO PRN (17:04)
[2020-09-15] MEDS ORDERED: Ketotifen 0.025% Ophth Soln 5 ML Bottle EYEBOTH PRN (17:04)
[2020-09-15] MEDS ORDERED: Docusate Sodium 100 MG Cap PO PRN (17:17)
[2020-09-15] MEDS: Lactobacillus Rhamnosus GG (Probiotic) Cap PO SCH (21:25)
[2020-09-15] MEDS: Terazosin 1 MG Cap PO SCH (21:26)
[2020-09-15] MEDS: Metoprolol Tartrate 25 MG Tab PO SCH (21:28)
[2020-09-15] MEDS: Gabapentin 300 MG Cap PO SCH (21:28)
[2020-09-15] MEDS: Lisinopril 20 MG Tab PO SCH (21:28)
[2020-09-15] MEDS: Acetaminophen/HYDROcodone 325-5 MG Tab PO PRN (21:33)
[2020-09-16] MEDS: Lactated Ringers 1,000 ML IV SCH (00:26)
[2020-09-16] MEDS: Acetaminophen/HYDROcodone 325-5 MG Tab PO PRN ×4 (03:39→20:00)
[2020-09-16] MEDS: Pantoprazole 40 MG Tab.CR PO SCH (07:56)
[2020-09-16] MEDS ORDERED: Magnesium Citrate Solution 296 ML Bottle PO ONE (08:00)
[2020-09-16] MEDS: Rosuvastatin 10 MG Tab PO SCH (08:28)
[2020-09-16] MEDS: Aspirin 325 MG Tab.EC PO SCH (08:28)
[2020-09-16] MEDS: Lactobacillus Rhamnosus GG (Probiotic) Cap PO SCH ×2 (08:28→20:01)
[2020-09-16] MEDS: Lisinopril 20 MG Tab PO SCH ×2 (08:28→20:03)
[2020-09-16] MEDS: Potassium Chloride 20 MEQ Tab.ER PO SCH (08:28)
[2020-09-16] MEDS: Cholecalciferol (Vitamin D3) 25 MCG Tab PO SCH (08:29)
[2020-09-16] MEDS: Furosemide 20 MG Tab PO SCH (08:29)
[2020-09-16] MEDS: Metoprolol Tartrate 25 MG Tab PO SCH ×2 (08:29→20:02)
[2020-09-16] MEDS: Terazosin 1 MG Cap PO SCH ×2 (08:31→20:01)
--- NOTE | 2020-09-16 11:05 | PCM.SURGPN ---
- General Info Date of Service: 09/16/20 Date of Surgery/Procedure: 09/15/20 POD#: 1 Functional Status: Reports: Pain Controlled, Tolerating Diet, Ambulating - Review of Systems General: Reports: No Symptoms HEENT: Reports: No Symptoms Pulmonary: Reports: No Symptoms Cardiovascular: Reports: No Symptoms Gastrointestinal: Reports: Constipation Genitourinary: Reports: No Symptoms Musculoskeletal: Reports: Leg Pain, Joint Swelling Neurological: Reports: No Symptoms Psychiatric: Reports: No Symptoms - Patient Data Vitals - Most Recent: Last Vital Signs Temp 36.8 C 09/16/20 10:45 Pulse 70 09/16/20 10:45 Resp 18 09/16/20 10:45 BP 113/74 09/16/20 10:45 Pulse Ox 97 09/16/20 10:45 Weight - Most Recent: 66.224 kg I&O - Last 24 Hours: Intake & Output 09/15/20 09/16/20 09/16/20 22:59 06:59 14:59 Intake Total 1654 1245 Output Total 525 950 Balance 1129 295 Lab Results Last 24 Hrs: Laboratory Results - last 24 hr 09/15/20 09/15/20 09/15/20 Range/Units 15:34 15:34 15:34 WBC 7.0 (4.5-11.0) K/uL RBC 3.49 (3.30-5.50) M/uL Hgb 9.7 L (12.0-15.0) g/dL Hct 31.4 L (36.0-48.0) % MCV 90 (80-98) fL MCH 28 (27-31) pg MCHC 31 L (32-36) % Plt Count 419 H (150-400) K/uL Neut % (Auto) 75 H (36-66) % Lymph % (Auto) 13 L (24-44) % [place] % (Auto) 8 H (2-6) % Eos % (Auto) 4 (2-4) % Baso % (Auto) 0 (0-1) % ESR 81 H (0-25) mm/hr Sodium 135 L (140-148) mmol/L Potassium 4.1 (3.6-5.2) mmol/L Chloride 98 L (100-108) mmol/L Carbon Dioxide 30 (21-32) mmol/L Anion Gap 11.1 (5.0-14.0) mmol/L BUN 14 D (7-18) mg/dL Creatinine 0.9 (0.6-1.0) mg/dL Est Cr Clr Drug Dosing 42.61 mL/min Estimated GFR (MDRD) > 60 (>60) Glucose 98 (74-106) mg/dL Calcium 8.5 (8.5-10.1) mg/dL C-Reactive Protein 1.52 H (0.0-0.3) mg/dL [place] Results Last 24 Hrs: Microbiology 09/15/20 14:30 Gram Stain - Final Knee, Left Wound Culture - Preliminary 09/15/20 16:42 Gram Stain - Final Knee, Left Med Orders - Current: Current Medications Acetaminophen (Tylenol Extra Strength) 500 mg PO Q6H PRN PRN Reason: Pain Hydrocodone Bitart/Acetaminophen ([place] 325-5 Mg) 2 tab PO Q4H PRN PRN Reason: Pain (mild 1-3) Last Admin: 09/16/20 08:34 Dose: 2 tab Documented by: Aspirin (Ecotrin) 325 mg PO DAILY [facility] Last Admin: 09/16/20 08:28 Dose: 325 mg Documented by: Cetirizine HCl (Zyrtec) 10 mg PO DAILY PRN PRN Reason: Allergies Cholecalciferol (Vitamin D3) 25 mcg PO DAILY [facility] Last Admin: 09/16/20 08:29 Dose: 25 mcg Documented by: Docusate Sodium (Colace) 200 mg PO DAILY PRN PRN Reason: Constipation Furosemide (Lasix) 20 mg PO DAILY [facility] Last Admin: 09/16/20 08:29 Dose: 20 mg Documented by: Gabapentin (Neurontin) 300 mg PO BEDTIME [facility] Last Admin: 09/15/20 21:28 Dose: 300 mg Documented by: Lactated Ringer's (Ringers, Lactated) 1,000 mls @ 75 mls/hr IV ASDIRECTED [facility] Last Admin: 09/16/20 00:26 Dose: 75 mls/hr Documented by: Vancomycin HCl 1 gm/ Sodium (Chloride) 250 mls @ 150 mls/hr IV Q12H [facility] Last Admin: 09/16/20 03:40 Dose: 150 mls/hr Documented by: Ketotifen Fumarate (Ketotifen 0.025% Ophth Soln) 0 ml EYEBOTH BID PRN PRN Reason: Allergies Lactobacillus Rhamnosus (Culturelle) 1 cap PO BID [facility] Last Admin: 09/16/20 08:28 Dose: 1 cap Documented by: Lisinopril (Prinivil) 40 mg PO BID [facility] Last Admin: 09/16/20 08:28 Dose: 40 mg Documented by: Metoprolol Tartrate (Lopressor) 25 mg PO BID [facility] Last Admin: 09/16/20 08:29 Dose: 25 mg Documented by: Ondansetron HCl (Zofran Odt) 4 mg PO Q6H PRN PRN Reason: Nausea Oxycodone/Acetaminophen (Percocet 325-5 Mg) 1 - 2 tab PO Q6H PRN PRN Reason: Pain (severe 7-10) Pantoprazole Sodium (Protonix) 40 mg PO ACBREAKFAST [facility] Last Admin: 09/16/20 07:56 Dose: 40 mg Documented by: Polyethylene Glycol (Miralax) 17 gm PO DAILY PRN PRN Reason: Constipation Potassium Chloride (Klor-Con M20) 20 meq PO DAILY [facility] Last Admin: 09/16/20 08:28 Dose: 20 meq Documented by: Rosuvastatin Calcium (Crestor) 5 mg PO DAILY [facility] Last Admin: 09/16/20 08:28 Dose: 5 mg Documented by: Terazosin HCl (Hytrin) 2 mg PO BID [facility] Last Admin: 09/16/20 08:31 Dose: 2 mg Documented by: Discontinued Medications Bupivacaine HCl (Marcaine 0.5%) Confirm Administered Dose 30 ml .ROUTE .STK-MED ONE Stop: 09/15/20 14:49 Fentanyl (Sublimaze) Confirm Administered Dose 100 mcg .ROUTE .STK-MED ONE Stop: 09/15/20 16:09 Vancomycin HCl 1 gm/ Sodium (Chloride) 250 mls @ 150 mls/hr IV ONETIME ONE Stop: 09/15/20 17:39 Last Admin: 09/15/20 15:59 Dose: 150 mls/hr Documented by: Magnesium Citrate (Citrate Of Magnesia) 150 ml PO ONETIME ONE Stop: 09/16/20 08:01 Last Admin: 09/16/20 07:57 Dose: 150 ml Documented by: Midazolam HCl (Versed 1 Mg/Ml) Confirm Administered Dose 2 mg .ROUTE .STK-MED ONE Stop: 09/15/20 16:09 Propofol (Diprivan 20 Ml) Confirm Administered Dose 200 mg .ROUTE .STK-MED ONE Stop: 09/15/20 16:09 - Exam Wound/Incisions: Dressing Dry and Intact General: Alert, Oriented HEENT: Pupils Equal Neck: Supple Lungs: Clear to Auscultation Cardiovascular: Regular Rate, Regular Rhythm GI/Abdominal Exam: Normal Bowel Sounds, Soft, Non-Tender Extremities: Limited Range of Motion, Increased Warmth Skin: Warm, Dry Neurological: No New Focal Deficit Psy/Mental Status: Alert, Normal Affect, Normal Mood Sepsis Event Note - Evaluation Sepsis Screening Result: No Definite Risk - Focused Exam Vital Signs: Vital Signs Temp Pulse Pulse Resp BP BP Pulse Ox 09/16/20 10:45 36.8 C 70 18 113/74 97 09/16/20 08:31 147/84 H 09/16/20 08:29 70 147/84 H 09/16/20 08:28 147/84 H 09/16/20 07:53 37.1 C 74 18 147/84 H 93 L 09/16/20 03:00 36.8 C 66 18 172/91 H 96 - Problem List & Annotations (1) Cellulitis of knee, left SNOMED Code(s): 70995859919846342 Code(s): L03.116 - CELLULITIS OF LEFT LOWER LIMB Status: Acute Current Visit: Yes (2) Status post debridement SNOMED Code(s): 271654579, 623393920 Code(s): Z98.890 - OTHER SPECIFIED POSTPROCEDURAL STATES Status: Acute Current Visit: Yes Annotation/Comment:: Lower left leg - Problem List Review Problem List Initiated/Reviewed/Updated: No - My Orders Last 24 Hours: Active Orders 24 hr Category Date Time Status Admission Status [Patient Status] [ADT] Routine ADT 09/15/20 17:04 Active Ambulate [RC] QID Care 09/15/20 17:01 Active DC Marcial Catheter [Urinary Catheter Removal] [RC] PER Care 09/16/20 10:59 Ordered UNIT ROUTINE RT Incentive Spirometry [RC] Q1HWA Care 09/15/20 17:01 Active Up to Chair [RC] QID Care 09/15/20 17:01 Active Vital Signs [RC] Q4H Care 09/15/20 17:01 Active PT Evaluation and Treatment [CONS] Routine Cons 09/15/20 17:01 Active Nothing per Oral Now Diet [DIET] Diet 09/15/20 Dinner Active Regular Diet [DIET] Diet 09/15/20 Dinner Active CULTURE ANAEROBIC [RM] Routine Lab 09/15/20 16:42 Received CULTURE WOUND + SMEAR [RM] Routine Lab 09/15/20 14:30 Results CULTURE WOUND + SMEAR [RM] Routine Lab 09/15/20 16:42 Results Acetaminophen [Tylenol Extra Strength] Med 09/15/20 17:04 Active 500 mg PO Q6H PRN Acetaminophen/HYDROcodone [[place] 325-5 MG] Med 09/15/20 17:03 Active 2 tab PO Q4H PRN Acetaminophen/oxyCODONE [Percocet 325-5 MG] Med 09/15/20 17:03 Active 1 - 2 tab PO Q6H PRN Aspirin [Ecotrin] Med 09/16/20 09:00 Active 325 mg PO DAILY Cetirizine [ZyrTEC] Med 09/15/20 17:04 Active 10 mg PO DAILY PRN Cholecalciferol (Vitamin D3) [Vitamin D3] Med 09/16/20 09:00 Active 25 mcg PO DAILY Docusate Sodium [Colace] Med 09/15/20 17:17 Active 200 mg PO DAILY PRN Furosemide [Lasix] Med 09/16/20 09:00 Active 20 mg PO DAILY Gabapentin [Neurontin] Med 09/15/20 21:00 Active 300 mg PO BEDTIME Ketotifen [Ketotifen 0.025% Ophth Soln] Med 09/15/20 17:04 Active 0 ml EYEBOTH BID PRN Lactated Ringers [Ringers, Lactated] 1,000 ml Med 09/15/20 15:15 Active IV ASDIRECTED Lactobacillus Rhamnosus GG [Culturelle] Med 09/15/20 21:00 Active 1 cap PO BID Metoprolol Tartrate [Lopressor] Med 09/15/20 21:00 Active 25 mg PO BID Ondansetron [Zofran ODT] Med 09/15/20 17:04 Active 4 mg PO Q6H PRN Pantoprazole [ProTONIX] Med 09/16/20 07:30 Active 40 mg PO ACBREAKFAST Potassium Chloride [Klor-Con M20] Med 09/16/20 09:00 Active 20 meq PO DAILY Rosuvastatin [Crestor] Med 09/16/20 09:00 Active 5 mg PO DAILY Terazosin [Hytrin] Med 09/15/20 21:00 Active 2 mg PO BID Vancomycin 1 gm Med 09/16/20 04:00 Active Sodium Chloride 0.9% [Normal Saline] 250 ml IV Q12H lisinopriL [Prinivil] Med 09/15/20 21:00 Active 40 mg PO BID polyethylene glycoL 3350 [MiraLAX] Med 09/15/20 17:04 Active 17 gm PO DAILY PRN Antiembolic Hose [OM.PC] Routine Oth 09/15/20 17:01 Ordered Medication Continuation Instructions [OM.PC] Per Unit Oth 09/15/20 17:01 Ordered Routine Sequential Compression Device [OM.PC] Routine Oth 09/15/20 17:01 Ordered Medication Orders Acetaminophen (Tylenol Extra Strength) 500 mg PO Q6H PRN PRN Reason: Pain Hydrocodone Bitart/Acetaminophen ([place] 325-5 Mg) 2 tab PO Q4H PRN PRN Reason: Pain (mild 1-3) Last Admin: 09/16/20 08:34 Dose: 2 tab Documented by: Admin: 09/16/20 03:39 Dose: 2 tab Documented by: Admin: 09/15/20 21:33 Dose: 2 tab Documented by: GLEN Aspirin (Ecotrin) 325 mg PO DAILY [facility] Last Admin: 09/16/20 08:28 Dose: 325 mg Documented by: MARK Cetirizine HCl (Zyrtec) 10 mg PO DAILY PRN PRN Reason: Allergies Cholecalciferol (Vitamin D3) 25 mcg PO DAILY [facility] Last Admin: 09/16/20 08:29 Dose: 25 mcg Documented by: MARK Docusate Sodium (Colace) 200 mg PO DAILY PRN PRN Reason: Constipation Furosemide (Lasix) 20 mg PO DAILY [facility] Last Admin: 09/16/20 08:29 Dose: 20 mg Documented by: MARK Gabapentin (Neurontin) 300 mg PO BEDTIME [facility] Last Admin: 09/15/20 21:28 Dose: 300 mg Documented by: GLEN Lactated Ringer's (Ringers, Lactated) 1,000 mls @ 75 mls/hr IV ASDIRECTED [facility] Last Admin: 09/16/20 00:26 Dose: 75 mls/hr Documented by: Infusion: 09/16/20 00:26 Dose: 75 mls/hr Documented by: Admin: 09/15/20 15:51 Dose: 75 mls/hr Documented by: EVARISTO Vancomycin HCl 1 gm/ Sodium (Chloride) 250 mls @ 150 mls/hr IV Q12H [facility] Last Admin: 09/16/20 03:40 Dose: 150 mls/hr Documented by: GLEN Ketotifen Fumarate (Ketotifen 0.025% Ophth Soln) 0 ml EYEBOTH BID PRN PRN Reason: Allergies Lactobacillus Rhamnosus (Culturelle) 1 cap PO BID [facility] Last Admin: 09/16/20 08:28 Dose: 1 cap Documented by: Admin: 09/15/20 21:25 Dose: 1 cap Documented by: GLEN Lisinopril (Prinivil) 40 mg PO BID [facility] Last Admin: 09/16/20 08:28 Dose: 40 mg Documented by: Admin: 09/15/20 21:28 Dose: 40 mg Documented by: GLEN Metoprolol Tartrate (Lopressor) 25 mg PO BID [facility] Last Admin: 09/16/20 08:29 Dose: 25 mg Documented by: Admin: 09/15/20 21:28 Dose: 25 mg Documented by: GLEN Ondansetron HCl (Zofran Odt) 4 mg PO Q6H PRN PRN Reason: Nausea Oxycodone/Acetaminophen (Percocet 325-5 Mg) 1 - 2 tab PO Q6H PRN PRN Reason: Pain (severe 7-10) Pantoprazole Sodium (Protonix) 40 mg PO ACBREAKFAST [facility] Last Admin: 09/16/20 07:56 Dose: 40 mg Documented by: MARK Polyethylene Glycol (Miralax) 17 gm PO DAILY PRN PRN Reason: Constipation Potassium Chloride (Klor-Con M20) 20 meq PO DAILY [facility] Last Admin: 09/16/20 08:28 Dose: 20 meq Documented by: MARK Rosuvastatin Calcium (Crestor) 5 mg PO DAILY [facility] Last Admin: 09/16/20 08:28 Dose: 5 mg Documented by: MARK Terazosin HCl (Hytrin) 2 mg PO BID [facility] Admin: 09/16/20 08:31 Dose: 2 mg Documented by: Admin: 09/15/20 21:26 Dose: 2 mg Documented by: GLEN - Assessment Assessment (Free Text/Narrative):: Doing ok post op other than problems with constipation. No deep infection identified but Gm Stain showing Gm (+) cocci. - Plan Plan (Free Text/Narrative):: Continue IV Vanco through tonight. D/C Marcial. Change dressing tomorrow and decide on switch to po antibiotic. Up with PT today. Work on constipation.
[2020-09-16] MEDS ORDERED: Bisacodyl 10 MG Supp RECTAL PRN (19:59)
[2020-09-16] MEDS: Gabapentin 300 MG Cap PO SCH (20:02)
[2020-09-17] MEDS: Acetaminophen/HYDROcodone 325-5 MG Tab PO PRN (08:47)
[2020-09-17] MEDS: Lisinopril 20 MG Tab PO SCH (08:48)
[2020-09-17] MEDS: Pantoprazole 40 MG Tab.CR PO SCH (08:49)
[2020-09-17] MEDS: Cholecalciferol (Vitamin D3) 25 MCG Tab PO SCH (08:49)
[2020-09-17] MEDS: Terazosin 1 MG Cap PO SCH ×2 (08:49→21:49)
[2020-09-17] MEDS: Lactobacillus Rhamnosus GG (Probiotic) Cap PO SCH ×2 (08:49→21:59)
[2020-09-17] MEDS: Metoprolol Tartrate 25 MG Tab PO SCH (08:49)
[2020-09-17] MEDS: Potassium Chloride 20 MEQ Tab.ER PO SCH (08:49)
[2020-09-17] MEDS: Aspirin 325 MG Tab.EC PO SCH (08:49)
[2020-09-17] MEDS: Rosuvastatin 10 MG Tab PO SCH (08:50)
[2020-09-17] MEDS: Furosemide 20 MG Tab PO SCH (08:50)
--- NOTE | 2020-09-17 12:09 | PCM.CONS ---
H&P History of Present Illness - General Date of Service: 09/17/20 Admit Problem/Dx: Admission Diagnosis/Problem Admission Diagnosis/Problem Incision and drainage of wound Source of Information: Family, Provider. No: Patient History Limitations: Reports: Altered Mental Status - History of Present Illness Initial Comments - Free Text/Narative: CC: Syncope HPI: I was asked to see Aby today by Dr. Duff after the patient had an episode of syncope while on the toilet. She is somewhat confused and not able to provide much usable history. History is gathered from nursing personnel on the medical unit. They report that she suddenly became diaphoretic and lighthea ded while she was sitting on the toilet. Shortly thereafter she slumped over. A rapid response was called and we were able to get her to a wheelchair and back to bed. She reported that she felt "weird" but really was not able to further elaborate. She had a waxing and waning mental status and was noted to be quite hypotensive and somewhat bradycardic after we got her back into bed. Initially her blood pressure did start to rise but then dropped again with systolic pressures in the 50s and 60s. A fluid bolus was started. Despite the fluid bolus her blood pressure continued to remain quite low and she was eventually transferred to the intensive care unit for more aggressive management. Her [id number] reports that she has had previous episodes of syncope. Some have been in the setting of illness and others have been more unprovoked. Previously the episodes seem to be vasovagal in nature. Initially this 1 seem to be vaso vagal in nature but she has had a prolonged hypotensive response and I am now more concerned about a more serious condition that prompted the transfer to the intensive care unit. Left Knee Pain Score (Numeric/FACES): 4 - Related Data Allergies/Adverse Reactions: Allergies Allergy/AdvReac Type Severity Reaction Status Date / Time metronidazole [From Flagyl] Allergy Severe Difficulty Verified 05/02/20 21:17 Breathing shellfish derived Allergy Intermediate Difficulty Verified 05/02/20 21:17 Swallowing adhesive tape Allergy Blisters Verified 09/15/20 14:24 amlodipine [From Norvasc] Allergy Other Verified 05/02/20 21:17 Home Medications: Home Meds Metoprolol Tartrate [Lopressor] 25 mg PO BID 08/27/14 [History] Naproxen Sodium [Aleve] 220 mg PO DAILY PRN 08/27/14 [History] Terazosin [Hytrin] 2 mg PO BID 08/27/14 [History] Acetaminophen 500 mg PO Q6HR PRN 03/01/16 [History] Fluticasone Propionate [Flonase] 2 sprays NS DAILY 03/01/16 [History] Gabapentin [Neurontin] 300 mg PO BEDTIME 03/01/16 [History] Potassium Chloride [Klor-Con] 20 meq PO DAILY 10/26/16 [History] Cetirizine HCl [Zyrtec] 10 mg PO DAILY PRN 06/14/18 [History] Docusate Sodium [Stool Softener] 2 tab PO DAILY PRN 06/14/18 [History] Sodium Chloride 0.65% [[place] Saline] 0.1 ml JORGE DAILY PRN 06/14/18 [History] lisinopriL [Prinivil] 40 mg PO BID 06/14/18 [History] polyethylene glycoL 3350 [MiraLAX] 17 gm PO DAILY PRN 12/24/18 [History] Aspirin 325 mg PO DAILY 02/15/20 [History] Omeprazole 20 mg PO DAILY 02/15/20 [History] Ondansetron [Zofran ODT] 4 mg PO Q6H PRN 02/15/20 [History] Rosuvastatin Calcium 5 mg PO DAILY 02/15/20 [History] Furosemide [Lasix] 20 mg PO DAILY 02/25/20 [History] Cinnamon Bark [Cinnamon] 1 tab PO DAILY 03/02/20 [History] Lactobacillus Rhamnosus GG [Culturelle] 1 cap PO BID #60 cap 03/28/20 [Rx] Ketotifen Fumarate [Zaditor] 1 drop OP BID PRN 04/15/20 [History] Nystatin [Nystop] 1 applic TOP BID 04/15/20 [History] Cholecalciferol (Vitamin D3) [Vitamin D3] 1 tab PO DAILY 08/24/20 [History] Hydrocodone/Acetaminophen [Fine 5-325 Tablet] 1 - 2 each PO Q6HR PRN #36 tablet 09/08/20 [Rx] Past Medical History HEENT History: Reports: Allergic Rhinitis, Impaired Vision Other HEENT History: cataracts Cardiovascular History: Reports: High Cholesterol, Hypertension Other Cardiovascular History: TIA in December Respiratory History: Reports: None Gastrointestinal History: Reports: Cholelithiasis, Diverticulosis, GERD, Other (See Below) Other Gastrointestinal History: Hx of Barretts;. 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 Neurological History: Reports: Neuropathy, Peripheral, TIA, Other (See Below) Other Neuro History: TIA December 2019, reports 07/2020 N/T B feet to knees since 2nd lumbar surgery Psychiatric History: Reports: None Endocrine/Metabolic History: Reports: Osteoporosis Hematologic History: Reports: Anemia, B12 Deficiency, Blood Transfusion(s), Iron Deficiency Immunologic History: Reports: None Oncologic (Cancer) History: Reports: None Dermatologic History: Reports: None - Infectious Disease History Infectious Disease History: Reports: Chicken Pox, Measles, Mumps, Rubella, Shingles, Other (See Below) Other Infectious Disease History: COVID-positive July 24, 2020 - Past Surgical History Head Surgeries/Procedures: Reports: None HEENT Surgical History: Reports: Cataract Surgery, Naso-Sinus Surgery Cardiovascular Surgical History: Reports: None GI Surgical History: Reports: Cholecystectomy, Colonoscopy, EGD, Hernia, Inguinal, Other (See Below) Other GI Surgeries/Procedures: 2 hernia repair, esophagus removed Female Surgical History: Reports: Breast Biopsy, Hysterectomy, Oophorectomy Endocrine Surgical History: Reports: None Neurological Surgical History: Reports: Laminectomy, Other (See Below) Other Neurological Surgeries/Procedures: Back surgery x3 (first at 18yo, the other 2 performed 1 year apart) Musculoskeletal Surgical History: Reports: Knee Replacement, Shoulder Surgery, Other (See Below) Other Musculoskeletal Surgeries/Procedures:: Back surgery x3. L shoulder r/t rotator cuff. B TKA: R 08/2017, L 08/24/2020 Oncologic Surgical History: Reports: Biopsy of Breast Dermatological Surgical History: Reports: None Social & Family History - Family History Family Medical History: No Pertinent Family History HEENT: Reports: Impaired Vision Cardiac: Reports: CAD, Hypertension, [place] Respiratory: Reports: COPD, Other (See Below) Other Respiratory Family Hisory: rheumatic fever GI: Reports: Cholelithiasis, Colon Polyps, GERD OBGYN: Reports: Musculoskeletal: Reports: Gout Endocrine/Metabolic: Reports: None Hematologic: Reports: None Oncologic: Reports: Prostate, Renal - Tobacco Use Tobacco Use Status *Q: Never Tobacco User Second Hand Smoke Exposure: No - Caffeine Use Caffeine Use: Reports: Coffee Caffeine Use Comment: DAILY - Alcohol Use Date of Last Drink: 06/18/20 - Recreational Drug Use Recreational Drug Use: No H&P Review of Systems - Review of Systems: Review Of Systems: Unable To Obtain Reason Not Obtained: Patient is quite lethargic after her syncopal episode Exam - Exam Exam: See Below - Vital Signs Vital Signs: Last Vital Signs Temp 36.6 C 09/17/20 11:00 Pulse 52 L 09/17/20 11:40 Resp 14 09/17/20 11:40 BP 71/53 L 09/17/20 11:40 Pulse Ox 91 L 09/17/20 11:40 Weight: 66.224 kg - Exam Quality Assessment: Supplemental Oxygen General: Alert, Cooperative, Mild Distress, Lethargic. No: Oriented HEENT: Conjunctiva Clear, Mucosa Moist & [place] Neck: Supple, Trachea Midline. No: JVD Lungs: Normal Respiratory Effort, Crackles (Few right lower lung), Rhonchi (Moderate left-sided) Cardiovascular: Regular Rhythm, Bradycardia. No: Systolic Murmur GI/Abdominal Exam: Normal Bowel Sounds, Soft, No Distention Extremities: No Pedal Edema, Other (Left knee wrapped in [place] wrap). No: Increased Warmth Skin: Warm, Dry Neuro Extensive - Mental Status: Alert, Slow Response to Commands Neuro Extensive - Motor, Sensory, Reflexes: No: Dysarthria, Tremor Psychiatric: Alert. No: Agitated - Patient Data Lab Results Last 24 hrs: Laboratory Results - last 24 hr 09/17/20 Range/Units 05:10 Creatinine 0.7 (0.6-1.0) mg/dL Est Cr Clr Drug Dosing 54.79 mL/min Estimated GFR (MDRD) > 60 (>60) Result Diagrams: 09/17/20 12:12 09/17/20 12:12 [place] Results Last 24 hrs: Microbiology 09/15/20 16:42 Anaerobic Culture - Preliminary Knee, Left NO GROWTH AFTER 1 DAY 09/15/20 16:42 Gram Stain - Final Knee, Left Wound Culture - Preliminary 09/15/20 14:30 Gram Stain - Final Knee, Left Wound Culture - Final (Mrsa) Staphylococcus Aureus Imaging Impressions Last 24 hrs: Chest x-ray-image personally reviewed-there is a right perihilar infiltrate as w ell as a fairly large left-sided infiltrate present. Heart size appears to be normal. Hiatal hernia is present. No obvious mass or effusion. Sepsis Event Note - Evaluation Sepsis Screening Result: No Definite Risk Current Stage of Sepsis: Sepsis Possible Source of Sepsis: Pulmonary - Focused Exam Sepsis Event Note Statement: Focused Sepsis Exam Completed Vital Signs: Vital Signs Temp Temp Pulse Pulse Resp BP BP 09/17/20 11:40 52 L 14 71/53 L 09/17/20 11:00 36.6 C 69 18 97/62 09/17/20 08:49 62 177/90 H 09/17/20 08:48 177/90 H 09/17/20 04:00 36.5 C 62 16 177/90 H Pulse Ox 09/17/20 11:40 91 L 09/17/20 11:00 93 L 09/17/20 08:49 09/17/20 08:48 09/17/20 04:00 94 L Respiratory Effort Without Exertion: Labored Heart Sounds: Other (see below) (Bradycardic) Capillary Refill, Detail: Less than/Equal to (</=) 2 Seconds Pulse Description: 2+ Normal Peripheral Pulse Location: Radial Skin Exam (Focused Sepsis): Normal Turgor *Q Meaningful Use (ADM) - VTE Risk Assess *Q Each Risk Factor Represents 1 Point: Obesity ( BMI > 25 kg/m2), Sepsis, Serious lung disease including pneumonia Total Score 1 Point Risk Factors: 3 Each Risk Factor Represents 2 Points: Malignancy (present or previous) Total Score 2 Point Risk Factors: 2 Each Risk Factor Represents 3 Points: Age 75 Years or Greater Total Score 3 Point Risk Factors: 3 Each Risk Factor Represents 5 Points: None Total Score 5 Point Risk Factors: 0 Venous Thromboembolism Risk Factor Score *Q: 8 Consult PN Assessment/Plan Procedures: Procedures AGENT NOS ASSAY W/OPTIC (03/24/20) ASSAY OF BLOOD/URIC ACID (04/20/18) ASSAY OF LACTIC ACID (01/18/20) ASSAY OF LIPASE (03/24/20) ASSAY OF MAGNESIUM (03/24/20) ASSAY OF NATRIURETIC PEPTIDE (03/19/18) ASSAY OF PHOSPHORUS (12/25/18) ASSAY OF TROPONIN QUANT (03/24/20) BIOPSY/REMOVAL LYMPH NODES (02/23/15) BLOOD CULTURE FOR BACTERIA (03/24/20) BREAST TOMOSYNTHESIS BI (05/06/20) C DIFF AMPLIFIED PROBE (03/24/20) C-REACTIVE PROTEIN (04/20/18) CARDIOVASCULAR STRESS TEST (03/02/20) COLONOSCOPY AND BIOPSY (12/25/18) COMP SCREEN MAMMOGRAM ADD-ON (05/19/16) COMPLETE CBC AUTOMATED (12/25/18) COMPLETE CBC W/AUTO DIFF WBC (03/24/20) COMPREHEN METABOLIC PANEL (03/24/20) COMPUTER DX MAMMOGRAM ADD-ON (02/13/15) CT ABD & PELV 1/> REGNS (10/14/15) CT ABD & PELV W/CONTRAST (03/24/20) CT ABD & PELVIS W/O CONTRAST (03/24/20) CT ANGIO ABDOM W/O & W/DYE (12/25/18) CT ANGIOGRAPHY HEAD (01/18/20) CT ANGIOGRAPHY NECK (01/18/20) CT HEAD/BRAIN W/O DYE (02/27/20) CT MAXILLOFACIAL W/O & W/DYE (04/06/18) CT MAXILLOFACIAL W/O DYE (10/05/16) CULTURE SCREEN ONLY (12/25/18) DIAGNOSTIC COLONOSCOPY (04/17/20) DRAIN/INJ JOINT/BURSA W/O US (05/07/20) EGD BIOPSY SINGLE/MULTIPLE (04/17/20) ELECTROCARDIOGRAM REPORT (02/27/20) ELECTROCARDIOGRAM TRACING (02/27/20) EMERGENCY DEPT VISIT (05/02/20) EMERGENCY DEPT VISIT (03/24/20) EMERGENCY DEPT VISIT (03/24/20) EMERGENCY DEPT VISIT (02/27/20) EMERGENCY DEPT VISIT (02/27/20) EMERGENCY DEPT VISIT (02/15/20) EMERGENCY DEPT VISIT (01/18/20) EMERGENCY DEPT VISIT (12/25/18) EMERGENCY DEPT VISIT (12/25/18) EMERGENCY DEPT VISIT (04/20/18) EMERGENCY DEPT VISIT (04/20/18) EMERGENCY DEPT VISIT (03/19/18) EMERGENCY DEPT VISIT (10/26/16) EMERGENCY DEPT VISIT (03/05/16) EMERGENCY DEPT VISIT (10/27/14) EMERGENCY DEPT VISIT (10/27/14) ENDOVENOUS RF 1ST VEIN (12/29/16) EXAM SYNOVIAL FLUID CRYSTALS (03/05/16) EXC ABDL HALEY DEEP 5 CM/> (09/08/14) EXTREMITY STUDY (09/08/20) EXTREMITY STUDY (01/02/17) EXTREMITY STUDY (03/05/16) EXTREMITY STUDY (02/11/16) GAIT TRAINING THERAPY (08/24/20) HEMOGLOBIN (03/24/20) HOT OR COLD PACKS THERAPY (02/05/15) HT MUSCLE IMAGE SPECT MULT (03/02/20) HYDRATE IV INFUSION ADD-ON (03/24/20) HYDRATION IV INFUSION INIT (01/18/20) IIV4 VACC NO PRSV 0.5 ML IM (09/08/14) LEUKOCYTE ASSESSMENT FECAL (03/24/20) MANUAL THERAPY 1/> REGIONS (08/25/20) METABOLIC PANEL TOTAL CA (03/24/20) MRI BRAIN STEM W/O & W/DYE (10/27/16) MRI BRAIN STEM W/O DYE (01/23/20) MRI JNT OF LWR EXTRE W/O DYE (06/03/20) MRI LUMBAR SPINE W/O DYE (07/31/13) NJX SCLRSNT BRAILLE TRANSLATOR INCMPTNT VN (12/29/16) OCCULT BLD FECES 1-3 TESTS (03/24/20) OFFICE/OUTPATIENT VISIT EST (05/07/20) OVA AND PARASITES SMEARS (12/25/18) PROTHROMBIN TIME (01/18/20) PRP I/RUIZ INIT REDUC >5 YR (09/08/14) PT EVAL MOD COMPLEX 30 MIN (08/24/20) PT EVALUATION (02/26/16) RBC SED RATE NONAUTOMATED (04/20/18) REMOVAL OF BREAST LESION (02/23/15) ROUTINE VENIPUNCTURE (03/24/20) SCR MAMMO BI INCL CAD (05/06/20) SELF CARE MNGMENT TRAINING (08/25/20) SMEAR COMPLEX STAIN (12/25/18) STOOL CULTR AEROBIC BACT EA (03/24/20) THER/PROPH/DIAG INJ IV PUSH (02/27/20) THER/PROPH/DIAG INJ SC/IM (03/24/20) THER/PROPH/DIAG IV INF ADDON (03/24/20) THER/PROPH/DIAG IV INF INIT (03/24/20) THERAPEUTIC ACTIVITIES (08/25/20) THERAPEUTIC EXERCISES (08/25/20) THROMBOPLASTIN TIME PARTIAL (01/18/20) TISSUE EXAM BY PATHOLOGIST (04/17/20) TISSUE EXAM BY PATHOLOGIST (09/08/14) TISSUE EXAM BY PATHOLOGIST (09/08/14) TREAT TOE DISLOCATION (03/05/16) TTE W/DOPPLER COMPLETE (01/23/20) TX/PRO/DX INJ NEW DRUG ADDON (02/27/20) TX/PRO/DX INJ SAME DRUG ADMINISTRATIVE LIAISON (12/25/18) TX/PROPH/DG ADDL SEQ IV INF (03/24/20) ULTRASOUND BREAST COMPLETE (03/14/17) ULTRASOUND BREAST LIMITED (02/13/15) URINALYSIS AUTO W/SCOPE (04/20/18) US EXAM ABDO BACK WALL COMP (08/23/13) US GUIDE INTRAOP (02/23/15) X-RAY EXAM CHEST 1 VIEW (02/27/20) X-RAY EXAM CHEST 2 VIEWS (03/19/18) X-RAY EXAM KNEE 4 OR MORE (05/07/20) X-RAY EXAM OF ABDOMEN (10/27/14) X-RAY EXAM OF KNEE 1 OR 2 (08/24/20) X-RAY EXAM OF KNEE 3 (04/20/18) X-RAY EXAM OF SINUSES (10/26/16) Problem List Initiated/Reviewed/Updated: Yes My Orders Last 24 Hours: My Active Orders 09/17/20 12:07 BASIC METABOLIC PANEL,BMP [CHEM] Urgent CBC WITH AUTO DIFF [HEME] Urgent 09/17/20 12:15 Sodium Chloride 0.9% [Normal Saline] 1,000 ml IV ASDIRECTED Sodium Chloride 0.9% [Normal Saline] 500 ml IV ASDIRECTED Plan: ASSESSMENT AND RECOMMENDATIONS- Syncope-probably related to the pneumonia as discussed below. There is a component of sepsis and possibly septic shock. Previous episodes are noted. -Management as below Bilateral pneumonia-complicated by acute respiratory failure with hypoxia and hypotension. Unclear if the hypotension is all related to the infection or if it is related to her antihypertensives that were administered this morning. She is currently receiving norepinephrine to support her blood pressure. She did receive 2 L of normal saline via bolus. Broad-spectrum antibiotics have been initiated and cultures have been obtained. Baseline lactic acid is mildly elevated. I suspect this is a community-acquired pneumonia that has blossomed during her hospital stay since she has not been here long enough to develop a hospital- acquired infection. -Antibiotic coverage with levofloxacin and meropenem -Continue norepinephrine, wean as able -Symptomatic management -Supplement oxygen -Hold antihypertensives -Follow-up cultures Left knee cellulitis-she has been treated with vancomycin. This seems to be getting better. -Postoperative care per orthopedic team Essential hypertension-quite hypotensive and bradycardic. Some of this may be vagal but she is on large doses of antihypertensives. -Hold antihypertensives including her beta-samy Maintenance issues - - DVT prophylaxis -SCDs - GI prophylaxis -PPI - Nutrition -regular as tolerated Holland Bruce M.D. Requesting Provider: Dr Geoffrey Duff Date Consult Requested: 09/17/20 Reason for Consult: Syncope Patient History Reviewed: Yes Admission H&P Reviewed: Yes Notified Requestor: Yes Time Spent (in minutes): 75 (75 minutes of critical care time spent with the patient after syncope and severe hypotension necessitating resuscitation and ICU transfer)
[2020-09-17] MEDS ORDERED: Sodium Chloride 0.9% 1,000 ML IV SCH ×2 (12:15→13:15)
[2020-09-17] MEDS ORDERED: Sodium Chloride 0.9% 500 ML IV SCH ×2 (12:15)
[2020-09-17] MEDS: Lactated Ringers 1,000 ML IV SCH ×2 (12:47→14:21)
--- NOTE | 2020-09-17 13:03 | CR ---
CHEST: Portable 09/17/2020 at 12:48 PM CLINICAL HISTORY:Hypoxia COMPARISON:January 2020 FINDINGS: The heart is enlarged. There is a diffuse left lung infiltrate. There is some patchy density in the right perihilar region. There is chronic elevation left hemidiaphragm. There are atherosclerotic changes in the aorta.. IMPRESSION: Diffuse left lung pneumonia with some increased lung markings on the right.
[2020-09-17] MEDS: Norepinephrine 4 MG in Dextrose 5% in Water 246 ML IV SCH ×2 (13:19)
[2020-09-17] MEDS: Meropenem 1 GM in Sodium Chloride 0.9% 100 ML IV SCH ×2 (13:25→21:59)
[2020-09-17] MEDS ORDERED: Levofloxacin/Dextrose 5%-Water 750 MG in Premix Bag 1 BAG IV SCH (14:30)
[2020-09-17] MEDS: Ondansetron 4 MG Tab.DIS PO PRN ×2 (15:26→22:03)
[2020-09-17] MEDS ORDERED: Pantoprazole 40 MG Vial IVPUSH ONE (18:00)
[2020-09-17] MEDS: HYDROmorphone 0.5 MG/0.5 ML Syringe IVPUSH PRN (18:39)
[2020-09-17] MEDS: Gabapentin 300 MG Cap PO SCH (21:59)
[2020-09-18] MEDS: Lactated Ringers 1,000 ML IV SCH (01:00)
[2020-09-18] MEDS: Meropenem 1 GM in Sodium Chloride 0.9% 100 ML IV SCH ×3 (05:16→22:24)
[2020-09-18] MEDS: Acetaminophen/HYDROcodone 325-5 MG Tab PO PRN ×3 (05:23→18:06)
[2020-09-18] MEDS: Norepinephrine 4 MG in Dextrose 5% in Water 246 ML IV SCH ×4 (05:29→23:10)
[2020-09-18] MEDS: Pantoprazole 40 MG Tab.CR PO SCH (08:37)
[2020-09-18] MEDS: Aspirin 325 MG Tab.EC PO SCH (08:40)
[2020-09-18] MEDS: Lactobacillus Rhamnosus GG (Probiotic) Cap PO SCH ×2 (08:40→20:27)
[2020-09-18] MEDS: Terazosin 1 MG Cap PO SCH ×2 (08:40→20:27)
[2020-09-18] MEDS: Rosuvastatin 10 MG Tab PO SCH (08:41)
[2020-09-18] MEDS: Cholecalciferol (Vitamin D3) 25 MCG Tab PO SCH (08:41)
[2020-09-18] MEDS: Potassium Chloride 20 MEQ Tab.ER PO SCH (08:41)
--- NOTE | 2020-09-18 09:51 | PCM.CONSN ---
- General Info Date of Service: 09/18/20 Subjective Update: No acute events overnight. Feeling better today but still not feeling great. She continues to require norepinephrine to maintain her blood pressure but this is less than yesterday. Multiple bowel movements yesterday but none today. She is complaining of generalized abdominal pain and is worried that her colitis has returned. Cough is minimal. A little short of breath. Only requiring 1 L of oxygen at this time. Knee pain is moderate. Functional Status: Reports: Pain Controlled, Tolerating Diet - Review of Systems General: Reports: Fever Pulmonary: Reports: Shortness of Breath, Cough Gastrointestinal: Reports: Abdominal Pain, Diarrhea - Patient Data Vitals - Most Recent: Last Vital Signs Temp 37.6 C 09/18/20 08:00 Pulse 68 09/17/20 19:04 Resp 18 09/18/20 09:00 BP 121/77 09/18/20 09:00 Pulse Ox 94 L 09/18/20 09:00 Weight - Most Recent: 66.224 kg I&O - Last 24 Hours: Intake & Output 09/17/20 09/18/20 09/18/20 22:59 06:59 14:59 Intake Total 917 1808 Output Total 75 350 Balance 842 1458 Lab Results Last 24 Hours: Laboratory Results - last 24 hr 09/17/20 09/17/20 09/17/20 Range/Units 12:12 12:12 13:16 WBC 4.0 L (4.5-11.0) K/uL RBC 3.34 (3.30-5.50) M/uL Hgb 9.1 L (12.0-15.0) g/dL Hct 30.3 L (36.0-48.0) % MCV 91 (80-98) fL MCH 27 (27-31) pg MCHC 30 L (32-36) % Plt Count 375 (150-400) K/uL Neut % (Auto) 71 H (36-66) % Lymph % (Auto) 25 (24-44) % [place] % (Auto) 2 (2-6) % Eos % (Auto) 3 (2-4) % Baso % (Auto) 0 (0-1) % Sodium 136 L (140-148) mmol/L Potassium 3.7 (3.6-5.2) mmol/L Chloride 101 (100-108) mmol/L Carbon Dioxide 26 (21-32) mmol/L Anion Gap 12.7 (5.0-14.0) mmol/L BUN 14 (7-18) mg/dL Creatinine 1.0 (0.6-1.0) mg/dL Est Cr Clr Drug Dosing 38.35 mL/min Estimated GFR (MDRD) 54 L (>60) Glucose 111 H (74-106) mg/dL Lactic Acid (0.4-2.0) mmol/L Calcium 8.2 L (8.5-10.1) mg/dL Troponin I < 0.017 (0.000-0.056) ng/mL 09/17/20 09/17/20 09/18/20 Range/Units 14:10 18:15 05:40 WBC 8.9 (4.5-11.0) K/uL RBC 3.54 (3.30-5.50) M/uL Hgb 9.9 L (12.0-15.0) g/dL Hct 32.0 L (36.0-48.0) % MCV 90 (80-98) fL MCH 28 (27-31) pg MCHC 31 L (32-36) % Plt Count 365 (150-400) K/uL Neut % (Auto) (36-66) % Lymph % (Auto) (24-44) % [place] % (Auto) (2-6) % Eos % (Auto) (2-4) % Baso % (Auto) (0-1) % Sodium (140-148) mmol/L Potassium (3.6-5.2) mmol/L Chloride (100-108) mmol/L Carbon Dioxide (21-32) mmol/L Anion Gap (5.0-14.0) mmol/L BUN (7-18) mg/dL Creatinine (0.6-1.0) mg/dL Est Cr Clr Drug Dosing mL/min Estimated GFR (MDRD) (>60) Glucose (74-106) mg/dL Lactic Acid 2.5 H 1.5 (0.4-2.0) mmol/L Calcium (8.5-10.1) mg/dL Troponin I (0.000-0.056) ng/mL 09/18/20 Range/Units 05:40 WBC (4.5-11.0) K/uL RBC (3.30-5.50) M/uL Hgb (12.0-15.0) g/dL Hct (36.0-48.0) % MCV (80-98) fL MCH (27-31) pg MCHC (32-36) % Plt Count (150-400) K/uL Neut % (Auto) (36-66) % Lymph % (Auto) (24-44) % [place] % (Auto) (2-6) % Eos % (Auto) (2-4) % Baso % (Auto) (0-1) % Sodium 135 L (140-148) mmol/L Potassium 3.9 (3.6-5.2) mmol/L Chloride 102 (100-108) mmol/L Carbon Dioxide 23 (21-32) mmol/L Anion Gap 13.9 (5.0-14.0) mmol/L BUN 22 H D (7-18) mg/dL Creatinine 1.6 H D (0.6-1.0) mg/dL Est Cr Clr Drug Dosing 23.97 mL/min Estimated GFR (MDRD) 31 L (>60) Glucose 158 H (74-106) mg/dL Lactic Acid (0.4-2.0) mmol/L Calcium 7.9 L (8.5-10.1) mg/dL Troponin I (0.000-0.056) ng/mL [place] Results Last 24 Hours: Microbiology 09/15/20 16:42 Gram Stain - Final Knee, Left Wound Culture - Final (Mrsa) Staphylococcus Aureus 09/15/20 16:42 Anaerobic Culture - Preliminary Knee, Left NO GROWTH AFTER 2 DAYS 09/15/20 14:30 Gram Stain - Final Knee, Left Wound Culture - Final (Mrsa) Staphylococcus Aureus Med Orders - Current: Current Medications Acetaminophen (Tylenol Extra Strength) 500 mg PO Q6H PRN PRN Reason: Pain Hydrocodone Bitart/Acetaminophen ([place] 325-5 Mg) 2 tab PO Q4H PRN PRN Reason: Pain (mild 1-3) Last Admin: 09/18/20 05:23 Dose: 2 tab Documented by: Aspirin (Ecotrin) 325 mg PO DAILY [facility] Last Admin: 09/18/20 08:40 Dose: 325 mg Documented by: Bisacodyl (Dulcolax) 10 mg RECTAL DAILY PRN PRN Reason: Constipation Last Admin: 09/16/20 20:29 Dose: 10 mg Documented by: Cetirizine HCl (Zyrtec) 10 mg PO DAILY PRN PRN Reason: Allergies Cholecalciferol (Vitamin D3) 25 mcg PO DAILY [facility] Last Admin: 09/18/20 08:41 Dose: 25 mcg Documented by: Docusate Sodium (Colace) 200 mg PO DAILY PRN PRN Reason: Constipation Last Admin: 09/16/20 19:59 Dose: 200 mg Documented by: Furosemide (Lasix) 20 mg PO DAILY [facility] Last Admin: 09/17/20 08:50 Dose: 20 mg Documented by: Gabapentin (Neurontin) 300 mg PO BEDTIME [facility] Last Admin: 09/17/20 21:59 Dose: 300 mg Documented by: Hydromorphone HCl (Dilaudid) 0.5 mg IVPUSH Q2H PRN PRN Reason: Pain (severe 7-10) Last Admin: 09/17/20 18:39 Dose: 0.5 mg Documented by: Lactated Ringer's (Ringers, Lactated) 1,000 mls @ 100 mls/hr IV ASDIRECTED [facility] Last Admin: 09/18/20 01:00 Dose: 100 mls/hr Documented by: Norepinephrine Bitartrate 4 mg (/ Dextrose/Water) 250 mls @ 7.5 mls/hr IV TITRATE [facility]; Protocol Last Admin: 09/18/20 05:29 Dose: 3 mcg/min, 11.25 mls/hr Documented by: Meropenem 1 gm/ Sodium (Chloride) 100 mls @ 200 mls/hr IV Q8H [facility] Last Admin: 09/18/20 05:16 Dose: 200 mls/hr Documented by: Levofloxacin/Dextrose 750 mg/ (Premix) 150 mls @ 100 mls/hr IV Q48H [facility] Vancomycin HCl 1 gm/ Sodium (Chloride) 250 mls @ 150 mls/hr IV Q24H [facility] Ketotifen Fumarate (Ketotifen 0.025% Ophth Soln) 0 ml EYEBOTH BID PRN PRN Reason: Allergies Lactobacillus Rhamnosus (Culturelle) 1 cap PO BID [facility] Last Admin: 09/18/20 08:40 Dose: 1 cap Documented by: Lisinopril (Prinivil) 40 mg PO BID [facility] Last Admin: 09/17/20 08:48 Dose: 40 mg Documented by: Metoprolol Tartrate (Lopressor) 25 mg PO BID [facility] Last Admin: 09/17/20 08:49 Dose: 25 mg Documented by: Ondansetron HCl (Zofran Odt) 4 mg PO Q6H PRN PRN Reason: Nausea Last Admin: 09/17/20 22:03 Dose: 4 mg Documented by: Oxycodone/Acetaminophen (Percocet 325-5 Mg) 1 - 2 tab PO Q6H PRN PRN Reason: Pain (severe 7-10) Pantoprazole Sodium (Protonix) 40 mg PO ACBREAKFAST [facility] Last Admin: 09/18/20 08:37 Dose: 40 mg Documented by: Polyethylene Glycol (Miralax) 17 gm PO DAILY PRN PRN Reason: Constipation Potassium Chloride (Klor-Con M20) 20 meq PO DAILY [facility] Last Admin: 09/18/20 08:41 Dose: 20 meq Documented by: Rosuvastatin Calcium (Crestor) 5 mg PO DAILY [facility] Last Admin: 09/18/20 08:41 Dose: 5 mg Documented by: Terazosin HCl (Hytrin) 2 mg PO BID [facility] Last Admin: 09/18/20 08:40 Dose: 2 mg Documented by: Discontinued Medications Bupivacaine HCl (Marcaine 0.5%) Confirm Administered Dose 30 ml .ROUTE .STK-MED ONE Stop: 09/15/20 14:49 Fentanyl (Sublimaze) Confirm Administered Dose 100 mcg .ROUTE .STK-MED ONE Stop: 09/15/20 16:09 Vancomycin HCl 1 gm/ Sodium (Chloride) 250 mls @ 150 mls/hr IV ONETIME ONE Stop: 09/15/20 17:39 Last Admin: 09/15/20 15:59 Dose: 150 mls/hr Documented by: Lactated Ringer's (Ringers, Lactated) 1,000 mls @ 75 mls/hr IV ASDIRECTED [facility] Last Admin: 09/16/20 00:26 Dose: 75 mls/hr Documented by: Vancomycin HCl 1 gm/ Sodium (Chloride) 250 mls @ 150 mls/hr IV Q12H [facility] Last Admin: 09/18/20 03:00 Dose: 150 mls/hr Documented by: Sodium Chloride (Normal Saline) 1,000 mls @ 100 mls/hr IV ASDIRECTED [facility] Sodium Chloride (Normal Saline) 500 mls @ 999 mls/hr IV ASDIRECTED [facility] Stop: 09/17/20 16:30 Sodium Chloride (Normal Saline) 500 mls @ 999 mls/hr IV ASDIRECTED [facility] Stop: 09/17/20 16:30 Levofloxacin/Dextrose 750 mg/ (Premix) 150 mls @ 100 mls/hr IV Q24H [facility] Last Admin: 09/17/20 13:54 Dose: 100 mls/hr Documented by: Sodium Chloride (Normal Saline) 1,000 mls @ 999 mls/hr IV ASDIRECTED [facility] Stop: 09/17/20 14:16 Last Admin: 09/17/20 13:20 Dose: 999 mls/hr Documented by: Magnesium Citrate (Citrate Of Magnesia) 150 ml PO ONETIME ONE Stop: 09/16/20 08:01 Last Admin: 09/16/20 07:57 Dose: 150 ml Documented by: Midazolam HCl (Versed 1 Mg/Ml) Confirm Administered Dose 2 mg .ROUTE .STK-MED ONE Stop: 09/15/20 16:09 Pantoprazole Sodium (Protonix Iv) 40 mg IVPUSH ONETIME ONE Stop: 09/17/20 18:01 Last Admin: 09/17/20 18:41 Dose: 40 mg Documented by: Propofol (Diprivan 20 Ml) Confirm Administered Dose 200 mg .ROUTE .STK-MED ONE Stop: 09/15/20 16:09 - Exam Quality Assessment: Supplemental Oxygen General: Alert, Oriented, Cooperative, No Acute Distress Lungs: Normal Respiratory Effort, Decreased Breath Sounds (left lung base), Crackles (right lower lung ). No: Wheezing Cardiovascular: Regular Rate, Regular Rhythm GI/Abdominal Exam: Soft, No Distention, Tender (moderate diffuse ) Extremities: Pedal Edema. No: Increased Warmth Skin: Warm, Dry Psy/Mental Status: Alert, Normal Affect Sepsis Event Note - Evaluation Sepsis Screening Result: No Definite Risk - Focused Exam Vital Signs: Vital Signs Temp Resp BP BP Pulse Ox 09/18/20 09:00 18 121/77 94 L 09/18/20 08:40 114/63 09/18/20 08:00 37.6 C 18 114/63 97 09/18/20 06:00 37.5 C 18 109/65 96 09/18/20 05:00 38.2 C H 25 H 134/74 98 09/18/20 04:00 15 115/66 97 09/18/20 03:00 37.4 C 13 110/68 97 09/18/20 02:00 15 107/66 96 09/18/20 01:00 13 109/65 97 09/18/20 00:00 13 107/64 97 09/17/20 23:00 36.9 C 14 109/66 96 09/17/20 22:00 13 112/69 97 Consult PN Assessment/Plan Procedures: Procedures AGENT NOS ASSAY W/OPTIC (03/24/20) ASSAY OF BLOOD/URIC ACID (04/20/18) ASSAY OF LACTIC ACID (01/18/20) ASSAY OF LIPASE (03/24/20) ASSAY OF MAGNESIUM (03/24/20) ASSAY OF NATRIURETIC PEPTIDE (03/19/18) ASSAY OF PHOSPHORUS (12/25/18) ASSAY OF TROPONIN QUANT (03/24/20) BIOPSY/REMOVAL LYMPH NODES (02/23/15) BLOOD CULTURE FOR BACTERIA (03/24/20) BREAST TOMOSYNTHESIS BI (05/06/20) C DIFF AMPLIFIED PROBE (03/24/20) C-REACTIVE PROTEIN (04/20/18) CARDIOVASCULAR STRESS TEST (03/02/20) COLONOSCOPY AND BIOPSY (12/25/18) COMP SCREEN MAMMOGRAM ADD-ON (05/19/16) COMPLETE CBC AUTOMATED (12/25/18) COMPLETE CBC W/AUTO DIFF WBC (03/24/20) COMPREHEN METABOLIC PANEL (03/24/20) COMPUTER DX MAMMOGRAM ADD-ON (02/13/15) CT ABD & PELV 1/> REGNS (10/14/15) CT ABD & PELV W/CONTRAST (03/24/20) CT ABD & PELVIS W/O CONTRAST (03/24/20) CT ANGIO ABDOM W/O & W/DYE (12/25/18) CT ANGIOGRAPHY HEAD (01/18/20) CT ANGIOGRAPHY NECK (01/18/20) CT HEAD/BRAIN W/O DYE (02/27/20) CT MAXILLOFACIAL W/O & W/DYE (04/06/18) CT MAXILLOFACIAL W/O DYE (10/05/16) CULTURE SCREEN ONLY (12/25/18) DIAGNOSTIC COLONOSCOPY (04/17/20) DRAIN/INJ JOINT/BURSA W/O US (05/07/20) EGD BIOPSY SINGLE/MULTIPLE (04/17/20) ELECTROCARDIOGRAM REPORT (02/27/20) ELECTROCARDIOGRAM TRACING (02/27/20) EMERGENCY DEPT VISIT (05/02/20) EMERGENCY DEPT VISIT (03/24/20) EMERGENCY DEPT VISIT (03/24/20) EMERGENCY DEPT VISIT (02/27/20) EMERGENCY DEPT VISIT (02/27/20) EMERGENCY DEPT VISIT (02/15/20) EMERGENCY DEPT VISIT (01/18/20) EMERGENCY DEPT VISIT (12/25/18) EMERGENCY DEPT VISIT (12/25/18) EMERGENCY DEPT VISIT (04/20/18) EMERGENCY DEPT VISIT (04/20/18) EMERGENCY DEPT VISIT (03/19/18) EMERGENCY DEPT VISIT (10/26/16) EMERGENCY DEPT VISIT (03/05/16) EMERGENCY DEPT VISIT (10/27/14) EMERGENCY DEPT VISIT (10/27/14) ENDOVENOUS RF 1ST VEIN (12/29/16) EXAM SYNOVIAL FLUID CRYSTALS (03/05/16) EXC ABDL HALEY DEEP 5 CM/> (09/08/14) EXTREMITY STUDY (09/08/20) EXTREMITY STUDY (01/02/17) EXTREMITY STUDY (03/05/16) EXTREMITY STUDY (02/11/16) GAIT TRAINING THERAPY (08/24/20) HEMOGLOBIN (03/24/20) HOT OR COLD PACKS THERAPY (02/05/15) HT MUSCLE IMAGE SPECT MULT (03/02/20) HYDRATE IV INFUSION ADD-ON (03/24/20) HYDRATION IV INFUSION INIT (01/18/20) IIV4 VACC NO PRSV 0.5 ML IM (09/08/14) LEUKOCYTE ASSESSMENT FECAL (03/24/20) MANUAL THERAPY 1/> REGIONS (08/25/20) METABOLIC PANEL TOTAL CA (03/24/20) MRI BRAIN STEM W/O & W/DYE (10/27/16) MRI BRAIN STEM W/O DYE (01/23/20) MRI JNT OF LWR EXTRE W/O DYE (06/03/20) MRI LUMBAR SPINE W/O DYE (07/31/13) NJX SCLRSNT TAPPING MACHINE OPERATOR AUTOMATIC INCMPTNT VN (12/29/16) OCCULT BLD FECES 1-3 TESTS (03/24/20) OFFICE/OUTPATIENT VISIT EST (05/07/20) OVA AND PARASITES SMEARS (12/25/18) PROTHROMBIN TIME (01/18/20) PRP I/RUIZ INIT REDUC >5 YR (09/08/14) PT EVAL MOD COMPLEX 30 MIN (08/24/20) PT EVALUATION (02/26/16) RBC SED RATE NONAUTOMATED (04/20/18) REMOVAL OF BREAST LESION (02/23/15) ROUTINE VENIPUNCTURE (03/24/20) SCR MAMMO BI INCL CAD (05/06/20) SELF CARE MNGMENT TRAINING (08/25/20) SMEAR COMPLEX STAIN (12/25/18) STOOL CULTR AEROBIC BACT EA (03/24/20) THER/PROPH/DIAG INJ IV PUSH (02/27/20) THER/PROPH/DIAG INJ SC/IM (03/24/20) THER/PROPH/DIAG IV INF ADDON (03/24/20) THER/PROPH/DIAG IV INF INIT (03/24/20) THERAPEUTIC ACTIVITIES (08/25/20) THERAPEUTIC EXERCISES (08/25/20) THROMBOPLASTIN TIME PARTIAL (01/18/20) TISSUE EXAM BY PATHOLOGIST (04/17/20) TISSUE EXAM BY PATHOLOGIST (09/08/14) TISSUE EXAM BY PATHOLOGIST (09/08/14) TREAT TOE DISLOCATION (03/05/16) TTE W/DOPPLER COMPLETE (01/23/20) TX/PRO/DX INJ NEW DRUG ADDON (02/27/20) TX/PRO/DX INJ SAME DRUG VISION CARE ASSOCIATE (12/25/18) TX/PROPH/DG ADDL SEQ IV INF (03/24/20) ULTRASOUND BREAST COMPLETE (03/14/17) ULTRASOUND BREAST LIMITED (02/13/15) URINALYSIS AUTO W/SCOPE (04/20/18) US EXAM ABDO BACK WALL COMP (08/23/13) US GUIDE INTRAOP (02/23/15) X-RAY EXAM CHEST 1 VIEW (02/27/20) X-RAY EXAM CHEST 2 VIEWS (03/19/18) X-RAY EXAM KNEE 4 OR MORE (05/07/20) X-RAY EXAM OF ABDOMEN (10/27/14) X-RAY EXAM OF KNEE 1 OR 2 (08/24/20) X-RAY EXAM OF KNEE 3 (04/20/18) X-RAY EXAM OF SINUSES (10/26/16) Problem List Initiated/Reviewed/Updated: Yes My Orders Last 24 Hours: My Active Orders 09/17/20 12:15 Transfer Patient (Change bed) [ADT] Routine 09/17/20 12:45 Lactated Ringers [Ringers, Lactated] 1,000 ml IV ASDIRECTED 09/17/20 12:56 EKG 12 Lead [EK] Urgent 09/17/20 13:30 Norepinephrine [Levophed] 4 mg Dextrose 5% in Water 246 ml IV TITRATE 09/17/20 13:41 Blood Culture x2 Reflex Set [OM.PC] Urgent 09/17/20 14:00 CULTURE BLOOD [BC] Urgent Meropenem [Merrem] 1 gm Sodium Chloride 0.9% [Normal Saline] 100 ml IV Q8H 09/17/20 14:10 CULTURE BLOOD [BC] Urgent 09/17/20 17:56 HYDROmorphone [Dilaudid] 0.5 mg IVPUSH Q2H PRN 09/18/20 10:00 Lactated Ringers [Ringers, Lactated] 1,000 ml IV ASDIRECTED 09/18/20 11:00 Chest Abdomen Pelvis wo Cont [CT] Routine 09/19/20 05:00 BASIC METABOLIC PANEL,BMP [CHEM] Timed CBC W/O DIFF,HEMOGRAM [HEME] Timed (1) 09/19/20 10:00 Levofloxacin/Dextrose 5%-Water [Levaquin in D5W 750 MG/150 ML] 750 mg Premix Bag 1 bag IV Q48H Plan: ASSESSMENT AND RECOMMENDATIONS- Bilateral pneumonia with septic shock-complicated by acute respiratory failure with hypoxia and hypotension. I suspect this is a community-acquired pneumonia that has blossomed during her hospital stay since she has not been here long enough to develop a hospital-acquired infection. Doing better today. Only on 1 L of oxygen. Still requiring norepinephrine. Cultures are negative so far. -Antibiotic coverage with levofloxacin and meropenem -Continue norepinephrine, wean as able -Symptomatic management -Supplement oxygen -Hold antihypertensives -Follow-up cultures Generalized abdominal pain-diarrhea yesterday but she did have aggressive bowel stimulation. No bloody stool. She is worried about colitis. 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 -CT of the abdomen and pelvis -Symptomatic management Left knee cellulitis-she has been treated with vancomycin. This seems to be getting better. -Postoperative care per orthopedic team Essential hypertension-quite hypotensive and bradycardic yesterday, doing better today but still hypotensive. -Hold antihypertensives -Restart beta-samy tonight Maintenance issues - - DVT prophylaxis -SCDs - GI prophylaxis -PPI - Nutrition -regular as tolerated Holland Bruce M.D.
[2020-09-18] MEDS ORDERED: Lactated Ringers 1,000 ML IV SCH (10:00)
[2020-09-18] MEDS: HYDROmorphone 0.5 MG/0.5 ML Syringe IVPUSH PRN ×3 (10:19→22:26)
[2020-09-18] MEDS: Ondansetron 4 MG Tab.DIS PO PRN (11:09)
--- NOTE | 2020-09-18 11:47 | CT ---
Chest Abdomen Pelvis wo Cont CLINICAL HISTORY: Pneumonia, Lower abdominal pain, diarrhea, fever TECHNIQUE: Transverse scans were obtained from the thoracic inlet to the lung bases without IV contrast. Auto dose reduction and degenerative reconstruction techniques were employed COMPARISONS: None FINDINGS: Lung window images show moderate motion through the lower lung peña. Patient is a small right pleural effusion and a small to moderate left effusion. There is some streaky atelectasis in the right lung base. There is infiltrate, atelectasis and some consolidation in the left lower lobe this is also seen to a lesser degree February 2020. There is moderate elevation of the left hemidiaphragm as well as the large left sided predominant hiatal hernia containing stomach and the splenic flexure of the colon. Left upper lobe is clear. Heart is mildly enlarged. Pulmonary vascularity is normal. CT ABDOMEN AND PEVIS WITH IV CONTRAST COMPARISON: February 2020 TECHNIQUE: Axial tomographic images are obtained from the dome of the diaphragm to the iliac crest without contrast. FINDINGS: There is some reduced resolution due to breathing motion and lack of contrastThere are scattered fluid-filled loops of small bowel in a nonspecific pattern. There is thickening of the ascending and transverse colon. There is some ill-definition of the fat planes surrounding the upper ascending colon and transverse colon. Descending colon has a normal caliber. There is some free fluid in the pelvis. Patient has had a previous ventral hernia repair.. The liver shows no focal mass. There has been previous cholecystectomy. There is common duct dilatation similar to prior study.. The spleen has a normal size and shape. The pancreas appears free of mass or inflammatory change. The adrenal glands appear normal bilaterally. There is a stable low-attenuation focus in the lower pole of the left kidney measuring approximately 2 cm maximum. This is likely a cyst. IMPRESSION: Very large left-sided hiatal hernia containing stomach and colon Moderate left lower lobe airspace disease which is a combination of atelectasis and some consolidation. This has increased since February. There are bilateral pleural effusions left greater than right Diffuse thickening of the ascending and transverse colon consistent with colitis. There is some inflammatory change in the surrounding fat. Previous cholecystectomy and previous ventral hernia repair
[2020-09-18] MEDS ORDERED: Sodium Chloride 0.9% 500 ML IV SCH (16:30)
[2020-09-18] MEDS: Gabapentin 300 MG Cap PO SCH (20:27)
[2020-09-18] MEDS: Metoprolol Tartrate 25 MG Tab PO SCH (20:28)
[2020-09-19] MEDS: HYDROmorphone 0.5 MG/0.5 ML Syringe IVPUSH PRN (01:17)
[2020-09-19] MEDS: Ondansetron 4 MG Tab.DIS PO PRN (03:30)
[2020-09-19] MEDS: Meropenem 1 GM in Sodium Chloride 0.9% 100 ML IV SCH ×3 (05:26→21:00)
[2020-09-19] MEDS: Norepinephrine 4 MG in Dextrose 5% in Water 246 ML IV SCH ×2 (08:38)
[2020-09-19] MEDS: Pantoprazole 40 MG Tab.CR PO SCH (08:39)
--- NOTE | 2020-09-19 10:37 | PCM.CONSN ---
- General Info Date of Service: 09/19/20 Subjective Update: No acute events overnight. Patient continues to have loose and watery stools. C. difficile testing last night was negative. She has not had any blood in her stool. No fevers. Still requiring 1 L of supplemental oxygen. Cough is now productive. Still having moderate right sided and right upper quadrant abdominal pain. Still requiring norepinephrine to maintain her blood pressure. No new positive culture results. Functional Status: Reports: Pain Controlled, Tolerating Diet - Review of Systems General: Denies: Fever Gastrointestinal: Reports: Abdominal Pain, Diarrhea - Patient Data Vitals - Most Recent: Last Vital Signs Temp 37.2 C 09/19/20 04:00 Pulse 116 H 09/19/20 06:00 Resp 14 09/19/20 06:00 BP 117/61 09/19/20 06:00 Pulse Ox 97 09/19/20 06:00 Weight - Most Recent: 66.224 kg I&O - Last 24 Hours: Intake & Output 09/18/20 09/19/20 09/19/20 22:59 06:59 14:59 Intake Total 1564 1017 Balance 1564 1017 Lab Results Last 24 Hours: Laboratory Results - last 24 hr 09/19/20 09/19/20 Range/Units 04:30 04:30 WBC 8.8 (4.5-11.0) K/uL RBC 3.03 L (3.30-5.50) M/uL Hgb 8.4 L (12.0-15.0) g/dL Hct 26.6 L (36.0-48.0) % MCV 88 (80-98) fL MCH 28 (27-31) pg MCHC 32 (32-36) % Plt Count 310 (150-400) K/uL Sodium 128 L (140-148) mmol/L Potassium 4.2 (3.6-5.2) mmol/L Chloride 98 L (100-108) mmol/L Carbon Dioxide 21 (21-32) mmol/L Anion Gap 13.2 (5.0-14.0) mmol/L BUN 34 H D (7-18) mg/dL Creatinine 1.9 H (0.6-1.0) mg/dL Est Cr Clr Drug Dosing 20.19 mL/min Estimated GFR (MDRD) 26 L (>60) Glucose 137 H (74-106) mg/dL Calcium 7.7 L (8.5-10.1) mg/dL [place] Results Last 24 Hours: Microbiology 09/15/20 16:42 Anaerobic Culture - Final Knee, Left NO GROWTH AFTER 3 DAYS 09/18/20 20:21 Clostridioides difficile (PCR) - Final Stool / Feces 09/17/20 14:00 Aerobic Blood Culture - Preliminary Blood - Arm, Right NO GROWTH AFTER 1 DAY Anaerobic Blood Culture - Preliminary NO GROWTH AFTER 1 DAY 09/17/20 14:10 Aerobic Blood Culture - Preliminary Blood - Venous - Lab Draw NO GROWTH AFTER 1 DAY Anaerobic Blood Culture - Preliminary NO GROWTH AFTER 1 DAY 09/15/20 16:42 Gram Stain - Final Knee, Left Wound Culture - Final (Mrsa) Staphylococcus Aureus Med Orders - Current: Current Medications Acetaminophen (Tylenol Extra Strength) 500 mg PO Q6H PRN PRN Reason: Pain Hydrocodone Bitart/Acetaminophen (Remlap 325-5 Mg) 2 tab PO Q4H PRN PRN Reason: Pain (mild 1-3) Last Admin: 09/18/20 18:06 Dose: 2 tab Documented by: Aspirin (Ecotrin) 325 mg PO DAILY [facility] Last Admin: 09/18/20 08:40 Dose: 325 mg Documented by: Bisacodyl (Dulcolax) 10 mg RECTAL DAILY PRN PRN Reason: Constipation Last Admin: 09/16/20 20:29 Dose: 10 mg Documented by: Cetirizine HCl (Zyrtec) 10 mg PO DAILY PRN PRN Reason: Allergies Cholecalciferol (Vitamin D3) 25 mcg PO DAILY [facility] Last Admin: 09/18/20 08:41 Dose: 25 mcg Documented by: Docusate Sodium (Colace) 200 mg PO DAILY PRN PRN Reason: Constipation Last Admin: 09/16/20 19:59 Dose: 200 mg Documented by: Doxycycline Hyclate (Vibramycin) 100 mg PO BID [facility] Furosemide (Lasix) 20 mg PO DAILY [facility] Last Admin: 09/17/20 08:50 Dose: 20 mg Documented by: Gabapentin (Neurontin) 300 mg PO BEDTIME [facility] Last Admin: 09/18/20 20:27 Dose: 300 mg Documented by: Hydromorphone HCl (Dilaudid) 0.5 mg IVPUSH Q2H PRN PRN Reason: Pain (severe 7-10) Last Admin: 09/19/20 01:17 Dose: 0.5 mg Documented by: Norepinephrine Bitartrate 4 mg (/ Dextrose/Water) 250 mls @ 7.5 mls/hr IV TITRATE [facility]; Protocol Last Admin: 09/19/20 08:38 Dose: 5 mcg/min, 18.75 mls/hr Documented by: Meropenem 1 gm/ Sodium (Chloride) 100 mls @ 200 mls/hr IV Q8H [facility] Last Admin: 09/19/20 05:26 Dose: 200 mls/hr Documented by: Levofloxacin/Dextrose 750 mg/ (Premix) 150 mls @ 100 mls/hr IV Q48H [facility] Lactated Ringer's (Ringers, Lactated) 1,000 mls @ 25 mls/hr IV ASDIRECTED [facility] Last Admin: 09/18/20 13:46 Dose: 25 mls/hr Documented by: Ketotifen Fumarate (Ketotifen 0.025% Ophth Soln) 0 ml EYEBOTH BID PRN PRN Reason: Allergies Lactobacillus Rhamnosus (Culturelle) 1 cap PO BID [facility] Last Admin: 09/18/20 20:27 Dose: 1 cap Documented by: Lisinopril (Prinivil) 40 mg PO BID [facility] Last Admin: 09/17/20 08:48 Dose: 40 mg Documented by: Loperamide HCl (Imodium) 2 mg PO Q4H PRN PRN Reason: DIARRHEA Metoprolol Tartrate (Lopressor) 25 mg PO BID [facility] Last Admin: 09/18/20 20:28 Dose: Not Given Documented by: Ondansetron HCl (Zofran Odt) 4 mg PO Q6H PRN PRN Reason: Nausea Last Admin: 09/19/20 03:30 Dose: 4 mg Documented by: Pantoprazole Sodium (Protonix) 40 mg PO ACBREAKFAST [facility] Last Admin: 09/19/20 08:39 Dose: 40 mg Documented by: Polyethylene Glycol (Miralax) 17 gm PO DAILY PRN PRN Reason: Constipation Potassium Chloride (Klor-Con M20) 20 meq PO DAILY [facility] Last Admin: 09/18/20 08:41 Dose: 20 meq Documented by: Rosuvastatin Calcium (Crestor) 5 mg PO DAILY [facility] Last Admin: 09/18/20 08:41 Dose: 5 mg Documented by: Terazosin HCl (Hytrin) 2 mg PO BID [facility] Last Admin: 09/18/20 20:27 Dose: 2 mg Documented by: Discontinued Medications Bupivacaine HCl (Marcaine 0.5%) Confirm Administered Dose 30 ml .ROUTE .STK-MED ONE Stop: 09/15/20 14:49 Fentanyl (Sublimaze) Confirm Administered Dose 100 mcg .ROUTE .STK-MED ONE Stop: 09/15/20 16:09 Vancomycin HCl 1 gm/ Sodium (Chloride) 250 mls @ 150 mls/hr IV ONETIME ONE Stop: 09/15/20 17:39 Last Admin: 09/15/20 15:59 Dose: 150 mls/hr Documented by: Lactated Ringer's (Ringers, Lactated) 1,000 mls @ 75 mls/hr IV ASDIRECTED [facility] Last Admin: 09/16/20 00:26 Dose: 75 mls/hr Documented by: Vancomycin HCl 1 gm/ Sodium (Chloride) 250 mls @ 150 mls/hr IV Q12H [facility] Last Admin: 09/18/20 03:00 Dose: 150 mls/hr Documented by: Sodium Chloride (Normal Saline) 1,000 mls @ 100 mls/hr IV ASDIRECTED [facility] Sodium Chloride (Normal Saline) 500 mls @ 999 mls/hr IV ASDIRECTED [facility] Stop: 09/17/20 16:30 Sodium Chloride (Normal Saline) 500 mls @ 999 mls/hr IV ASDIRECTED [facility] Stop: 09/17/20 16:30 Lactated Ringer's (Ringers, Lactated) 1,000 mls @ 100 mls/hr IV ASDIRECTED [facility] Last Admin: 09/18/20 01:00 Dose: 100 mls/hr Documented by: Levofloxacin/Dextrose 750 mg/ (Premix) 150 mls @ 100 mls/hr IV Q24H [facility] Last Admin: 09/17/20 13:54 Dose: 100 mls/hr Documented by: Sodium Chloride (Normal Saline) 1,000 mls @ 999 mls/hr IV ASDIRECTED [facility] Stop: 09/17/20 14:16 Last Admin: 09/17/20 13:20 Dose: 999 mls/hr Documented by: Vancomycin HCl 1 gm/ Sodium (Chloride) 250 mls @ 150 mls/hr IV Q24H [facility] Last Admin: 09/19/20 06:01 Dose: 150 mls/hr Documented by: Sodium Chloride (Normal Saline) 500 mls @ 500 mls/hr IV ASDIRECTED [facility] Stop: 09/18/20 17:31 Last Admin: 09/18/20 16:35 Dose: 500 mls/hr Documented by: Magnesium Citrate (Citrate Of Magnesia) 150 ml PO ONETIME ONE Stop: 09/16/20 08:01 Last Admin: 09/16/20 07:57 Dose: 150 ml Documented by: Midazolam HCl (Versed 1 Mg/Ml) Confirm Administered Dose 2 mg .ROUTE .STK-MED ONE Stop: 09/15/20 16:09 Oxycodone/Acetaminophen (Percocet 325-5 Mg) 1 - 2 tab PO Q6H PRN PRN Reason: Pain (severe 7-10) Pantoprazole Sodium (Protonix Iv) 40 mg IVPUSH ONETIME ONE Stop: 09/17/20 18:01 Last Admin: 09/17/20 18:41 Dose: 40 mg Documented by: Propofol (Diprivan 20 Ml) Confirm Administered Dose 200 mg .ROUTE .STK-MED ONE Stop: 09/15/20 16:09 - Exam Quality Assessment: Supplemental Oxygen General: Alert, Oriented, Cooperative, No Acute Distress Lungs: Normal Respiratory Effort, Decreased Breath Sounds (left lung base), Crackles (few left lung base) Cardiovascular: Regular Rhythm, Tachycardia GI/Abdominal Exam: Soft, No Distention, Tender (moderate diffuse), Abnormal Bowel Sounds (hypoactive) Extremities: No Pedal Edema. No: Increased Warmth Skin: Warm, Dry Psy/Mental Status: Alert, Normal Affect Sepsis Event Note - Evaluation Sepsis Screening Result: Severe Sepsis Risk - Focused Exam Vital Signs: Vital Signs Temp Pulse Resp BP Pulse Ox 09/19/20 06:00 116 H 14 117/61 97 09/19/20 05:00 111 H 9 L 108/51 L 97 09/19/20 04:00 37.2 C 112 H 11 L 100/56 L 96 09/19/20 03:00 119 H 22 H 100/55 L 96 09/19/20 02:00 109 H 10 L 104/48 L 96 09/19/20 01:00 108 H 10 L 94/50 L 95 09/19/20 00:00 37.5 C 111 H 14 95/54 L 96 09/18/20 23:00 106 H 12 84/51 L 96 Consult PN Assessment/Plan Procedures: Procedures AGENT NOS ASSAY W/OPTIC (03/24/20) ASSAY OF BLOOD/URIC ACID (04/20/18) ASSAY OF LACTIC ACID (01/18/20) ASSAY OF LIPASE (03/24/20) ASSAY OF MAGNESIUM (03/24/20) ASSAY OF NATRIURETIC PEPTIDE (03/19/18) ASSAY OF PHOSPHORUS (12/25/18) ASSAY OF TROPONIN QUANT (03/24/20) BIOPSY/REMOVAL LYMPH NODES (02/23/15) BLOOD CULTURE FOR BACTERIA (03/24/20) BREAST TOMOSYNTHESIS BI (05/06/20) C DIFF AMPLIFIED PROBE (03/24/20) C-REACTIVE PROTEIN (04/20/18) CARDIOVASCULAR STRESS TEST (03/02/20) COLONOSCOPY AND BIOPSY (12/25/18) COMP SCREEN MAMMOGRAM ADD-ON (05/19/16) COMPLETE CBC AUTOMATED (12/25/18) COMPLETE CBC W/AUTO DIFF WBC (03/24/20) COMPREHEN METABOLIC PANEL (03/24/20) COMPUTER DX MAMMOGRAM ADD-ON (02/13/15) CT ABD & PELV 1/> REGNS (10/14/15) CT ABD & PELV W/CONTRAST (03/24/20) CT ABD & PELVIS W/O CONTRAST (03/24/20) CT ANGIO ABDOM W/O & W/DYE (12/25/18) CT ANGIOGRAPHY HEAD (01/18/20) CT ANGIOGRAPHY NECK (01/18/20) CT HEAD/BRAIN W/O DYE (02/27/20) CT MAXILLOFACIAL W/O & W/DYE (04/06/18) CT MAXILLOFACIAL W/O DYE (10/05/16) CULTURE SCREEN ONLY (12/25/18) DIAGNOSTIC COLONOSCOPY (04/17/20) DRAIN/INJ JOINT/BURSA W/O US (05/07/20) EGD BIOPSY SINGLE/MULTIPLE (04/17/20) ELECTROCARDIOGRAM REPORT (02/27/20) ELECTROCARDIOGRAM TRACING (02/27/20) EMERGENCY DEPT VISIT (05/02/20) EMERGENCY DEPT VISIT (03/24/20) EMERGENCY DEPT VISIT (03/24/20) EMERGENCY DEPT VISIT (02/27/20) EMERGENCY DEPT VISIT (02/27/20) EMERGENCY DEPT VISIT (02/15/20) EMERGENCY DEPT VISIT (01/18/20) EMERGENCY DEPT VISIT (12/25/18) EMERGENCY DEPT VISIT (12/25/18) EMERGENCY DEPT VISIT (04/20/18) EMERGENCY DEPT VISIT (04/20/18) EMERGENCY DEPT VISIT (03/19/18) EMERGENCY DEPT VISIT (10/26/16) EMERGENCY DEPT VISIT (03/05/16) EMERGENCY DEPT VISIT (10/27/14) EMERGENCY DEPT VISIT (10/27/14) ENDOVENOUS RF 1ST VEIN (12/29/16) EXAM SYNOVIAL FLUID CRYSTALS (03/05/16) EXC ABDL HALEY DEEP 5 CM/> (09/08/14) EXTREMITY STUDY (09/08/20) EXTREMITY STUDY (01/02/17) EXTREMITY STUDY (03/05/16) EXTREMITY STUDY (02/11/16) GAIT TRAINING THERAPY (08/24/20) HEMOGLOBIN (03/24/20) HOT OR COLD PACKS THERAPY (02/05/15) HT MUSCLE IMAGE SPECT MULT (03/02/20) HYDRATE IV INFUSION ADD-ON (03/24/20) HYDRATION IV INFUSION INIT (01/18/20) IIV4 VACC NO PRSV 0.5 ML IM (09/08/14) LEUKOCYTE ASSESSMENT FECAL (03/24/20) MANUAL THERAPY 1/> REGIONS (08/25/20) METABOLIC PANEL TOTAL CA (03/24/20) MRI BRAIN STEM W/O & W/DYE (10/27/16) MRI BRAIN STEM W/O DYE (01/23/20) MRI JNT OF LWR EXTRE W/O DYE (06/03/20) MRI LUMBAR SPINE W/O DYE (07/31/13) NJX SCLRSNT HEAD BANDER AND LINER OPERATOR INCMPTNT VN (12/29/16) OCCULT BLD FECES 1-3 TESTS (03/24/20) OFFICE/OUTPATIENT VISIT EST (05/07/20) OVA AND PARASITES SMEARS (12/25/18) PROTHROMBIN TIME (01/18/20) PRP I/RUIZ INIT REDUC >5 YR (09/08/14) PT EVAL MOD COMPLEX 30 MIN (08/24/20) PT EVALUATION (02/26/16) RBC SED RATE NONAUTOMATED (04/20/18) REMOVAL OF BREAST LESION (02/23/15) ROUTINE VENIPUNCTURE (03/24/20) SCR MAMMO BI INCL CAD (05/06/20) SELF CARE MNGMENT TRAINING (08/25/20) SMEAR COMPLEX STAIN (12/25/18) STOOL CULTR AEROBIC BACT EA (03/24/20) THER/PROPH/DIAG INJ IV PUSH (02/27/20) THER/PROPH/DIAG INJ SC/IM (03/24/20) THER/PROPH/DIAG IV INF ADDON (03/24/20) THER/PROPH/DIAG IV INF INIT (03/24/20) THERAPEUTIC ACTIVITIES (08/25/20) THERAPEUTIC EXERCISES (08/25/20) THROMBOPLASTIN TIME PARTIAL (01/18/20) TISSUE EXAM BY PATHOLOGIST (04/17/20) TISSUE EXAM BY PATHOLOGIST (09/08/14) TISSUE EXAM BY PATHOLOGIST (09/08/14) TREAT TOE DISLOCATION (03/05/16) TTE W/DOPPLER COMPLETE (01/23/20) TX/PRO/DX INJ NEW DRUG ADDON (02/27/20) TX/PRO/DX INJ SAME DRUG DIRECTOR DRUG SAFETY (12/25/18) TX/PROPH/DG ADDL SEQ IV INF (03/24/20) ULTRASOUND BREAST COMPLETE (03/14/17) ULTRASOUND BREAST LIMITED (02/13/15) URINALYSIS AUTO W/SCOPE (04/20/18) US EXAM ABDO BACK WALL COMP (08/23/13) US GUIDE INTRAOP (02/23/15) X-RAY EXAM CHEST 1 VIEW (02/27/20) X-RAY EXAM CHEST 2 VIEWS (03/19/18) X-RAY EXAM KNEE 4 OR MORE (05/07/20) X-RAY EXAM OF ABDOMEN (10/27/14) X-RAY EXAM OF KNEE 1 OR 2 (08/24/20) X-RAY EXAM OF KNEE 3 (04/20/18) X-RAY EXAM OF SINUSES (10/26/16) Problem List Initiated/Reviewed/Updated: Yes My Orders Last 24 Hours: My Active Orders 09/18/20 10:00 Lactated Ringers [Ringers, Lactated] 1,000 ml IV ASDIRECTED 09/19/20 10:00 Levofloxacin/Dextrose 5%-Water [Levaquin in D5W 750 MG/150 ML] 750 mg Premix Bag 1 bag IV Q48H 09/19/20 10:27 Loperamide [Imodium] 2 mg PO Q4H PRN 09/19/20 10:36 Hydrocortisone Sod Succinate [Solu-CORTEF] 100 mg IVPUSH ONETIME ONE 09/19/20 21:00 Doxycycline [Vibramycin] 100 mg PO BID 09/20/20 05:00 BASIC METABOLIC PANEL,BMP [CHEM] Timed CBC W/O DIFF,HEMOGRAM [HEME] Timed (1) Plan: ASSESSMENT AND RECOMMENDATIONS- Bilateral pneumonia with septic shock-complicated by acute respiratory failure with hypoxia and hypotension. I suspect this is a community-acquired pneumonia that has blossomed during her hospital stay. Tolerating antibiotics and seems to be getting better from a respiratory standpoint. Still requiring norepinephrine despite adequate volume resuscitation. -Antibiotic coverage with levofloxacin and meropenem -Hydrocortisone x1 -Continue norepinephrine, wean as able -Symptomatic management -Supplement oxygen -Hold antihypertensives -Follow-up cultures Generalized abdominal pain-ongoing diarrhea. CT showed inflammation in the ascending and transverse colon. She is on antibiotics. She has a history of ischemic colitis but this does not quite look like ischemic colitis. -Consider steroids -Symptomatic management Left knee cellulitis-she has been treated with vancomycin. This seems to be getting better. -Change antibiotic coverage to doxycycline -Postoperative care per orthopedic team Essential hypertension-still hypotensive requiring norepinephrine but heart rate is now tachycardic. -Hold antihypertensives -Continue beta-samy Acute kidney injury-creatinine has nearly doubled in the past 48 hours, probably related to her significant and prolonged hypotension. Hopefully this will come around over the next 24 hours after volume resuscitation and adequate blood pressure control. Maintenance issues - - DVT prophylaxis -SCDs - GI prophylaxis -PPI - Nutrition -regular as tolerated Holland Bruce M.D.
[2020-09-19] MEDS ORDERED: Hydrocortisone Sodium Succinate 100 MG/2 ML SDV IVPUSH ONE (11:30)
[2020-09-19] MEDS: Rosuvastatin 10 MG Tab PO SCH (11:37)
[2020-09-19] MEDS: Furosemide 20 MG Tab PO SCH (11:38)
[2020-09-19] MEDS: Lactobacillus Rhamnosus GG (Probiotic) Cap PO SCH ×2 (11:38→20:56)
[2020-09-19] MEDS: Metoprolol Tartrate 25 MG Tab PO SCH ×2 (11:38→20:55)
[2020-09-19] MEDS: Potassium Chloride 20 MEQ Tab.ER PO SCH (11:38)
[2020-09-19] MEDS: Terazosin 1 MG Cap PO SCH ×2 (11:38→20:56)
[2020-09-19] MEDS: Aspirin 325 MG Tab.EC PO SCH (11:38)
[2020-09-19] MEDS: Levofloxacin/Dextrose 5%-Water 750 MG in Premix Bag 1 BAG IV SCH (11:39)
[2020-09-19] MEDS: Cholecalciferol (Vitamin D3) 25 MCG Tab PO SCH (11:39)
[2020-09-19] MEDS: Loperamide 2 MG Cap PO PRN (11:52)
[2020-09-19] MEDS: Gabapentin 300 MG Cap PO SCH (20:56)
[2020-09-19] MEDS: Doxycycline 100 MG Cap PO SCH (20:56)
[2020-09-20] MEDS: Loperamide 2 MG Cap PO PRN ×2 (05:59→10:40)
[2020-09-20] MEDS: Meropenem 1 GM in Sodium Chloride 0.9% 100 ML IV SCH (06:06)
[2020-09-20] MEDS: Cholecalciferol (Vitamin D3) 25 MCG Tab PO SCH (08:34)
[2020-09-20] MEDS: Doxycycline 100 MG Cap PO SCH ×2 (08:35→21:12)
[2020-09-20] MEDS: Pantoprazole 40 MG Tab.CR PO SCH (08:35)
[2020-09-20] MEDS: Metoprolol Tartrate 25 MG Tab PO SCH ×2 (08:35→21:12)
[2020-09-20] MEDS: Aspirin 325 MG Tab.EC PO SCH (08:35)
[2020-09-20] MEDS: Potassium Chloride 20 MEQ Tab.ER PO SCH (08:35)
[2020-09-20] MEDS: Terazosin 1 MG Cap PO SCH ×2 (08:36→21:13)
[2020-09-20] MEDS: Lactobacillus Rhamnosus GG (Probiotic) Cap PO SCH ×2 (08:36→21:13)
[2020-09-20] MEDS: Rosuvastatin 10 MG Tab PO SCH (08:36)
[2020-09-20] MEDS: Furosemide 20 MG Tab PO SCH (08:38)
--- NOTE | 2020-09-20 10:11 | PCM.CONSN ---
- General Info Date of Service: 09/20/20 Subjective Update: No acute events overnight. Still having some abdominal pain but diarrhea seems a little better. No fevers. She is off supplemental oxygen. She is off norepinephrine and her blood pressure has stabilized. No new positive culture results. Feeling better today. Appetite is better. Functional Status: Reports: Pain Controlled, Tolerating Diet - Review of Systems General: Reports: Weakness. Denies: Fever Gastrointestinal: Reports: Abdominal Pain, Diarrhea - Patient Data Vitals - Most Recent: Last Vital Signs Temp 35.7 C L 09/20/20 06:00 Pulse 75 09/20/20 09:43 Resp 9 L 09/20/20 08:00 BP 150/82 H 09/20/20 09:43 Pulse Ox 97 09/20/20 08:00 Weight - Most Recent: 66.224 kg I&O - Last 24 Hours: Intake & Output 09/19/20 09/20/20 09/20/20 22:59 06:59 14:59 Intake Total 1030 866 Output Total 1500 800 Balance -470 66 Lab Results Last 24 Hours: Laboratory Results - last 24 hr 09/20/20 09/20/20 Range/Units 06:18 06:18 WBC 9.2 (4.5-11.0) K/uL RBC 3.33 (3.30-5.50) M/uL Hgb 9.0 L (12.0-15.0) g/dL Hct 28.8 L (36.0-48.0) % MCV 87 (80-98) fL MCH 27 (27-31) pg MCHC 31 L (32-36) % Plt Count 295 (150-400) K/uL Sodium 131 L (140-148) mmol/L Potassium 3.9 (3.6-5.2) mmol/L Chloride 99 L (100-108) mmol/L Carbon Dioxide 23 (21-32) mmol/L Anion Gap 12.9 (5.0-14.0) mmol/L BUN 29 H (7-18) mg/dL Creatinine 1.3 H (0.6-1.0) mg/dL Est Cr Clr Drug Dosing 29.50 mL/min Estimated GFR (MDRD) 40 L (>60) Glucose 97 (74-106) mg/dL Calcium 8.2 L (8.5-10.1) mg/dL [place] Results Last 24 Hours: Microbiology 09/17/20 14:10 Aerobic Blood Culture - Preliminary Blood - Venous - Lab Draw NO GROWTH AFTER 2 DAYS Anaerobic Blood Culture - Preliminary NO GROWTH AFTER 2 DAYS 09/17/20 14:00 Aerobic Blood Culture - Preliminary Blood - Arm, Right NO GROWTH AFTER 2 DAYS Anaerobic Blood Culture - Preliminary NO GROWTH AFTER 2 DAYS 09/15/20 16:42 Anaerobic Culture - Final Knee, Left NO GROWTH AFTER 3 DAYS Med Orders - Current: Current Medications Acetaminophen (Tylenol Extra Strength) 500 mg PO Q6H PRN PRN Reason: Pain Hydrocodone Bitart/Acetaminophen (Sultan 325-5 Mg) 2 tab PO Q4H PRN PRN Reason: Pain (mild 1-3) Last Admin: 09/18/20 18:06 Dose: 2 tab Documented by: Aspirin (Ecotrin) 325 mg PO DAILY [facility] Last Admin: 09/20/20 08:35 Dose: 325 mg Documented by: Bisacodyl (Dulcolax) 10 mg RECTAL DAILY PRN PRN Reason: Constipation Last Admin: 09/16/20 20:29 Dose: 10 mg Documented by: Cetirizine HCl (Zyrtec) 10 mg PO DAILY PRN PRN Reason: Allergies Cholecalciferol (Vitamin D3) 25 mcg PO DAILY [facility] Last Admin: 09/20/20 08:34 Dose: 25 mcg Documented by: Doxycycline Hyclate (Vibramycin) 100 mg PO BID [facility] Last Admin: 09/20/20 08:35 Dose: 100 mg Documented by: Furosemide (Lasix) 20 mg PO DAILY [facility] Last Admin: 09/20/20 08:38 Dose: 20 mg Documented by: Gabapentin (Neurontin) 300 mg PO BEDTIME [facility] Last Admin: 09/19/20 20:56 Dose: 300 mg Documented by: Hydromorphone HCl (Dilaudid) 0.5 mg IVPUSH Q2H PRN PRN Reason: Pain (severe 7-10) Last Admin: 09/19/20 01:17 Dose: 0.5 mg Documented by: Norepinephrine Bitartrate 4 mg (/ Dextrose/Water) 250 mls @ 7.5 mls/hr IV TITRATE [facility]; Protocol Last Titration: 09/19/20 22:09 Dose: 0 mcg/min, 0 mls/hr Documented by: Meropenem 1 gm/ Sodium (Chloride) 100 mls @ 200 mls/hr IV Q8H [facility] Last Admin: 09/20/20 06:06 Dose: 200 mls/hr Documented by: Levofloxacin/Dextrose 750 mg/ (Premix) 150 mls @ 100 mls/hr IV Q48H [facility] Last Admin: 09/19/20 11:39 Dose: 100 mls/hr Documented by: Lactated Ringer's (Ringers, Lactated) 1,000 mls @ 25 mls/hr IV ASDIRECTED [facility] Last Admin: 09/18/20 13:46 Dose: 25 mls/hr Documented by: Ketotifen Fumarate (Ketotifen 0.025% Ophth Soln) 0 ml EYEBOTH BID PRN PRN Reason: Allergies Lactobacillus Rhamnosus (Culturelle) 1 cap PO BID [facility] Last Admin: 09/20/20 08:36 Dose: 1 cap Documented by: Lisinopril (Prinivil) 40 mg PO BID [facility] Last Admin: 09/17/20 08:48 Dose: 40 mg Documented by: Loperamide HCl (Imodium) 2 mg PO Q4H PRN PRN Reason: DIARRHEA Last Admin: 09/20/20 05:59 Dose: 2 mg Documented by: Metoprolol Tartrate (Lopressor) 25 mg PO BID [facility] Last Admin: 09/20/20 08:35 Dose: 25 mg Documented by: Ondansetron HCl (Zofran Odt) 4 mg PO Q6H PRN PRN Reason: Nausea Last Admin: 09/19/20 03:30 Dose: 4 mg Documented by: Pantoprazole Sodium (Protonix) 40 mg PO ACBREAKFAST [facility] Last Admin: 09/20/20 08:35 Dose: 40 mg Documented by: Potassium Chloride (Klor-Con M20) 20 meq PO DAILY [facility] Last Admin: 09/20/20 08:35 Dose: 20 meq Documented by: Rosuvastatin Calcium (Crestor) 5 mg PO DAILY [facility] Last Admin: 09/20/20 08:36 Dose: 5 mg Documented by: Terazosin HCl (Hytrin) 2 mg PO BID [facility] Last Admin: 09/20/20 08:36 Dose: 2 mg Documented by: Discontinued Medications Bupivacaine HCl (Marcaine 0.5%) Confirm Administered Dose 30 ml .ROUTE .[facility]-MED ONE Stop: 09/15/20 14:49 Docusate Sodium (Colace) 200 mg PO DAILY PRN PRN Reason: Constipation Last Admin: 09/16/20 19:59 Dose: 200 mg Documented by: Fentanyl (Sublimaze) Confirm Administered Dose 100 mcg .ROUTE .[facility]-MED ONE Stop: 09/15/20 16:09 Hydrocortisone Sodium Succinate (Solu-Cortef) 100 mg IVPUSH ONETIME ONE Stop: 09/19/20 11:31 Last Admin: 09/19/20 11:40 Dose: 100 mg Documented by: Vancomycin HCl 1 gm/ Sodium (Chloride) 250 mls @ 150 mls/hr IV ONETIME ONE Stop: 09/15/20 17:39 Last Admin: 09/15/20 15:59 Dose: 150 mls/hr Documented by: Lactated Ringer's (Ringers, Lactated) 1,000 mls @ 75 mls/hr IV ASDIRECTED [facility] Last Admin: 09/16/20 00:26 Dose: 75 mls/hr Documented by: Vancomycin HCl 1 gm/ Sodium (Chloride) 250 mls @ 150 mls/hr IV Q12H [facility] Last Admin: 09/18/20 03:00 Dose: 150 mls/hr Documented by: Sodium Chloride (Normal Saline) 1,000 mls @ 100 mls/hr IV ASDIRECTED [facility] Sodium Chloride (Normal Saline) 500 mls @ 999 mls/hr IV ASDIRECTED [facility] Stop: 09/17/20 16:30 Sodium Chloride (Normal Saline) 500 mls @ 999 mls/hr IV ASDIRECTED [facility] Stop: 09/17/20 16:30 Lactated Ringer's (Ringers, Lactated) 1,000 mls @ 100 mls/hr IV ASDIRECTED [facility] Last Admin: 09/18/20 01:00 Dose: 100 mls/hr Documented by: Levofloxacin/Dextrose 750 mg/ (Premix) 150 mls @ 100 mls/hr IV Q24H [facility] Last Admin: 09/17/20 13:54 Dose: 100 mls/hr Documented by: Sodium Chloride (Normal Saline) 1,000 mls @ 999 mls/hr IV ASDIRECTED [facility] Stop: 09/17/20 14:16 Last Admin: 09/17/20 13:20 Dose: 999 mls/hr Documented by: Vancomycin HCl 1 gm/ Sodium (Chloride) 250 mls @ 150 mls/hr IV Q24H [facility] Last Admin: 09/19/20 06:01 Dose: 150 mls/hr Documented by: Sodium Chloride (Normal Saline) 500 mls @ 500 mls/hr IV ASDIRECTED [facility] Stop: 09/18/20 17:31 Last Admin: 09/18/20 16:35 Dose: 500 mls/hr Documented by: Magnesium Citrate (Citrate Of Magnesia) 150 ml PO ONETIME ONE Stop: 09/16/20 08:01 Last Admin: 09/16/20 07:57 Dose: 150 ml Documented by: Midazolam HCl (Versed 1 Mg/Ml) Confirm Administered Dose 2 mg .ROUTE .STK-MED ONE Stop: 09/15/20 16:09 Oxycodone/Acetaminophen (Percocet 325-5 Mg) 1 - 2 tab PO Q6H PRN PRN Reason: Pain (severe 7-10) Pantoprazole Sodium (Protonix Iv) 40 mg IVPUSH ONETIME ONE Stop: 09/17/20 18:01 Last Admin: 09/17/20 18:41 Dose: 40 mg Documented by: Polyethylene Glycol (Miralax) 17 gm PO DAILY PRN PRN Reason: Constipation Propofol (Diprivan 20 Ml) Confirm Administered Dose 200 mg .ROUTE .STK-MED ONE Stop: 09/15/20 16:09 - Exam Quality Assessment: No: Supplemental Oxygen General: Alert, Oriented, Cooperative, No Acute Distress Lungs: Normal Respiratory Effort, Crackles (few right lung base) Cardiovascular: Regular Rate, Regular Rhythm GI/Abdominal Exam: Soft, No Distention Extremities: No Pedal Edema. No: Increased Warmth Skin: Warm, Dry Psy/Mental Status: Alert, Normal Affect Sepsis Event Note - Evaluation Sepsis Screening Result: No Definite Risk - Focused Exam Vital Signs: Vital Signs Temp Pulse Pulse Resp BP BP Pulse Ox 09/20/20 09:43 75 150/82 H 09/20/20 08:36 138/76 09/20/20 08:35 73 138/76 09/20/20 08:00 62 9 L 138/76 97 09/20/20 07:00 76 11 L 125/75 97 09/20/20 06:00 35.7 C L 20 153/87 H 98 09/20/20 05:00 9 L 122/70 98 09/20/20 04:00 15 136/76 96 09/20/20 03:00 35.6 C L 14 130/70 96 09/20/20 02:00 15 102/62 96 09/20/20 01:00 12 135/72 97 09/20/20 00:00 36.0 C L 21 H 126/72 96 09/19/20 23:00 35.8 C L 9 L 112/65 97 Consult PN Assessment/Plan Procedures: Procedures AGENT NOS ASSAY W/OPTIC (03/24/20) ASSAY OF BLOOD/URIC ACID (04/20/18) ASSAY OF LACTIC ACID (01/18/20) ASSAY OF LIPASE (03/24/20) ASSAY OF MAGNESIUM (03/24/20) ASSAY OF NATRIURETIC PEPTIDE (03/19/18) ASSAY OF PHOSPHORUS (12/25/18) ASSAY OF TROPONIN QUANT (03/24/20) BIOPSY/REMOVAL LYMPH NODES (02/23/15) BLOOD CULTURE FOR BACTERIA (03/24/20) BREAST TOMOSYNTHESIS BI (05/06/20) C DIFF AMPLIFIED PROBE (03/24/20) C-REACTIVE PROTEIN (04/20/18) CARDIOVASCULAR STRESS TEST (03/02/20) COLONOSCOPY AND BIOPSY (12/25/18) COMP SCREEN MAMMOGRAM ADD-ON (05/19/16) COMPLETE CBC AUTOMATED (12/25/18) COMPLETE CBC W/AUTO DIFF WBC (03/24/20) COMPREHEN METABOLIC PANEL (03/24/20) COMPUTER DX MAMMOGRAM ADD-ON (02/13/15) CT ABD & PELV 1/> REGNS (10/14/15) CT ABD & PELV W/CONTRAST (03/24/20) CT ABD & PELVIS W/O CONTRAST (03/24/20) CT ANGIO ABDOM W/O & W/DYE (12/25/18) CT ANGIOGRAPHY HEAD (01/18/20) CT ANGIOGRAPHY NECK (01/18/20) CT HEAD/BRAIN W/O DYE (02/27/20) CT MAXILLOFACIAL W/O & W/DYE (04/06/18) CT MAXILLOFACIAL W/O DYE (10/05/16) CULTURE SCREEN ONLY (12/25/18) DIAGNOSTIC COLONOSCOPY (04/17/20) DRAIN/INJ JOINT/BURSA W/O US (05/07/20) EGD BIOPSY SINGLE/MULTIPLE (04/17/20) ELECTROCARDIOGRAM REPORT (02/27/20) ELECTROCARDIOGRAM TRACING (02/27/20) EMERGENCY DEPT VISIT (05/02/20) EMERGENCY DEPT VISIT (03/24/20) EMERGENCY DEPT VISIT (03/24/20) EMERGENCY DEPT VISIT (02/27/20) EMERGENCY DEPT VISIT (02/27/20) EMERGENCY DEPT VISIT (02/15/20) EMERGENCY DEPT VISIT (01/18/20) EMERGENCY DEPT VISIT (12/25/18) EMERGENCY DEPT VISIT (12/25/18) EMERGENCY DEPT VISIT (04/20/18) EMERGENCY DEPT VISIT (04/20/18) EMERGENCY DEPT VISIT (03/19/18) EMERGENCY DEPT VISIT (10/26/16) EMERGENCY DEPT VISIT (03/05/16) EMERGENCY DEPT VISIT (10/27/14) EMERGENCY DEPT VISIT (10/27/14) ENDOVENOUS RF 1ST VEIN (12/29/16) EXAM SYNOVIAL FLUID CRYSTALS (03/05/16) EXC ABDL HALEY DEEP 5 CM/> (09/08/14) EXTREMITY STUDY (09/08/20) EXTREMITY STUDY (01/02/17) EXTREMITY STUDY (03/05/16) EXTREMITY STUDY (02/11/16) GAIT TRAINING THERAPY (08/24/20) HEMOGLOBIN (03/24/20) HOT OR COLD PACKS THERAPY (02/05/15) HT MUSCLE IMAGE SPECT MULT (03/02/20) HYDRATE IV INFUSION ADD-ON (03/24/20) HYDRATION IV INFUSION INIT (01/18/20) IIV4 VACC NO PRSV 0.5 ML IM (09/08/14) LEUKOCYTE ASSESSMENT FECAL (03/24/20) MANUAL THERAPY 1/> REGIONS (08/25/20) METABOLIC PANEL TOTAL CA (03/24/20) MRI BRAIN STEM W/O & W/DYE (10/27/16) MRI BRAIN STEM W/O DYE (01/23/20) MRI JNT OF LWR EXTRE W/O DYE (06/03/20) MRI LUMBAR SPINE W/O DYE (07/31/13) NJX SCLRSNT BILLING DEPARTMENT SUPERVISOR INCMPTNT VN (12/29/16) OCCULT BLD FECES 1-3 TESTS (03/24/20) OFFICE/OUTPATIENT VISIT EST (05/07/20) OVA AND PARASITES SMEARS (12/25/18) PROTHROMBIN TIME (01/18/20) PRP I/RUIZ INIT REDUC >5 YR (09/08/14) PT EVAL MOD COMPLEX 30 MIN (08/24/20) PT EVALUATION (02/26/16) RBC SED RATE NONAUTOMATED (04/20/18) REMOVAL OF BREAST LESION (02/23/15) ROUTINE VENIPUNCTURE (03/24/20) SCR MAMMO BI INCL CAD (05/06/20) SELF CARE MNGMENT TRAINING (08/25/20) SMEAR COMPLEX STAIN (12/25/18) STOOL CULTR AEROBIC BACT EA (03/24/20) THER/PROPH/DIAG INJ IV PUSH (02/27/20) THER/PROPH/DIAG INJ SC/IM (03/24/20) THER/PROPH/DIAG IV INF ADDON (03/24/20) THER/PROPH/DIAG IV INF INIT (03/24/20) THERAPEUTIC ACTIVITIES (08/25/20) THERAPEUTIC EXERCISES (08/25/20) THROMBOPLASTIN TIME PARTIAL (01/18/20) TISSUE EXAM BY PATHOLOGIST (04/17/20) TISSUE EXAM BY PATHOLOGIST (09/08/14) TISSUE EXAM BY PATHOLOGIST (09/08/14) TREAT TOE DISLOCATION (03/05/16) TTE W/DOPPLER COMPLETE (01/23/20) TX/PRO/DX INJ NEW DRUG ADDON (02/27/20) TX/PRO/DX INJ SAME DRUG FRONT ATTENDANT (12/25/18) TX/PROPH/DG ADDL SEQ IV INF (03/24/20) ULTRASOUND BREAST COMPLETE (03/14/17) ULTRASOUND BREAST LIMITED (02/13/15) URINALYSIS AUTO W/SCOPE (04/20/18) US EXAM ABDO BACK WALL COMP (08/23/13) US GUIDE INTRAOP (02/23/15) X-RAY EXAM CHEST 1 VIEW (02/27/20) X-RAY EXAM CHEST 2 VIEWS (03/19/18) X-RAY EXAM KNEE 4 OR MORE (05/07/20) X-RAY EXAM OF ABDOMEN (10/27/14) X-RAY EXAM OF KNEE 1 OR 2 (08/24/20) X-RAY EXAM OF KNEE 3 (04/20/18) X-RAY EXAM OF SINUSES (10/26/16) Problem List Initiated/Reviewed/Updated: Yes My Orders Last 24 Hours: My Active Orders 09/19/20 10:00 Levofloxacin/Dextrose 5%-Water [Levaquin in D5W 750 MG/150 ML] 750 mg Premix Bag 1 bag IV Q48H 09/19/20 10:27 Loperamide [Imodium] 2 mg PO Q4H PRN 09/19/20 21:00 Doxycycline [Vibramycin] 100 mg PO BID 09/20/20 10:04 methylPREDNISolone Sod Succ [Solu-MEDROL] 125 mg IVPUSH ONETIME ONE 09/20/20 10:05 HGB [HEMOGLOBIN] [HEME] Timed 09/20/20 10:08 Transfer Patient (Change bed) [ADT] Routine 09/20/20 22:00 methylPREDNISolone Sod Succ [Solu-MEDROL] 40 mg IVPUSH Q12H 09/21/20 05:00 BASIC METABOLIC PANEL,BMP [CHEM] Timed 09/21/20 07:00 PT Evaluation and Treatment [CONS] Routine Plan: ASSESSMENT AND RECOMMENDATIONS- Bilateral pneumonia with septic shock-complicated by acute respiratory failure with hypoxia and hypotension. I suspect this is a community-acquired pneumonia that has blossomed during her hospital stay. Off oxygen and norepinephrine today and doing much better. -Antibiotic coverage with levofloxacin -Discontinue norepinephrine -Symptomatic management -Supplement oxygen -Hold antihypertensives -Follow-up cultures Generalized abdominal pain with right-sided colitis-not improving with antibiotic therapy so could be inflammatory. Diarrhea is a little better with a dose of steroids yesterday and some Imodium. -Trial of Solu-Medrol -Symptomatic management Left knee cellulitis-knee looks good and pain is improving. Transition to oral antibiotics on 09/19. -Continue doxycycline -Postoperative care per orthopedic team Essential hypertension-still hypotensive requiring norepinephrine but heart rate is now tachycardic. -Hold antihypertensives -Continue beta-samy Acute kidney injury-creatinine has improved since yesterday and urine output has been good. Maintenance issues - - DVT prophylaxis -SCDs - GI prophylaxis -PPI - Nutrition -regular as tolerated Disposition-I anticipate discharge home after the hospital stay, probably with home care. She is stable for transfer out of the intensive care unit today. Holland Bruce M.D.
[2020-09-20] MEDS ORDERED: methylPREDNISolone Sodium Succinate 125 MG/2 ML SDV IVPUSH ONE (10:45)
[2020-09-20] MEDS: Acetaminophen/HYDROcodone 325-5 MG Tab PO PRN ×2 (16:50→21:14)
[2020-09-20] MEDS: Gabapentin 300 MG Cap PO SCH (21:12)
[2020-09-20] MEDS: methylPREDNISolone Sodium Succinate 40 MG/1 ML SDV IVPUSH SCH (21:12)
[2020-09-20] MEDS: Lisinopril 20 MG Tab PO SCH (21:12)
[2020-09-21] MEDS: Acetaminophen/HYDROcodone 325-5 MG Tab PO PRN ×2 (01:34→22:33)
[2020-09-21] MEDS: Aspirin 325 MG Tab.EC PO SCH (08:14)
[2020-09-21] MEDS: Furosemide 20 MG Tab PO SCH (08:15)
[2020-09-21] MEDS: Lisinopril 20 MG Tab PO SCH ×2 (08:15→20:48)
[2020-09-21] MEDS: Doxycycline 100 MG Cap PO SCH ×2 (08:16→20:48)
[2020-09-21] MEDS: Terazosin 1 MG Cap PO SCH ×2 (08:16→20:47)
[2020-09-21] MEDS: Metoprolol Tartrate 25 MG Tab PO SCH ×2 (08:17→20:47)
[2020-09-21] MEDS: Lactobacillus Rhamnosus GG (Probiotic) Cap PO SCH ×2 (08:17→20:47)
[2020-09-21] MEDS: Cholecalciferol (Vitamin D3) 25 MCG Tab PO SCH (08:17)
[2020-09-21] MEDS: Potassium Chloride 20 MEQ Tab.ER PO SCH (08:18)
[2020-09-21] MEDS: Pantoprazole 40 MG Tab.CR PO SCH (08:18)
[2020-09-21] MEDS: Rosuvastatin 10 MG Tab PO SCH (08:18)
[2020-09-21] MEDS ORDERED: Potassium Chloride 20 MEQ Tab.ER PO ONE ×2 (08:45→17:00)
[2020-09-21] MEDS: methylPREDNISolone Sodium Succinate 40 MG/1 ML SDV IVPUSH SCH (10:29)
[2020-09-21] MEDS: Levofloxacin/Dextrose 5%-Water 750 MG in Premix Bag 1 BAG IV SCH (10:29)
--- NOTE | 2020-09-21 14:02 | PCM.CONSN ---
- General Info Date of Service: 09/21/20 Subjective Update: Ms. Dumont shown further improvement since yesterday with increased energy and appetite. Vital signs have been stable and she has remained afebrile. Respiratory status also seems to be improving on a daily basis. She is ambulating with minimal assistance. Functional Status: Reports: Tolerating Diet, Ambulating, Urinating - Review of Systems General: Reports: Weakness, Fatigue. Denies: Fever, Chills Pulmonary: Reports: No Symptoms Cardiovascular: Reports: No Symptoms Gastrointestinal: Reports: No Symptoms Musculoskeletal: Reports: Joint Pain - Patient Data Vitals - Most Recent: Last Vital Signs Temp 97.1 F 09/21/20 11:00 Pulse 74 09/21/20 11:00 Resp 16 09/21/20 11:00 BP 119/72 09/21/20 11:00 Pulse Ox 96 09/21/20 11:00 Weight - Most Recent: 146 lb I&O - Last 24 Hours: Intake & Output 09/20/20 09/21/20 09/21/20 22:59 06:59 14:59 Intake Total 965 476 8604 Output Total 1350 1300 1100 Balance -750 -700 10 Lab Results Last 24 Hours: Laboratory Results - last 24 hr 09/21/20 09/21/20 Range/Units 04:00 04:00 Hgb 8.7 L (12.0-15.0) g/dL Sodium 134 L (140-148) mmol/L Potassium 3.3 L (3.6-5.2) mmol/L Chloride 99 L (100-108) mmol/L Carbon Dioxide 25 (21-32) mmol/L Anion Gap 13.3 (5.0-14.0) mmol/L BUN 22 H (7-18) mg/dL Creatinine 1.0 (0.6-1.0) mg/dL Est Cr Clr Drug Dosing 38.35 mL/min Estimated GFR (MDRD) 54 L (>60) Glucose 151 H (74-106) mg/dL Calcium 7.9 L (8.5-10.1) mg/dL [place] Results Last 24 Hours: Microbiology 09/17/20 14:00 Aerobic Blood Culture - Preliminary Blood - Arm, Right NO GROWTH AFTER 3 DAYS Anaerobic Blood Culture - Preliminary NO GROWTH AFTER 3 DAYS 09/17/20 14:10 Aerobic Blood Culture - Preliminary Blood - Venous - Lab Draw NO GROWTH AFTER 3 DAYS Anaerobic Blood Culture - Preliminary NO GROWTH AFTER 3 DAYS Med Orders - Current: Current Medications Acetaminophen (Tylenol Extra Strength) 500 mg PO Q6H PRN PRN Reason: Pain Hydrocodone Bitart/Acetaminophen ([place] 325-5 Mg) 2 tab PO Q4H PRN PRN Reason: Pain (mild 1-3) Last Admin: 09/21/20 01:34 Dose: 2 tab Documented by: Aspirin (Ecotrin) 325 mg PO DAILY [facility] Last Admin: 09/21/20 08:14 Dose: 325 mg Documented by: Bisacodyl (Dulcolax) 10 mg RECTAL DAILY PRN PRN Reason: Constipation Last Admin: 09/16/20 20:29 Dose: 10 mg Documented by: Cetirizine HCl (Zyrtec) 10 mg PO DAILY PRN PRN Reason: Allergies Cholecalciferol (Vitamin D3) 25 mcg PO DAILY [facility] Last Admin: 09/21/20 08:17 Dose: 25 mcg Documented by: Doxycycline Hyclate (Vibramycin) 100 mg PO BID [facility] Last Admin: 09/21/20 08:16 Dose: 100 mg Documented by: Furosemide (Lasix) 20 mg PO DAILY [facility] Last Admin: 09/21/20 08:15 Dose: 20 mg Documented by: Gabapentin (Neurontin) 300 mg PO BEDTIME [facility] Last Admin: 09/20/20 21:12 Dose: 300 mg Documented by: Hydromorphone HCl (Dilaudid) 0.5 mg IVPUSH Q2H PRN PRN Reason: Pain (severe 7-10) Last Admin: 09/19/20 01:17 Dose: 0.5 mg Documented by: Levofloxacin/Dextrose 750 mg/ (Premix) 150 mls @ 100 mls/hr IV Q48H [facility] Last Admin: 09/21/20 10:29 Dose: 100 mls/hr Documented by: Ketotifen Fumarate (Ketotifen 0.025% Ophth Soln) 0 ml EYEBOTH BID PRN PRN Reason: Allergies Lactobacillus Rhamnosus (Culturelle) 1 cap PO BID [facility] Last Admin: 09/21/20 08:17 Dose: 1 cap Documented by: Lisinopril (Prinivil) 40 mg PO BID [facility] Last Admin: 09/21/20 08:15 Dose: 40 mg Documented by: Loperamide HCl (Imodium) 2 mg PO Q4H PRN PRN Reason: DIARRHEA Last Admin: 09/20/20 10:40 Dose: 2 mg Documented by: Metoprolol Tartrate (Lopressor) 25 mg PO BID [facility] Last Admin: 09/21/20 08:17 Dose: 25 mg Documented by: Ondansetron HCl (Zofran Odt) 4 mg PO Q6H PRN PRN Reason: Nausea Last Admin: 09/19/20 03:30 Dose: 4 mg Documented by: Pantoprazole Sodium (Protonix) 40 mg PO ACBREAKFAST [facility] Last Admin: 09/21/20 08:18 Dose: 40 mg Documented by: Potassium Chloride (Klor-Con M20) 20 meq PO DAILY [facility] Last Admin: 09/21/20 08:18 Dose: 20 meq Documented by: Potassium Chloride (Klor-Con M20) 40 meq PO ONETIME ONE Stop: 09/21/20 17:01 Rosuvastatin Calcium (Crestor) 5 mg PO DAILY [facility] Last Admin: 09/21/20 08:18 Dose: 5 mg Documented by: Terazosin HCl (Hytrin) 2 mg PO BID [facility] Last Admin: 09/21/20 08:16 Dose: 2 mg Documented by: Discontinued Medications Bupivacaine HCl (Marcaine 0.5%) Confirm Administered Dose 30 ml .ROUTE .STK-MED ONE Stop: 09/15/20 14:49 Docusate Sodium (Colace) 200 mg PO DAILY PRN PRN Reason: Constipation Last Admin: 09/16/20 19:59 Dose: 200 mg Documented by: Fentanyl (Sublimaze) Confirm Administered Dose 100 mcg .ROUTE .STK-MED ONE Stop: 09/15/20 16:09 Hydrocortisone Sodium Succinate (Solu-Cortef) 100 mg IVPUSH ONETIME ONE Stop: 09/19/20 11:31 Last Admin: 09/19/20 11:40 Dose: 100 mg Documented by: Vancomycin HCl 1 gm/ Sodium (Chloride) 250 mls @ 150 mls/hr IV ONETIME ONE Stop: 09/15/20 17:39 Last Admin: 09/15/20 15:59 Dose: 150 mls/hr Documented by: Lactated Ringer's (Ringers, Lactated) 1,000 mls @ 75 mls/hr IV ASDIRECTED [facility] Last Admin: 09/16/20 00:26 Dose: 75 mls/hr Documented by: Vancomycin HCl 1 gm/ Sodium (Chloride) 250 mls @ 150 mls/hr IV Q12H [facility] Last Admin: 09/18/20 03:00 Dose: 150 mls/hr Documented by: Sodium Chloride (Normal Saline) 1,000 mls @ 100 mls/hr IV ASDIRECTED [facility] Sodium Chloride (Normal Saline) 500 mls @ 999 mls/hr IV ASDIRECTED [facility] Stop: 09/17/20 16:30 Sodium Chloride (Normal Saline) 500 mls @ 999 mls/hr IV ASDIRECTED [facility] Stop: 09/17/20 16:30 Lactated Ringer's (Ringers, Lactated) 1,000 mls @ 100 mls/hr IV ASDIRECTED [facility] Last Admin: 09/18/20 01:00 Dose: 100 mls/hr Documented by: Norepinephrine Bitartrate 4 mg (/ Dextrose/Water) 250 mls @ 7.5 mls/hr IV TITRATE [facility]; Protocol Last Titration: 09/19/20 22:09 Dose: 0 mcg/min, 0 mls/hr Documented by: Levofloxacin/Dextrose 750 mg/ (Premix) 150 mls @ 100 mls/hr IV Q24H [facility] Last Admin: 09/17/20 13:54 Dose: 100 mls/hr Documented by: Meropenem 1 gm/ Sodium (Chloride) 100 mls @ 200 mls/hr IV Q8H [facility] Last Admin: 09/20/20 06:06 Dose: 200 mls/hr Documented by: Sodium Chloride (Normal Saline) 1,000 mls @ 999 mls/hr IV ASDIRECTED [facility] Stop: 09/17/20 14:16 Last Admin: 09/17/20 13:20 Dose: 999 mls/hr Documented by: Vancomycin HCl 1 gm/ Sodium (Chloride) 250 mls @ 150 mls/hr IV Q24H [facility] Last Admin: 09/19/20 06:01 Dose: 150 mls/hr Documented by: Lactated Ringer's (Ringers, Lactated) 1,000 mls @ 25 mls/hr IV ASDIRECTED [facility] Last Admin: 09/18/20 13:46 Dose: 25 mls/hr Documented by: Sodium Chloride (Normal Saline) 500 mls @ 500 mls/hr IV ASDIRECTED [facility] Stop: 09/18/20 17:31 Last Admin: 09/18/20 16:35 Dose: 500 mls/hr Documented by: Magnesium Citrate (Citrate Of Magnesia) 150 ml PO ONETIME ONE Stop: 09/16/20 08:01 Last Admin: 09/16/20 07:57 Dose: 150 ml Documented by: Methylprednisolone Sodium Succinate (Solu-Medrol) 125 mg IVPUSH ONETIME ONE Stop: 09/20/20 10:46 Last Admin: 09/20/20 10:40 Dose: 125 mg Documented by: Methylprednisolone Sodium Succinate (Solu-Medrol) 40 mg IVPUSH Q12H [facility] Last Admin: 09/21/20 10:29 Dose: 40 mg Documented by: Midazolam HCl (Versed 1 Mg/Ml) Confirm Administered Dose 2 mg .ROUTE .STK-MED ONE Stop: 09/15/20 16:09 Oxycodone/Acetaminophen (Percocet 325-5 Mg) 1 - 2 tab PO Q6H PRN PRN Reason: Pain (severe 7-10) Pantoprazole Sodium (Protonix Iv) 40 mg IVPUSH ONETIME ONE Stop: 09/17/20 18:01 Last Admin: 09/17/20 18:41 Dose: 40 mg Documented by: Polyethylene Glycol (Miralax) 17 gm PO DAILY PRN PRN Reason: Constipation Potassium Chloride (Klor-Con M20) 40 meq PO ONETIME ONE Stop: 09/21/20 08:46 Last Admin: 09/21/20 10:30 Dose: 40 meq Documented by: Propofol (Diprivan 20 Ml) Confirm Administered Dose 200 mg .ROUTE .STK-MED ONE Stop: 09/15/20 16:09 - Exam Quality Assessment: DVT Prophylaxis General: Alert, Oriented, Cooperative, Mild Distress Lungs: Clear to Auscultation, Normal Respiratory Effort, Decreased Breath Sounds. No: Rales, Rhonchi, Wheezing Cardiovascular: Regular Rate, Regular Rhythm, No Murmurs GI/Abdominal Exam: Soft, Non-Tender, No Organomegaly, No Distention Extremities: Non-Tender, No Pedal Edema Sepsis Event Note - Evaluation Sepsis Screening Result: No Definite Risk - Focused Exam Vital Signs: Vital Signs Temp Temp Pulse Pulse Resp BP BP 09/21/20 11:00 97.1 F 74 16 119/72 09/21/20 08:17 62 161/94 H 09/21/20 08:16 161/94 H 09/21/20 08:15 161/94 H 09/21/20 08:12 96.5 F L 62 16 161/94 H 09/21/20 05:56 96.7 F L 60 18 146/80 H 09/21/20 02:57 18 Pulse Ox 09/21/20 11:00 96 09/21/20 08:17 09/21/20 08:16 09/21/20 08:15 09/21/20 08:12 97 09/21/20 05:56 96 09/21/20 02:57 Consult PN Assessment/Plan Procedures: Procedures AGENT NOS ASSAY W/OPTIC (03/24/20) ASSAY OF BLOOD/URIC ACID (04/20/18) ASSAY OF LACTIC ACID (01/18/20) ASSAY OF LIPASE (03/24/20) ASSAY OF MAGNESIUM (03/24/20) ASSAY OF NATRIURETIC PEPTIDE (03/19/18) ASSAY OF PHOSPHORUS (12/25/18) ASSAY OF TROPONIN QUANT (03/24/20) BIOPSY/REMOVAL LYMPH NODES (02/23/15) BLOOD CULTURE FOR BACTERIA (03/24/20) BREAST TOMOSYNTHESIS BI (05/06/20) C DIFF AMPLIFIED PROBE (03/24/20) C-REACTIVE PROTEIN (04/20/18) CARDIOVASCULAR STRESS TEST (03/02/20) COLONOSCOPY AND BIOPSY (12/25/18) COMP SCREEN MAMMOGRAM ADD-ON (05/19/16) COMPLETE CBC AUTOMATED (12/25/18) COMPLETE CBC W/AUTO DIFF WBC (03/24/20) COMPREHEN METABOLIC PANEL (03/24/20) COMPUTER DX MAMMOGRAM ADD-ON (02/13/15) CT ABD & PELV 1/> REGNS (10/14/15) CT ABD & PELV W/CONTRAST (03/24/20) CT ABD & PELVIS W/O CONTRAST (03/24/20) CT ANGIO ABDOM W/O & W/DYE (12/25/18) CT ANGIOGRAPHY HEAD (01/18/20) CT ANGIOGRAPHY NECK (01/18/20) CT HEAD/BRAIN W/O DYE (02/27/20) CT MAXILLOFACIAL W/O & W/DYE (04/06/18) CT MAXILLOFACIAL W/O DYE (10/05/16) CULTURE SCREEN ONLY (12/25/18) DIAGNOSTIC COLONOSCOPY (04/17/20) DRAIN/INJ JOINT/BURSA W/O US (05/07/20) EGD BIOPSY SINGLE/MULTIPLE (04/17/20) ELECTROCARDIOGRAM REPORT (02/27/20) ELECTROCARDIOGRAM TRACING (02/27/20) EMERGENCY DEPT VISIT (05/02/20) EMERGENCY DEPT VISIT (03/24/20) EMERGENCY DEPT VISIT (03/24/20) EMERGENCY DEPT VISIT (02/27/20) EMERGENCY DEPT VISIT (02/27/20) EMERGENCY DEPT VISIT (02/15/20) EMERGENCY DEPT VISIT (01/18/20) EMERGENCY DEPT VISIT (12/25/18) EMERGENCY DEPT VISIT (12/25/18) EMERGENCY DEPT VISIT (04/20/18) EMERGENCY DEPT VISIT (04/20/18) EMERGENCY DEPT VISIT (03/19/18) EMERGENCY DEPT VISIT (10/26/16) EMERGENCY DEPT VISIT (03/05/16) EMERGENCY DEPT VISIT (10/27/14) EMERGENCY DEPT VISIT (10/27/14) ENDOVENOUS RF 1ST VEIN (12/29/16) EXAM SYNOVIAL FLUID CRYSTALS (03/05/16) EXC ABDL HALEY DEEP 5 CM/> (09/08/14) EXTREMITY STUDY (09/08/20) EXTREMITY STUDY (01/02/17) EXTREMITY STUDY (03/05/16) EXTREMITY STUDY (02/11/16) GAIT TRAINING THERAPY (08/24/20) HEMOGLOBIN (03/24/20) HOT OR COLD PACKS THERAPY (02/05/15) HT MUSCLE IMAGE SPECT MULT (03/02/20) HYDRATE IV INFUSION ADD-ON (03/24/20) HYDRATION IV INFUSION INIT (01/18/20) IIV4 VACC NO PRSV 0.5 ML IM (09/08/14) LEUKOCYTE ASSESSMENT FECAL (03/24/20) MANUAL THERAPY 1/> REGIONS (08/25/20) METABOLIC PANEL TOTAL CA (03/24/20) MRI BRAIN STEM W/O & W/DYE (10/27/16) MRI BRAIN STEM W/O DYE (01/23/20) MRI JNT OF LWR EXTRE W/O DYE (06/03/20) MRI LUMBAR SPINE W/O DYE (07/31/13) NJX SCLRSNT 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 INCMPTNT VN (12/29/16) OCCULT BLD FECES 1-3 TESTS (03/24/20) OFFICE/OUTPATIENT VISIT EST (05/07/20) OVA AND PARASITES SMEARS (12/25/18) PROTHROMBIN TIME (01/18/20) PRP I/RUIZ INIT REDUC >5 YR (09/08/14) PT EVAL MOD COMPLEX 30 MIN (08/24/20) PT EVALUATION (02/26/16) RBC SED RATE NONAUTOMATED (04/20/18) REMOVAL OF BREAST LESION (02/23/15) ROUTINE VENIPUNCTURE (03/24/20) SCR MAMMO BI INCL CAD (05/06/20) SELF CARE MNGMENT TRAINING (08/25/20) SMEAR COMPLEX STAIN (12/25/18) STOOL CULTR AEROBIC BACT EA (03/24/20) THER/PROPH/DIAG INJ IV PUSH (02/27/20) THER/PROPH/DIAG INJ SC/IM (03/24/20) THER/PROPH/DIAG IV INF ADDON (03/24/20) THER/PROPH/DIAG IV INF INIT (03/24/20) THERAPEUTIC ACTIVITIES (08/25/20) THERAPEUTIC EXERCISES (08/25/20) THROMBOPLASTIN TIME PARTIAL (01/18/20) TISSUE EXAM BY PATHOLOGIST (04/17/20) TISSUE EXAM BY PATHOLOGIST (09/08/14) TISSUE EXAM BY PATHOLOGIST (09/08/14) TREAT TOE DISLOCATION (03/05/16) TTE W/DOPPLER COMPLETE (01/23/20) TX/PRO/DX INJ NEW DRUG ADDON (02/27/20) TX/PRO/DX INJ SAME DRUG ARMHOLE BASTER HAND (12/25/18) TX/PROPH/DG ADDL SEQ IV INF (03/24/20) ULTRASOUND BREAST COMPLETE (03/14/17) ULTRASOUND BREAST LIMITED (02/13/15) URINALYSIS AUTO W/SCOPE (04/20/18) US EXAM ABDO BACK WALL COMP (08/23/13) US GUIDE INTRAOP (02/23/15) X-RAY EXAM CHEST 1 VIEW (02/27/20) X-RAY EXAM CHEST 2 VIEWS (03/19/18) X-RAY EXAM KNEE 4 OR MORE (05/07/20) X-RAY EXAM OF ABDOMEN (10/27/14) X-RAY EXAM OF KNEE 1 OR 2 (08/24/20) X-RAY EXAM OF KNEE 3 (04/20/18) X-RAY EXAM OF SINUSES (10/26/16) Problem List Initiated/Reviewed/Updated: Yes My Orders Last 24 Hours: My Active Orders 09/21/20 17:00 Potassium Chloride [Klor-Con M20] 40 meq PO ONETIME ONE 09/22/20 05:00 BASIC METABOLIC PANEL,BMP [CHEM] Timed CBC WITH AUTO DIFF [HEME] Timed Plan: ASSESSMENT AND RECOMMENDATIONS Bilateral pneumonia with septic shock-complicated by acute respiratory failure with hypoxia and hypotension. I suspect this is a community-acquired pneumonia that blossomed during her hospital stay. With her improvement since yesterday with increased strength and appetite -Antibiotic coverage with levofloxacin -Symptomatic management -Supplement oxygen -Hold antihypertensives -Follow-up cultures Generalized abdominal pain with right-sided colitis-not improving with antibiotic therapy so could be inflammatory. Diarrhea is a little better with a dose of steroids yesterday and some Imodium. -Prednisone 40 mg daily -Symptomatic management Left knee cellulitis-knee looks good and pain is improving. Transition to oral antibiotics on 09/19. -Continue doxycycline -Postoperative care per orthopedic team Essential hypertension -Hold antihypertensives -Continue beta-samy Acute kidney injury-creatinine has stabilized and is close to baseline Maintenance issues - - DVT prophylaxis -SCDs - GI prophylaxis -PPI - Nutrition -regular as tolerated Disposition-I anticipate discharge home after the hospital stay, probably with home care.
[2020-09-21] MEDS: Ondansetron 4 MG Tab.DIS PO PRN (16:58)
[2020-09-21] MEDS: Gabapentin 300 MG Cap PO SCH (20:48)
[2020-09-22] MEDS ORDERED: predniSONE 20 MG Tab PO SCH (08:00)
[2020-09-22] MEDS: Doxycycline 100 MG Cap PO SCH (09:10)
[2020-09-22] MEDS: Aspirin 325 MG Tab.EC PO SCH (09:11)
[2020-09-22] MEDS: Metoprolol Tartrate 25 MG Tab PO SCH (09:11)
[2020-09-22] MEDS: Pantoprazole 40 MG Tab.CR PO SCH (09:11)
[2020-09-22] MEDS: Lactobacillus Rhamnosus GG (Probiotic) Cap PO SCH (09:11)
[2020-09-22] MEDS: Potassium Chloride 20 MEQ Tab.ER PO SCH (09:11)
[2020-09-22] MEDS: Terazosin 1 MG Cap PO SCH (09:11)
[2020-09-22] MEDS: Lisinopril 20 MG Tab PO SCH (09:11)
[2020-09-22] MEDS: Furosemide 20 MG Tab PO SCH (09:11)
[2020-09-22] MEDS: Rosuvastatin 10 MG Tab PO SCH (09:12)
[2020-09-22] MEDS: Cholecalciferol (Vitamin D3) 25 MCG Tab PO SCH (09:12)
[2020-09-22 10:26] VITALS: BP 136/75; PULSE 99
--- NOTE | 2020-09-22 11:08 | PCM.SURGPN ---
- General Info Date of Service: 09/21/20 Functional Status: Reports: Pain Controlled, Tolerating Diet, Ambulating, Urinating - Review of Systems General: Reports: No Symptoms Musculoskeletal: Reports: Leg Pain - Patient Data Vitals - Most Recent: Last Vital Signs Temp 36.1 C 09/22/20 10:14 Pulse 99 09/22/20 10:14 Resp 18 09/22/20 10:14 BP 136/75 09/22/20 10:14 Pulse Ox 94 L 09/22/20 10:14 Weight - Most Recent: 66.224 kg I&O - Last 24 Hours: Intake & Output 09/21/20 09/22/20 09/22/20 22:59 06:59 14:59 Intake Total 5073 519 8754 Output Total 1999 2380 1400 Balance -593 -4196 -400 Lab Results Last 24 Hrs: Laboratory Results - last 24 hr 09/22/20 09/22/20 Range/Units 04:13 04:13 WBC 13.4 H (4.5-11.0) K/uL RBC 3.43 (3.30-5.50) M/uL Hgb 9.4 L (12.0-15.0) g/dL Hct 29.3 L (36.0-48.0) % MCV 85 (80-98) fL MCH 27 (27-31) pg MCHC 32 (32-36) % Plt Count 327 (150-400) K/uL Add Manual Diff Yes Neutrophils % (Manual) 76 H (36-66) % Lymphocytes % (Manual) 14 L (24-44) % Monocytes % (Manual) 10 H (2-6) % Sodium 132 L (140-148) mmol/L Potassium 3.6 (3.6-5.2) mmol/L Chloride 95 L (100-108) mmol/L Carbon Dioxide 28 (21-32) mmol/L Anion Gap 12.6 (5.0-14.0) mmol/L BUN 21 H (7-18) mg/dL Creatinine 0.9 (0.6-1.0) mg/dL Est Cr Clr Drug Dosing 42.61 mL/min Estimated GFR (MDRD) > 60 (>60) Glucose 150 H (74-106) mg/dL Calcium 8.2 L (8.5-10.1) mg/dL [place] Results Last 24 Hrs: Microbiology 09/17/20 14:10 Aerobic Blood Culture - Preliminary Blood - Venous - Lab Draw NO GROWTH AFTER 4 DAYS Anaerobic Blood Culture - Preliminary NO GROWTH AFTER 4 DAYS 09/17/20 14:00 Aerobic Blood Culture - Preliminary Blood - Arm, Right NO GROWTH AFTER 4 DAYS Anaerobic Blood Culture - Preliminary NO GROWTH AFTER 4 DAYS Med Orders - Current: Current Medications Acetaminophen (Tylenol Extra Strength) 500 mg PO Q6H PRN PRN Reason: Pain Last Admin: 09/22/20 10:10 Dose: 500 mg Documented by: Hydrocodone Bitart/Acetaminophen (Jackson 325-5 Mg) 2 tab PO Q4H PRN PRN Reason: Pain (mild 1-3) Last Admin: 09/21/20 22:33 Dose: 2 tab Documented by: Aspirin (Ecotrin) 325 mg PO DAILY [facility] Last Admin: 09/22/20 09:11 Dose: 325 mg Documented by: Bisacodyl (Dulcolax) 10 mg RECTAL DAILY PRN PRN Reason: Constipation Last Admin: 09/16/20 20:29 Dose: 10 mg Documented by: Cetirizine HCl (Zyrtec) 10 mg PO DAILY PRN PRN Reason: Allergies Cholecalciferol (Vitamin D3) 25 mcg PO DAILY [facility] Last Admin: 09/22/20 09:12 Dose: 25 mcg Documented by: Doxycycline Hyclate (Vibramycin) 100 mg PO BID [facility] Last Admin: 09/22/20 09:10 Dose: 100 mg Documented by: Furosemide (Lasix) 20 mg PO DAILY [facility] Last Admin: 09/22/20 09:11 Dose: 20 mg Documented by: Gabapentin (Neurontin) 300 mg PO BEDTIME [facility] Last Admin: 09/21/20 20:48 Dose: 300 mg Documented by: Hydromorphone HCl (Dilaudid) 0.5 mg IVPUSH Q2H PRN PRN Reason: Pain (severe 7-10) Last Admin: 09/19/20 01:17 Dose: 0.5 mg Documented by: Levofloxacin/Dextrose 750 mg/ (Premix) 150 mls @ 100 mls/hr IV Q48H [facility] Last Admin: 09/21/20 10:29 Dose: 100 mls/hr Documented by: Ketotifen Fumarate (Ketotifen 0.025% Ophth Soln) 0 ml EYEBOTH BID PRN PRN Reason: Allergies Lactobacillus Rhamnosus (Culturelle) 1 cap PO BID [facility] Last Admin: 09/22/20 09:11 Dose: 1 cap Documented by: Lisinopril (Prinivil) 40 mg PO BID [facility] Last Admin: 09/22/20 09:11 Dose: 40 mg Documented by: Loperamide HCl (Imodium) 2 mg PO Q4H PRN PRN Reason: DIARRHEA Last Admin: 09/20/20 10:40 Dose: 2 mg Documented by: Metoprolol Tartrate (Lopressor) 25 mg PO BID [facility] Last Admin: 09/22/20 09:11 Dose: 25 mg Documented by: Ondansetron HCl (Zofran Odt) 4 mg PO Q6H PRN PRN Reason: Nausea Last Admin: 09/21/20 16:58 Dose: 4 mg Documented by: Pantoprazole Sodium (Protonix) 40 mg PO ACBREAKFAST [facility] Last Admin: 09/22/20 09:11 Dose: 40 mg Documented by: Potassium Chloride (Klor-Con M20) 20 meq PO DAILY [facility] Last Admin: 09/22/20 09:11 Dose: 20 meq Documented by: Prednisone (Prednisone) 40 mg PO WITHBREAKFAST [facility] Last Admin: 09/22/20 09:11 Dose: 40 mg Documented by: Rosuvastatin Calcium (Crestor) 5 mg PO DAILY [facility] Last Admin: 09/22/20 09:12 Dose: 5 mg Documented by: Terazosin HCl (Hytrin) 2 mg PO BID [facility] Last Admin: 09/22/20 09:11 Dose: 2 mg Documented by: Discontinued Medications Bupivacaine HCl (Marcaine 0.5%) Confirm Administered Dose 30 ml .ROUTE .STK-MED ONE Stop: 09/15/20 14:49 Docusate Sodium (Colace) 200 mg PO DAILY PRN PRN Reason: Constipation Last Admin: 09/16/20 19:59 Dose: 200 mg Documented by: Fentanyl (Sublimaze) Confirm Administered Dose 100 mcg .ROUTE .STK-MED ONE Stop: 09/15/20 16:09 Hydrocortisone Sodium Succinate (Solu-Cortef) 100 mg IVPUSH ONETIME ONE Stop: 09/19/20 11:31 Last Admin: 09/19/20 11:40 Dose: 100 mg Documented by: Vancomycin HCl 1 gm/ Sodium (Chloride) 250 mls @ 150 mls/hr IV ONETIME ONE Stop: 09/15/20 17:39 Last Admin: 09/15/20 15:59 Dose: 150 mls/hr Documented by: Lactated Ringer's (Ringers, Lactated) 1,000 mls @ 75 mls/hr IV ASDIRECTED [facility] Last Admin: 09/16/20 00:26 Dose: 75 mls/hr Documented by: Vancomycin HCl 1 gm/ Sodium (Chloride) 250 mls @ 150 mls/hr IV Q12H [facility] Last Admin: 09/18/20 03:00 Dose: 150 mls/hr Documented by: Sodium Chloride (Normal Saline) 1,000 mls @ 100 mls/hr IV ASDIRECTED [facility] Sodium Chloride (Normal Saline) 500 mls @ 999 mls/hr IV ASDIRECTED [facility] Stop: 09/17/20 16:30 Sodium Chloride (Normal Saline) 500 mls @ 999 mls/hr IV ASDIRECTED [facility] Stop: 09/17/20 16:30 Lactated Ringer's (Ringers, Lactated) 1,000 mls @ 100 mls/hr IV ASDIRECTED [facility] Last Admin: 09/18/20 01:00 Dose: 100 mls/hr Documented by: Norepinephrine Bitartrate 4 mg (/ Dextrose/Water) 250 mls @ 7.5 mls/hr IV TITRATE [facility]; Protocol Last Titration: 09/19/20 22:09 Dose: 0 mcg/min, 0 mls/hr Documented by: Levofloxacin/Dextrose 750 mg/ (Premix) 150 mls @ 100 mls/hr IV Q24H [facility] Last Admin: 09/17/20 13:54 Dose: 100 mls/hr Documented by: Meropenem 1 gm/ Sodium (Chloride) 100 mls @ 200 mls/hr IV Q8H [facility] Last Admin: 09/20/20 06:06 Dose: 200 mls/hr Documented by: Sodium Chloride (Normal Saline) 1,000 mls @ 999 mls/hr IV ASDIRECTED [facility] Stop: 09/17/20 14:16 Last Admin: 09/17/20 13:20 Dose: 999 mls/hr Documented by: Vancomycin HCl 1 gm/ Sodium (Chloride) 250 mls @ 150 mls/hr IV Q24H [facility] Last Admin: 09/19/20 06:01 Dose: 150 mls/hr Documented by: Lactated Ringer's (Ringers, Lactated) 1,000 mls @ 25 mls/hr IV ASDIRECTED [facility] Last Admin: 09/18/20 13:46 Dose: 25 mls/hr Documented by: Sodium Chloride (Normal Saline) 500 mls @ 500 mls/hr IV ASDIRECTED [facility] Stop: 09/18/20 17:31 Last Admin: 09/18/20 16:35 Dose: 500 mls/hr Documented by: Magnesium Citrate (Citrate Of Magnesia) 150 ml PO ONETIME ONE Stop: 09/16/20 08:01 Last Admin: 09/16/20 07:57 Dose: 150 ml Documented by: Methylprednisolone Sodium Succinate (Solu-Medrol) 125 mg IVPUSH ONETIME ONE Stop: 09/20/20 10:46 Last Admin: 09/20/20 10:40 Dose: 125 mg Documented by: Methylprednisolone Sodium Succinate (Solu-Medrol) 40 mg IVPUSH Q12H [facility] Last Admin: 09/21/20 10:29 Dose: 40 mg Documented by: Midazolam HCl (Versed 1 Mg/Ml) Confirm Administered Dose 2 mg .ROUTE .STK-MED ONE Stop: 09/15/20 16:09 Oxycodone/Acetaminophen (Percocet 325-5 Mg) 1 - 2 tab PO Q6H PRN PRN Reason: Pain (severe 7-10) Pantoprazole Sodium (Protonix Iv) 40 mg IVPUSH ONETIME ONE Stop: 09/17/20 18:01 Last Admin: 09/17/20 18:41 Dose: 40 mg Documented by: Polyethylene Glycol (Miralax) 17 gm PO DAILY PRN PRN Reason: Constipation Potassium Chloride (Klor-Con M20) 40 meq PO ONETIME ONE Stop: 09/21/20 08:46 Last Admin: 09/21/20 10:30 Dose: 40 meq Documented by: Potassium Chloride (Klor-Con M20) 40 meq PO ONETIME ONE Stop: 09/21/20 17:01 Last Admin: 09/21/20 16:58 Dose: 40 meq Documented by: Propofol (Diprivan 20 Ml) Confirm Administered Dose 200 mg .ROUTE .STK-MED ONE Stop: 09/15/20 16:09 - Exam Wound/Incisions: No Drainage General: Alert, Oriented Extremities: Redness Skin: Warm, Dry Neurological: No New Focal Deficit Sepsis Event Note - Evaluation Sepsis Screening Result: No Definite Risk - Focused Exam Vital Signs: Vital Signs Temp Pulse Pulse Resp BP BP Pulse Ox 09/22/20 10:14 36.1 C 99 18 136/75 94 L 09/22/20 09:11 68 169/88 H 09/22/20 07:00 36.0 C L 68 18 169/88 H 96 09/22/20 03:00 36.0 C L 18 152/88 H 95 09/21/20 23:20 36.5 C 64 18 179/89 H 93 L - Problem List & Annotations (1) Cellulitis of knee, left SNOMED Code(s): 07524475769684856 Code(s): L03.116 - CELLULITIS OF LEFT LOWER LIMB Status: Acute Current Visit: Yes (2) Status post debridement SNOMED Code(s): 979553206, 353220787 Code(s): Z98.890 - OTHER SPECIFIED POSTPROCEDURAL STATES Status: Acute Current Visit: Yes Annotation/Comment:: Lower left leg - Problem List Review Problem List Initiated/Reviewed/Updated: Yes - My Orders Last 24 Hours: Active Orders 24 hr Category Date Time Status predniSONE Med 09/22/20 08:00 Active 40 mg PO WITHBREAKFAST Medication Orders Acetaminophen (Tylenol Extra Strength) 500 mg PO Q6H PRN PRN Reason: Pain Last Admin: 09/22/20 10:10 Dose: 500 mg Documented by: [id number] Hydrocodone Bitart/Acetaminophen (Jackson 325-5 Mg) 2 tab PO Q4H PRN PRN Reason: Pain (mild 1-3) Last Admin: 09/21/20 22:33 Dose: 2 tab Documented by: Admin: 09/21/20 01:34 Dose: 2 tab Documented by: Admin: 09/20/20 21:14 Dose: 2 tab Documented by: Admin: 09/20/20 16:50 Dose: 2 tab Documented by: Admin: 09/18/20 18:06 Dose: 2 tab Documented by: Admin: 09/18/20 13:41 Dose: 2 tab Documented by: Admin: 09/18/20 05:23 Dose: 2 tab Documented by: Admin: 09/17/20 08:47 Dose: 2 tab Documented by: Admin: 09/16/20 20:00 Dose: 2 tab Documented by: Admin: 09/16/20 14:10 Dose: 2 tab Documented by: Admin: 09/16/20 08:34 Dose: 2 tab Documented by: Admin: 09/16/20 03:39 Dose: 2 tab Documented by: Admin: 09/15/20 21:33 Dose: 2 tab Documented by: GLEN Aspirin (Ecotrin) 325 mg PO DAILY [facility] Admin: 09/22/20 09:11 Dose: 325 mg Documented by: Admin: 09/21/20 08:14 Dose: 325 mg Documented by: Admin: 09/20/20 08:35 Dose: 325 mg Documented by: Admin: 09/19/20 11:38 Dose: 325 mg Documented by: Admin: 09/18/20 08:40 Dose: 325 mg Documented by: Admin: 09/17/20 08:49 Dose: 325 mg Documented by: Admin: 09/16/20 08:28 Dose: 325 mg Documented by: MARK Bisacodyl (Dulcolax) 10 mg RECTAL DAILY PRN PRN Reason: Constipation Last Admin: 09/16/20 20:29 Dose: 10 mg Documented by: JULIETA Cetirizine HCl (Zyrtec) 10 mg PO DAILY PRN PRN Reason: Allergies Cholecalciferol (Vitamin D3) 25 mcg PO DAILY [facility] Admin: 09/22/20 09:12 Dose: 25 mcg Documented by: Admin: 09/21/20 08:17 Dose: 25 mcg Documented by: Admin: 09/20/20 08:34 Dose: 25 mcg Documented by: Admin: 09/19/20 11:39 Dose: 25 mcg Documented by: Admin: 09/18/20 08:41 Dose: 25 mcg Documented by: Admin: 09/17/20 08:49 Dose: 25 mcg Documented by: Admin: 09/16/20 08:29 Dose: 25 mcg Documented by: MARK Doxycycline Hyclate (Vibramycin) 100 mg PO BID [facility] Admin: 09/22/20 09:10 Dose: 100 mg Documented by: Admin: 09/21/20 20:48 Dose: 100 mg Documented by: Admin: 09/21/20 08:16 Dose: 100 mg Documented by: Admin: 09/20/20 21:12 Dose: 100 mg Documented by: Admin: 09/20/20 08:35 Dose: 100 mg Documented by: Admin: 09/19/20 20:56 Dose: 100 mg Documented by: KYLEIGH Furosemide (Lasix) 20 mg PO DAILY [facility] Admin: 09/22/20 09:11 Dose: 20 mg Documented by: Admin: 09/21/20 08:15 Dose: 20 mg Documented by: Admin: 09/20/20 08:38 Dose: 20 mg Documented by: Admin: 09/19/20 11:38 Dose: 20 mg Documented by: Admin: 09/17/20 08:50 Dose: 20 mg Documented by: Admin: 09/16/20 08:29 Dose: 20 mg Documented by: MARK Gabapentin (Neurontin) 300 mg PO BEDTIME [facility] Admin: 09/21/20 20:48 Dose: 300 mg Documented by: Admin: 09/20/20 21:12 Dose: 300 mg Documented by: Admin: 09/19/20 20:56 Dose: 300 mg Documented by: Admin: 09/18/20 20:27 Dose: 300 mg Documented by: Admin: 09/17/20 21:59 Dose: 300 mg Documented by: Admin: 09/16/20 20:02 Dose: 300 mg Documented by: Admin: 09/15/20 21:28 Dose: 300 mg Documented by: GLEN Hydromorphone HCl (Dilaudid) 0.5 mg IVPUSH Q2H PRN PRN Reason: Pain (severe 7-10) Last Admin: 09/19/20 01:17 Dose: 0.5 mg Documented by: Admin: 09/18/20 22:26 Dose: 0.5 mg Documented by: Admin: 09/18/20 20:27 Dose: 0.5 mg Documented by: Admin: 09/18/20 10:19 Dose: 0.5 mg Documented by: Admin: 09/17/20 18:39 Dose: 0.5 mg Documented by: RODRIGUE Levofloxacin/Dextrose 750 mg/ (Premix) 150 mls @ 100 mls/hr IV Q48H [facility] Admin: 09/21/20 10:29 Dose: 100 mls/hr Documented by: Infusion: 09/19/20 13:09 Dose: 100 mls/hr Documented by: Admin: 09/19/20 11:39 Dose: 100 mls/hr Documented by: JULIAN Ketotifen Fumarate (Ketotifen 0.025% Ophth Soln) 0 ml EYEBOTH BID PRN PRN Reason: Allergies Lactobacillus Rhamnosus (Culturelle) 1 cap PO BID [facility] Admin: 09/22/20 09:11 Dose: 1 cap Documented by: Admin: 09/21/20 20:47 Dose: 1 cap Documented by: Admin: 09/21/20 08:17 Dose: 1 cap Documented by: Admin: 09/20/20 21:13 Dose: 1 cap Documented by: Admin: 09/20/20 08:36 Dose: 1 cap Documented by: Admin: 09/19/20 20:56 Dose: 1 cap Documented by: Admin: 09/19/20 11:38 Dose: 1 cap Documented by: Admin: 09/18/20 20:27 Dose: 1 cap Documented by: Admin: 09/18/20 08:40 Dose: 1 cap Documented by: Admin: 09/17/20 21:59 Dose: 1 cap Documented by: Admin: 09/17/20 08:49 Dose: 1 cap Documented by: Admin: 09/16/20 20:01 Dose: 1 cap Documented by: Admin: 09/16/20 08:28 Dose: 1 cap Documented by: Admin: 09/15/20 21:25 Dose: 1 cap Documented by: GLEN Lisinopril (Prinivil) 40 mg PO BID [facility] Admin: 09/22/20 09:11 Dose: 40 mg Documented by: Admin: 09/21/20 20:48 Dose: 40 mg Documented by: Admin: 09/21/20 08:15 Dose: 40 mg Documented by: Admin: 09/20/20 21:12 Dose: 40 mg Documented by: Admin: 09/17/20 08:48 Dose: 40 mg Documented by: Admin: 09/16/20 20:03 Dose: 40 mg Documented by: Admin: 09/16/20 08:28 Dose: 40 mg Documented by: Admin: 09/15/20 21:28 Dose: 40 mg Documented by: GLEN Loperamide HCl (Imodium) 2 mg PO Q4H PRN PRN Reason: DIARRHEA Last Admin: 09/20/20 10:40 Dose: 2 mg Documented by: Admin: 09/20/20 05:59 Dose: 2 mg Documented by: Admin: 09/19/20 11:52 Dose: 2 mg Documented by: JULIAN Metoprolol Tartrate (Lopressor) 25 mg PO BID [facility] Admin: 09/22/20 09:11 Dose: 25 mg Documented by: Admin: 09/21/20 20:47 Dose: 25 mg Documented by: Admin: 09/21/20 08:17 Dose: 25 mg Documented by: Admin: 09/20/20 21:12 Dose: 25 mg Documented by: Admin: 09/20/20 08:35 Dose: 25 mg Documented by: Admin: 09/19/20 20:55 Dose: 25 mg Documented by: Admin: 09/19/20 11:38 Dose: 25 mg Documented by: Admin: 09/18/20 20:28 Dose: Not Given Documented by: Admin: 09/17/20 08:49 Dose: 25 mg Documented by: Admin: 09/16/20 20:02 Dose: 25 mg Documented by: Admin: 09/16/20 08:29 Dose: 25 mg Documented by: Admin: 09/15/20 21:28 Dose: 25 mg Documented by: GLEN Ondansetron HCl (Zofran Odt) 4 mg PO Q6H PRN PRN Reason: Nausea Last Admin: 09/21/20 16:58 Dose: 4 mg Documented by: Admin: 09/19/20 03:30 Dose: 4 mg Documented by: Admin: 09/18/20 11:09 Dose: 4 mg Documented by: Admin: 09/17/20 22:03 Dose: 4 mg Documented by: Admin: 09/17/20 15:26 Dose: 4 mg Documented by: RODRIGUE Pantoprazole Sodium (Protonix) 40 mg PO ACBREAKFAST [facility] Last Admin: 09/22/20 09:11 Dose: 40 mg Documented by: Admin: 09/21/20 08:18 Dose: 40 mg Documented by: Admin: 09/20/20 08:35 Dose: 40 mg Documented by: Admin: 09/19/20 08:39 Dose: 40 mg Documented by: Admin: 09/18/20 08:37 Dose: 40 mg Documented by: Admin: 09/17/20 08:49 Dose: 40 mg Documented by: Admin: 09/16/20 07:56 Dose: 40 mg Documented by: MARK Potassium Chloride (Klor-Con M20) 20 meq PO DAILY [facility] Last Admin: 09/22/20 09:11 Dose: 20 meq Documented by: Admin: 09/21/20 08:18 Dose: 20 meq Documented by: Admin: 09/20/20 08:35 Dose: 20 meq Documented by: Admin: 09/19/20 11:38 Dose: 20 meq Documented by: Admin: 09/18/20 08:41 Dose: 20 meq Documented by: Admin: 09/17/20 08:49 Dose: 20 meq Documented by: Admin: 09/16/20 08:28 Dose: 20 meq Documented by: MARK Prednisone (Prednisone) 40 mg PO WITHBREAKFAST [facility] Last Admin: 09/22/20 09:11 Dose: 40 mg Documented by: LENORE Rosuvastatin Calcium (Crestor) 5 mg PO DAILY [facility] Last Admin: 09/22/20 09:12 Dose: 5 mg Documented by: Admin: 09/21/20 08:18 Dose: 5 mg Documented by: Admin: 09/20/20 08:36 Dose: 5 mg Documented by: Admin: 09/19/20 11:37 Dose: 5 mg Documented by: Admin: 09/18/20 08:41 Dose: 5 mg Documented by: Admin: 09/17/20 08:50 Dose: 5 mg Documented by: Admin: 09/16/20 08:28 Dose: 5 mg Documented by: MARK Terazosin HCl (Hytrin) 2 mg PO BID [facility] Last Admin: 09/22/20 09:11 Dose: 2 mg Documented by: Admin: 09/21/20 20:47 Dose: 2 mg Documented by: Admin: 09/21/20 08:16 Dose: 2 mg Documented by: Admin: 09/20/20 21:13 Dose: 2 mg Documented by: Admin: 09/20/20 08:36 Dose: 2 mg Documented by: Admin: 09/19/20 20:56 Dose: 2 mg Documented by: Admin: 09/19/20 11:38 Dose: 2 mg Documented by: Admin: 09/18/20 20:27 Dose: 2 mg Documented by: Admin: 09/18/20 08:40 Dose: 2 mg Documented by: Admin: 09/17/20 21:49 Dose: Not Given Documented by: Admin: 09/17/20 08:49 Dose: 2 mg Documented by: Admin: 09/16/20 20:01 Dose: 2 mg Documented by: Admin: 09/16/20 08:31 Dose: 2 mg Documented by: Admin: 09/15/20 21:26 Dose: 2 mg Documented by: GLEN - Assessment Assessment (Free Text/Narrative):: No acute events over the weekend, BP and breathing improved, moved back to the general floor, Vanco D/C'd and on Doxycycline for knee., Knee still with some erythema, ROM is good and she is ambulating. - Plan Plan (Free Text/Narrative):: Continue oral antibiotics for another 10-14 days for knee, activity as tolerated, light dressing as needed
--- NOTE | 2020-09-22 11:12 | PCM.SURGPN ---
- General Info Date of Service: 09/22/20 Functional Status: Reports: Pain Controlled, Tolerating Diet, Ambulating, Urinating - Review of Systems General: Reports: No Symptoms Musculoskeletal: Reports: Leg Pain - Patient Data Vitals - Most Recent: Last Vital Signs Temp 36.1 C 09/22/20 10:14 Pulse 99 09/22/20 10:14 Resp 18 09/22/20 10:14 BP 136/75 09/22/20 10:14 Pulse Ox 94 L 09/22/20 10:14 Weight - Most Recent: 66.224 kg I&O - Last 24 Hours: Intake & Output 09/21/20 09/22/20 09/22/20 22:59 06:59 14:59 Intake Total 7612 255 0678 Output Total 1999 8264 1400 Balance -661 -8470 -322 Lab Results Last 24 Hrs: Laboratory Results - last 24 hr 09/22/20 09/22/20 Range/Units 04:13 04:13 WBC 13.4 H (4.5-11.0) K/uL RBC 3.43 (3.30-5.50) M/uL Hgb 9.4 L (12.0-15.0) g/dL Hct 29.3 L (36.0-48.0) % MCV 85 (80-98) fL MCH 27 (27-31) pg MCHC 32 (32-36) % Plt Count 327 (150-400) K/uL Add Manual Diff Yes Neutrophils % (Manual) 76 H (36-66) % Lymphocytes % (Manual) 14 L (24-44) % Monocytes % (Manual) 10 H (2-6) % Sodium 132 L (140-148) mmol/L Potassium 3.6 (3.6-5.2) mmol/L Chloride 95 L (100-108) mmol/L Carbon Dioxide 28 (21-32) mmol/L Anion Gap 12.6 (5.0-14.0) mmol/L BUN 21 H (7-18) mg/dL Creatinine 0.9 (0.6-1.0) mg/dL Est Cr Clr Drug Dosing 42.61 mL/min Estimated GFR (MDRD) > 60 (>60) Glucose 150 H (74-106) mg/dL Calcium 8.2 L (8.5-10.1) mg/dL [place] Results Last 24 Hrs: Microbiology 09/17/20 14:10 Aerobic Blood Culture - Preliminary Blood - Venous - Lab Draw NO GROWTH AFTER 4 DAYS Anaerobic Blood Culture - Preliminary NO GROWTH AFTER 4 DAYS 09/17/20 14:00 Aerobic Blood Culture - Preliminary Blood - Arm, Right NO GROWTH AFTER 4 DAYS Anaerobic Blood Culture - Preliminary NO GROWTH AFTER 4 DAYS Med Orders - Current: Current Medications Acetaminophen (Tylenol Extra Strength) 500 mg PO Q6H PRN PRN Reason: Pain Last Admin: 09/22/20 10:10 Dose: 500 mg Documented by: Hydrocodone Bitart/Acetaminophen ([place] 325-5 Mg) 2 tab PO Q4H PRN PRN Reason: Pain (mild 1-3) Last Admin: 09/21/20 22:33 Dose: 2 tab Documented by: Aspirin (Ecotrin) 325 mg PO DAILY [facility] Last Admin: 09/22/20 09:11 Dose: 325 mg Documented by: Bisacodyl (Dulcolax) 10 mg RECTAL DAILY PRN PRN Reason: Constipation Last Admin: 09/16/20 20:29 Dose: 10 mg Documented by: Cetirizine HCl (Zyrtec) 10 mg PO DAILY PRN PRN Reason: Allergies Cholecalciferol (Vitamin D3) 25 mcg PO DAILY [facility] Last Admin: 09/22/20 09:12 Dose: 25 mcg Documented by: Doxycycline Hyclate (Vibramycin) 100 mg PO BID [facility] Last Admin: 09/22/20 09:10 Dose: 100 mg Documented by: Furosemide (Lasix) 20 mg PO DAILY [facility] Last Admin: 09/22/20 09:11 Dose: 20 mg Documented by: Gabapentin (Neurontin) 300 mg PO BEDTIME [facility] Last Admin: 09/21/20 20:48 Dose: 300 mg Documented by: Hydromorphone HCl (Dilaudid) 0.5 mg IVPUSH Q2H PRN PRN Reason: Pain (severe 7-10) Last Admin: 09/19/20 01:17 Dose: 0.5 mg Documented by: Levofloxacin/Dextrose 750 mg/ (Premix) 150 mls @ 100 mls/hr IV Q48H [facility] Last Admin: 09/21/20 10:29 Dose: 100 mls/hr Documented by: Ketotifen Fumarate (Ketotifen 0.025% Ophth Soln) 0 ml EYEBOTH BID PRN PRN Reason: Allergies Lactobacillus Rhamnosus (Culturelle) 1 cap PO BID [facility] Last Admin: 09/22/20 09:11 Dose: 1 cap Documented by: Lisinopril (Prinivil) 40 mg PO BID [facility] Last Admin: 09/22/20 09:11 Dose: 40 mg Documented by: Loperamide HCl (Imodium) 2 mg PO Q4H PRN PRN Reason: DIARRHEA Last Admin: 09/20/20 10:40 Dose: 2 mg Documented by: Metoprolol Tartrate (Lopressor) 25 mg PO BID [facility] Last Admin: 09/22/20 09:11 Dose: 25 mg Documented by: Ondansetron HCl (Zofran Odt) 4 mg PO Q6H PRN PRN Reason: Nausea Last Admin: 09/21/20 16:58 Dose: 4 mg Documented by: Pantoprazole Sodium (Protonix) 40 mg PO ACBREAKFAST [facility] Last Admin: 09/22/20 09:11 Dose: 40 mg Documented by: Potassium Chloride (Klor-Con M20) 20 meq PO DAILY [facility] Last Admin: 09/22/20 09:11 Dose: 20 meq Documented by: Prednisone (Prednisone) 40 mg PO WITHBREAKFAST [facility] Last Admin: 09/22/20 09:11 Dose: 40 mg Documented by: Rosuvastatin Calcium (Crestor) 5 mg PO DAILY [facility] Last Admin: 09/22/20 09:12 Dose: 5 mg Documented by: Terazosin HCl (Hytrin) 2 mg PO BID [facility] Last Admin: 09/22/20 09:11 Dose: 2 mg Documented by: Discontinued Medications Bupivacaine HCl (Marcaine 0.5%) Confirm Administered Dose 30 ml .ROUTE .STK-MED ONE Stop: 09/15/20 14:49 Docusate Sodium (Colace) 200 mg PO DAILY PRN PRN Reason: Constipation Last Admin: 09/16/20 19:59 Dose: 200 mg Documented by: Fentanyl (Sublimaze) Confirm Administered Dose 100 mcg .ROUTE .STK-MED ONE Stop: 09/15/20 16:09 Hydrocortisone Sodium Succinate (Solu-Cortef) 100 mg IVPUSH ONETIME ONE Stop: 09/19/20 11:31 Last Admin: 09/19/20 11:40 Dose: 100 mg Documented by: Vancomycin HCl 1 gm/ Sodium (Chloride) 250 mls @ 150 mls/hr IV ONETIME ONE Stop: 09/15/20 17:39 Last Admin: 09/15/20 15:59 Dose: 150 mls/hr Documented by: Lactated Ringer's (Ringers, Lactated) 1,000 mls @ 75 mls/hr IV ASDIRECTED [facility] Last Admin: 09/16/20 00:26 Dose: 75 mls/hr Documented by: Vancomycin HCl 1 gm/ Sodium (Chloride) 250 mls @ 150 mls/hr IV Q12H [facility] Last Admin: 09/18/20 03:00 Dose: 150 mls/hr Documented by: Sodium Chloride (Normal Saline) 1,000 mls @ 100 mls/hr IV ASDIRECTED [facility] Sodium Chloride (Normal Saline) 500 mls @ 999 mls/hr IV ASDIRECTED [facility] Stop: 09/17/20 16:30 Sodium Chloride (Normal Saline) 500 mls @ 999 mls/hr IV ASDIRECTED [facility] Stop: 09/17/20 16:30 Lactated Ringer's (Ringers, Lactated) 1,000 mls @ 100 mls/hr IV ASDIRECTED [facility] Last Admin: 09/18/20 01:00 Dose: 100 mls/hr Documented by: Norepinephrine Bitartrate 4 mg (/ Dextrose/Water) 250 mls @ 7.5 mls/hr IV TITRATE [facility]; Protocol Last Titration: 09/19/20 22:09 Dose: 0 mcg/min, 0 mls/hr Documented by: Levofloxacin/Dextrose 750 mg/ (Premix) 150 mls @ 100 mls/hr IV Q24H [facility] Last Admin: 09/17/20 13:54 Dose: 100 mls/hr Documented by: Meropenem 1 gm/ Sodium (Chloride) 100 mls @ 200 mls/hr IV Q8H [facility] Last Admin: 09/20/20 06:06 Dose: 200 mls/hr Documented by: Sodium Chloride (Normal Saline) 1,000 mls @ 999 mls/hr IV ASDIRECTED [facility] Stop: 09/17/20 14:16 Last Admin: 09/17/20 13:20 Dose: 999 mls/hr Documented by: Vancomycin HCl 1 gm/ Sodium (Chloride) 250 mls @ 150 mls/hr IV Q24H [facility] Last Admin: 09/19/20 06:01 Dose: 150 mls/hr Documented by: Lactated Ringer's (Ringers, Lactated) 1,000 mls @ 25 mls/hr IV ASDIRECTED [facility] Last Admin: 09/18/20 13:46 Dose: 25 mls/hr Documented by: Sodium Chloride (Normal Saline) 500 mls @ 500 mls/hr IV ASDIRECTED [facility] Stop: 09/18/20 17:31 Last Admin: 09/18/20 16:35 Dose: 500 mls/hr Documented by: Magnesium Citrate (Citrate Of Magnesia) 150 ml PO ONETIME ONE Stop: 09/16/20 08:01 Last Admin: 09/16/20 07:57 Dose: 150 ml Documented by: Methylprednisolone Sodium Succinate (Solu-Medrol) 125 mg IVPUSH ONETIME ONE Stop: 09/20/20 10:46 Last Admin: 09/20/20 10:40 Dose: 125 mg Documented by: Methylprednisolone Sodium Succinate (Solu-Medrol) 40 mg IVPUSH Q12H [facility] Last Admin: 09/21/20 10:29 Dose: 40 mg Documented by: Midazolam HCl (Versed 1 Mg/Ml) Confirm Administered Dose 2 mg .ROUTE .STK-MED ONE Stop: 09/15/20 16:09 Oxycodone/Acetaminophen (Percocet 325-5 Mg) 1 - 2 tab PO Q6H PRN PRN Reason: Pain (severe 7-10) Pantoprazole Sodium (Protonix Iv) 40 mg IVPUSH ONETIME ONE Stop: 09/17/20 18:01 Last Admin: 09/17/20 18:41 Dose: 40 mg Documented by: Polyethylene Glycol (Miralax) 17 gm PO DAILY PRN PRN Reason: Constipation Potassium Chloride (Klor-Con M20) 40 meq PO ONETIME ONE Stop: 09/21/20 08:46 Last Admin: 09/21/20 10:30 Dose: 40 meq Documented by: Potassium Chloride (Klor-Con M20) 40 meq PO ONETIME ONE Stop: 09/21/20 17:01 Last Admin: 09/21/20 16:58 Dose: 40 meq Documented by: Propofol (Diprivan 20 Ml) Confirm Administered Dose 200 mg .ROUTE .STK-MED ONE Stop: 09/15/20 16:09 - Exam Wound/Incisions: Dressing Dry and Intact, No Drainage General: Alert, Oriented Extremities: Redness Skin: Warm, Dry Sepsis Event Note - Evaluation Sepsis Screening Result: No Definite Risk - Focused Exam Vital Signs: Vital Signs Temp Pulse Pulse Resp BP BP Pulse Ox 09/22/20 10:14 36.1 C 99 18 136/75 94 L 09/22/20 09:11 68 169/88 H 09/22/20 07:00 36.0 C L 68 18 169/88 H 96 09/22/20 03:00 36.0 C L 18 152/88 H 95 09/21/20 23:20 36.5 C 64 18 179/89 H 93 L - Problem List & Annotations (1) Cellulitis of knee, left SNOMED Code(s): 20507495832110360 Code(s): L03.116 - CELLULITIS OF LEFT LOWER LIMB Status: Acute Current Visit: Yes (2) Status post debridement SNOMED Code(s): 785228892, 597968918 Code(s): Z98.890 - OTHER SPECIFIED POSTPROCEDURAL STATES Status: Acute Current Visit: Yes Annotation/Comment:: Lower left leg - Problem List Review Problem List Initiated/Reviewed/Updated: Yes - My Orders Last 24 Hours: Active Orders 24 hr Category Date Time Status predniSONE Med 09/22/20 08:00 Active 40 mg PO WITHBREAKFAST Medication Orders Acetaminophen (Tylenol Extra Strength) 500 mg PO Q6H PRN PRN Reason: Pain Last Admin: 09/22/20 10:10 Dose: 500 mg Documented by: [id number] Hydrocodone Bitart/Acetaminophen ([place] 325-5 Mg) 2 tab PO Q4H PRN PRN Reason: Pain (mild 1-3) Last Admin: 09/21/20 22:33 Dose: 2 tab Documented by: Admin: 09/21/20 01:34 Dose: 2 tab Documented by: Admin: 09/20/20 21:14 Dose: 2 tab Documented by: Admin: 09/20/20 16:50 Dose: 2 tab Documented by: Admin: 09/18/20 18:06 Dose: 2 tab Documented by: Admin: 09/18/20 13:41 Dose: 2 tab Documented by: Admin: 09/18/20 05:23 Dose: 2 tab Documented by: Admin: 09/17/20 08:47 Dose: 2 tab Documented by: Admin: 09/16/20 20:00 Dose: 2 tab Documented by: Admin: 09/16/20 14:10 Dose: 2 tab Documented by: Admin: 09/16/20 08:34 Dose: 2 tab Documented by: Admin: 09/16/20 03:39 Dose: 2 tab Documented by: Admin: 09/15/20 21:33 Dose: 2 tab Documented by: GLEN Aspirin (Ecotrin) 325 mg PO DAILY [facility] Admin: 09/22/20 09:11 Dose: 325 mg Documented by: Admin: 09/21/20 08:14 Dose: 325 mg Documented by: Admin: 09/20/20 08:35 Dose: 325 mg Documented by: Admin: 09/19/20 11:38 Dose: 325 mg Documented by: Admin: 09/18/20 08:40 Dose: 325 mg Documented by: Admin: 09/17/20 08:49 Dose: 325 mg Documented by: Admin: 09/16/20 08:28 Dose: 325 mg Documented by: MARK Bisacodyl (Dulcolax) 10 mg RECTAL DAILY PRN PRN Reason: Constipation Last Admin: 09/16/20 20:29 Dose: 10 mg Documented by: JULIETA Cetirizine HCl (Zyrtec) 10 mg PO DAILY PRN PRN Reason: Allergies Cholecalciferol (Vitamin D3) 25 mcg PO DAILY [facility] Admin: 09/22/20 09:12 Dose: 25 mcg Documented by: Admin: 09/21/20 08:17 Dose: 25 mcg Documented by: Admin: 09/20/20 08:34 Dose: 25 mcg Documented by: Admin: 09/19/20 11:39 Dose: 25 mcg Documented by: Admin: 09/18/20 08:41 Dose: 25 mcg Documented by: Admin: 09/17/20 08:49 Dose: 25 mcg Documented by: Admin: 09/16/20 08:29 Dose: 25 mcg Documented by: MARK Doxycycline Hyclate (Vibramycin) 100 mg PO BID [facility] Admin: 09/22/20 09:10 Dose: 100 mg Documented by: Admin: 09/21/20 20:48 Dose: 100 mg Documented by: Admin: 09/21/20 08:16 Dose: 100 mg Documented by: Admin: 09/20/20 21:12 Dose: 100 mg Documented by: Admin: 09/20/20 08:35 Dose: 100 mg Documented by: Admin: 09/19/20 20:56 Dose: 100 mg Documented by: KYLEIGH Furosemide (Lasix) 20 mg PO DAILY [facility] Admin: 09/22/20 09:11 Dose: 20 mg Documented by: Admin: 09/21/20 08:15 Dose: 20 mg Documented by: Admin: 09/20/20 08:38 Dose: 20 mg Documented by: Admin: 09/19/20 11:38 Dose: 20 mg Documented by: Admin: 09/17/20 08:50 Dose: 20 mg Documented by: Admin: 09/16/20 08:29 Dose: 20 mg Documented by: MARK Gabapentin (Neurontin) 300 mg PO BEDTIME [facility] Admin: 09/21/20 20:48 Dose: 300 mg Documented by: Admin: 09/20/20 21:12 Dose: 300 mg Documented by: Admin: 09/19/20 20:56 Dose: 300 mg Documented by: Admin: 09/18/20 20:27 Dose: 300 mg Documented by: Admin: 09/17/20 21:59 Dose: 300 mg Documented by: Admin: 09/16/20 20:02 Dose: 300 mg Documented by: Admin: 09/15/20 21:28 Dose: 300 mg Documented by: GLEN Hydromorphone HCl (Dilaudid) 0.5 mg IVPUSH Q2H PRN PRN Reason: Pain (severe 7-10) Last Admin: 09/19/20 01:17 Dose: 0.5 mg Documented by: Admin: 09/18/20 22:26 Dose: 0.5 mg Documented by: Admin: 09/18/20 20:27 Dose: 0.5 mg Documented by: Admin: 09/18/20 10:19 Dose: 0.5 mg Documented by: Admin: 09/17/20 18:39 Dose: 0.5 mg Documented by: RODRIGUE Levofloxacin/Dextrose 750 mg/ (Premix) 150 mls @ 100 mls/hr IV Q48H [facility] Admin: 09/21/20 10:29 Dose: 100 mls/hr Documented by: Infusion: 09/19/20 13:09 Dose: 100 mls/hr Documented by: Admin: 09/19/20 11:39 Dose: 100 mls/hr Documented by: JULIAN Ketotifen Fumarate (Ketotifen 0.025% Ophth Soln) 0 ml EYEBOTH BID PRN PRN Reason: Allergies Lactobacillus Rhamnosus (Culturelle) 1 cap PO BID [facility] Admin: 09/22/20 09:11 Dose: 1 cap Documented by: Admin: 09/21/20 20:47 Dose: 1 cap Documented by: Admin: 09/21/20 08:17 Dose: 1 cap Documented by: Admin: 09/20/20 21:13 Dose: 1 cap Documented by: Admin: 09/20/20 08:36 Dose: 1 cap Documented by: Admin: 09/19/20 20:56 Dose: 1 cap Documented by: Admin: 09/19/20 11:38 Dose: 1 cap Documented by: Admin: 09/18/20 20:27 Dose: 1 cap Documented by: Admin: 09/18/20 08:40 Dose: 1 cap Documented by: Admin: 09/17/20 21:59 Dose: 1 cap Documented by: Admin: 09/17/20 08:49 Dose: 1 cap Documented by: Admin: 09/16/20 20:01 Dose: 1 cap Documented by: Admin: 09/16/20 08:28 Dose: 1 cap Documented by: Admin: 09/15/20 21:25 Dose: 1 cap Documented by: GLEN Lisinopril (Prinivil) 40 mg PO BID [facility] Admin: 09/22/20 09:11 Dose: 40 mg Documented by: Admin: 09/21/20 20:48 Dose: 40 mg Documented by: Admin: 09/21/20 08:15 Dose: 40 mg Documented by: Admin: 09/20/20 21:12 Dose: 40 mg Documented by: Admin: 09/17/20 08:48 Dose: 40 mg Documented by: Admin: 09/16/20 20:03 Dose: 40 mg Documented by: Admin: 09/16/20 08:28 Dose: 40 mg Documented by: Admin: 09/15/20 21:28 Dose: 40 mg Documented by: GLEN Loperamide HCl (Imodium) 2 mg PO Q4H PRN PRN Reason: DIARRHEA Last Admin: 09/20/20 10:40 Dose: 2 mg Documented by: Admin: 09/20/20 05:59 Dose: 2 mg Documented by: Admin: 09/19/20 11:52 Dose: 2 mg Documented by: JULIAN Metoprolol Tartrate (Lopressor) 25 mg PO BID [facility] Admin: 09/22/20 09:11 Dose: 25 mg Documented by: Admin: 09/21/20 20:47 Dose: 25 mg Documented by: Admin: 09/21/20 08:17 Dose: 25 mg Documented by: Admin: 09/20/20 21:12 Dose: 25 mg Documented by: Admin: 09/20/20 08:35 Dose: 25 mg Documented by: Admin: 09/19/20 20:55 Dose: 25 mg Documented by: Admin: 09/19/20 11:38 Dose: 25 mg Documented by: Admin: 09/18/20 20:28 Dose: Not Given Documented by: Admin: 09/17/20 08:49 Dose: 25 mg Documented by: Admin: 09/16/20 20:02 Dose: 25 mg Documented by: Admin: 09/16/20 08:29 Dose: 25 mg Documented by: Admin: 09/15/20 21:28 Dose: 25 mg Documented by: FREESUZ Ondansetron HCl (Zofran Odt) 4 mg PO Q6H PRN PRN Reason: Nausea Last Admin: 09/21/20 16:58 Dose: 4 mg Documented by: Admin: 09/19/20 03:30 Dose: 4 mg Documented by: Admin: 09/18/20 11:09 Dose: 4 mg Documented by: Admin: 09/17/20 22:03 Dose: 4 mg Documented by: Admin: 09/17/20 15:26 Dose: 4 mg Documented by: RODRIGUE Pantoprazole Sodium (Protonix) 40 mg PO ACBREAKFAST [facility] Last Admin: 09/22/20 09:11 Dose: 40 mg Documented by: Admin: 09/21/20 08:18 Dose: 40 mg Documented by: Admin: 09/20/20 08:35 Dose: 40 mg Documented by: Admin: 09/19/20 08:39 Dose: 40 mg Documented by: Admin: 09/18/20 08:37 Dose: 40 mg Documented by: Admin: 09/17/20 08:49 Dose: 40 mg Documented by: Admin: 09/16/20 07:56 Dose: 40 mg Documented by: MARK Potassium Chloride (Klor-Con M20) 20 meq PO DAILY [facility] Last Admin: 09/22/20 09:11 Dose: 20 meq Documented by: Admin: 09/21/20 08:18 Dose: 20 meq Documented by: Admin: 09/20/20 08:35 Dose: 20 meq Documented by: Admin: 09/19/20 11:38 Dose: 20 meq Documented by: Admin: 09/18/20 08:41 Dose: 20 meq Documented by: Admin: 09/17/20 08:49 Dose: 20 meq Documented by: Admin: 09/16/20 08:28 Dose: 20 meq Documented by: MARK Prednisone (Prednisone) 40 mg PO WITHBREAKFAST [facility] Last Admin: 09/22/20 09:11 Dose: 40 mg Documented by: LENORE Rosuvastatin Calcium (Crestor) 5 mg PO DAILY [facility] Last Admin: 09/22/20 09:12 Dose: 5 mg Documented by: Admin: 09/21/20 08:18 Dose: 5 mg Documented by: Admin: 09/20/20 08:36 Dose: 5 mg Documented by: Admin: 09/19/20 11:37 Dose: 5 mg Documented by: Admin: 09/18/20 08:41 Dose: 5 mg Documented by: Admin: 09/17/20 08:50 Dose: 5 mg Documented by: Admin: 09/16/20 08:28 Dose: 5 mg Documented by: MARK Terazosin HCl (Hytrin) 2 mg PO BID [facility] Admin: 09/22/20 09:11 Dose: 2 mg Documented by: Admin: 09/21/20 20:47 Dose: 2 mg Documented by: Admin: 09/21/20 08:16 Dose: 2 mg Documented by: Admin: 09/20/20 21:13 Dose: 2 mg Documented by: Admin: 09/20/20 08:36 Dose: 2 mg Documented by: Admin: 09/19/20 20:56 Dose: 2 mg Documented by: Admin: 09/19/20 11:38 Dose: 2 mg Documented by: Admin: 09/18/20 20:27 Dose: 2 mg Documented by: Admin: 09/18/20 08:40 Dose: 2 mg Documented by: Admin: 09/17/20 21:49 Dose: Not Given Documented by: Admin: 09/17/20 08:49 Dose: 2 mg Documented by: Admin: 09/16/20 20:01 Dose: 2 mg Documented by: Admin: 09/16/20 08:31 Dose: 2 mg Documented by: Admin: 09/15/20 21:26 Dose: 2 mg Documented by: GLEN - Assessment Assessment (Free Text/Narrative):: Appetite improved this AM, stomach feeling better, no significant change in knee wound, still with some erythema and mild swelling. OK from Ortho standpoint to go home on oral antibiotics and follow up for wound check and staple removal next week.
--- NOTE | 2020-09-22 13:22 | PCM.DCSUM1 ---
Discharge Summary - Hospital Course Brief History: Ms. Dumont is a 80-year-old woman who was admitted through the emergency department with cellulitis of her left knee. - Discharge Data Discharge Date: 09/22/20 Discharge Disposition: Home, W Home Health Agency 06 Condition: Fair - Referral to Home Health Date of Face to Face Encounter: 09/22/20 Reason for Homebound Status: Status post total knee arthroplasty. Pneumonia, colitis Primary Care Physician: Filiberto Perdue MD Skilled Need: Nursing care, physical therapy, Occupational Therapy - Discharge Diagnosis/Problem(s) (1) Pneumonia SNOMED Code(s): 383862888 ICD Code: J18.9 - PNEUMONIA, UNSPECIFIED ORGANISM Status: Acute Current Visit: Yes (2) Colitis SNOMED Code(s): 92205889 ICD Code: K52.9 - NONINFECTIVE GASTROENTERITIS AND COLITIS, UNSPECIFIED Status: Acute Current Visit: Yes (3) Cellulitis of knee, left SNOMED Code(s): 56084354981559019 ICD Code: L03.116 - CELLULITIS OF LEFT LOWER LIMB Status: Acute Current Visit: Yes (4) Status post debridement SNOMED Code(s): 737644447, 653594212 ICD Code: Z98.890 - OTHER SPECIFIED POSTPROCEDURAL STATES Status: Acute Current Visit: Yes Problem Details: Lower left leg (5) Status post total left knee replacement SNOMED Code(s): 3428271503418, 2505135754562 ICD Code: Z96.652 - PRESENCE OF LEFT ARTIFICIAL KNEE JOINT Status: Acute Current Visit: No (6) Sepsis SNOMED Code(s): 19152288 ICD Code: A41.9 - SEPSIS, UNSPECIFIED ORGANISM Status: Acute Current Visit: Yes - Patient Summary/Data Consults: Consultations 09/21/20 07:00 PT Evaluation and Treatment [CONS] Routine Please Evaluate and Treat. PT Reason for Consult: Strengthening This query below is only for informational purposes and is not editable. Admission Diagnosis/Problem: Incision and drainage of wound Hospital Course: Ms. Dumont is a 80-year-old woman who was admitted with inflammation and erythema as well as pain of her left knee secondary to cellulitis. She had undergone a recent total left knee arthroplasty. She was seen and evaluated by Dr. Duff and taken to the operating room for debridement. Infection appeared to be superficial and not involving the knee replacement. She initially was started on IV antibiotic therapy with vancomycin. On the day after admission she unfortunately experienced a syncopal episode while on the toilet. This was followed by prolonged hypotension, she was seen and evaluated by Dr. Bruce and then transferred to the intensive care unit. Unfortunately she did not respond to initial fluid boluses and required use of IV norepinephrine to maintain adequate blood pressure. She was evaluated for potential cause of her hypotension, there was no evidence of acute infarct. She did have a previous history of vasovagal syncope, but in this case the hypotension was very prolonged. Chest x-ray and CT scan showed evidence of pulmonary infiltrate consistent with pneumonia, blood cultures were obtained and antibiotic coverage was expanded. She was felt to have sepsis related to the pneumonia as a cause of her persistent hypotension. CT scan of the abdomen showed evidence of colitis, infectious versus inflammatory versus ischemic. She had no blood per rectum and so it was felt that this was less likely ischemic colitis and more likely infectious. She was continued on broad-spectrum antibiotics and Solu- Medrol IV was also added because of the colitis. With these interventions she improved over the next few days and had no significant respiratory symptoms by the time of discharge. She was seen and followed by Dr. Duff concerning cellulitis of her knee. Cultures from the left knee did grow out MRSA and she was converted to oral doxycycline prior to discharge. She will be discharged home with an additional 14 days of oral antibiotic therapy with doxycycline for her cellulitis of the left knee. She will also be discharged home on additional 6 days of levofloxacin for her pneumonia as well as colitis and an additional 3 days of oral prednisone for the colitis. She will remain on probiotic therapy twice daily. Activity will be as tolerated and she will resume her usual diet. Home care services will be arranged after discharge including home physical therapy and Occupational Therapy. Follow-up appointment will be scheduled with her primary care provider within 1 week and a follow-up appointment will be scheduled with Dr. Duff next week. - Patient Instructions Diet: Usual Diet as Tolerated Activity: As Tolerated Other/Special Instructions: Please arrange for home care services including home physical therapy and Occupational Therapy. Please schedule follow-up appointment with primary care provider within 1 week. Please schedule follow-up appointment with Dr. Duff next week. - Discharge Plan *PRESCRIPTION DRUG MONITORING PROGRAM REVIEWED*: Not Applicable *COPY OF PRESCRIPTION DRUG MONITORING REPORT IN PATIENT JESUS: Not Applicable Prescriptions/Med Rec: levoFLOXacin [Levaquin] 750 mg PO Q48H #3 tab Acetaminophen/HYDROcodone [Pacoima 325-5 MG] 1 tab PO Q4H PRN #24 tablet PRN Reason: Pain (Mild 1-3) predniSONE 40 mg PO WITHBREAKFAST #6 tablet Doxycycline [Vibramycin] 100 mg PO BID #28 cap Home Medications: Home Meds Metoprolol Tartrate [Lopressor] 25 mg PO BID 08/27/14 [History] Naproxen Sodium [Aleve] 220 mg PO DAILY PRN 08/27/14 [History] Terazosin [Hytrin] 2 mg PO BID 08/27/14 [History] Acetaminophen 500 mg PO Q6HR PRN 03/01/16 [History] Fluticasone Propionate [Flonase] 2 sprays NS DAILY 03/01/16 [History] Gabapentin [Neurontin] 300 mg PO BEDTIME 03/01/16 [History] Potassium Chloride [Klor-Con] 20 meq PO DAILY 10/26/16 [History] Cetirizine HCl [Zyrtec] 10 mg PO DAILY PRN 06/14/18 [History] Docusate Sodium [Stool Softener] 2 tab PO DAILY PRN 06/14/18 [History] Sodium Chloride 0.65% [Wheelwright Saline] 0.1 ml JORGE DAILY PRN 06/14/18 [History] lisinopriL [Prinivil] 40 mg PO BID 06/14/18 [History] polyethylene glycoL 3350 [MiraLAX] 17 gm PO DAILY PRN 12/24/18 [History] Aspirin 325 mg PO DAILY 02/15/20 [History] Omeprazole 20 mg PO DAILY 02/15/20 [History] Ondansetron [Zofran ODT] 4 mg PO Q6H PRN 02/15/20 [History] Rosuvastatin Calcium 5 mg PO DAILY 02/15/20 [History] Furosemide [Lasix] 20 mg PO DAILY 02/25/20 [History] Cinnamon Bark [Cinnamon] 1 tab PO DAILY 03/02/20 [History] Lactobacillus Rhamnosus GG [Culturelle] 1 cap PO BID #60 cap 03/28/20 [Rx] Ketotifen Fumarate [Zaditor] 1 drop OP BID PRN 04/15/20 [History] Nystatin [Nystop] 1 applic TOP BID 04/15/20 [History] Cholecalciferol (Vitamin D3) [Vitamin D3] 1 tab PO DAILY 08/24/20 [History] Hydrocodone/Acetaminophen [Pacoima 5-325 Tablet] 1 - 2 each PO Q6HR PRN #36 tablet 09/08/20 [Rx] Acetaminophen/HYDROcodone [Pacoima 325-5 MG] 1 tab PO Q4H PRN #24 tablet 09/22/20 [Rx] Doxycycline [Vibramycin] 100 mg PO BID #28 cap 09/22/20 [Rx] levoFLOXacin [Levaquin] 750 mg PO Q48H #3 tab 09/22/20 [Rx] predniSONE 40 mg PO WITHBREAKFAST #6 tablet 09/22/20 [Rx] Patient Handouts: Cellulitis, Adult, [id number] Referrals: Paty Valle PA-C [Ordering Only Provider] - 09/29/20 3:30 pm (Please arrive 15 minutes early to register for your appointment.) Geoffrey Duff MD [Physician] - 09/29/20 2:30 pm (Please register at the ER desk for your appointment.) - Discharge Summary/Plan Comment DC Time >30 min.: No - Patient Data Vitals - Most Recent: Last Vital Signs Temp 97.0 F 09/22/20 10:14 Pulse 99 09/22/20 10:14 Resp 18 09/22/20 10:14 BP 136/75 09/22/20 10:14 Pulse Ox 94 L 09/22/20 10:14 Weight - Most Recent: 146 lb I&O - Last 24 hours: Intake & Output 09/21/20 09/22/20 09/22/20 22:59 06:59 14:59 Intake Total 0813 634 2132 Output Total 1999 3228 1999 Balance -896 -8689 -506 Lab Results - Last 24 hrs: Laboratory Results - last 24 hr 09/22/20 09/22/20 Range/Units 04:13 04:13 WBC 13.4 H (4.5-11.0) K/uL RBC 3.43 (3.30-5.50) M/uL Hgb 9.4 L (12.0-15.0) g/dL Hct 29.3 L (36.0-48.0) % MCV 85 (80-98) fL MCH 27 (27-31) pg MCHC 32 (32-36) % Plt Count 327 (150-400) K/uL Add Manual Diff Yes Neutrophils % (Manual) 76 H (36-66) % Lymphocytes % (Manual) 14 L (24-44) % Monocytes % (Manual) 10 H (2-6) % Sodium 132 L (140-148) mmol/L Potassium 3.6 (3.6-5.2) mmol/L Chloride 95 L (100-108) mmol/L Carbon Dioxide 28 (21-32) mmol/L Anion Gap 12.6 (5.0-14.0) mmol/L BUN 21 H (7-18) mg/dL Creatinine 0.9 (0.6-1.0) mg/dL Est Cr Clr Drug Dosing 42.61 mL/min Estimated GFR (MDRD) > 60 (>60) Glucose 150 H (74-106) mg/dL Calcium 8.2 L (8.5-10.1) mg/dL NITISH Results - Last 24 hrs: Microbiology 09/17/20 14:10 Aerobic Blood Culture - Preliminary Blood - Venous - Lab Draw NO GROWTH AFTER 4 DAYS Anaerobic Blood Culture - Preliminary NO GROWTH AFTER 4 DAYS 09/17/20 14:00 Aerobic Blood Culture - Preliminary Blood - Arm, Right NO GROWTH AFTER 4 DAYS Anaerobic Blood Culture - Preliminary NO GROWTH AFTER 4 DAYS Med Orders - Current: Current Medications Acetaminophen (Tylenol Extra Strength) 500 mg PO Q6H PRN PRN Reason: Pain Last Admin: 09/22/20 10:10 Dose: 500 mg Documented by: Hydrocodone Bitart/Acetaminophen (Pacoima 325-5 Mg) 2 tab PO Q4H PRN PRN Reason: Pain (mild 1-3) Last Admin: 09/21/20 22:33 Dose: 2 tab Documented by: Aspirin (Ecotrin) 325 mg PO DAILY [facility] Last Admin: 09/22/20 09:11 Dose: 325 mg Documented by: Bisacodyl (Dulcolax) 10 mg RECTAL DAILY PRN PRN Reason: Constipation Last Admin: 09/16/20 20:29 Dose: 10 mg Documented by: Cetirizine HCl (Zyrtec) 10 mg PO DAILY PRN PRN Reason: Allergies Cholecalciferol (Vitamin D3) 25 mcg PO DAILY [facility] Last Admin: 09/22/20 09:12 Dose: 25 mcg Documented by: Doxycycline Hyclate (Vibramycin) 100 mg PO BID [facility] Last Admin: 09/22/20 09:10 Dose: 100 mg Documented by: Furosemide (Lasix) 20 mg PO DAILY [facility] Last Admin: 09/22/20 09:11 Dose: 20 mg Documented by: Gabapentin (Neurontin) 300 mg PO BEDTIME [facility] Last Admin: 09/21/20 20:48 Dose: 300 mg Documented by: Hydromorphone HCl (Dilaudid) 0.5 mg IVPUSH Q2H PRN PRN Reason: Pain (severe 7-10) Last Admin: 09/19/20 01:17 Dose: 0.5 mg Documented by: Levofloxacin/Dextrose 750 mg/ (Premix) 150 mls @ 100 mls/hr IV Q48H [facility] Last Admin: 09/21/20 10:29 Dose: 100 mls/hr Documented by: Ketotifen Fumarate (Ketotifen 0.025% Ophth Soln) 0 ml EYEBOTH BID PRN PRN Reason: Allergies Lactobacillus Rhamnosus (Culturelle) 1 cap PO BID [facility] Last Admin: 09/22/20 09:11 Dose: 1 cap Documented by: Lisinopril (Prinivil) 40 mg PO BID [facility] Last Admin: 09/22/20 09:11 Dose: 40 mg Documented by: Loperamide HCl (Imodium) 2 mg PO Q4H PRN PRN Reason: DIARRHEA Last Admin: 09/20/20 10:40 Dose: 2 mg Documented by: Metoprolol Tartrate (Lopressor) 25 mg PO BID [facility] Last Admin: 09/22/20 09:11 Dose: 25 mg Documented by: Ondansetron HCl (Zofran Odt) 4 mg PO Q6H PRN PRN Reason: Nausea Last Admin: 09/21/20 16:58 Dose: 4 mg Documented by: Pantoprazole Sodium (Protonix) 40 mg PO ACBREAKFAST [facility] Last Admin: 09/22/20 09:11 Dose: 40 mg Documented by: Potassium Chloride (Klor-Con M20) 20 meq PO DAILY [facility] Last Admin: 09/22/20 09:11 Dose: 20 meq Documented by: Prednisone (Prednisone) 40 mg PO WITHBREAKFAST [facility] Last Admin: 09/22/20 09:11 Dose: 40 mg Documented by: Rosuvastatin Calcium (Crestor) 5 mg PO DAILY [facility] Last Admin: 09/22/20 09:12 Dose: 5 mg Documented by: Terazosin HCl (Hytrin) 2 mg PO BID [facility] Last Admin: 09/22/20 09:11 Dose: 2 mg Documented by: Discontinued Medications Bupivacaine HCl (Marcaine 0.5%) Confirm Administered Dose 30 ml .ROUTE .STK-MED ONE Stop: 09/15/20 14:49 Docusate Sodium (Colace) 200 mg PO DAILY PRN PRN Reason: Constipation Last Admin: 09/16/20 19:59 Dose: 200 mg Documented by: Fentanyl (Sublimaze) Confirm Administered Dose 100 mcg .ROUTE .STK-MED ONE Stop: 09/15/20 16:09 Hydrocortisone Sodium Succinate (Solu-Cortef) 100 mg IVPUSH ONETIME ONE Stop: 09/19/20 11:31 Last Admin: 09/19/20 11:40 Dose: 100 mg Documented by: Vancomycin HCl 1 gm/ Sodium (Chloride) 250 mls @ 150 mls/hr IV ONETIME ONE Stop: 09/15/20 17:39 Last Admin: 09/15/20 15:59 Dose: 150 mls/hr Documented by: Lactated Ringer's (Ringers, Lactated) 1,000 mls @ 75 mls/hr IV ASDIRECTED [facility] Last Admin: 09/16/20 00:26 Dose: 75 mls/hr Documented by: Vancomycin HCl 1 gm/ Sodium (Chloride) 250 mls @ 150 mls/hr IV Q12H [facility] Last Admin: 09/18/20 03:00 Dose: 150 mls/hr Documented by: Sodium Chloride (Normal Saline) 1,000 mls @ 100 mls/hr IV ASDIRECTED [facility] Sodium Chloride (Normal Saline) 500 mls @ 999 mls/hr IV ASDIRECTED [facility] Stop: 09/17/20 16:30 Sodium Chloride (Normal Saline) 500 mls @ 999 mls/hr IV ASDIRECTED [facility] Stop: 09/17/20 16:30 Lactated Ringer's (Ringers, Lactated) 1,000 mls @ 100 mls/hr IV ASDIRECTED [facility] Last Admin: 09/18/20 01:00 Dose: 100 mls/hr Documented by: Norepinephrine Bitartrate 4 mg (/ Dextrose/Water) 250 mls @ 7.5 mls/hr IV TITRATE [facility]; Protocol Last Titration: 09/19/20 22:09 Dose: 0 mcg/min, 0 mls/hr Documented by: Levofloxacin/Dextrose 750 mg/ (Premix) 150 mls @ 100 mls/hr IV Q24H [facility] Last Admin: 09/17/20 13:54 Dose: 100 mls/hr Documented by: Meropenem 1 gm/ Sodium (Chloride) 100 mls @ 200 mls/hr IV Q8H [facility] Last Admin: 09/20/20 06:06 Dose: 200 mls/hr Documented by: Sodium Chloride (Normal Saline) 1,000 mls @ 999 mls/hr IV ASDIRECTED [facility] Stop: 09/17/20 14:16 Last Admin: 09/17/20 13:20 Dose: 999 mls/hr Documented by: Vancomycin HCl 1 gm/ Sodium (Chloride) 250 mls @ 150 mls/hr IV Q24H [facility] Last Admin: 09/19/20 06:01 Dose: 150 mls/hr Documented by: Lactated Ringer's (Ringers, Lactated) 1,000 mls @ 25 mls/hr IV ASDIRECTED [facility] Last Admin: 09/18/20 13:46 Dose: 25 mls/hr Documented by: Sodium Chloride (Normal Saline) 500 mls @ 500 mls/hr IV ASDIRECTED [facility] Stop: 09/18/20 17:31 Last Admin: 09/18/20 16:35 Dose: 500 mls/hr Documented by: Magnesium Citrate (Citrate Of Magnesia) 150 ml PO ONETIME ONE Stop: 09/16/20 08:01 Last Admin: 09/16/20 07:57 Dose: 150 ml Documented by: Methylprednisolone Sodium Succinate (Solu-Medrol) 125 mg IVPUSH ONETIME ONE Stop: 09/20/20 10:46 Last Admin: 09/20/20 10:40 Dose: 125 mg Documented by: Methylprednisolone Sodium Succinate (Solu-Medrol) 40 mg IVPUSH Q12H [facility] Last Admin: 09/21/20 10:29 Dose: 40 mg Documented by: Midazolam HCl (Versed 1 Mg/Ml) Confirm Administered Dose 2 mg .ROUTE .STK-MED ONE Stop: 09/15/20 16:09 Oxycodone/Acetaminophen (Percocet 325-5 Mg) 1 - 2 tab PO Q6H PRN PRN Reason: Pain (severe 7-10) Pantoprazole Sodium (Protonix Iv) 40 mg IVPUSH ONETIME ONE Stop: 09/17/20 18:01 Last Admin: 09/17/20 18:41 Dose: 40 mg Documented by: Polyethylene Glycol (Miralax) 17 gm PO DAILY PRN PRN Reason: Constipation Potassium Chloride (Klor-Con M20) 40 meq PO ONETIME ONE Stop: 09/21/20 08:46 Last Admin: 09/21/20 10:30 Dose: 40 meq Documented by: Potassium Chloride (Klor-Con M20) 40 meq PO ONETIME ONE Stop: 09/21/20 17:01 Last Admin: 09/21/20 16:58 Dose: 40 meq Documented by: Propofol (Diprivan 20 Ml) Confirm Administered Dose 200 mg .ROUTE .STK-MED ONE Stop: 09/15/20 16:09 - Exam General: Reports: Alert, Oriented, Cooperative, Mild Distress Lungs: Reports: Clear to Auscultation, Normal Respiratory Effort, Decreased Breath Sounds Cardiovascular: Reports: Regular Rate, Regular Rhythm, No Murmurs GI/Abdominal Exam: Soft, Non-Tender, No Organomegaly, No Distention Extremities: Other (Mild erythema and swelling left knee)
[2020-09-22] MEDS: Acetaminophen/HYDROcodone 325-5 MG Tab PO PRN (14:18)
--- NOTE | 2020-10-05 16:51 | OR ---
DATE OF PROCEDURE: 09/15/2020 SURGEON: Geoffrey Duff MD PREOPERATIVE DIAGNOSIS: Infected left knee wound, possible infected total knee arthroplasty. POSTOPERATIVE DIAGNOSIS: Superficial infection, left knee wound. PROCEDURE: Irrigation and debridement, surgical wound, left knee. ANESTHESIA: General. INDICATIONS: Aby is a 80-year-old female who underwent a left total knee arthroplasty a little over a week ago. She had some difficulty with some swelling postoperatively, but no initial problems with wound healing. Presented to the clinic with redness, warmth, swelling about the knee, and a small amount of drainage from a couple of areas of minor wound breakdown. She is therefore taken to the operating room for exploration of the wound, deep cultures, and admitted for IV antibiotics. Risks, benefits, potential complications of the procedure were discussed. DESCRIPTION OF PROCEDURE: After adequate anesthesia was obtained, the patient was placed supine. Tourniquet was placed about the left upper leg. Leg was prepped and draped in a sterile fashion. Tourniquet was not inflated. Initial incision was made through the previous incision and encountered 3 to 4 areas of inflammation consistent with stitch abscesses from the Vicryl subcutaneous sutures. There was no evidence of deep wound or abscess. There was surrounding erythema, however, no evidence of any sinus tract or deep wound at all. Cultures were taken from the subcutaneous tissue. The wound margins were sharply excised with a 10 blade including any remaining knots or inflamed areas from the subcu sutures. Wound was then thoroughly irrigated with saline and Betadine. Once this was done, the knee itself was evaluated. There was no obvious effusion in the knee. 18-gauge needle with syringe was inserted superolaterally well away from the area of erythema and the incision. Very scant amount of synovial fluid was obtained. There was no evidence of any effusion and the amount obtained was not enough for cell count or analysis. The wound was irrigated once again. All questionable areas of wound breakdown had been excised sharply with a scalpel and the wound was then closed with minimal number of 2-0 Vicryl subcutaneous sutures followed by surgical anjelica. A light compressive dressing was applied. The patient tolerated the procedure very well. There were no complications. She was taken from the operating room in stable condition. Geoffrey Duff MD /[id number]
== END 2020-09-22 14:50 | disposition home health service (06) | DRG 570 ==
LOC: JP.LAB 13:47 → JP.MS 14:29 → UNDOADMIN 14:29 → JP.MS 17:04 → JP.ICU 09-17 12:34 → JP.MS 09-17 12:34 → JP.ICU 09-20 10:08 → JP.MS 09-20 10:08 → UNDODISIN 09-22 14:50
PROVIDERS: ADMIT Specialist; ATTEND Specialist
PROC: 0JBP0ZZ Excision of Left Lower Leg Subcutaneous Tissue and Fascia, Open Approach (ICD-10-PCS; 2020-09-15)
PROC: XW033N5 Introduction of Meropenem-vaborbactam Anti-infective into Peripheral Vein, Percutaneous Approach, New Technology Group 5 (ICD-10-PCS; principal; 2020-09-17)
PROC: 3E033XZ Introduction of Vasopressor into Peripheral Vein, Percutaneous Approach (ICD-10-PCS; 2020-09-19)
DX: L03.116 Cellulitis of left lower limb (principal); A41.9 Sepsis, unspecified organism; J18.9 Pneumonia, unspecified organism; R65.21 Severe sepsis with septic shock; J96.01 Acute respiratory failure with hypoxia; K52.9 Noninfective gastroenteritis and colitis, unspecified; B95.62 Methicillin resistant Staphylococcus aureus infection as the cause of diseases classified elsewhere; J30.9 Allergic rhinitis, unspecified; E78.00 Pure hypercholesterolemia, unspecified; I10 Essential (primary) hypertension; Z96.652 Presence of left artificial knee joint; K21.9 Gastro-esophageal reflux disease without esophagitis; M54.9 Dorsalgia, unspecified; G89.29 Other chronic pain; M19.90 Unspecified osteoarthritis, unspecified site; M81.0 Age-related osteoporosis without current pathological fracture; D64.9 Anemia, unspecified; G62.9 Polyneuropathy, unspecified; Z90.49 Acquired absence of other specified parts of digestive tract; Z09 Encounter for follow-up examination after completed treatment for conditions other than malignant neoplasm; Z91.013 Allergy to seafood; Z91.09 Other allergy status, other than to drugs and biological substances; Z88.8 Allergy status to other drugs, medicaments and biological substances; Z79.82 Long term (current) use of aspirin; Z79.899 Other long term (current) drug therapy; Z98.49 Cataract extraction status, unspecified eye; Z86.73 Personal history of transient ischemic attack (TIA), and cerebral infarction without residual deficits; Z86.19 Personal history of other infectious and parasitic diseases
CPT/HCPCS: 36415; 71045; 71045-26; 71250; 71250-26; 74176; 74176-26; 80048; 82565; 83605; 84484; 85018; 85025; 85027; 85651; 86140; 87040; 87070; 87075; 87077; 87186; 87205; 87493; 93005; 93010; 97110-GP; 97116-GP; 97161-GP; 97162-GP; 97530-GP; 99232; 99238; 99291; A9270-GY; C9113; J1170; J1720; J1956; J2185; J2250; J2704; J2920; J2930; J3010; J3370; J3490; J7030; J7050; J7060; J7120; J7512

== ENCOUNTER 2020-09-25 10:04 | Observation (INO) | payer MEDICARE, BC ==
[2020-09-25] MEDS ORDERED: Sodium Chloride 0.9% 10 ML Syringe FLUSH PRN ×3 (10:40→15:56)
[2020-09-25] MEDS ORDERED: Pantoprazole 40 MG Vial IVPUSH ONE (10:40)
--- NOTE | 2020-09-25 10:49 | EDM.PDOC ---
ED HPI GENERAL MEDICAL PROBLEM - General Chief Complaint: General Stated Complaint: MEDICAL Time Seen by Provider: 09/25/20 10:33 Source of Information: Reports: Patient, RN Notes Reviewed History Limitations: Reports: No Limitations - History of Present Illness INITIAL COMMENTS - FREE TEXT/NARRATIVE: 80-year-old female presents emergency department today via EMS services for s yncopal event at home. She was recently discharged from the hospital on 3 days prior for an infected bursitis as well as pneumonia concern for ischemic colitis via CT scan. Also of note during this morning's event there was bright red blood in the stool and in the toilet. On arrival she had theo blood at the rectum. She states that this time she is feeling okay has not felt lightheaded or dizzy just feels weak and rundown - Related Data Allergies Allergy/AdvReac Type Severity Reaction Status Date / Time metronidazole [From Flagyl] Allergy Severe Difficulty Verified 09/25/20 10:16 Breathing shellfish derived Allergy Intermediate Difficulty Verified 09/25/20 10:16 Swallowing adhesive tape Allergy Blisters Verified 09/25/20 10:16 amlodipine [From Norvasc] Allergy Other Verified 09/25/20 10:16 Home Meds: Home Meds Metoprolol Tartrate [Lopressor] 25 mg PO BID 08/27/14 [History] Naproxen Sodium [Aleve] 220 mg PO DAILY PRN 08/27/14 [History] Terazosin [Hytrin] 2 mg PO BID 08/27/14 [History] Acetaminophen 500 mg PO Q6HR PRN 03/01/16 [History] Fluticasone Propionate [Flonase] 2 sprays NS DAILY 03/01/16 [History] Gabapentin [Neurontin] 300 mg PO BEDTIME 03/01/16 [History] Potassium Chloride [Klor-Con] 20 meq PO DAILY 10/26/16 [History] Cetirizine HCl [Zyrtec] 10 mg PO DAILY PRN 06/14/18 [History] Docusate Sodium [Stool Softener] 2 tab PO DAILY PRN 06/14/18 [History] Sodium Chloride 0.65% [[place] Saline] 0.1 ml JORGE DAILY PRN 06/14/18 [History] lisinopriL [Prinivil] 40 mg PO BID 06/14/18 [History] polyethylene glycoL 3350 [MiraLAX] 17 gm PO DAILY PRN 12/24/18 [History] Aspirin 325 mg PO DAILY 02/15/20 [History] Omeprazole 20 mg PO DAILY 02/15/20 [History] Ondansetron [Zofran ODT] 4 mg PO Q6H PRN 02/15/20 [History] Rosuvastatin Calcium 5 mg PO DAILY 02/15/20 [History] Furosemide [Lasix] 20 mg PO DAILY 02/25/20 [History] Cinnamon Bark [Cinnamon] 1 tab PO DAILY 03/02/20 [History] Lactobacillus Rhamnosus GG [Culturelle] 1 cap PO BID #60 cap 03/28/20 [Rx] Ketotifen Fumarate [Zaditor] 1 drop OP BID PRN 04/15/20 [History] Nystatin [Nystop] 1 applic TOP BID 04/15/20 [History] Cholecalciferol (Vitamin D3) [Vitamin D3] 1 tab PO DAILY 08/24/20 [History] Hydrocodone/Acetaminophen [[place] 5-325 Tablet] 1 - 2 each PO Q6HR PRN #36 tablet 09/08/20 [Rx] Acetaminophen/HYDROcodone [[place] 325-5 MG] 1 tab PO Q4H PRN #24 tablet 09/22/20 [Rx] Doxycycline [Vibramycin] 100 mg PO BID #28 cap 09/22/20 [Rx] levoFLOXacin [Levaquin] 750 mg PO Q48H #3 tab 09/22/20 [Rx] predniSONE 40 mg PO WITHBREAKFAST #6 tablet 09/22/20 [Rx] Past Medical History HEENT History: Reports: Allergic Rhinitis, Impaired Vision Other HEENT History: cataracts Cardiovascular History: Reports: High Cholesterol, Hypertension Other Cardiovascular History: TIA in December Gastrointestinal History: Reports: Cholelithiasis, Diverticulosis, GERD, Other (See Below) Other Gastrointestinal History: Hx of Barretts;. 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 Neurological History: Reports: Neuropathy, Peripheral, TIA, Other (See Below) Other Neuro History: TIA December 2019, reports 07/2020 N/T B feet to knees since 2nd lumbar surgery Endocrine/Metabolic History: Reports: Osteoporosis Hematologic History: Reports: Anemia, B12 Deficiency, Blood Transfusion(s), Iron Deficiency Immunologic History: Reports: None Oncologic (Cancer) History: Reports: None Dermatologic History: Reports: None - Infectious Disease History Infectious Disease History: Reports: Chicken Pox, Measles, MRSA, Mumps, Rubella, Shingles, Other (See Below) Other Infectious Disease History: COVID-positive July 24, 2020 - Past Surgical History Head Surgeries/Procedures: Reports: None HEENT Surgical History: Reports: Cataract Surgery, Naso-Sinus Surgery Cardiovascular Surgical History: Reports: None GI Surgical History: Reports: Cholecystectomy, Colonoscopy, EGD, Hernia, Inguinal, Other (See Below) Other GI Surgeries/Procedures: 2 hernia repair, esophagus removed Female Surgical History: Reports: Breast Biopsy, Hysterectomy, Oophorectomy Endocrine Surgical History: Reports: None Neurological Surgical History: Reports: Laminectomy, Other (See Below) Other Neurological Surgeries/Procedures: Back surgery x3 (first at 18yo, the other 2 performed 1 year apart) Musculoskeletal Surgical History: Reports: Knee Replacement, Shoulder Surgery, Other (See Below) Other Musculoskeletal Surgeries/Procedures:: Back surgery x3. L shoulder r/t rotator cuff. B TKA: R 08/2017, L 08/24/2020. knee replacement left, drained and "cleaned in surgery", MRSA Oncologic Surgical History: Reports: Biopsy of Breast Dermatological Surgical History: Reports: None Social & Family History - Family History Family Medical History: No Pertinent Family History HEENT: Reports: Impaired Vision Cardiac: Reports: CAD, Hypertension, NE Respiratory: Reports: COPD, Other (See Below) Other Respiratory Family Hisory: rheumatic fever GI: Reports: Cholelithiasis, Colon Polyps, GERD OBGYN: Reports: Musculoskeletal: Reports: Gout Endocrine/Metabolic: Reports: None Hematologic: Reports: None Oncologic: Reports: Prostate, Renal - Tobacco Use Tobacco Use Status *Q: Never Tobacco User - Caffeine Use Caffeine Use: Reports: Coffee Caffeine Use Comment: DAILY - Recreational Drug Use Recreational Drug Use: No ED ROS GENERAL - Review of Systems Review Of Systems: See Below Constitutional: Reports: No Symptoms HEENT: Reports: No Symptoms Respiratory: Reports: No Symptoms Cardiovascular: Reports: Syncope GI/Abdominal: Reports: Bloody Stool : Reports: No Symptoms ED EXAM, GENERAL - Physical Exam Exam: See Below Exam Limited By: No Limitations General Appearance: Alert, WD/WN, No Apparent Distress Eye Exam: Bilateral Eye: Other (Pale conjunctiva) Respiratory/Chest: No Respiratory Distress, Lungs Clear, Normal Breath Sounds, No Accessory Muscle Use, Chest Non-Tender Cardiovascular: Regular Rate, Rhythm, No Murmur GI/Abdominal: Soft, Non-Tender Rectal (Female) Exam: Bloody Stool Course - Vital Signs Last Recorded V/S: Last Vital Signs Temp 96.4 F L 09/25/20 10:17 Pulse 63 09/25/20 13:24 Resp 16 09/25/20 12:36 BP 113/69 09/25/20 13:24 Pulse Ox 98 09/25/20 13:24 - Orders/Labs/Meds Orders: Active Orders 24 hr Category Date Time Status EKG Documentation Completion [RC] ASDIRECTED Care 09/25/20 10:42 Active Peripheral IV Care [RC] . DIRECTED Care 09/25/20 10:41 Active Hip Min 2V or 3V Lt [CR] Stat Exams 09/25/20 13:23 Ordered Iopamidol [Isovue-300 (61%)] Med 09/25/20 12:00 Active 99 ml IV . DIRECTED Sodium Chloride 0.9% [Normal Saline] 1,000 ml Med 09/25/20 11:45 Active IV ASDIRECTED Sodium Chloride 0.9% [Normal Saline] 70 ml Med 09/25/20 12:00 Active IV ASDIRECTED Sodium Chloride 0.9% [Saline Flush] Med 09/25/20 10:40 Active 10 ml FLUSH ASDIRECTED PRN Sodium Chloride 0.9% [Saline Flush] Med 09/25/20 10:40 Active 10 ml FLUSH ASDIRECTED PRN Peripheral IV Insertion Adult [OM.PC] Urgent Oth 09/25/20 10:40 Ordered EKG 12 Lead [EK] Routine Ther 09/25/20 10:41 Ordered Medication Orders Sodium Chloride (Normal Saline) 1,000 mls @ 500 mls/hr IV ASDIRECTED LORENA Last Admin: 09/25/20 11:51 Dose: 500 mls/hr Documented by: LORELEI Sodium Chloride (Normal Saline) 70 mls @ 3.5 mls/sec IV ASDIRECTED LORENA Stop: 09/25/20 16:00 Last Admin: 09/25/20 12:16 Dose: 3 mls/sec Documented by: ASHISH Iopamidol (Isovue-300 (61%)) 99 ml IV . DIRECTED LORENA Stop: 09/25/20 16:00 Last Admin: 09/25/20 12:13 Dose: 99 ml Documented by: ASHISH Sodium Chloride (Saline Flush) 10 ml FLUSH ASDIRECTED PRN PRN Reason: Keep Vein Open Last Admin: 09/25/20 10:51 Dose: 10 ml Documented by: LORELEI Sodium Chloride (Saline Flush) 10 ml FLUSH ASDIRECTED PRN PRN Reason: Keep Vein Open Last Admin: 09/25/20 10:51 Dose: 10 ml Documented by: LORELEI Labs: Laboratory Tests 09/25/20 09/25/20 09/25/20 Range/Units 10:40 10:40 10:40 WBC 35.6 H* (4.5-11.0) K/uL RBC 3.26 L (3.30-5.50) M/uL Hgb 9.0 L (12.0-15.0) g/dL Hct 28.0 L (36.0-48.0) % MCV 86 (80-98) fL MCH 28 (27-31) pg MCHC 32 (32-36) % Plt Count 328 (150-400) K/uL Add Manual Diff Yes Neutrophils % (Manual) 83 H (36-66) % Band Neutrophils % 2 L (5-11) % Lymphocytes % (Manual) 10 L (24-44) % Monocytes % (Manual) 5 (2-6) % Anisocytosis Few Target Cells Rare PT 11.3 (9.5-12.0) sec INR 1.04 (0.80-1.20) Sodium 134 L (140-148) mmol/L Potassium 3.7 (3.6-5.2) mmol/L Chloride 97 L (100-108) mmol/L Carbon Dioxide 29 (21-32) mmol/L Anion Gap 11.7 (5.0-14.0) mmol/L BUN 31 H (7-18) mg/dL Creatinine 1.1 H (0.6-1.0) mg/dL Est Cr Clr Drug Dosing 34.87 mL/min Estimated GFR (MDRD) 48 L (>60) Glucose 93 (74-106) mg/dL Lactic Acid (0.4-2.0) mmol/L Calcium 7.6 L (8.5-10.1) mg/dL Total Bilirubin 0.4 D (0.2-1.0) mg/dL AST 20 (15-37) U/L ALT 34 (12-78) U/L Alkaline Phosphatase 79 (46-116) U/L Troponin I (0.000-0.056) ng/mL Total Protein 5.2 L (6.4-8.2) g/dL Albumin 2.1 L (3.4-5.0) g/dL Globulin 3.1 (2.3-3.5) g/dL Albumin/Globulin Ratio 0.7 L (1.2-2.2) 09/25/20 09/25/20 Range/Units 10:40 10:40 WBC (4.5-11.0) K/uL RBC (3.30-5.50) M/uL Hgb (12.0-15.0) g/dL Hct (36.0-48.0) % MCV (80-98) fL MCH (27-31) pg MCHC (32-36) % Plt Count (150-400) K/uL Add Manual Diff Neutrophils % (Manual) (36-66) % Band Neutrophils % (5-11) % Lymphocytes % (Manual) (24-44) % Monocytes % (Manual) (2-6) % Anisocytosis Target Cells PT (9.5-12.0) sec INR (0.80-1.20) Sodium (140-148) mmol/L Potassium (3.6-5.2) mmol/L Chloride (100-108) mmol/L Carbon Dioxide (21-32) mmol/L Anion Gap (5.0-14.0) mmol/L BUN (7-18) mg/dL Creatinine (0.6-1.0) mg/dL Est Cr Clr Drug Dosing mL/min Estimated GFR (MDRD) (>60) Glucose (74-106) mg/dL Lactic Acid 2.7 H (0.4-2.0) mmol/L Calcium (8.5-10.1) mg/dL Total Bilirubin (0.2-1.0) mg/dL AST (15-37) U/L ALT (12-78) U/L Alkaline Phosphatase (46-116) U/L Troponin I < 0.017 (0.000-0.056) ng/mL Total Protein (6.4-8.2) g/dL Albumin (3.4-5.0) g/dL Globulin (2.3-3.5) g/dL Albumin/Globulin Ratio (1.2-2.2) Meds: Medications Generic Name Dose Route Start Last Admin Trade Name Juan David PRN Reason Stop Dose Admin Sodium Chloride 1,000 mls @ 500 mls/hr 09/25/20 11:45 09/25/20 11:51 Normal Saline IV 500 mls/hr ASDIRECTED LORENA Administration Sodium Chloride 70 mls @ 3.5 mls/sec 09/25/20 12:00 09/25/20 12:16 Normal Saline IV 09/25/20 16:00 3 mls/sec ASDIRECTED LORENA Administration Iopamidol 99 ml 09/25/20 12:00 09/25/20 12:13 Isovue-300 (61%) IV 09/25/20 16:00 99 ml . DIRECTED LORENA Administration Sodium Chloride 10 ml 09/25/20 10:40 09/25/20 10:51 Saline Flush FLUSH 10 ml ASDIRECTED PRN Administration Keep Vein Open Sodium Chloride 10 ml 09/25/20 10:40 09/25/20 10:51 Saline Flush FLUSH 10 ml ASDIRECTED PRN Administration Keep Vein Open Discontinued Medications Generic Name Dose Route Start Last Admin Trade Name Juan David PRN Reason Stop Dose Admin Hydrocodone Bitart/Acetaminophen 1 tab 09/25/20 11:36 09/25/20 11:51 [place] 325-5 Mg PO 09/25/20 11:37 1 tab ONETIME ONE Administration Hydromorphone HCl 1 mg 09/25/20 13:23 Dilaudid IVPUSH 09/25/20 13:24 ONETIME ONE Pantoprazole Sodium 40 mg 09/25/20 10:40 09/25/20 10:50 Protonix Iv IVPUSH 09/25/20 10:41 40 mg ONETIME ONE Administration Sodium Chloride 10 ml 09/25/20 11:55 09/25/20 12:15 Saline Flush FLUSH 09/25/20 11:56 10 ml ONETIME ONE Administration Departure - Departure Time of Disposition: 13:26 Disposition: Home, Self-Care 01 Condition: Fair Clinical Impression: Syncope Qualifiers: Syncope type: unspecified Qualified Code(s): R55 - Syncope and collapse - Discharge Information Referrals: Filiberto Perdue MD [Primary Care Provider] - Forms: ED Department Discharge Sepsis Event Note (ED) - Evaluation Sepsis Screening Result: No Definite Risk - Focused Exam Vital Signs: Vital Signs Temp Pulse Resp BP Pulse Ox 09/25/20 13:24 63 113/69 98 09/25/20 12:36 16 122/68 96 09/25/20 11:36 67 16 91/58 L 97 09/25/20 11:00 12 94/57 L 98 09/25/20 10:45 12 103/67 97 09/25/20 10:17 96.4 F L 72 12 120/78 98 - My Orders Last 24 Hours: My Active Orders 09/25/20 10:40 Sodium Chloride 0.9% [Saline Flush] 10 ml FLUSH ASDIRECTED PRN Sodium Chloride 0.9% [Saline Flush] 10 ml FLUSH ASDIRECTED PRN Peripheral IV Insertion Adult [OM.PC] Urgent 09/25/20 10:41 Peripheral IV Care [RC] . DIRECTED EKG 12 Lead [EK] Routine 09/25/20 10:42 EKG Documentation Completion [RC] ASDIRECTED 09/25/20 11:45 Sodium Chloride 0.9% [Normal Saline] 1,000 ml IV ASDIRECTED 09/25/20 12:00 Iopamidol [Isovue-300 (61%)] 99 ml IV . DIRECTED Sodium Chloride 0.9% [Normal Saline] 70 ml IV ASDIRECTED 09/25/20 13:23 Hip Min 2V or 3V Lt [CR] Stat - Assessment/Plan Last 24 Hours: My Active Orders 09/25/20 10:40 Sodium Chloride 0.9% [Saline Flush] 10 ml FLUSH ASDIRECTED PRN Sodium Chloride 0.9% [Saline Flush] 10 ml FLUSH ASDIRECTED PRN Peripheral IV Insertion Adult [OM.PC] Urgent 09/25/20 10:41 Peripheral IV Care [RC] . DIRECTED EKG 12 Lead [EK] Routine 09/25/20 10:42 EKG Documentation Completion [RC] ASDIRECTED 09/25/20 11:45 Sodium Chloride 0.9% [Normal Saline] 1,000 ml IV ASDIRECTED 09/25/20 12:00 Iopamidol [Isovue-300 (61%)] 99 ml IV . DIRECTED Sodium Chloride 0.9% [Normal Saline] 70 ml IV ASDIRECTED 09/25/20 13:23 Hip Min 2V or 3V Lt [CR] Stat Plan: Assessment Acuity = acute Site and laterality = syncopal event with bright red blood in the stool complicated patient who was recently discharged from the hospital for infected bursitis left knee Etiology = unknown possibly related to low hemoglobin vasovagal response while using the bathroom Manifestations = none Location of injury = Home Lab values = WBC elevated 35.6 consistent leukocytosis probably related to recent steroid dosing, hemoglobin low at 9.0 consistent with normochromic anemia sodium low at 134 consistent hyponatremia creatinine elevated 1.1 consistent chronic renal failure stage G3 a lactic acid slightly elevated 2.7 consistent with lactic acidosis calcium low at 7.6 consistent hypocalcemia troponin was negative albumin low at 2.1 consistent hypoalbuminemia EKG reveals a sinus rhythm there is no ST elevations or depressions CT scan shows improvement of the left lower lobe lung pneumonia as well as the colitis with mucosal thickening being decreased Plan Call discussed case with hospitalist on-call at [phone] kindly agreed to come and evaluate the patient in the emergency department for admission, she is complaining of left hip pain therefore a x-ray of the left hip is pending This note was dictated using [employer] voice recognition software please call with any questions on syntax or grammar.
[2020-09-25] MEDS ORDERED: Acetaminophen/HYDROcodone 325-5 MG Tab PO ONE (11:36)
[2020-09-25] MEDS ORDERED: Sodium Chloride 0.9% 1,000 ML IV SCH (11:45)
[2020-09-25] MEDS ORDERED: Sodium Chloride 0.9% 10 ML Syringe FLUSH ONE (11:55)
[2020-09-25] MEDS ORDERED: Iopamidol 612 MG/ML 100 ML Bottle IV SCH (12:00)
--- NOTE | 2020-09-25 12:57 | CT ---
Abdomen Pelvis w Cont CLINICAL HISTORY: Colitis, blood in stool COMPARISON: 09/18/2020. TECHNIQUE: Axial tomographic images are obtained from the dome of the diaphragm to the pubic symphysis with IV contrast enhancement. No oral contrast was used. The dosage reduction and iterative reconstruction techniques employed. FINDINGS: There is some elevation left hemidiaphragm enlarged hiatal hernia extending to the left. This is similar to the prior study. It is no to completely imaged on its upper margins. The the previously seen left lower lobe airspace disease has essentially resolved. The liver shows some mild intrahepatic biliary dilatation. This is likely related to cholecystectomy.The spleen has a normal size and shape. The pancreas shows no mass or inflammatory change. The adrenal glands appear normal bilaterally. The kidneys show no mass, stones or hydronephrosis. There is a 1.7 cm cyst in the lower pole of the left kidney The aorta shows atheromatous plaque and some ectasia. There is no suspicious retroperitoneal adenopathy. There is some mild mucosal thickening in the right and transverse colon. This is diminished somewhat since the prior study. Descending colon has normal caliber. Previously seen free pelvic fluid has essentially resolved. IMPRESSION: Slight improvement in the right and transverse colon thickening Resolution of ascites Small cysts left kidney Resolved left lower lobe infiltrate MTDD
[2020-09-25] MEDS ORDERED: HYDROmorphone 1 MG/ML Syringe IVPUSH ONE (13:23)
--- NOTE | 2020-09-25 13:49 | PCM.HP.2 ---
H&P History of Present Illness - General Date of Service: 09/25/20 Admit Problem/Dx: Admission Diagnosis/Problem Admission Diagnosis/Problem Bleeding Source of Information: Patient, Family, Old Records, Provider, RN Notes Reviewed History Limitations: Reports: No Limitations - History of Present Illness Initial Comments - Free Text/Narative: Ms. Dumont is a 80-year-old woman who was admitted to observation status through the emergency department after a syncopal episode at home and passing blood per rectum. She was hospitalized at this facility last week and discharged home during the first part of this week. She had had a recent left total knee arthroplasty. She developed cellulitis around the surgical site and was readmitted last week for debridement and antibiotic therapy. Wound cultures did grow out MRSA and she was discharged home on oral doxycycline. During hospitalization she experienced a syncopal episode with prolonged hypotension unresponsive to IV fluids. She was transferred to the intensive care unit and placed on IV norepinephrine. CT scan of the chest abdomen pelvis at that time showed evidence of a left lung infiltrate as well as colitis. Antibiotic coverage was expanded and symptomatically she improved. She was discharged home on the doxycycline, levofloxacin, and oral prednisone. She initially did well at home but today was sitting on the toilet and experienced another syncopal episode. She did note preceding symptoms of lightheadedness as well as diaphoresis but no nausea. On evaluation in the emergency department she is hemodynamically stable but did have an episode of red blood per rectum at home as well as in the emergency department. Abdominal pain from the colitis has resolved, but she continues to have some loose stools. CT scan of the abdomen pelvis showed resolution of the previously noted infiltrate and improvement in appearance of the colitis. - Related Data Allergies/Adverse Reactions: Allergies Allergy/AdvReac Type Severity Reaction Status Date / Time metronidazole [From Flagyl] Allergy Severe Difficulty Verified 09/25/20 10:16 Breathing shellfish derived Allergy Intermediate Difficulty Verified 09/25/20 10:16 Swallowing adhesive tape Allergy Blisters Verified 09/25/20 10:16 amlodipine [From Norvasc] Allergy Other Verified 09/25/20 10:16 Home Medications: Home Meds Metoprolol Tartrate [Lopressor] 25 mg PO BID 08/27/14 [History] Naproxen Sodium [Aleve] 220 mg PO DAILY PRN 08/27/14 [History] Terazosin [Hytrin] 2 mg PO BID 08/27/14 [History] Acetaminophen 500 mg PO Q6HR PRN 03/01/16 [History] Fluticasone Propionate [Flonase] 2 sprays NS DAILY 03/01/16 [History] Gabapentin [Neurontin] 300 mg PO BEDTIME 03/01/16 [History] Potassium Chloride [Klor-Con] 20 meq PO DAILY 10/26/16 [History] Cetirizine HCl [Zyrtec] 10 mg PO DAILY PRN 06/14/18 [History] Docusate Sodium [Stool Softener] 2 tab PO DAILY PRN 06/14/18 [History] Sodium Chloride 0.65% [[place] Saline] 0.1 ml JORGE DAILY PRN 06/14/18 [History] lisinopriL [Prinivil] 40 mg PO BID 06/14/18 [History] polyethylene glycoL 3350 [MiraLAX] 17 gm PO DAILY PRN 12/24/18 [History] Aspirin 325 mg PO DAILY 02/15/20 [History] Omeprazole 20 mg PO DAILY 02/15/20 [History] Ondansetron [Zofran ODT] 4 mg PO Q6H PRN 02/15/20 [History] Rosuvastatin Calcium 5 mg PO DAILY 02/15/20 [History] Furosemide [Lasix] 20 mg PO DAILY 02/25/20 [History] Cinnamon Bark [Cinnamon] 1 tab PO DAILY 03/02/20 [History] Lactobacillus Rhamnosus GG [Culturelle] 1 cap PO BID #60 cap 03/28/20 [Rx] Ketotifen Fumarate [Zaditor] 1 drop OP BID PRN 04/15/20 [History] Nystatin [Nystop] 1 applic TOP BID 04/15/20 [History] Cholecalciferol (Vitamin D3) [Vitamin D3] 1 tab PO DAILY 08/24/20 [History] Hydrocodone/Acetaminophen [[place] 5-325 Tablet] 1 - 2 each PO Q6HR PRN #36 tablet 09/08/20 [Rx] Acetaminophen/HYDROcodone [[place] 325-5 MG] 1 tab PO Q4H PRN #24 tablet 09/22/20 [Rx] Doxycycline [Vibramycin] 100 mg PO BID #28 cap 09/22/20 [Rx] levoFLOXacin [Levaquin] 750 mg PO Q48H #3 tab 11/24/20 [Rx] predniSONE 40 mg PO WITHBREAKFAST #6 tablet 09/22/20 [Rx] Past Medical History HEENT History: Reports: Allergic Rhinitis, Impaired Vision Other HEENT History: cataracts Cardiovascular History: Reports: High Cholesterol, Hypertension Other Cardiovascular History: TIA in December Respiratory History: Reports: None Gastrointestinal History: Reports: Cholelithiasis, Diverticulosis, GERD, Other (See Below) Other Gastrointestinal History: Hx of Barretts;. 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/24/20 Neurological History: Reports: Neuropathy, Peripheral, TIA, Other (See Below) Other Neuro History: TIA December 2019, reports 07/2020 N/T B feet to knees since 2nd lumbar surgery Psychiatric History: Reports: None Endocrine/Metabolic History: Reports: Osteoporosis Hematologic History: Reports: Anemia, B12 Deficiency, Blood Transfusion(s), Iron Deficiency Immunologic History: Reports: None Oncologic (Cancer) History: Reports: None Dermatologic History: Reports: None - Infectious Disease History Infectious Disease History: Reports: Chicken Pox, Measles, MRSA, Mumps, Rubella, Shingles, Other (See Below) Other Infectious Disease History: COVID-positive July 24, 2020 - Past Surgical History Head Surgeries/Procedures: Reports: None HEENT Surgical History: Reports: Cataract Surgery, Naso-Sinus Surgery Cardiovascular Surgical History: Reports: None GI Surgical History: Reports: Cholecystectomy, Colonoscopy, EGD, Hernia, Inguinal, Other (See Below) Other GI Surgeries/Procedures: 2 hernia repair, esophagus removed Female Surgical History: Reports: Breast Biopsy, Hysterectomy, Oophorectomy Endocrine Surgical History: Reports: None Neurological Surgical History: Reports: Laminectomy, Other (See Below) Other Neurological Surgeries/Procedures: Back surgery x3 (first at 18yo, the other 2 performed 1 year apart) Musculoskeletal Surgical History: Reports: Knee Replacement, Shoulder Surgery, Other (See Below) Other Musculoskeletal Surgeries/Procedures:: Back surgery x3. L shoulder r/t rotator cuff. B TKA: R 08/2017, L 08/24/2020. knee replacement left, drained and "cleaned in surgery", MRSA Oncologic Surgical History: Reports: Biopsy of Breast Dermatological Surgical History: Reports: None Social & Family History - Family History Family Medical History: No Pertinent Family History HEENT: Reports: Impaired Vision Cardiac: Reports: CAD, Hypertension, [place] Respiratory: Reports: COPD, Other (See Below) Other Respiratory Family Hisory: rheumatic fever GI: Reports: Cholelithiasis, Colon Polyps, GERD OBGYN: Reports: Musculoskeletal: Reports: Gout Endocrine/Metabolic: Reports: None Hematologic: Reports: None Oncologic: Reports: Prostate, Renal - Tobacco Use Tobacco Use Status *Q: Never Tobacco User - Caffeine Use Caffeine Use: Reports: Coffee Caffeine Use Comment: DAILY - Recreational Drug Use Recreational Drug Use: No H&P Review of Systems - Review of Systems: Review Of Systems: See Below General: Reports: Malaise, Weakness, Fatigue, Diaphoresis. Denies: Fever, Chills HEENT: Reports: No Symptoms Pulmonary: Reports: No Symptoms Cardiovascular: Reports: Lightheadedness, Syncope. Denies: Chest Pain, Palpitations, Dyspnea on Exertion, Orthopnea, PND, Edema Gastrointestinal: Reports: Bloody Stool, Diarrhea. Denies: Abdominal Pain, Constipation, Difficulty Swallowing, Distension, Nausea, Vomiting Genitourinary: Reports: No Symptoms Musculoskeletal: Reports: No Symptoms Skin: Reports: No Symptoms Psychiatric: Reports: No Symptoms Neurological: Reports: No Symptoms Hematologic/Lymphatic: Reports: No Symptoms Immunologic: Reports: No Symptoms Exam - Exam Exam: See Below - Vital Signs Vital Signs: Last Vital Signs Temp 96.4 F L 09/25/20 10:17 Pulse 63 09/25/20 13:24 Resp 16 09/25/20 12:36 BP 113/69 09/25/20 13:24 Pulse Ox 98 09/25/20 13:24 Weight: 145 lb - Exam Quality Assessment: DVT Prophylaxis General: Alert, Oriented, Cooperative, Mild Distress HEENT: Conjunctiva Clear, Hearing Intact, Mucosa Moist & [place], Normal Nasal Septum, Posterior Pharynx Clear, Pupils Equal Neck: Supple, Trachea Midline, +2 Carotid Pulse wo Bruit Lungs: Clear to Auscultation, Normal Respiratory Effort, Decreased Breath Sounds Cardiovascular: Regular Rate, Regular Rhythm, Normal S1, Normal S2. No: Systolic Murmur, Diastolic Murmur GI/Abdominal Exam: Soft, Non-Tender, No Organomegaly, No Distention Back Exam: Normal Inspection, Full Range of Motion Extremities: Non-Tender, No Pedal Edema, Other (Left knee incision healing well with no evidence of underlying infection) Neurological: Cranial Nerves Intact, Strength Equal Bilateral, Normal Speech, Normal Tone, Sensation Intact. No: Focal Deficit Neuro Extensive - Mental Status: Alert, Oriented x3, Normal Mood/Affect, Normal Cognition, Memory Intact - Patient Data Lab Results Last 24 hrs: Laboratory Results - last 24 hr 09/25/20 09/25/20 09/25/20 Range/Units 10:40 10:40 10:40 WBC 35.6 H* (4.5-11.0) K/uL RBC 3.26 L (3.30-5.50) M/uL Hgb 9.0 L (12.0-15.0) g/dL Hct 28.0 L (36.0-48.0) % MCV 86 (80-98) fL MCH 28 (27-31) pg MCHC 32 (32-36) % Plt Count 328 (150-400) K/uL Add Manual Diff Yes Neutrophils % (Manual) 83 H (36-66) % Band Neutrophils % 2 L (5-11) % Lymphocytes % (Manual) 10 L (24-44) % Monocytes % (Manual) 5 (2-6) % Anisocytosis Few Target Cells Rare PT 11.3 (9.5-12.0) sec INR 1.04 (0.80-1.20) Sodium 134 L (140-148) mmol/L Potassium 3.7 (3.6-5.2) mmol/L Chloride 97 L (100-108) mmol/L Carbon Dioxide 29 (21-32) mmol/L Anion Gap 11.7 (5.0-14.0) mmol/L BUN 31 H (7-18) mg/dL Creatinine 1.1 H (0.6-1.0) mg/dL Est Cr Clr Drug Dosing 34.87 mL/min Estimated GFR (MDRD) 48 L (>60) Glucose 93 (74-106) mg/dL Lactic Acid (0.4-2.0) mmol/L Calcium 7.6 L (8.5-10.1) mg/dL Total Bilirubin 0.4 D (0.2-1.0) mg/dL AST 20 (15-37) U/L ALT 34 (12-78) U/L Alkaline Phosphatase 79 (46-116) U/L Troponin I (0.000-0.056) ng/mL Total Protein 5.2 L (6.4-8.2) g/dL Albumin 2.1 L (3.4-5.0) g/dL Globulin 3.1 (2.3-3.5) g/dL Albumin/Globulin Ratio 0.7 L (1.2-2.2) 09/25/20 09/25/20 Range/Units 10:40 10:40 WBC (4.5-11.0) K/uL RBC (3.30-5.50) M/uL Hgb (12.0-15.0) g/dL Hct (36.0-48.0) % MCV (80-98) fL MCH (27-31) pg MCHC (32-36) % Plt Count (150-400) K/uL Add Manual Diff Neutrophils % (Manual) (36-66) % Band Neutrophils % (5-11) % Lymphocytes % (Manual) (24-44) % Monocytes % (Manual) (2-6) % Anisocytosis Target Cells PT (9.5-12.0) sec INR (0.80-1.20) Sodium (140-148) mmol/L Potassium (3.6-5.2) mmol/L Chloride (100-108) mmol/L Carbon Dioxide (21-32) mmol/L Anion Gap (5.0-14.0) mmol/L BUN (7-18) mg/dL Creatinine (0.6-1.0) mg/dL Est Cr Clr Drug Dosing mL/min Estimated GFR (MDRD) (>60) Glucose (74-106) mg/dL Lactic Acid 2.7 H (0.4-2.0) mmol/L Calcium (8.5-10.1) mg/dL Total Bilirubin (0.2-1.0) mg/dL AST (15-37) U/L ALT (12-78) U/L Alkaline Phosphatase (46-116) U/L Troponin I < 0.017 (0.000-0.056) ng/mL Total Protein (6.4-8.2) g/dL Albumin (3.4-5.0) g/dL Globulin (2.3-3.5) g/dL Albumin/Globulin Ratio (1.2-2.2) Result Diagrams: 09/25/20 10:40 09/25/20 10:40 Sepsis Event Note - Evaluation Sepsis Screening Result: No Definite Risk - Focused Exam Vital Signs: Vital Signs Temp Pulse Resp BP Pulse Ox 09/25/20 13:24 63 113/69 98 09/25/20 12:36 16 122/68 96 09/25/20 11:36 67 16 91/58 L 97 09/25/20 11:00 12 94/57 L 98 09/25/20 10:45 12 103/67 97 09/25/20 10:17 96.4 F L 72 12 120/78 98 *Q Meaningful Use (ADM) - VTE *Q VTE Pharmacological Contraindications *Q: Active Hemorrhage - VTE Risk Assess *Q Each Risk Factor Represents 1 Point: None Total Score 1 Point Risk Factors: 0 Each Risk Factor Represents 2 Points: None Total Score 2 Point Risk Factors: 0 Each Risk Factor Represents 3 Points: Age 75 Years or Greater Total Score 3 Point Risk Factors: 3 Each Risk Factor Represents 5 Points: Elective Major Lower Extremity Arthroplasty Total Score 5 Point Risk Factors: 5 Venous Thromboembolism Risk Factor Score *Q: 8 Problem List Initiated/Reviewed/Updated: Yes Orders Last 24hrs: Active Orders 24 hr Category Date Time Status Patient Status Manage Transfer [TRANSFER] Routine ADT 09/25/20 13:36 Active EKG Documentation Completion [RC] ASDIRECTED Care 09/25/20 10:42 Active Peripheral IV Care [RC] . DIRECTED Care 09/25/20 10:41 Active Hip Min 2V or 3V Lt [CR] Stat Exams 09/25/20 13:23 Ordered Iopamidol [Isovue-300 (61%)] Med 09/25/20 12:00 Active 99 ml IV . DIRECTED Sodium Chloride 0.9% [Normal Saline] 1,000 ml Med 09/25/20 11:45 Active IV ASDIRECTED Sodium Chloride 0.9% [Normal Saline] 70 ml Med 09/25/20 12:00 Active IV ASDIRECTED Sodium Chloride 0.9% [Saline Flush] Med 09/25/20 10:40 Active 10 ml FLUSH ASDIRECTED PRN Sodium Chloride 0.9% [Saline Flush] Med 09/25/20 10:40 Active 10 ml FLUSH ASDIRECTED PRN Peripheral IV Insertion Adult [OM.PC] Urgent Oth 09/25/20 10:40 Ordered Resuscitation Status Routine Resus Stat 09/25/20 13:41 Ordered EKG 12 Lead [EK] Routine Ther 09/25/20 10:41 Ordered Medication Orders Sodium Chloride (Normal Saline) 1,000 mls @ 500 mls/hr IV ASDIRECTED LORENA Last Admin: 09/25/20 11:51 Dose: 500 mls/hr Documented by: LORELEI Sodium Chloride (Normal Saline) 70 mls @ 3.5 mls/sec IV ASDIRECTED LORENA Stop: 09/25/20 16:00 Last Admin: 09/25/20 12:16 Dose: 3 mls/sec Documented by: ASHISH Iopamidol (Isovue-300 (61%)) 99 ml IV . DIRECTED LORENA Stop: 09/25/20 16:00 Last Admin: 09/25/20 12:13 Dose: 99 ml Documented by: ASHISH Sodium Chloride (Saline Flush) 10 ml FLUSH ASDIRECTED PRN PRN Reason: Keep Vein Open Last Admin: 09/25/20 10:51 Dose: 10 ml Documented by: LORELEI Sodium Chloride (Saline Flush) 10 ml FLUSH ASDIRECTED PRN PRN Reason: Keep Vein Open Last Admin: 09/25/20 10:51 Dose: 10 ml Documented by: LORELEI Assessment/Plan Comment:: ASSESSMENT AND PLAN RED BLOOD PER RECTUM-recent and current history of colitis. Today noted red blood per rectum and blood also noted in the emergency department. -Serial hemoglobin levels -Colonoscopy prep -Consult Dr. Arias for colonoscopy in a.m. COLITIS-complicated by red blood per rectum -Continue current therapy with levofloxacin -She has completed a course of glucocorticoid therapy -Colonoscopy as above RECENT LEFT LUNG PNEUMONIA-resolved SYNCOPAL EPISODE-likely vasovagal in nature -Cardiac monitoring -Orthostatic vital signs CELLULITIS LEFT KNEE-knee appears to be good at this time with no evidence of active infection -Complete current therapy with doxycycline MAINTENANCE ISSUES -DVT prophylaxis; SCUDs, hold on anticoagulation because of bleeding -GI prophylaxis; continue outpatient PPI therapy -Marcial catheter; not indicated -Nutrition; clear liquid diet, n.p.o. after midnight -Nicotine dependence; not required CODE STATUS-FULL CODE ADMISSION STATUS-this patient will be admitted to observation status, expect no more than a one night hospital stay for evaluation and management of problems as outlined above. DISPOSITION-anticipate discharge to home after the hospital stay. PRIMARY CARE PROVIDER-Dr. Perdue - Mortality Measure Prognosis:: Good
--- NOTE | 2020-09-25 15:09 | CR ---
Hip Min 2V or 3V Lt CLINICAL HISTORY: Pain, fall FINDINGS: There is mild joint space narrowing the left hip. There is no fracture or osseous lesion. IMPRESSION: No fracture or dislocation
[2020-09-25] MEDS ORDERED: Albuterol 0.083% 2.5 MG/3 ML Neb Soln NEB PRN (15:56)
[2020-09-25] MEDS ORDERED: Bisacodyl 5 MG Tab PO ONE ×3 (15:56→20:00)
[2020-09-25] MEDS ORDERED: Cetirizine 10 MG Tab PO PRN (15:56)
[2020-09-25] MEDS ORDERED: Acetaminophen 325 MG Tab PO PRN (15:56)
[2020-09-25] MEDS ORDERED: Ondansetron 4 MG/2 ML SDV IV PRN (15:56)
[2020-09-25] MEDS ORDERED: Polyethylene Glycol 3350 Powder 17 GM Packet PO PRN (15:56)
[2020-09-25] MEDS ORDERED: Docusate Sodium 100 MG Cap PO PRN (16:08)
[2020-09-25] MEDS: Sodium Chloride 0.9% 1,000 ML IV SCH (16:46)
[2020-09-25] MEDS ORDERED: Naproxen 250 MG Tab PO PRN (16:47)
[2020-09-25] MEDS ORDERED: Polyethylene Glycol 3350 Powder 238 GM Bot PO ONE ×2 (17:00)
[2020-09-25] MEDS: Bisacodyl 5 MG Tab PO ONE ×2 (19:37→20:27)
[2020-09-25] MEDS ORDERED: Lisinopril 20 MG Tab PO SCH (21:00)
[2020-09-25] MEDS ORDERED: Metoprolol Tartrate 25 MG Tab PO SCH (21:00)
[2020-09-25] MEDS ORDERED: Gabapentin 300 MG Cap PO SCH (21:00)
[2020-09-25] MEDS ORDERED: Doxycycline 100 MG Cap PO SCH (21:00)
[2020-09-25] MEDS ORDERED: Terazosin 1 MG Cap PO SCH (21:00)
[2020-09-25] MEDS: Lactobacillus Rhamnosus GG (Probiotic) Cap PO SCH (22:06)
[2020-09-25] MEDS: Metoprolol Tartrate 25 MG Tab**OWN MED PO SCH (22:07)
[2020-09-25] MEDS: Gabapentin 300 MG Cap**OWN MED PO SCH (22:07)
[2020-09-25] MEDS: LISINOPRIL 40 MG PO SCH (22:08)
[2020-09-25] MEDS: Doxycycline 100 MG Cap**OWN MED PO SCH (22:09)
[2020-09-25] MEDS: TERAZOSIN 2 MG PO SCH (22:10)
[2020-09-25] MEDS: LEVOFLOXACIN 750 MG PO SCH (22:11)
[2020-09-25] MEDS: Acetaminophen/HYDROcodone 325-5 MG Tab PO PRN (22:52)
[2020-09-26] MEDS: Sodium Chloride 0.9% 1,000 ML IV SCH (00:59)
[2020-09-26] MEDS ORDERED: Pantoprazole 40 MG Tab.CR PO SCH (07:30)
[2020-09-26] MEDS ORDERED: Potassium Chloride 20 MEQ Tab.ER PO SCH (08:00)
[2020-09-26] MEDS ORDERED: Potassium Chloride 20 MEQ Tab.ER PO ONE (08:13)
[2020-09-26] MEDS: Lactobacillus Rhamnosus GG (Probiotic) Cap PO SCH ×2 (10:38→21:02)
[2020-09-26] MEDS: Furosemide 20 MG Tab*POM PO SCH (10:39)
[2020-09-26] MEDS: Metoprolol Tartrate 25 MG Tab**OWN MED PO SCH ×2 (10:40→21:06)
[2020-09-26] MEDS: ROSUVASTATIN 5MG PO SCH (10:41)
[2020-09-26] MEDS: LISINOPRIL 40 MG PO SCH ×2 (10:41→21:07)
[2020-09-26] MEDS: TERAZOSIN 2 MG PO SCH ×2 (10:42→21:04)
[2020-09-26] MEDS: Doxycycline 100 MG Cap**OWN MED PO SCH ×2 (10:42→21:03)
[2020-09-26] MEDS: Potassium Chloride 20 MEQ Tab.ER*POM PO SCH (10:51)
[2020-09-26] MEDS: Aspirin 325 MG Tab.EC PO SCH (12:20)
[2020-09-26] MEDS ORDERED: Bisacodyl 5 MG Tab PO ONE (14:00)
--- NOTE | 2020-09-26 15:15 | PCM.PN ---
- General Info Date of Service: 09/26/20 Admission Dx/Problem (Free Text): Admission Diagnosis/Problem Admission Diagnosis/Problem Bleeding Subjective Update: No acute events or syncopal episodes overnight. Mrs. Dumont was unable to undergo colonoscopy this morning with Dr. Arias due to not clearing stool, it continues to be brown/red. She remains hemodynamically stable. Plan for attempt of colonoscopy tomorrow after clearing her stool. She denies lightheadedness, diaphoresis and nausea. Functional Status: Reports: Pain Controlled, Tolerating Diet - Review of Systems General: Reports: No Symptoms HEENT: Reports: No Symptoms Pulmonary: Reports: No Symptoms. Denies: Shortness of Breath, Cough Cardiovascular: Reports: Dyspnea on Exertion. Denies: Chest Pain, Palpitations, Orthopnea, Edema, Lightheadedness Gastrointestinal: Reports: Diarrhea, Hematochezia. Denies: Abdominal Pain, Difficulty Swallowing, Melena, Nausea, Vomiting Genitourinary: Reports: No Symptoms Skin: Reports: No Symptoms. Denies: Pallor, Diaphoresis Neurological: Reports: No Symptoms Psychiatric: Reports: No Symptoms - Patient Data Vitals - Most Recent: Last Vital Signs Temp 97.5 F 09/26/20 10:36 Pulse 78 09/26/20 10:40 Resp 16 09/26/20 10:36 BP 128/92 H 09/26/20 10:40 Pulse Ox 97 09/26/20 10:36 Orthostatic Blood Pressure [ 143/95 Standing] Orthostatic Blood Pressure [ 147/95 Sitting] Orthostatic Blood Pressure [ 128/92 Supine] Weight - Most Recent: 153 lb 12.8 oz I&O - Last 24 Hours: Intake & Output 09/26/20 09/26/20 09/26/20 06:59 14:59 22:59 Intake Total 560 Output Total 1200 Balance 560 -1200 Lab Results Last 24 Hours: Laboratory Results - last 24 hr 09/25/20 09/25/20 09/26/20 Range/Units 17:00 19:20 01:02 WBC (4.5-11.0) K/uL RBC (3.30-5.50) M/uL Hgb 7.4 L 8.0 L (12.0-15.0) g/dL Hct (36.0-48.0) % MCV (80-98) fL MCH (27-31) pg MCHC (32-36) % Plt Count (150-400) K/uL Add Manual Diff Neutrophils % (Manual) (36-66) % Band Neutrophils % (5-11) % Lymphocytes % (Manual) (24-44) % Monocytes % (Manual) (2-6) % Sodium (140-148) mmol/L Potassium (3.6-5.2) mmol/L Chloride (100-108) mmol/L Carbon Dioxide (21-32) mmol/L Anion Gap (5.0-14.0) mmol/L BUN (7-18) mg/dL Creatinine (0.6-1.0) mg/dL Est Cr Clr Drug Dosing mL/min Estimated GFR (MDRD) (>60) Glucose (74-106) mg/dL Calcium (8.5-10.1) mg/dL Blood Type O NEGATIVE Gel Antibody Screen Negative Crossmatch See Detail 09/26/20 09/26/20 Range/Units 04:19 05:11 WBC 17.9 H (4.5-11.0) K/uL RBC 2.84 L (3.30-5.50) M/uL Hgb 8.0 L (12.0-15.0) g/dL Hct 24.5 L (36.0-48.0) % MCV 86 (80-98) fL MCH 28 (27-31) pg MCHC 33 (32-36) % Plt Count 267 (150-400) K/uL Add Manual Diff Yes Neutrophils % (Manual) 77 H (36-66) % Band Neutrophils % 8 (5-11) % Lymphocytes % (Manual) 9 L (24-44) % Monocytes % (Manual) 6 (2-6) % Sodium 135 L (140-148) mmol/L Potassium 3.5 L (3.6-5.2) mmol/L Chloride 101 (100-108) mmol/L Carbon Dioxide 27 (21-32) mmol/L Anion Gap 10.5 (5.0-14.0) mmol/L BUN 22 H (7-18) mg/dL Creatinine 0.8 (0.6-1.0) mg/dL Est Cr Clr Drug Dosing 47.94 mL/min Estimated GFR (MDRD) > 60 (>60) Glucose 82 (74-106) mg/dL Calcium 7.2 L (8.5-10.1) mg/dL Blood Type Gel Antibody Screen Crossmatch Med Orders - Current: Current Medications Acetaminophen (Tylenol) 650 mg PO Q4H PRN PRN Reason: Pain (Mild 1-3)/fever Hydrocodone Bitart/Acetaminophen ([place] 325-5 Mg) 1 tab PO Q4H PRN PRN Reason: Pain (mild 1-3) Last Admin: 09/25/20 22:52 Dose: 1 tab Documented by: Albuterol (Proventil Neb Soln) 2.5 mg NEB Q4H PRN PRN Reason: Shortness Of Breath/wheezing Aspirin (Ecotrin) 325 mg PO DAILY [facility] Last Admin: 09/26/20 12:20 Dose: Not Given Documented by: Bisacodyl (Dulcolax) 10 mg PO ONETIME ONE Stop: 09/26/20 20:01 Cetirizine HCl (Zyrtec) 10 mg PO DAILY PRN PRN Reason: Allergies Docusate Sodium (Colace) 200 mg PO DAILY PRN PRN Reason: Constipation Doxycycline Hyclate (Vibramycin) 100 mg PO BID [facility] Last Admin: 09/26/20 10:42 Dose: 100 mg Documented by: Fluticasone Propionate (Flonase) 0 gm JORGE DAILY [facility] Furosemide (Lasix) 20 mg PO DAILY [facility] Last Admin: 09/26/20 10:39 Dose: 20 mg Documented by: Gabapentin (Neurontin) 300 mg PO BEDTIME [facility] Last Admin: 09/25/20 22:07 Dose: 300 mg Documented by: Sodium Chloride (Normal Saline) 1,000 mls @ 75 mls/hr IV ASDIRECTED [facility] Last Admin: 09/26/20 00:59 Dose: 75 mls/hr Documented by: Lactobacillus Rhamnosus (Culturelle) 1 cap PO BID [facility] Last Admin: 09/26/20 10:38 Dose: 1 cap Documented by: Metoprolol Tartrate (Lopressor) 25 mg PO BID [facility] Last Admin: 09/26/20 10:40 Dose: 25 mg Documented by: Naproxen (Naprosyn) 250 mg PO DAILY PRN PRN Reason: Pain Levofloxacin [ Levaquin] 750 Mg Tab Own Med 750 mg PO Q48H [facility] Last Admin: 09/25/20 22:11 Dose: 750 mg Documented by: Rosuvastatin 5mg 1 each PO DAILY [facility] Last Admin: 09/26/20 10:41 Dose: 1 each Documented by: Terazosin 2mg (CapsuleOwn Med) 1 each PO BID [facility] Last Admin: 09/26/20 10:42 Dose: 1 each Documented by: Lisinopril 40mg Tab* (*Own Med) 1 each PO BID [facility] Last Admin: 09/26/20 10:41 Dose: 1 each Documented by: Omeprazole 20mg *Pom (*) 1 each PO ACBREAKFAST [facility] Nystatin (Nystop) 0 gm TOP BID [facility] Ondansetron HCl (Zofran) 4 mg IV Q4H PRN PRN Reason: Nausea/Vomiting Polyethylene Glycol (Miralax) 17 gm PO DAILY PRN PRN Reason: Constipation Polyethylene Glycol (Miralax) 238 gm PO ONETIME ONE Stop: 09/26/20 17:01 Potassium Chloride (Klor-Con M20) 20 meq PO DAILY@0800 [facility] Last Admin: 09/26/20 10:51 Dose: 20 meq Documented by: Sodium Chloride (Saline Flush) 10 ml FLUSH ASDIRECTED PRN PRN Reason: Keep Vein Open Discontinued Medications Hydrocodone Bitart/Acetaminophen ([place] 325-5 Mg) 1 tab PO ONETIME ONE Stop: 09/25/20 11:37 Last Admin: 09/25/20 11:51 Dose: 1 tab Documented by: Bisacodyl (Dulcolax) 10 mg PO ONETIME ONE Stop: 09/25/20 16:01 Last Admin: 09/25/20 16:56 Dose: 10 mg Documented by: Bisacodyl (Dulcolax) 10 mg PO ONETIME ONE Stop: 09/25/20 20:01 Last Admin: 09/25/20 20:27 Dose: 10 mg Documented by: Bisacodyl (Dulcolax) 10 mg PO ONETIME ONE Stop: 09/26/20 14:01 Doxycycline Hyclate (Vibramycin) 100 mg PO BID [facility] Last Admin: 09/25/20 22:43 Dose: Not Given Documented by: Gabapentin (Neurontin) 300 mg PO BEDTIME [facility] Last Admin: 09/25/20 22:43 Dose: Not Given Documented by: Hydromorphone HCl (Dilaudid) 1 mg IVPUSH ONETIME ONE Stop: 09/25/20 13:24 Last Admin: 09/25/20 13:54 Dose: 1 mg Documented by: Sodium Chloride (Normal Saline) 1,000 mls @ 500 mls/hr IV ASDIRECTED [facility] Last Admin: 09/25/20 11:51 Dose: 500 mls/hr Documented by: Sodium Chloride (Normal Saline) 70 mls @ 3.5 mls/sec IV ASDIRECTED [facility] Stop: 09/25/20 16:00 Last Admin: 09/25/20 12:16 Dose: 3 mls/sec Documented by: Iopamidol (Isovue-300 (61%)) 99 ml IV . DIRECTED [facility] Stop: 09/25/20 16:00 Last Admin: 09/25/20 12:13 Dose: 99 ml Documented by: Lisinopril (Prinivil) 40 mg PO BID [facility] Last Admin: 09/25/20 22:43 Dose: Not Given Documented by: Metoprolol Tartrate (Lopressor) 25 mg PO BID [facility] Last Admin: 09/25/20 22:43 Dose: Not Given Documented by: Pantoprazole Sodium (Protonix Iv) 40 mg IVPUSH ONETIME ONE Stop: 09/25/20 10:41 Last Admin: 09/25/20 10:50 Dose: 40 mg Documented by: Pantoprazole Sodium (Protonix) 40 mg PO ACBREAKFAST [facility] Last Admin: 09/26/20 10:37 Dose: 40 mg Documented by: Polyethylene Glycol (Miralax) 238 gm PO ONETIME ONE Stop: 09/25/20 17:01 Last Admin: 09/25/20 16:55 Dose: 238 gm Documented by: Potassium Chloride (Klor-Con M20) 20 meq PO DAILY@0800 [facility] Potassium Chloride (Klor-Con M20) 40 meq PO ONETIME ONE Stop: 09/26/20 08:14 Last Admin: 09/26/20 10:37 Dose: 40 meq Documented by: Sodium Chloride (Saline Flush) 10 ml FLUSH ASDIRECTED PRN PRN Reason: Keep Vein Open Last Admin: 09/25/20 10:51 Dose: 10 ml Documented by: Sodium Chloride (Saline Flush) 10 ml FLUSH ASDIRECTED PRN PRN Reason: Keep Vein Open Last Admin: 09/25/20 10:51 Dose: 10 ml Documented by: Sodium Chloride (Saline Flush) 10 ml FLUSH ONETIME ONE Stop: 09/25/20 11:56 Last Admin: 09/25/20 12:15 Dose: 10 ml Documented by: Terazosin HCl (Hytrin) 2 mg PO BID [facility] Last Admin: 09/25/20 22:42 Dose: Not Given Documented by: - Exam General: Alert, Oriented, Cooperative HEENT: Mucous Membr. Moist/[place] Neck: Supple Cardiovascular: Regular Rate, Regular Rhythm GI/Abdominal Exam: Normal Bowel Sounds, Soft, Non-Tender, No Organomegaly Extremities: Normal Inspection, No Pedal Edema Sepsis Event Note - Evaluation Sepsis Screening Result: No Definite Risk - Focused Exam Vital Signs: Vital Signs Temp Pulse Pulse Resp BP BP Pulse Ox 09/26/20 10:40 78 128/92 H 09/26/20 10:36 97.5 F 72 16 128/92 H 97 09/26/20 07:00 96.9 F 76 16 152/87 H 95 - Problem List Review Problem List Initiated/Reviewed/Updated: Yes - My Orders Last 24 Hours: My Active Orders 09/26/20 15:07 HEMOGLOBIN [HEME] Stat 09/26/20 22:00 HEMOGLOBIN [HEME] Routine 09/27/20 05:00 CBC W/O DIFF,HEMOGRAM [HEME] Routine - Plan Plan:: ASSESSMENT AND PLAN RED BLOOD PER RECTUM-recent and current history of colitis. Continues with brown and red stooling despite colonoscopy prep yesterday. -Serial hemoglobin levels -Colonoscopy prep repeat today -Dr. Arias for colonoscopy in a.m. COLITIS-complicated by red blood per rectum -Continue current therapy with levofloxacin -She has completed a course of glucocorticoid therapy -Colonoscopy as above RECENT LEFT LUNG PNEUMONIA-resolved SYNCOPAL EPISODE-likely vasovagal in nature -Cardiac monitoring -Orthostatic vital signs CELLULITIS LEFT KNEE-knee appears to be good at this time with no evidence of active infection -Complete current therapy with doxycycline MAINTENANCE ISSUES -DVT prophylaxis; SCUDs, hold on anticoagulation because of bleeding -GI prophylaxis; continue outpatient PPI therapy -Marcial catheter; not indicated -Nutrition; clear liquid diet, n.p.o. after midnight -Nicotine dependence; not required CODE STATUS-FULL CODE ADMISSION STATUS-this patient will be admitted to observation status, expect no more than a one night hospital stay for evaluation and management of problems as outlined above. DISPOSITION-anticipate discharge to home after the hospital stay. PRIMARY CARE PROVIDER-Dr. Perdue
[2020-09-26] MEDS: Fluticasone Propionate Nasal Spray 16 GM Bottle NAS SCH (15:24)
[2020-09-26] MEDS ORDERED: Polyethylene Glycol 3350 Powder 238 GM Bot PO ONE (17:00)
[2020-09-26] MEDS: Bisacodyl 5 MG Tab PO ONE ×2 (19:35→19:39)
[2020-09-26] MEDS ORDERED: Nystatin Topical Powder 15 GM Bottle TOP SCH (21:00)
[2020-09-26] MEDS: Gabapentin 300 MG Cap**OWN MED PO SCH (21:03)
[2020-09-27] MEDS: Sodium Chloride 0.9% 1,000 ML IV SCH (05:26)
[2020-09-27] MEDS ORDERED: fentaNYL 100 MCG/2 ML SDV ONE (06:35)
[2020-09-27] MEDS ORDERED: Propofol 200 MG/20 ML SDV ONE ×2 (06:35→06:45)
[2020-09-27] MEDS: Metoprolol Tartrate 25 MG Tab**OWN MED PO SCH ×3 (07:53→21:02)
[2020-09-27] MEDS: OMEPRAZOLE 20 MG PO SCH (11:09)
[2020-09-27] MEDS: Lactobacillus Rhamnosus GG (Probiotic) Cap PO SCH ×2 (11:10→21:03)
[2020-09-27] MEDS: Potassium Chloride 20 MEQ Tab.ER*POM PO SCH (11:10)
[2020-09-27] MEDS: Fluticasone Propionate Nasal Spray 16 GM Bottle NAS SCH (11:11)
[2020-09-27] MEDS: Furosemide 20 MG Tab*POM PO SCH (11:12)
[2020-09-27] MEDS: ROSUVASTATIN 5MG PO SCH (11:17)
[2020-09-27] MEDS: LISINOPRIL 40 MG PO SCH ×2 (11:18→21:02)
[2020-09-27] MEDS: TERAZOSIN 2 MG PO SCH ×2 (11:18→21:02)
[2020-09-27] MEDS: Doxycycline 100 MG Cap**OWN MED PO SCH ×2 (11:19→21:04)
[2020-09-27] MEDS: Aspirin 325 MG Tab.EC PO SCH (11:24)
--- NOTE | 2020-09-27 11:43 | CONS ---
DATE OF SERVICE: 09/25/2020 REFERRING PHYSICIAN: CONSULTING PHYSICIAN: Diaz Arias MD REASON FOR CONSULTATION: Evaluation of GI status. HISTORY OF PRESENT ILLNESS: A 80-year-old female, was admitted due to bright red blood per rectum. 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 There is concern for colitis at the time. Evaluation is for management of this current status. PAST MEDICAL HISTORY: Quite significant with significant history of TIAs, osteoarthritis, diverticulosis, colitis, GERD, multiple surgeries. Please see hospitalist note for further details. SOCIAL HISTORY: She is nonsmoker. FAMILY HISTORY: Noncontributory. REVIEW OF SYSTEMS: GENERAL: Appropriate for her condition. HEENT: No symptoms. PULMONARY: No current shortness of breath. CARDIOVASCULAR: No active chest pain. GASTROINTESTINAL: Blood reported in the stool previously. GENITOURINARY: No dysuria. MUSCULOSKELETAL: No symptoms. SKIN: No symptoms. PSYCHIATRIC: No gross abnormalities. Remainder of systems reviewed and is negative. PHYSICAL EXAMINATION: VITAL SIGNS: Temperature 96.7, blood pressure 106/76, and pulse 81. GENERAL: Resting comfortably. HEENT: Pupils are equal. NECK: Supple. LUNGS: Clear. CARDIOVASCULAR: Regular rhythm and rate. RESPIRATORY: Lungs are clear to consultation bilaterally. ABDOMEN: Bowel sounds positive. Nontender. Nondistended. No rebound. No guarding. EXTREMITIES: Full range of motion. NEUROLOGICAL: Oriented x3. PSYCHIATRIC: No gross depression. LABORATORY RESULTS: Show white blood cell count of 35,000. Basic metabolic panel is also normal. IMAGING DATA: I did review the CT scan which showed possible colonic thickening. ASSESSMENT: Possible colitis. PLAN: The patient will be scheduled for a prep and then undergo a colonoscopy. We discussed risks, benefits, alternatives, and limitations including, but not limited to, infection, bleeding, and perforation were explained to the patient who wished to proceed. Diaz Arias MD /[id number]
--- NOTE | 2020-09-27 12:46 | PCM.PN ---
- General Info Date of Service: 09/27/20 Subjective Update: Ms. Dumont has had no further evidence of active bleeding over the last 24 hours. She feels somewhat fatigued and weak but denies significant abdominal pain. Colonoscopy performed this morning by Dr. Arias was incomplete. It did document diverticulosis in the sigmoid and descending colon. No evidence of active bleeding. Functional Status: Reports: Tolerating Diet, Ambulating, Urinating - Review of Systems General: Reports: Weakness, Fatigue. Denies: Fever, Chills Pulmonary: Reports: No Symptoms Cardiovascular: Reports: No Symptoms Gastrointestinal: Reports: No Symptoms Genitourinary: Reports: No Symptoms - Patient Data Vitals - Most Recent: Last Vital Signs Temp 97 F 09/27/20 11:20 Pulse 78 09/27/20 11:20 Resp 16 09/27/20 11:20 BP 146/78 H 09/27/20 11:20 Pulse Ox 97 09/27/20 11:20 Orthostatic Blood Pressure [ 144/82 Standing] Orthostatic Blood Pressure [ 130/88 Sitting] Orthostatic Blood Pressure [ 146/81 Supine] Weight - Most Recent: 152 lb I&O - Last 24 Hours: Intake & Output 09/26/20 09/27/20 09/27/20 22:59 06:59 14:59 Intake Total 2512 685 350 Output Total 200 Balance 2312 685 350 Lab Results Last 24 Hours: Laboratory Results - last 24 hr 09/26/20 09/26/20 09/27/20 Range/Units 15:28 21:58 05:10 WBC 10.9 (4.5-11.0) K/uL RBC 2.90 L (3.30-5.50) M/uL Hgb 8.7 L 8.2 L 7.9 L (12.0-15.0) g/dL Hct 25.1 L (36.0-48.0) % MCV 87 (80-98) fL MCH 27 (27-31) pg MCHC 32 (32-36) % Plt Count 347 (150-400) K/uL Med Orders - Current: Current Medications Acetaminophen (Tylenol) 650 mg PO Q4H PRN PRN Reason: Pain (Mild 1-3)/fever Hydrocodone Bitart/Acetaminophen ([place] 325-5 Mg) 1 tab PO Q4H PRN PRN Reason: Pain (mild 1-3) Last Admin: 09/25/20 22:52 Dose: 1 tab Documented by: Albuterol (Proventil Neb Soln) 2.5 mg NEB Q4H PRN PRN Reason: Shortness Of Breath/wheezing Aspirin (Ecotrin) 325 mg PO DAILY [facility] Last Admin: 09/27/20 11:24 Dose: Not Given Documented by: Cetirizine HCl (Zyrtec) 10 mg PO DAILY PRN PRN Reason: Allergies Docusate Sodium (Colace) 200 mg PO DAILY PRN PRN Reason: Constipation Doxycycline Hyclate (Vibramycin) 100 mg PO BID [facility] Last Admin: 09/27/20 11:19 Dose: 100 mg Documented by: Fluticasone Propionate (Flonase) 0 gm JORGE DAILY [facility] Last Admin: 09/27/20 11:11 Dose: 2 spr Documented by: Furosemide (Lasix) 20 mg PO DAILY [facility] Last Admin: 09/27/20 11:12 Dose: 20 mg Documented by: Gabapentin (Neurontin) 300 mg PO BEDTIME [facility] Last Admin: 09/26/20 21:03 Dose: 300 mg Documented by: Lactobacillus Rhamnosus (Culturelle) 1 cap PO BID [facility] Last Admin: 09/27/20 11:10 Dose: 1 cap Documented by: Metoprolol Tartrate (Lopressor) 25 mg PO BID [facility] Last Admin: 09/27/20 11:19 Dose: Not Given Documented by: Naproxen (Naprosyn) 250 mg PO DAILY PRN PRN Reason: Pain Levofloxacin [ Levaquin] 750 Mg Tab Own Med 750 mg PO Q48H [facility] Last Admin: 09/25/20 22:11 Dose: 750 mg Documented by: Rosuvastatin 5mg 1 each PO DAILY [facility] Last Admin: 09/27/20 11:17 Dose: 1 each Documented by: Terazosin 2mg (CapsuleOwn Med) 1 each PO BID [facility] Last Admin: 09/27/20 11:18 Dose: 1 each Documented by: Lisinopril 40mg Tab* (*Own Med) 1 each PO BID [facility] Last Admin: 09/27/20 11:18 Dose: 1 each Documented by: Omeprazole 20mg *Pom (*) 1 each PO ACBREAKFAST [facility] Last Admin: 09/27/20 11:09 Dose: 1 each Documented by: Nystatin (Nystop) 0 gm TOP BID [facility] Ondansetron HCl (Zofran) 4 mg IV Q4H PRN PRN Reason: Nausea/Vomiting Polyethylene Glycol (Miralax) 17 gm PO DAILY PRN PRN Reason: Constipation Potassium Chloride (Klor-Con M20) 20 meq PO DAILY@0800 [facility] Last Admin: 09/27/20 11:10 Dose: 20 meq Documented by: Sodium Chloride (Saline Flush) 10 ml FLUSH ASDIRECTED PRN PRN Reason: Keep Vein Open Discontinued Medications Hydrocodone Bitart/Acetaminophen ([place] 325-5 Mg) 1 tab PO ONETIME ONE Stop: 09/25/20 11:37 Last Admin: 09/25/20 11:51 Dose: 1 tab Documented by: Bisacodyl (Dulcolax) 10 mg PO ONETIME ONE Stop: 09/25/20 16:01 Last Admin: 09/25/20 16:56 Dose: 10 mg Documented by: Bisacodyl (Dulcolax) 10 mg PO ONETIME ONE Stop: 09/25/20 20:01 Last Admin: 09/25/20 19:37 Dose: 10 mg Documented by: Bisacodyl (Dulcolax) 10 mg PO ONETIME ONE Stop: 09/26/20 14:01 Last Admin: 09/26/20 15:23 Dose: 10 mg Documented by: Bisacodyl (Dulcolax) 10 mg PO ONETIME ONE Stop: 09/26/20 20:01 Last Admin: 09/26/20 19:39 Dose: 10 mg Documented by: Doxycycline Hyclate (Vibramycin) 100 mg PO BID [facility] Last Admin: 09/25/20 22:43 Dose: Not Given Documented by: Fentanyl (Sublimaze) Confirm Administered Dose 100 mcg .ROUTE .STK-MED ONE Stop: 09/27/20 06:36 Gabapentin (Neurontin) 300 mg PO BEDTIME [facility] Last Admin: 09/25/20 22:43 Dose: Not Given Documented by: Hydromorphone HCl (Dilaudid) 1 mg IVPUSH ONETIME ONE Stop: 09/25/20 13:24 Last Admin: 09/25/20 13:54 Dose: 1 mg Documented by: Sodium Chloride (Normal Saline) 1,000 mls @ 500 mls/hr IV ASDIRECTED [facility] Last Admin: 09/25/20 11:51 Dose: 500 mls/hr Documented by: Sodium Chloride (Normal Saline) 70 mls @ 3.5 mls/sec IV ASDIRECTED [facility] Stop: 09/25/20 16:00 Last Admin: 09/25/20 12:16 Dose: 3 mls/sec Documented by: Sodium Chloride (Normal Saline) 1,000 mls @ 75 mls/hr IV ASDIRECTED [facility] Last Admin: 09/27/20 05:26 Dose: 75 mls/hr Documented by: Iopamidol (Isovue-300 (61%)) 99 ml IV . DIRECTED [facility] Stop: 09/25/20 16:00 Last Admin: 09/25/20 12:13 Dose: 99 ml Documented by: Lisinopril (Prinivil) 40 mg PO BID [facility] Last Admin: 09/25/20 22:43 Dose: Not Given Documented by: Metoprolol Tartrate (Lopressor) 25 mg PO BID [facility] Last Admin: 09/25/20 22:43 Dose: Not Given Documented by: Pantoprazole Sodium (Protonix Iv) 40 mg IVPUSH ONETIME ONE Stop: 09/25/20 10:41 Last Admin: 09/25/20 10:50 Dose: 40 mg Documented by: Pantoprazole Sodium (Protonix) 40 mg PO ACBREAKFAST [facility] Last Admin: 09/26/20 10:37 Dose: 40 mg Documented by: Polyethylene Glycol (Miralax) 238 gm PO ONETIME ONE Stop: 09/25/20 17:01 Last Admin: 09/25/20 16:55 Dose: 238 gm Documented by: Polyethylene Glycol (Miralax) 238 gm PO ONETIME ONE Stop: 09/26/20 17:01 Last Admin: 09/26/20 17:32 Dose: 238 gm Documented by: Potassium Chloride (Klor-Con M20) 20 meq PO DAILY@0800 [facility] Potassium Chloride (Klor-Con M20) 40 meq PO ONETIME ONE Stop: 09/26/20 08:14 Last Admin: 09/26/20 10:37 Dose: 40 meq Documented by: Propofol (Diprivan 20 Ml) Confirm Administered Dose 200 mg .ROUTE .STK-MED ONE Stop: 09/27/20 06:36 Sodium Chloride (Saline Flush) 10 ml FLUSH ASDIRECTED PRN PRN Reason: Keep Vein Open Last Admin: 09/25/20 10:51 Dose: 10 ml Documented by: Sodium Chloride (Saline Flush) 10 ml FLUSH ASDIRECTED PRN PRN Reason: Keep Vein Open Last Admin: 09/25/20 10:51 Dose: 10 ml Documented by: Sodium Chloride (Saline Flush) 10 ml FLUSH ONETIME ONE Stop: 09/25/20 11:56 Last Admin: 09/25/20 12:15 Dose: 10 ml Documented by: Terazosin HCl (Hytrin) 2 mg PO BID [facility] Last Admin: 09/25/20 22:42 Dose: Not Given Documented by: - Exam Quality Assessment: DVT Prophylaxis General: Alert, Oriented, Cooperative, Mild Distress Lungs: Clear to Auscultation, Normal Respiratory Effort Cardiovascular: Regular Rate, Regular Rhythm, No Murmurs GI/Abdominal Exam: Soft, Non-Tender, No Organomegaly, No Distention Extremities: Non-Tender, No Pedal Edema Sepsis Event Note - Evaluation Sepsis Screening Result: No Definite Risk - Focused Exam Vital Signs: Vital Signs Temp Pulse Pulse Resp BP BP Pulse Ox 09/27/20 11:20 97 F 78 16 146/78 H 97 09/27/20 11:05 97 F 78 16 140/78 98 09/27/20 10:50 97 F 70 16 140/79 99 09/27/20 10:35 97 F 65 16 137/74 98 09/27/20 10:20 97 F 60 16 132/71 98 09/27/20 10:10 98.4 F 58 L 14 92/53 L 100 09/27/20 10:06 63 14 87/53 L 100 09/27/20 10:00 63 16 77/48 L 100 09/27/20 09:55 70 14 61/38 L 99 09/27/20 09:50 96.3 F L 70 14 64/40 L 99 09/27/20 07:53 82 121/68 09/27/20 07:41 97.4 F 82 16 121/68 97 09/27/20 02:35 97.2 F 69 16 131/79 - Problem List Review Problem List Initiated/Reviewed/Updated: Yes - My Orders Last 24 Hours: My Active Orders 09/26/20 13:39 Verify Patient Consent Obtain [RC] ASDIRECTED Schedule Procedure [COMM] Routine 09/26/20 21:00 Nystatin [Nystop] 0 gm TOP BID 09/27/20 07:30 Non-Formulary Medication [NF Drug] 1 each PO ACBREAKFAST 09/27/20 Lunch Clear Liquid Diet [DIET] 09/27/20 12:42 Convert IV to Saline Lock [OM.PC] Routine 09/27/20 17:00 HEMOGLOBIN [HEME] Stat 09/28/20 05:11 HEMOGLOBIN [HEME] AM POTASSIUM,K [CHEM] AM 09/28/20 08:00 Barium Enema Comp [CR] Routine - Plan Plan:: ASSESSMENT AND PLAN RED BLOOD PER RECTUM-recent and current history of colitis. No further evidence of active bleeding hemoglobin has remained stable. Colonoscopy performed today and unfortunately was incomplete. Did show sigmoid diverticuli but no evidence of active bleeding. -Serial hemoglobin levels -Barium enema in a.m. COLITIS-complicated by red blood per rectum -Continue current therapy with levofloxacin -She has completed a course of glucocorticoid therapy -Barium enema as above RECENT LEFT LUNG PNEUMONIA-resolved SYNCOPAL EPISODE-likely vasovagal in nature -Cardiac monitoring -Orthostatic vital signs CELLULITIS LEFT KNEE-knee appears to be good at this time with no evidence of active infection -Complete current therapy with doxycycline MAINTENANCE ISSUES -DVT prophylaxis; SCUDs, hold on anticoagulation because of bleeding -GI prophylaxis; continue outpatient PPI therapy -Marcial catheter; not indicated -Nutrition; clear liquid diet, n.p.o. after midnight -Nicotine dependence; not required CODE STATUS-FULL CODE ADMISSION STATUS-this patient will be admitted to observation status, expect no more than a one night hospital stay for evaluation and management of problems as outlined above. DISPOSITION-anticipate discharge to home after the hospital stay. PRIMARY CARE PROVIDER-Dr. Perdue
[2020-09-27] MEDS: Gabapentin 300 MG Cap**OWN MED PO SCH (21:03)
[2020-09-27] MEDS: LEVOFLOXACIN 750 MG PO SCH (21:04)
[2020-09-27] MEDS: Acetaminophen/HYDROcodone 325-5 MG Tab PO PRN (21:07)
[2020-09-28] MEDS ORDERED: Melatonin 3 MG Tab PO PRN (01:50)
[2020-09-28] MEDS: OMEPRAZOLE 20 MG PO SCH (08:30)
[2020-09-28] MEDS: Lactobacillus Rhamnosus GG (Probiotic) Cap PO SCH (08:30)
[2020-09-28] MEDS: Fluticasone Propionate Nasal Spray 16 GM Bottle NAS SCH (08:31)
[2020-09-28] MEDS: Aspirin 325 MG Tab.EC PO SCH (08:31)
[2020-09-28] MEDS: Furosemide 20 MG Tab*POM PO SCH (08:32)
[2020-09-28] MEDS: LISINOPRIL 40 MG PO SCH (08:33)
[2020-09-28] MEDS: TERAZOSIN 2 MG PO SCH (08:35)
[2020-09-28] MEDS: ROSUVASTATIN 5MG PO SCH (08:36)
[2020-09-28] MEDS: Metoprolol Tartrate 25 MG Tab**OWN MED PO SCH (08:38)
[2020-09-28] MEDS: Potassium Chloride 20 MEQ Tab.ER*POM PO SCH (08:39)
[2020-09-28] MEDS: Doxycycline 100 MG Cap**OWN MED PO SCH (08:41)
[2020-09-28] MEDS ORDERED: Potassium Chloride 20 MEQ Tab.ER PO ONE (08:45)
--- NOTE | 2020-09-28 09:05 | OR ---
DATE OF PROCEDURE: 09/27/2020 SURGEON: Diaz Arias MD PROCEDURE: Colonoscopy. FINDINGS: 1. Colonic spasm/narrowing at 100 cm (biopsied using cold biopsy forceps). 2. Extensive diverticulosis, mostly limited to sigmoid colon. COMPLICATIONS: None. 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 ANESTHESIA: MAC. PREPROCEDURE DIAGNOSIS: Colitis. POSTOPERATIVE DIAGNOSIS: Colitis. RISKS: Risks, benefits, alternatives, and limitations including but not limited to infection, bleeding, and perforation were explained to the patient who wished to proceed. PROCEDURE IN DETAIL: The patient was placed in left lateral decubitus position. Digital rectal exam was performed without abnormality. Scope was introduced and advanced atraumatically to approximately 100 cm. This was unable to be advanced at this point due to a narrowing of the colon. It was unsure if this was spasm or actual stricture. This was biopsied multiple times using cold biopsy forceps. The scope was brought back to the remainder of the colon. No blood was noted. Diverticulosis described as moderate, limited to sigmoid colon without evidence of diverticulitis or bleeding. No abnormalities on retroflexion. The patient tolerated the procedure well. Diaz Arias MD /[id number]
--- NOTE | 2020-09-28 14:13 | PCM.DCSUM1 ---
Discharge Summary - Hospital Course Brief History: 80-year-old female with history of cellulitis involving the left knee, recent admission for colitis and history of ischemic colitis who presented with bright red blood per rectum after a syncopal episode while on the toilet. She was admitted for observation and further work-up and management. Diagnosis: Stroke: No - Discharge Data Discharge Date: 09/28/20 Discharge Disposition: Home, Self-Care 01 Condition: Good - Referral to Home Health Primary Care Physician: Filiberto Perdue MD - Discharge Diagnosis/Problem(s) (1) Anemia due to blood loss, acute SNOMED Code(s): 644107739 ICD Code: D62 - ACUTE POSTHEMORRHAGIC ANEMIA Status: Acute Current Visit: Yes (2) Syncope SNOMED Code(s): 214772745 ICD Code: R55 - SYNCOPE AND COLLAPSE Status: Acute Current Visit: Yes Qualifiers: Syncope type: vasovagal syncope Qualified Code(s): R55 - Syncope and collapse (3) Cellulitis of knee, left SNOMED Code(s): 67748562642096186 ICD Code: L03.116 - CELLULITIS OF LEFT LOWER LIMB Status: Acute Current Visit: No (4) Colitis SNOMED Code(s): 55798268 ICD Code: K52.9 - NONINFECTIVE GASTROENTERITIS AND COLITIS, UNSPECIFIED Status: Acute Current Visit: No - Patient Summary/Data Operative Procedure(s) Performed: Colonoscopy-performed by Dr. Arias- diverticulosis was noted. The colonoscopy was not complete because of difficulty to navigate beyond the splenic flexure. Consults: Consultations 09/25/20 15:56 Consult to Physician [CONS] Routine Consulting Provider: Diaz Arias Call Completed to Consulting Physician: Yes Reason for Consult: Colitis, red blood per rectum, colonoscopy in the a.m. Hospital Course: Aby presented to the emergency room after an episode of syncope while she was on the toilet. She also passed some bright red blood per rectum. Work-up in the emergency room was fairly reassuring. Her hemoglobin was stable compared to where she was at the time of her recent hospital admission. Vital signs were stable. A CT scan was completed and showed that the colitis on the right side was improving. She was admitted for observation and expedited work-up. Overnight following admission we did see a decline in her hemoglobin to just above 7. She did receive a blood transfusion at this point which she tolerated well. Her hemoglobin did respond well after that. He colonoscopy prep was initiated but unfortunately her stool remained brown to bloody so the colonoscopy had to be delayed a second day with additional preparation. On the second day of hospital admission the colonoscopy was attempted but was incomplete because of difficulty passing the colonoscope. Diverticulosis was noted but no obvious bleeding. There is no blood noted in the colon at the time of the partial colonoscopy. She has not had any additional bleeding. She has not had any abdominal pain. She has not had any recurrent syncope. Her hemoglobin did slowly decline over the last couple of days and is down to just above 7 again. She did receive a second unit of blood via transfusion given the significant rectal bleeding that she has experienced in recent days. She has tolerated her soft diet. Her left knee cellulitis seems to be doing quite well with doxycycline. She has completed antibiotic and steroid therapy for her colitis. She feels well enough to go home at this point and I do believe she is safe for outpatient management. She will continue on the doxycycline for her cellulitis but otherwise will be done with antibiotics and steroids. She has follow-up scheduled for later in the week and a repeat hemoglobin at that time would be beneficial. - Patient Instructions Diet: GI Soft/Low Residue/Low Fiber Activity: As Tolerated Showering/Bathing: May Shower Notify Provider of: Fever, Increased Pain Other/Special Instructions: 1. You were in the hospital for management of bright red blood per rectum that was thought to be caused by right-sided colitis. Your condition has been improving with treatment provided in the hospital. We did perform a colonoscopy but unfortunately could not advance the scope far enough to see the area where our biggest concern was. Since the pain and bleeding has resolved I do not believe additional work-up is necessary at this time. You have completed adequate antibiotics and steroids. If you have an additional episode of bleeding we should consider a barium enema to look more closely at the colon. I do recommend a soft diet with foods that are low in fiber residue. You should continue this for at least the next 2 weeks. Please seek medical attention if you have fever greater than 101, significant abdominal pain, severe diarrhea or additional blood in your stool. 2. Continue your usual medications as previously prescribed. 3. Follow up as scheduled with your primary care later in the week and at the end of the month with Dr Geoffrey Duff - Discharge Plan *PRESCRIPTION DRUG MONITORING PROGRAM REVIEWED*: Not Applicable *COPY OF PRESCRIPTION DRUG MONITORING REPORT IN PATIENT JESUS: Not Applicable Home Medications: Home Meds Metoprolol Tartrate [Lopressor] 25 mg PO BID 08/27/14 [History] Naproxen Sodium [Aleve] 220 mg PO DAILY PRN 08/27/14 [History] Terazosin [Hytrin] 2 mg PO BID 08/27/14 [History] Acetaminophen 500 mg PO Q6HR PRN 03/01/16 [History] Fluticasone Propionate [Flonase] 2 sprays NS DAILY 03/01/16 [History] Gabapentin [Neurontin] 300 mg PO BEDTIME 03/01/16 [History] Potassium Chloride [Klor-Con] 20 meq PO DAILY 10/26/16 [History] Cetirizine HCl [Zyrtec] 10 mg PO DAILY PRN 06/14/18 [History] Docusate Sodium [Stool Softener] 2 tab PO DAILY PRN 06/14/18 [History] Sodium Chloride 0.65% [Wells Saline] 0.1 ml JORGE DAILY PRN 06/14/18 [History] lisinopriL [Prinivil] 40 mg PO BID 06/14/18 [History] polyethylene glycoL 3350 [MiraLAX] 17 gm PO DAILY PRN 12/24/18 [History] Aspirin 325 mg PO DAILY 02/15/20 [History] Omeprazole 20 mg PO DAILY 02/15/20 [History] Ondansetron [Zofran ODT] 4 mg PO Q6H PRN 02/15/20 [History] Rosuvastatin Calcium 5 mg PO DAILY 02/15/20 [History] Furosemide [Lasix] 20 mg PO DAILY 02/25/20 [History] Cinnamon Bark [Cinnamon] 1 tab PO DAILY 03/02/20 [History] Lactobacillus Rhamnosus GG [Culturelle] 1 cap PO BID #60 cap 03/28/20 [Rx] Ketotifen Fumarate [Zaditor] 1 drop OP BID PRN 04/15/20 [History] Nystatin [Nystop] 1 applic TOP BID 04/15/20 [History] Cholecalciferol (Vitamin D3) [Vitamin D3] 1 tab PO DAILY 08/24/20 [History] Hydrocodone/Acetaminophen [[place] 5-325 Tablet] 1 - 2 each PO Q6HR PRN #36 tablet 09/08/20 [Rx] Acetaminophen/HYDROcodone [[place] 325-5 MG] 1 tab PO Q4H PRN #24 tablet 09/22/20 [Rx] Doxycycline [Vibramycin] 100 mg PO BID #28 cap 09/22/20 [Rx] Oxygen Therapy Mode: Room Air Patient Handouts: Soft-Food Eating Plan, Colitis Referrals: Paty Valle PA-C [Ordering Only Provider] - 10/02/20 2:00 pm (Please arrive 15 minutes early to register for your appointment.) Geoffrey Duff MD [Physician] - 10/20/20 1:30 pm ([place] at ER hospital desk 15 minutes prior to appointment) - Discharge Summary/Plan Comment DC Time >30 min.: No - Patient Data Vitals - Most Recent: Last Vital Signs Temp 36.5 C 09/28/20 13:53 Pulse 56 L 09/28/20 13:53 Resp 16 09/28/20 13:53 BP 107/65 09/28/20 13:53 Pulse Ox 97 09/28/20 13:38 Orthostatic Blood Pressure [ 102/65 Standing] Orthostatic Blood Pressure [ 111/78 Sitting] Orthostatic Blood Pressure [ 100/60 Supine] Weight - Most Recent: 68.946 kg I&O - Last 24 hours: Intake & Output 09/27/20 09/28/20 09/28/20 22:59 06:59 14:59 Intake Total 1080 450 Balance 1080 450 Lab Results - Last 24 hrs: Laboratory Results - last 24 hr 09/25/20 09/27/20 09/28/20 Range/Units 19:20 16:54 03:55 Hgb 8.8 L 7.4 L (12.0-15.0) g/dL Potassium (3.6-5.2) mmol/L Blood Type O NEGATIVE Gel Antibody Screen Negative Crossmatch See Detail 09/28/20 Range/Units 03:55 Hgb (12.0-15.0) g/dL Potassium 3.2 L (3.6-5.2) mmol/L Blood Type Gel Antibody Screen Crossmatch Med Orders - Current: Current Medications Acetaminophen (Tylenol) 650 mg PO Q4H PRN PRN Reason: Pain (Mild 1-3)/fever Hydrocodone Bitart/Acetaminophen ([place] 325-5 Mg) 1 tab PO Q4H PRN PRN Reason: Pain (mild 1-3) Last Admin: 09/27/20 21:07 Dose: 1 tab Documented by: Albuterol (Proventil Neb Soln) 2.5 mg NEB Q4H PRN PRN Reason: Shortness Of Breath/wheezing Aspirin (Ecotrin) 325 mg PO DAILY [facility] Last Admin: 09/28/20 08:31 Dose: 325 mg Documented by: Cetirizine HCl (Zyrtec) 10 mg PO DAILY PRN PRN Reason: Allergies Docusate Sodium (Colace) 200 mg PO DAILY PRN PRN Reason: Constipation Doxycycline Hyclate (Vibramycin) 100 mg PO BID [facility] Last Admin: 09/28/20 08:41 Dose: 100 mg Documented by: Fluticasone Propionate (Flonase) 0 gm JORGE DAILY [facility] Last Admin: 09/28/20 08:31 Dose: 1 spr Documented by: Furosemide (Lasix) 20 mg PO DAILY [facility] Last Admin: 09/28/20 08:32 Dose: 20 mg Documented by: Gabapentin (Neurontin) 300 mg PO BEDTIME [facility] Last Admin: 09/27/20 21:03 Dose: 300 mg Documented by: Lactobacillus Rhamnosus (Culturelle) 1 cap PO BID [facility] Last Admin: 09/28/20 08:30 Dose: 1 cap Documented by: Melatonin (Melatonin) 6 mg PO BEDTIME PRN PRN Reason: Insomnia Last Admin: 09/28/20 02:18 Dose: 6 mg Documented by: Metoprolol Tartrate (Lopressor) 25 mg PO BID [facility] Last Admin: 09/28/20 08:38 Dose: 25 mg Documented by: Naproxen (Naprosyn) 250 mg PO DAILY PRN PRN Reason: Pain Levofloxacin [ Levaquin] 750 Mg Tab Own Med 750 mg PO Q48H [facility] Last Admin: 09/27/20 21:04 Dose: 750 mg Documented by: Rosuvastatin 5mg 1 each PO DAILY [facility] Last Admin: 09/28/20 08:36 Dose: 1 each Documented by: Terazosin 2mg (CapsuleOwn Med) 1 each PO BID [facility] Last Admin: 09/28/20 08:35 Dose: 1 each Documented by: Lisinopril 40mg Tab* (*Own Med) 1 each PO BID [facility] Last Admin: 09/28/20 08:33 Dose: 1 each Documented by: Omeprazole 20mg *Pom (*) 1 each PO ACBREAKFAST [facility] Last Admin: 09/28/20 08:30 Dose: 1 each Documented by: Nystatin (Nystop) 0 gm TOP BID [facility] Ondansetron HCl (Zofran) 4 mg IV Q4H PRN PRN Reason: Nausea/Vomiting Polyethylene Glycol (Miralax) 17 gm PO DAILY PRN PRN Reason: Constipation Potassium Chloride (Klor-Con M20) 20 meq PO DAILY@0800 [facility] Last Admin: 09/28/20 08:39 Dose: 20 meq Documented by: Sodium Chloride (Saline Flush) 10 ml FLUSH ASDIRECTED PRN PRN Reason: Keep Vein Open Discontinued Medications Hydrocodone Bitart/Acetaminophen ([place] 325-5 Mg) 1 tab PO ONETIME ONE Stop: 09/25/20 11:37 Last Admin: 09/25/20 11:51 Dose: 1 tab Documented by: Bisacodyl (Dulcolax) 10 mg PO ONETIME ONE Stop: 09/25/20 16:01 Last Admin: 09/25/20 16:56 Dose: 10 mg Documented by: Bisacodyl (Dulcolax) 10 mg PO ONETIME ONE Stop: 09/25/20 20:01 Last Admin: 09/25/20 19:37 Dose: 10 mg Documented by: Bisacodyl (Dulcolax) 10 mg PO ONETIME ONE Stop: 09/26/20 14:01 Last Admin: 09/26/20 15:23 Dose: 10 mg Documented by: Bisacodyl (Dulcolax) 10 mg PO ONETIME ONE Stop: 09/26/20 20:01 Last Admin: 09/26/20 19:39 Dose: 10 mg Documented by: Doxycycline Hyclate (Vibramycin) 100 mg PO BID [facility] Last Admin: 09/25/20 22:43 Dose: Not Given Documented by: Fentanyl (Sublimaze) Confirm Administered Dose 100 mcg .ROUTE .STK-MED ONE Stop: 09/27/20 06:36 Gabapentin (Neurontin) 300 mg PO BEDTIME [facility] Last Admin: 09/25/20 22:43 Dose: Not Given Documented by: Hydromorphone HCl (Dilaudid) 1 mg IVPUSH ONETIME ONE Stop: 09/25/20 13:24 Last Admin: 09/25/20 13:54 Dose: 1 mg Documented by: Sodium Chloride (Normal Saline) 1,000 mls @ 500 mls/hr IV ASDIRECTED [facility] Last Admin: 09/25/20 11:51 Dose: 500 mls/hr Documented by: Sodium Chloride (Normal Saline) 70 mls @ 3.5 mls/sec IV ASDIRECTED [facility] Stop: 09/25/20 16:00 Last Admin: 09/25/20 12:16 Dose: 3 mls/sec Documented by: Sodium Chloride (Normal Saline) 1,000 mls @ 75 mls/hr IV ASDIRECTED [facility] Last Admin: 09/27/20 05:26 Dose: 75 mls/hr Documented by: Iopamidol (Isovue-300 (61%)) 99 ml IV . DIRECTED [facility] Stop: 09/25/20 16:00 Last Admin: 09/25/20 12:13 Dose: 99 ml Documented by: Lisinopril (Prinivil) 40 mg PO BID [facility] Last Admin: 09/25/20 22:43 Dose: Not Given Documented by: Metoprolol Tartrate (Lopressor) 25 mg PO BID [facility] Last Admin: 09/25/20 22:43 Dose: Not Given Documented by: Pantoprazole Sodium (Protonix Iv) 40 mg IVPUSH ONETIME ONE Stop: 09/25/20 10:41 Last Admin: 09/25/20 10:50 Dose: 40 mg Documented by: Pantoprazole Sodium (Protonix) 40 mg PO ACBREAKFAST [facility] Last Admin: 09/26/20 10:37 Dose: 40 mg Documented by: Polyethylene Glycol (Miralax) 238 gm PO ONETIME ONE Stop: 09/25/20 17:01 Last Admin: 09/25/20 16:55 Dose: 238 gm Documented by: Polyethylene Glycol (Miralax) 238 gm PO ONETIME ONE Stop: 09/26/20 17:01 Last Admin: 09/26/20 17:32 Dose: 238 gm Documented by: Potassium Chloride (Klor-Con M20) 20 meq PO DAILY@0800 [facility] Potassium Chloride (Klor-Con M20) 40 meq PO ONETIME ONE Stop: 09/26/20 08:14 Last Admin: 09/26/20 10:37 Dose: 40 meq Documented by: Potassium Chloride (Klor-Con M20) 40 meq PO ONETIME ONE Stop: 09/28/20 08:46 Last Admin: 09/28/20 08:40 Dose: 40 meq Documented by: Propofol (Diprivan 20 Ml) Confirm Administered Dose 200 mg .ROUTE .STK-MED ONE Stop: 09/27/20 06:36 Sodium Chloride (Saline Flush) 10 ml FLUSH ASDIRECTED PRN PRN Reason: Keep Vein Open Last Admin: 09/25/20 10:51 Dose: 10 ml Documented by: Sodium Chloride (Saline Flush) 10 ml FLUSH ASDIRECTED PRN PRN Reason: Keep Vein Open Last Admin: 09/25/20 10:51 Dose: 10 ml Documented by: Sodium Chloride (Saline Flush) 10 ml FLUSH ONETIME ONE Stop: 09/25/20 11:56 Last Admin: 09/25/20 12:15 Dose: 10 ml Documented by: Terazosin HCl (Hytrin) 2 mg PO BID [facility] Last Admin: 09/25/20 22:42 Dose: Not Given Documented by: *Q Meaningful Use (DIS) - VTE *Q VTE Pharmacological Contraindications *Q: Active Hemorrhage
[2020-09-28 14:26] VITALS: BP 109/53; PULSE 51
== END 2020-09-28 15:00 | disposition home or self-care (01) ==
LOC: JP.ED 10:04 → JP.MS 14:59
PROVIDERS: ADMIT Hospitalist; ATTEND Internal Medicine
DX: D12.6 Benign neoplasm of colon, unspecified (principal); K57.30 Diverticulosis of large intestine without perforation or abscess without bleeding; K58.9 Irritable bowel syndrome, unspecified; R55 Syncope and collapse; E78.00 Pure hypercholesterolemia, unspecified; I10 Essential (primary) hypertension; G62.9 Polyneuropathy, unspecified; D62 Acute posthemorrhagic anemia; L03.116 Cellulitis of left lower limb; Z98.890 Other specified postprocedural states; Z88.8 Allergy status to other drugs, medicaments and biological substances; Z91.013 Allergy to seafood; Z91.048 Other nonmedicinal substance allergy status; Z79.899 Other long term (current) drug therapy; Z86.73 Personal history of transient ischemic attack (TIA), and cerebral infarction without residual deficits; Z90.49 Acquired absence of other specified parts of digestive tract
CPT/HCPCS: 36415; 36430; 45380; 73502; 74177; 80048; 80053; 83605; 84132; 84484; 85018; 85025; 85027; 85610; 86850; 86900; 86901; 86920; 86922; 88305; 93005; 93010; 96374; 96375; 99285; A9270; C9113; G0378; J1170; J2704; J3010; J7030; P9016; Q9967; 99217; 99218; 99225

== ENCOUNTER 2020-09-29 16:39 | Emergency (ER) | payer MEDICARE, BC ==
--- NOTE | 2020-09-29 17:36 | EDM.PDOC ---
ED HPI GENERAL MEDICAL PROBLEM - General Chief Complaint: Gastrointestinal Problem Stated Complaint: MEDICAL Time Seen by Provider: 09/29/20 17:28 Source of Information: Reports: Patient, Provider, RN Notes Reviewed History Limitations: Reports: No Limitations - History of Present Illness INITIAL COMMENTS - FREE TEXT/NARRATIVE: 80-year-old female presents emergency department today after being evaluated in clinic for her hospital follow-up complaints of pain behind the left knee provider was concerned about DVT and bright red blood per rectum. She was recently admitted to hospital discharge yesterday complaint of bright red blood per rectum underwent colonoscopy however it was incomplete she is set up for a barium enema as an outpatient procedure. She denies feeling lightheaded no shortness of breath or chest pain the pain behind her knee has developed after her hospitalization Left Posterior Knee Pain Score (Numeric/FACES): 4 - Related Data Allergies Allergy/AdvReac Type Severity Reaction Status Date / Time metronidazole [From Flagyl] Allergy Severe Difficulty Verified 09/25/20 10:16 Breathing shellfish derived Allergy Intermediate Difficulty Verified 09/25/20 10:16 Swallowing adhesive tape Allergy Blisters Verified 09/25/20 10:16 amlodipine [From Norvasc] Allergy Other Verified 09/25/20 10:16 Home Meds: Home Meds Metoprolol Tartrate [Lopressor] 25 mg PO BID 08/27/14 [History] Naproxen Sodium [Aleve] 220 mg PO DAILY PRN 08/27/14 [History] Terazosin [Hytrin] 2 mg PO BID 08/27/14 [History] Acetaminophen 500 mg PO Q6HR PRN 03/01/16 [History] Fluticasone Propionate [Flonase] 2 sprays NS DAILY 03/01/16 [History] Gabapentin [Neurontin] 300 mg PO BEDTIME 03/01/16 [History] Potassium Chloride [Klor-Con] 20 meq PO DAILY 10/26/16 [History] Cetirizine HCl [Zyrtec] 10 mg PO DAILY PRN 06/14/18 [History] Docusate Sodium [Stool Softener] 2 tab PO DAILY PRN 06/14/18 [History] Sodium Chloride 0.65% [[place] Saline] 0.1 ml JORGE DAILY PRN 06/14/18 [History] lisinopriL [Prinivil] 40 mg PO BID 06/14/18 [History] polyethylene glycoL 3350 [MiraLAX] 17 gm PO DAILY PRN 12/24/18 [History] Aspirin 325 mg PO DAILY 02/15/20 [History] Omeprazole 20 mg PO DAILY 02/15/20 [History] Ondansetron [Zofran ODT] 4 mg PO Q6H PRN 02/15/20 [History] Rosuvastatin Calcium 5 mg PO DAILY 02/15/20 [History] Furosemide [Lasix] 20 mg PO DAILY 02/25/20 [History] Cinnamon Bark [Cinnamon] 1 tab PO DAILY 03/02/20 [History] Lactobacillus Rhamnosus GG [Culturelle] 1 cap PO BID #60 cap 03/28/20 [Rx] Ketotifen Fumarate [Zaditor] 1 drop OP BID PRN 04/15/20 [History] Nystatin [Nystop] 1 applic TOP BID 04/15/20 [History] Cholecalciferol (Vitamin D3) [Vitamin D3] 1 tab PO DAILY 08/24/20 [History] Hydrocodone/Acetaminophen [[place] 5-325 Tablet] 1 - 2 each PO Q6HR PRN #36 tablet 09/08/20 [Rx] Acetaminophen/HYDROcodone [[place] 325-5 MG] 1 tab PO Q4H PRN #24 tablet 09/22/20 [Rx] Doxycycline [Vibramycin] 100 mg PO BID #28 cap 09/22/20 [Rx] Past Medical History HEENT History: Reports: Allergic Rhinitis, Impaired Vision Other HEENT History: cataracts Cardiovascular History: Reports: High Cholesterol, Hypertension Other Cardiovascular History: TIA in December Respiratory History: Reports: None Gastrointestinal History: Reports: Cholelithiasis, Diverticulosis, GERD, Other (See Below) Other Gastrointestinal History: Hx of Barretts;. 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 Neurological History: Reports: Neuropathy, Peripheral, TIA, Other (See Below) Other Neuro History: TIA December 2019, reports 07/2020 N/T B feet to knees since 2nd lumbar surgery Psychiatric History: Reports: None Endocrine/Metabolic History: Reports: Osteoporosis Hematologic History: Reports: Anemia, B12 Deficiency, Blood Transfusion(s), Iron Deficiency Immunologic History: Reports: None Oncologic (Cancer) History: Reports: None Dermatologic History: Reports: None - Infectious Disease History Infectious Disease History: Reports: Chicken Pox, Measles, MRSA, Mumps, Rubella, Shingles, Other (See Below) Other Infectious Disease History: COVID-positive July 24, 2020 - Past Surgical History Head Surgeries/Procedures: Reports: None HEENT Surgical History: Reports: Cataract Surgery, Naso-Sinus Surgery Cardiovascular Surgical History: Reports: None GI Surgical History: Reports: Cholecystectomy, Colonoscopy, EGD, Hernia, Inguinal, Other (See Below) Other GI Surgeries/Procedures: 2 hernia repair, esophagus removed Female Surgical History: Reports: Breast Biopsy, Hysterectomy, Oophorectomy Endocrine Surgical History: Reports: None Neurological Surgical History: Reports: Laminectomy, Other (See Below) Other Neurological Surgeries/Procedures: Back surgery x3 (first at 18yo, the other 2 performed 1 year apart) Musculoskeletal Surgical History: Reports: Knee Replacement, Shoulder Surgery, Other (See Below) Other Musculoskeletal Surgeries/Procedures:: Back surgery x3. L shoulder r/t rotator cuff. B TKA: R 08/2017, L 08/24/2020. knee replacement left, drained and "cleaned in surgery", MRSA Oncologic Surgical History: Reports: Biopsy of Breast Dermatological Surgical History: Reports: None Social & Family History - Family History Family Medical History: No Pertinent Family History HEENT: Reports: Impaired Vision Cardiac: Reports: CAD, Hypertension, [place] Respiratory: Reports: COPD, Other (See Below) Other Respiratory Family Hisory: rheumatic fever GI: Reports: Cholelithiasis, Colon Polyps, GERD OBGYN: Reports: Musculoskeletal: Reports: Gout Endocrine/Metabolic: Reports: None Hematologic: Reports: None Oncologic: Reports: Prostate, Renal - Tobacco Use Tobacco Use Status *Q: Unknown Ever Used Tobacco - Caffeine Use Caffeine Use: Reports: Coffee Caffeine Use Comment: DAILY ED ROS GENERAL - Review of Systems Review Of Systems: See Below Constitutional: Reports: No Symptoms HEENT: Reports: No Symptoms Respiratory: Reports: No Symptoms Cardiovascular: Reports: No Symptoms GI/Abdominal: Reports: Bloody Stool (Have). Denies: Abdominal Pain, Nausea, Vomiting : Reports: No Symptoms Musculoskeletal: Reports: No Symptoms ED EXAM, GI/ABD - Physical Exam Exam: See Below Exam Limited By: No Limitations General Appearance: Alert, WD/WN, No Apparent Distress Respiratory/Chest: No Respiratory Distress, Lungs Clear, Normal Breath Sounds, No Accessory Muscle Use, Chest Non-Tender Cardiovascular: Regular Rate, Rhythm, No Murmur GI/Abdominal Exam: Soft, Non-Tender Rectal (Female) Exam: Normal Exam, Normal Rectal Tone Course - Vital Signs Last Recorded V/S: Last Vital Signs Temp 96.6 F L 09/29/20 17:05 Pulse 72 09/29/20 17:05 Resp 16 09/29/20 17:05 BP 134/78 09/29/20 17:05 Pulse Ox 100 09/29/20 17:05 - Orders/Labs/Meds Orders: Active Orders 24 hr Category Date Time Status Peripheral IV Care [RC] . DIRECTED Care 09/29/20 17:44 Active VL Duplex Lwr Ext Veins Ltd Lt [US] Stat Exams 09/29/20 17:33 Ordered OCCULT BLOOD DIAGNOSTIC [OP] Stat Lab 09/29/20 18:04 Ordered OCCULT BLOOD SCREEN [OP] Stat Lab 09/29/20 18:04 Ordered Sodium Chloride 0.9% [Normal Saline] 500 ml Med 09/29/20 17:45 Active IV .BOLUS Sodium Chloride 0.9% [Saline Flush] Med 09/29/20 17:44 Active 10 ml FLUSH ASDIRECTED PRN Peripheral IV Insertion Adult [OM.PC] Urgent Oth 09/29/20 17:44 Ordered Medication Orders Sodium Chloride (Normal Saline) 500 mls @ 1,000 mls/hr IV .BOLUS LORENA Last Admin: 09/29/20 17:58 Dose: 1,000 mls/hr Documented by: JOSSE Sodium Chloride (Saline Flush) 10 ml FLUSH ASDIRECTED PRN PRN Reason: Keep Vein Open Last Admin: 09/29/20 18:03 Dose: 10 ml Documented by: JOSSE Labs: Laboratory Tests 09/29/20 09/29/20 09/29/20 Range/Units 17:57 17:57 17:57 WBC 14.4 H (4.5-11.0) K/uL RBC 3.30 (3.30-5.50) M/uL Hgb 9.3 L (12.0-15.0) g/dL Hct 28.8 L (36.0-48.0) % MCV 87 (80-98) fL MCH 28 (27-31) pg MCHC 32 (32-36) % Plt Count 426 H (150-400) K/uL Neut % (Auto) 84 H (36-66) % Lymph % (Auto) 10 L (24-44) % [place] % (Auto) 6 (2-6) % Eos % (Auto) 1 L (2-4) % Baso % (Auto) 0 (0-1) % PT 11.0 (9.5-12.0) sec INR 1.01 (0.80-1.20) APTT 26.5 L (27.0-36.0) sec Sodium 136 L (140-148) mmol/L Potassium 3.8 (3.6-5.2) mmol/L Chloride 101 (100-108) mmol/L Carbon Dioxide 25 (21-32) mmol/L Anion Gap 13.8 (5.0-14.0) mmol/L BUN 12 (7-18) mg/dL Creatinine 0.8 (0.6-1.0) mg/dL Est Cr Clr Drug Dosing 48.99 mL/min Estimated GFR (MDRD) > 60 (>60) Glucose 90 (74-106) mg/dL Calcium 7.6 L (8.5-10.1) mg/dL Meds: Medications Generic Name Dose Route Start Last Admin Trade Name Freq PRN Reason Stop Dose Admin Sodium Chloride 500 mls @ 1,000 mls/hr 09/29/20 17:45 09/29/20 17:58 Normal Saline IV 1,000 mls/hr .BOLUS LORENA Administration Sodium Chloride 10 ml 09/29/20 17:44 09/29/20 18:03 Saline Flush FLUSH 10 ml ASDIRECTED PRN Administration Keep Vein Open Discontinued Medications Generic Name Dose Route Start Last Admin Trade Name Freq PRN Reason Stop Dose Admin Pantoprazole Sodium 40 mg 09/29/20 17:44 09/29/20 17:59 Protonix Iv IVPUSH 09/29/20 17:45 40 mg ONETIME ONE Administration Departure - Departure Time of Disposition: 18:55 Disposition: Home, Self-Care 01 Condition: Fair Clinical Impression: Bloody stool - Discharge Information Referrals: Filiberto Perdue MD [Primary Care Provider] - Forms: ED Department Discharge Sepsis Event Note (ED) - Evaluation Sepsis Screening Result: No Definite Risk - Focused Exam Vital Signs: Vital Signs Temp Pulse Resp BP Pulse Ox 09/29/20 17:05 96.6 F L 72 16 134/78 100 09/29/20 17:00 96.6 F L 72 16 134/78 100 - My Orders Last 24 Hours: My Active Orders 09/29/20 17:33 VL Duplex Lwr Ext Veins Ltd Lt [US] Stat 09/29/20 17:44 Peripheral IV Care [RC] . DIRECTED Sodium Chloride 0.9% [Saline Flush] 10 ml FLUSH ASDIRECTED PRN Peripheral IV Insertion Adult [OM.PC] Urgent 09/29/20 17:45 Sodium Chloride 0.9% [Normal Saline] 500 ml IV .BOLUS 09/29/20 18:04 OCCULT BLOOD DIAGNOSTIC [OP] Stat OCCULT BLOOD SCREEN [OP] Stat - Assessment/Plan Last 24 Hours: My Active Orders 09/29/20 17:33 VL Duplex Lwr Ext Veins Ltd Lt [US] Stat 09/29/20 17:44 Peripheral IV Care [RC] . DIRECTED Sodium Chloride 0.9% [Saline Flush] 10 ml FLUSH ASDIRECTED PRN Peripheral IV Insertion Adult [OM.PC] Urgent 09/29/20 17:45 Sodium Chloride 0.9% [Normal Saline] 500 ml IV .BOLUS 09/29/20 18:04 OCCULT BLOOD DIAGNOSTIC [OP] Stat OCCULT BLOOD SCREEN [OP] Stat Plan: Assessment Acuity = acute Site and laterality = the bright red blood per rectum Etiology = unknown Manifestations = none Location of injury = Home Lab values = WBC elevated 14.3 consistent leukocytosis hemoglobin low at 9.3 consistent with normochromic anemia BMP unremarkable and INR unremarkable Hemoccult was positive Plan Call discussed case with hospitalist on-call Dr. Enrique at [facility] [address] he kindly accepted the patient in transport she will be transported via EMS ground This note was dictated using [employer] voice recognition software please call with any questions on syntax or grammar.
[2020-09-29] MEDS ORDERED: Sodium Chloride 0.9% 10 ML Syringe FLUSH PRN (17:44)
[2020-09-29] MEDS ORDERED: Pantoprazole 40 MG Vial IVPUSH ONE (17:44)
[2020-09-29] MEDS ORDERED: Sodium Chloride 0.9% 500 ML IV SCH (17:45)
--- NOTE | 2020-09-29 19:15 | CRLUS ---
INDICATION: Pain behind the knee. History of left total knee prosthesis. COMPARISON: 09/08/2020 FINDINGS: Ultrasound of the venous drainage of the left lower extremity shows no evidence of deep venous thrombosis. There is normal antegrade flow from the posterior tibial and peroneal veins superiorly through the common femoral vein. There is normal augmentation and compressibility of these veins. The left greater saphenous vein in the thigh is also seen to be widely patent. The right common femoral vein is widely patent. There has been no interval change. IMPRESSION: No evidence of deep or superficial venous thrombosis on ultrasound examination of the left lower extremity. Dictated by Zaire Miller MD @ Sep 29 2020 7:11PM Signed by Dr. Zaire Miller @ Sep 29 2020 7:13PM
[2020-09-29 19:33] VITALS: BP 173/108; PULSE 87
== END 2020-09-29 19:36 | disposition home or self-care (01) ==
LOC: JP.ED 16:39
DX: K92.1 Melena (principal); I10 Essential (primary) hypertension; E78.00 Pure hypercholesterolemia, unspecified; K21.9 Gastro-esophageal reflux disease without esophagitis; M19.90 Unspecified osteoarthritis, unspecified site; Z88.1 Allergy status to other antibiotic agents; Z91.013 Allergy to seafood; Z91.048 Other nonmedicinal substance allergy status; Z88.8 Allergy status to other drugs, medicaments and biological substances; Z79.899 Other long term (current) drug therapy; Z79.82 Long term (current) use of aspirin
CPT/HCPCS: 36415; 80048; 82272; 85025; 85610; 85730; 93971; 96374; 99285; C9113; J7040; 99284

== ENCOUNTER 2020-10-04 12:54 | Emergency (ER) | payer MEDICARE, BC ==
[2020-10-04 13:12] VITALS: BP 135/80; PULSE 76
--- NOTE | 2020-10-04 13:37 | EDM.PDOC ---
ED HPI GENERAL MEDICAL PROBLEM - General Chief Complaint: Gastrointestinal Problem Stated Complaint: PASSING BLOOD, CHECK HEMOGLOBIN Time Seen by Provider: 10/04/20 13:20 Source of Information: Reports: Patient, Old Records, RN History Limitations: Reports: Other (incomplete records) - History of Present Illness INITIAL COMMENTS - FREE TEXT/NARRATIVE: 80 yo female presents with some maroon stools that began again last night. Has no pain. No vomiting. Was just discharged this past from [facility] for this and was not sent home with any documentation of what was the cause of her bleeding. She thinks it may have been diverticular in origin. She called today and was told to come to the ER for a hgb. Hbg was 7.6 at time of discharge from [facility] this past . Onset Date: 10/03/20 Duration: Hour(s):, Intermittent Location: Reports: Other (blood per rectum) Quality: Reports: Other (no pain) Severity: Mild Improves with: Reports: None Worsens with: Reports: Other (unknown) Context: Reports: Other (See HPI) Associated Symptoms: Reports: No Other Symptoms Treatments SENIOR DIRECTOR: Reports: Other (see below) (none) - Related Data Allergies Allergy/AdvReac Type Severity Reaction Status Date / Time metronidazole [From Flagyl] Allergy Severe Difficulty Verified 10/04/20 13:18 Breathing shellfish derived Allergy Intermediate Difficulty Verified 10/04/20 13:18 Swallowing adhesive tape Allergy Blisters Verified 10/04/20 13:18 amlodipine [From Norvasc] Allergy Other Verified 10/04/20 13:18 Home Meds: Home Meds Metoprolol Tartrate [Lopressor] 25 mg PO BID 08/27/14 [History] Terazosin [Hytrin] 2 mg PO BID 08/27/14 [History] Acetaminophen 500 mg PO Q6HR PRN 03/01/16 [History] Fluticasone Propionate [Flonase] 2 sprays NS DAILY 03/01/16 [History] Gabapentin [Neurontin] 300 mg PO BEDTIME 03/01/16 [History] Potassium Chloride [Klor-Con] 20 meq PO DAILY 10/26/16 [History] Cetirizine HCl [Zyrtec] 10 mg PO DAILY PRN 06/14/18 [History] Docusate Sodium [Stool Softener] 2 tab PO DAILY PRN 06/14/18 [History] Sodium Chloride 0.65% [[place] Saline] 0.1 ml JORGE DAILY PRN 06/14/18 [History] lisinopriL [Prinivil] 40 mg PO BID 06/14/18 [History] polyethylene glycoL 3350 [MiraLAX] 17 gm PO DAILY PRN 12/24/18 [History] Omeprazole 20 mg PO DAILY 02/15/20 [History] Ondansetron [Zofran ODT] 4 mg PO Q6H PRN 02/15/20 [History] Rosuvastatin Calcium 5 mg PO DAILY 02/15/20 [History] Furosemide [Lasix] 20 mg PO DAILY 02/25/20 [History] Cinnamon Bark [Cinnamon] 1 tab PO DAILY 03/02/20 [History] Lactobacillus Rhamnosus GG [Culturelle] 1 cap PO BID #60 cap 03/28/20 [Rx] Ketotifen Fumarate [Zaditor] 1 drop OP BID PRN 04/15/20 [History] Nystatin [Nystop] 1 applic TOP BID 04/15/20 [History] Cholecalciferol (Vitamin D3) [Vitamin D3] 1 tab PO DAILY 08/24/20 [History] Hydrocodone/Acetaminophen [[place] 5-325 Tablet] 1 - 2 each PO Q6HR PRN #36 tablet 09/08/20 [Rx] Carboxymethylcellulose Sodium [Refresh Tears 0.5% Ophth Soln] 30 ml OP DAILY 10/04/20 [History] Clindamycin HCl 300 mg PO QID 10/04/20 [History] Past Medical History HEENT History: Reports: Allergic Rhinitis, Impaired Vision Other HEENT History: cataracts Cardiovascular History: Reports: High Cholesterol, Hypertension Other Cardiovascular History: TIA in December Respiratory History: Reports: None Gastrointestinal History: Reports: Cholelithiasis, Diverticulosis, GERD, Other (See Below) Other Gastrointestinal History: Hx of Barretts;. 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 Neurological History: Reports: Neuropathy, Peripheral, TIA, Other (See Below) Other Neuro History: TIA December 2019, reports 07/2020 N/T B feet to knees since 2nd lumbar surgery Psychiatric History: Reports: None Endocrine/Metabolic History: Reports: Osteoporosis Hematologic History: Reports: Anemia, B12 Deficiency, Blood Transfusion(s), Iron Deficiency Immunologic History: Reports: None Oncologic (Cancer) History: Reports: None Dermatologic History: Reports: None - Infectious Disease History Infectious Disease History: Reports: Chicken Pox, Measles, MRSA, Mumps, Rubella, Shingles, Other (See Below) Other Infectious Disease History: COVID-positive July 24, 2020 - Past Surgical History Head Surgeries/Procedures: Reports: None HEENT Surgical History: Reports: Cataract Surgery, Naso-Sinus Surgery Cardiovascular Surgical History: Reports: None GI Surgical History: Reports: Cholecystectomy, Colonoscopy, EGD, Hernia, Inguinal, Other (See Below) Other GI Surgeries/Procedures: 2 hernia repair, esophagus removed Female Surgical History: Reports: Breast Biopsy, Hysterectomy, Oophorectomy Endocrine Surgical History: Reports: None Neurological Surgical History: Reports: Laminectomy, Other (See Below) Other Neurological Surgeries/Procedures: Back surgery x3 (first at 18yo, the other 2 performed 1 year apart) Musculoskeletal Surgical History: Reports: Knee Replacement, Shoulder Surgery, Other (See Below) Other Musculoskeletal Surgeries/Procedures:: Back surgery x3. L shoulder r/t rotator cuff. B TKA: R 08/2017, L 08/24/2020. knee replacement left, drained and "cleaned in surgery", MRSA Oncologic Surgical History: Reports: Biopsy of Breast Social & Family History - Family History Family Medical History: No Pertinent Family History HEENT: Reports: Impaired Vision Cardiac: Reports: CAD, Hypertension, [place] Respiratory: Reports: COPD, Other (See Below) Other Respiratory Family Hisory: rheumatic fever GI: Reports: Cholelithiasis, Colon Polyps, GERD OBGYN: Reports: Musculoskeletal: Reports: Gout Endocrine/Metabolic: Reports: None Hematologic: Reports: None Oncologic: Reports: Prostate, Renal - Tobacco Use Tobacco Use Status *Q: Never Tobacco User - Caffeine Use Caffeine Use: Reports: Coffee Caffeine Use Comment: DAILY - Recreational Drug Use Recreational Drug Use: No ED ROS GENERAL - Review of Systems Review Of Systems: See Below Constitutional: Reports: No Symptoms HEENT: Reports: No Symptoms Respiratory: Reports: No Symptoms Cardiovascular: Reports: No Symptoms Endocrine: Reports: No Symptoms GI/Abdominal: Reports: Bloody Stool, Hematochezia. Denies: Abdominal Pain, Black Stool, Nausea, Vomiting : Reports: No Symptoms Musculoskeletal: Reports: No Symptoms Skin: Reports: No Symptoms Neurological: Reports: No Symptoms ED EXAM, GI/ABD - Physical Exam Exam: See Below Exam Limited By: No Limitations General Appearance: Alert, WD/WN, No Apparent Distress Eyes: Bilateral: Normal Appearance Ears: Normal External Exam, Normal Canal, Hearing Grossly Normal Nose: Normal Inspection, No Blood Throat/Mouth: Normal Inspection, Normal Lips, Normal Oropharynx, Normal Voice, No Airway Compromise Head: Atraumatic, Normocephalic Neck: Normal Inspection Respiratory/Chest: No Respiratory Distress, Lungs Clear, Normal Breath Sounds, No Accessory Muscle Use Cardiovascular: Regular Rate, Rhythm, No Edema GI/Abdominal Exam: Normal Bowel Sounds, Soft, Non-Tender, No Distention Back Exam: Normal Inspection Extremities: Normal Inspection, Normal Range of Motion, Non-Tender, No Pedal Edema Neurological: Alert, Oriented, CN II-XII Intact, Normal Cognition, No Motor/Sensory Deficits Psychiatric: Normal Affect, Normal Mood Skin Exam: Warm, Dry, Intact, Normal Color, No Rash Course - Vital Signs Text/Narrative:: Orhostatics normal Last Recorded V/S: Last Vital Signs Temp 36.4 C 10/04/20 13:21 Pulse 76 10/04/20 13:21 Resp 16 10/04/20 13:21 BP 135/80 10/04/20 13:21 Pulse Ox 96 10/04/20 13:21 - Orders/Labs/Meds Orders: Active Orders 24 hr Category Date Time Status Orthostatic Vital Signs [RC] ASDIRECTED Care 10/04/20 14:50 Active Labs: Laboratory Tests 10/04/20 10/04/20 Range/Units 13:32 13:32 WBC 7.4 (4.5-11.0) K/uL RBC 2.77 L (3.30-5.50) M/uL Hgb 7.6 L (12.0-15.0) g/dL Hct 24.9 L (36.0-48.0) % MCV 90 (80-98) fL MCH 27 (27-31) pg MCHC 31 L (32-36) % Plt Count 390 (150-400) K/uL Sodium 136 L (140-148) mmol/L Potassium 4.0 (3.6-5.2) mmol/L Chloride 101 (100-108) mmol/L Carbon Dioxide 28 (21-32) mmol/L Anion Gap 11.0 (5.0-14.0) mmol/L BUN 9 (7-18) mg/dL Creatinine 0.8 (0.6-1.0) mg/dL Est Cr Clr Drug Dosing 47.94 mL/min Estimated GFR (MDRD) > 60 (>60) Glucose 94 (74-106) mg/dL Calcium 7.6 L (8.5-10.1) mg/dL Departure - Departure Time of Disposition: 15:08 Disposition: Home, Self-Care 01 Condition: Fair Clinical Impression: Diverticular hemorrhage - Discharge Information *PRESCRIPTION DRUG MONITORING PROGRAM REVIEWED*: Not Applicable *COPY OF PRESCRIPTION DRUG MONITORING REPORT IN PATIENT JESUS: Not Applicable Referrals: Filiberto Perdue MD [Primary Care Provider] - Forms: ED Department Discharge Additional Instructions: Keep your appt for later this week with your doctor. Return if worse. Sepsis Event Note (ED) - Evaluation Sepsis Screening Result: No Definite Risk - Focused Exam Vital Signs: Vital Signs Temp Pulse Resp BP Pulse Ox 10/04/20 13:21 36.4 C 76 16 135/80 96 10/04/20 13:10 36.4 C 76 16 135/80 96 - My Orders Last 24 Hours: My Active Orders 10/04/20 14:50 Orthostatic Vital Signs [RC] ASDIRECTED - Assessment/Plan Last 24 Hours: My Active Orders 10/04/20 14:50 Orthostatic Vital Signs [RC] ASDIRECTED
== END 2020-10-04 15:20 | disposition home or self-care (01) ==
LOC: JP.ED 12:54
DX: K57.91 Diverticulosis of intestine, part unspecified, without perforation or abscess with bleeding (principal); I10 Essential (primary) hypertension; E78.00 Pure hypercholesterolemia, unspecified; K21.9 Gastro-esophageal reflux disease without esophagitis; Z88.1 Allergy status to other antibiotic agents; Z91.013 Allergy to seafood; Z91.09 Other allergy status, other than to drugs and biological substances; Z79.899 Other long term (current) drug therapy; Z86.73 Personal history of transient ischemic attack (TIA), and cerebral infarction without residual deficits; Z90.49 Acquired absence of other specified parts of digestive tract; Z90.710 Acquired absence of both cervix and uterus
CPT/HCPCS: 36415; 80048; 85027; 99281; 99283

== ENCOUNTER 2020-10-07 13:04 | Emergency (ER) | payer MEDICARE, BC ==
--- NOTE | 2020-10-07 13:47 | EDM.PDOC ---
ED HPI GENERAL MEDICAL PROBLEM - General Chief Complaint: Lower Extremity Injury/Pain Stated Complaint: POSSIBLE BLOOD CLOT Time Seen by Provider: 10/07/20 13:35 Source of Information: Reports: Patient, Old Records, RN History Limitations: Reports: No Limitations - History of Present Illness INITIAL COMMENTS - FREE TEXT/NARRATIVE: This 80 yo female was sent to the ER by her home health nurse after a home visit. There was concern about a DVT in the L calf. This woman is convalescing from a knee surgery. There has been no SOB. Onset: Gradual Onset Date: 10/06/20 Duration: Hour(s):, Getting Worse Location: Reports: Lower Extremity, Left Quality: Reports: Dull Severity: Mild Improves with: Reports: None Worsens with: Reports: None Context: Reports: Other (See HPI) Associated Symptoms: Denies: Fever/Chills, Shortness of Breath Treatments COLLEGE INSTRUCTOR: Reports: Other (see below) (none) Left Leg Pain Score (Numeric/FACES): 6 - Related Data Allergies Allergy/AdvReac Type Severity Reaction Status Date / Time metronidazole [From Flagyl] Allergy Severe Difficulty Verified 10/07/20 13:25 Breathing shellfish derived Allergy Intermediate Difficulty Verified 10/07/20 13:25 Swallowing adhesive tape Allergy Blisters Verified 10/07/20 13:25 amlodipine [From Norvasc] Allergy Other Verified 10/07/20 13:25 Home Meds: Home Meds Metoprolol Tartrate [Lopressor] 25 mg PO BID 08/27/14 [History] Terazosin [Hytrin] 2 mg PO BID 08/27/14 [History] Acetaminophen 500 mg PO Q6HR PRN 03/01/16 [History] Fluticasone Propionate [Flonase] 2 sprays NS DAILY 03/01/16 [History] Gabapentin [Neurontin] 300 mg PO BEDTIME 03/01/16 [History] Potassium Chloride [Klor-Con] 20 meq PO DAILY 10/26/16 [History] Cetirizine HCl [Zyrtec] 10 mg PO DAILY PRN 06/14/18 [History] Docusate Sodium [Stool Softener] 2 tab PO DAILY PRN 06/14/18 [History] Sodium Chloride 0.65% [[place] Saline] 0.1 ml JORGE DAILY PRN 06/14/18 [History] lisinopriL [Prinivil] 40 mg PO BID 06/14/18 [History] polyethylene glycoL 3350 [MiraLAX] 17 gm PO DAILY PRN 12/24/18 [History] Omeprazole 20 mg PO DAILY 02/15/20 [History] Ondansetron [Zofran ODT] 4 mg PO Q6H PRN 02/15/20 [History] Rosuvastatin Calcium 5 mg PO DAILY 02/15/20 [History] Furosemide [Lasix] 20 mg PO DAILY 02/25/20 [History] Cinnamon Bark [Cinnamon] 1 tab PO DAILY 03/02/20 [History] Lactobacillus Rhamnosus GG [Culturelle] 1 cap PO BID #60 cap 03/28/20 [Rx] Ketotifen Fumarate [Zaditor] 1 drop OP BID PRN 04/15/20 [History] Nystatin [Nystop] 1 applic TOP BID 04/15/20 [History] Cholecalciferol (Vitamin D3) [Vitamin D3] 1 tab PO DAILY 08/24/20 [History] Hydrocodone/Acetaminophen [[place] 5-325 Tablet] 1 - 2 each PO Q6HR PRN #36 tablet 09/08/20 [Rx] Carboxymethylcellulose Sodium [Refresh Celluvisc] 1 drop TOP QID 10/07/20 [History] clindamycin HCL [Cleocin] 300 mg PO BID 10/07/20 [History] Past Medical History HEENT History: Reports: Allergic Rhinitis, Impaired Vision Other HEENT History: cataracts Cardiovascular History: Reports: High Cholesterol, Hypertension Other Cardiovascular History: TIA in December Respiratory History: Reports: None Gastrointestinal History: Reports: Cholelithiasis, Diverticulosis, GERD, Other (See Below) Other Gastrointestinal History: Hx of Barretts;. 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 Neurological History: Reports: Neuropathy, Peripheral, TIA, Other (See Below) Other Neuro History: TIA December 2019, reports 07/2020 N/T B feet to knees since 2nd lumbar surgery Psychiatric History: Reports: None Endocrine/Metabolic History: Reports: Osteoporosis Hematologic History: Reports: Anemia, B12 Deficiency, Blood Transfusion(s), Iron Deficiency Immunologic History: Reports: None Oncologic (Cancer) History: Reports: None Dermatologic History: Reports: None - Infectious Disease History Infectious Disease History: Reports: Chicken Pox, Measles, MRSA, Mumps, Rubella, Shingles, Other (See Below) Other Infectious Disease History: COVID-positive July 24, 2020 - Past Surgical History Head Surgeries/Procedures: Reports: None HEENT Surgical History: Reports: Cataract Surgery, Naso-Sinus Surgery Cardiovascular Surgical History: Reports: None GI Surgical History: Reports: Cholecystectomy, Colonoscopy, EGD, Hernia, Inguinal, Other (See Below) Other GI Surgeries/Procedures: 2 hernia repair, esophagus removed Female Surgical History: Reports: Breast Biopsy, Hysterectomy, Oophorectomy Endocrine Surgical History: Reports: None Neurological Surgical History: Reports: Laminectomy, Other (See Below) Other Neurological Surgeries/Procedures: Back surgery x3 (first at 18yo, the other 2 performed 1 year apart) Musculoskeletal Surgical History: Reports: Knee Replacement, Shoulder Surgery, Other (See Below) Other Musculoskeletal Surgeries/Procedures:: Back surgery x3. L shoulder r/t rotator cuff. B TKA: R 08/2017, L 08/24/2020. knee replacement left, drained and "cleaned in surgery", MRSA Oncologic Surgical History: Reports: Biopsy of Breast Dermatological Surgical History: Reports: None Social & Family History - Family History Family Medical History: No Pertinent Family History HEENT: Reports: Impaired Vision Cardiac: Reports: CAD, Hypertension, [place] Respiratory: Reports: COPD, Other (See Below) Other Respiratory Family Hisory: rheumatic fever GI: Reports: Cholelithiasis, Colon Polyps, GERD OBGYN: Reports: Musculoskeletal: Reports: Gout Endocrine/Metabolic: Reports: None Hematologic: Reports: None Oncologic: Reports: Prostate, Renal - Tobacco Use Tobacco Use Status *Q: Unknown Ever Used Tobacco - Caffeine Use Caffeine Use: Reports: Coffee Caffeine Use Comment: DAILY Review of Systems - Review of Systems Review Of Systems: See Below Constitutional: Reports: No Symptoms Musculoskeletal: Reports: Leg Pain (L calf mildly tender and has worse than usual swelling.) Skin: Reports: No Symptoms Neurological: Reports: No Symptoms ED EXAM, GENERAL - Physical Exam Exam: See Below Exam Limited By: No Limitations General Appearance: Alert, WD/WN, No Apparent Distress Respiratory/Chest: No Respiratory Distress, Lungs Clear, Normal Breath Sounds, No Accessory Muscle Use Cardiovascular: Regular Rate, Rhythm, No Edema Extremities: Pedal Edema (Both legs below the knees are swollen. ), Dajuan's Sign (mildly tender with this test. ), Limited Range of Motion (due to prior knee surgery. ), Increased Warmth (L knee only). No: Normal Inspection, Normal Range of Motion, Non-Tender, No Pedal Edema, Redness Neurological: Alert, Oriented, CN II-XII Intact, Normal Cognition, No Motor/Sensory Deficits Psychiatric: Normal Affect, Normal Mood Skin Exam: Warm, Dry, Intact, Normal Color, No Rash, Other (well healed anterior L knee surgical scar. ) Course - Vital Signs Last Recorded V/S: Last Vital Signs Temp 35.7 C L 10/07/20 13:22 Pulse 70 10/07/20 15:16 Resp 16 10/07/20 15:16 BP 139/91 H 10/07/20 15:16 Pulse Ox 98 10/07/20 15:16 - Orders/Labs/Meds Orders: Active Orders 24 hr Category Date Time Status VL Duplex Lwr Ext Veins Ltd Lt [US] Stat Exams 10/07/20 14:47 Ordered Labs: Laboratory Tests 10/07/20 Range/Units 13:54 D-Dimer, Quantitative 2834.02 H (0.0-500.0) ng/mL - Radiology Interpretation Free Text/Narrative:: L leg venous doppler-neg Departure - Departure Time of Disposition: 15:41 Disposition: Home, Self-Care 01 Condition: Fair Clinical Impression: Leg edema - Discharge Information *PRESCRIPTION DRUG MONITORING PROGRAM REVIEWED*: Not Applicable *COPY OF PRESCRIPTION DRUG MONITORING REPORT IN PATIENT JESUS: Not Applicable Referrals: Filiberto Perdue MD [Primary Care Provider] - Forms: ED Department Discharge Additional Instructions: Elevate your legs above your heart to reduce swelling. F/U with your provider as needed. Sepsis Event Note (ED) - Evaluation Sepsis Screening Result: No Definite Risk - Focused Exam Vital Signs: Vital Signs Temp Pulse Resp BP Pulse Ox 10/07/20 15:16 70 16 139/91 H 98 10/07/20 13:22 35.7 C L 68 16 132/81 98 10/07/20 13:18 35.7 C L 68 16 132/81 98 - My Orders Last 24 Hours: My Active Orders 10/07/20 14:47 VL Duplex Lwr Ext Veins Ltd Lt [US] Stat - Assessment/Plan Last 24 Hours: My Active Orders 10/07/20 14:47 VL Duplex Lwr Ext Veins Ltd Lt [US] Stat
[2020-10-07 15:17] VITALS: BP 139/91; PULSE 70
--- NOTE | 2020-10-07 16:04 | US ---
VL Duplex Lwr Ext Veins Ltd Lt INDICATION: increased swelling, high d-dimer FINDINGS: Ultrasound examination of the lower extremity using Doppler and compressive technique demonstrates that the common femoral, femoral, and popliteal veins are patent, and negative for thrombus. The calf veins were segmentally visualized and are negative where seen. IMPRESSION: Negative for deep venous thrombosis.
== END 2020-10-07 16:06 | disposition home or self-care (01) ==
LOC: JP.ED 13:04
DX: R60.0 Localized edema (principal); I10 Essential (primary) hypertension; E78.00 Pure hypercholesterolemia, unspecified; K21.9 Gastro-esophageal reflux disease without esophagitis; G62.9 Polyneuropathy, unspecified; Z90.710 Acquired absence of both cervix and uterus; Z90.49 Acquired absence of other specified parts of digestive tract; Z88.1 Allergy status to other antibiotic agents; Z91.013 Allergy to seafood; Z88.8 Allergy status to other drugs, medicaments and biological substances; Z79.899 Other long term (current) drug therapy
CPT/HCPCS: 36415; 85379; 93971-26-LT; 93971-LT; 99282; 99284-25

== ENCOUNTER 2021-11-29 07:44 | Day surgery (SDC) | payer MEDICARE, BC ==
[2021-11-29] MEDS: Albuterol/Ipratropium 3.0-0.5 MG/3 ML Neb Soln NEB ONE (08:27)
[2021-11-29] MEDS: Dextrose 5%-Lactated Ringers 1,000 ML IV SCH (08:30)
[2021-11-29] MEDS ORDERED: Propofol 200 MG/20 ML SDV ONE (08:32)
[2021-11-29] MEDS ORDERED: fentaNYL 100 MCG/2 ML SDV ONE (08:32)
[2021-11-29 11:10] VITALS: BP 119/69; PULSE 49
== END 2021-11-29 11:50 | disposition home or self-care (01) ==
LOC: JP.SDS 07:44
PROVIDERS: ATTEND Surgery
DX: K21.9 Gastro-esophageal reflux disease without esophagitis (principal); K29.60 Other gastritis without bleeding; K22.70 Barrett's esophagus without dysplasia; I10 Essential (primary) hypertension
CPT/HCPCS: 87081; 88305; 94640; J2704; J3010; J7121; J7620-GY

== ENCOUNTER 2022-01-19 05:57 | Day surgery (SDC) | payer MEDICARE, BC ==
[2022-01-19] MEDS ORDERED: Bupivacaine 0.5% 30 ML SDV ONE (06:31)
[2022-01-19] MEDS ORDERED: Lactated Ringers 1,000 ML IV SCH (07:00)
[2022-01-19] MEDS ORDERED: Nozin Nasal Sanitizer NASBOTH ONE (07:00)
[2022-01-19] MEDS ORDERED: ceFAZolin 1 GM in Premix Bag 1 BAG IV ONE (07:30)
[2022-01-19] MEDS ORDERED: ceFAZolin 1 GM in Sodium Chloride 0.9% 50 ML IV ONE (07:30)
[2022-01-19] MEDS ORDERED: fentaNYL 100 MCG/2 ML SDV ONE (07:35)
[2022-01-19] MEDS ORDERED: Midazolam 1 MG/ML 2 ML SDV ONE (07:35)
[2022-01-19] MEDS ORDERED: Propofol 200 MG/20 ML SDV ONE (07:35)
[2022-01-19] MEDS ORDERED: Lidocaine 0.5% 50 ML SDV ONE (07:37)
[2022-01-19 08:52] VITALS: PULSE 54
[2022-01-19 09:39] VITALS: BP 167/97
== END 2022-01-19 09:50 | disposition home or self-care (01) ==
LOC: JP.SDS 05:57
PROVIDERS: ATTEND Specialist
DX: G56.02 Carpal tunnel syndrome, left upper limb (principal); M65.842 Other synovitis and tenosynovitis, left hand; I10 Essential (primary) hypertension; K21.9 Gastro-esophageal reflux disease without esophagitis; Z86.73 Personal history of transient ischemic attack (TIA), and cerebral infarction without residual deficits; Z91.013 Allergy to seafood; Z88.8 Allergy status to other drugs, medicaments and biological substances; Z98.890 Other specified postprocedural states; Z87.891 Personal history of nicotine dependence
CPT/HCPCS: 36415; 80053; 85027; A9270-GY; J0690; J2250; J2704; J3010; J3490

== ENCOUNTER 2022-12-22 16:15 | Emergency (ER) | payer MEDICARE, BC ==
[2022-12-22] MEDS ORDERED: hydrALAZINE 25 MG Tab PO STA (19:13)
[2022-12-22] MEDS ORDERED: Metoprolol Tartrate 50 MG Tab PO ONE (21:11)
[2022-12-22 21:29] VITALS: BP 173/98; PULSE 64
== END 2022-12-22 21:31 | disposition home or self-care (01) ==
LOC: JP.ED 16:15
DX: I10 Essential (primary) hypertension (principal); E78.00 Pure hypercholesterolemia, unspecified; K21.9 Gastro-esophageal reflux disease without esophagitis; M19.90 Unspecified osteoarthritis, unspecified site; Z88.8 Allergy status to other drugs, medicaments and biological substances; Z91.013 Allergy to seafood; Z91.048 Other nonmedicinal substance allergy status; Z79.82 Long term (current) use of aspirin; Z79.899 Other long term (current) drug therapy
CPT/HCPCS: 93005; 99284; A9270; 93010

== ENCOUNTER 2024-05-06 23:03 | Emergency (ER) | payer MEDICARE, BC ==
[2024-05-06] MEDS ORDERED: Lactated Ringers 1,000 ML IV SCH (23:15)
[2024-05-06 23:23] LABS: BASOPHILS ABSOLUTE AUTO 0.03 K/uL (0.00-0.10); BASOPHILS PERCENT AUTO 0.3 % (0.1-1.3); EOSINOPHILS ABSOLUTE AUTO 0.19 K/uL (0.00-0.40); HEMATOCRIT 28.7 % (34.3-46.0); HEMOGLOBIN 9.4 g/dL (11.2-15.5); IMMATURE GRAN ABSOLUTE AUTO 0.11 K/uL (0.00-0.23); IMMATURE GRAN PERCENT AUTO 1.2 % (0.0-0.7); LYMPHOCYTES ABSOLUTE AUTO 0.91 K/uL (0.8-3.3); LYMPHOCYTES PERCENT AUTO 9.7 % (11.4-47.7); MEAN CORPUSCULAR HEMOGLOBIN 29.4 pg (31.6-35.5); MEAN CORPUSCULAR HGB CONC 32.8 g/dL (31.6-35.5); MEAN CORPUSCULAR VOLUME 89.7 fL (81.4-99.0); MONOCYTES ABSOLUTE AUTO 1.07 K/uL (0.20-0.90); MONOCYTES PERCENT AUTO 11.4 % (3.3-12.6); NEUTROPHILS ABSOLUTE AUTO 7.11 K/uL (1.0-7.6); NEUTROPHILS PERCENT AUTO 75.4 % (40.0-78.1); PLATELET COUNT,PLT 208 K/uL (130-375); WHITE BLOOD CELL COUNT,WBC 9.4 K/uL (3.2-11.0)
[2024-05-06] MEDS: Norepinephrine Bit/D5W Premix 4 MG in Premix Bag 1 BAG IV SCH (23:35)
[2024-05-06] MEDS: Sodium Chloride 0.9% 1,000 ML IV ONE (23:36)
[2024-05-06 23:49] LABS: A/G RATIO 0.8 (1.2-2.2); ALANINE AMINOTRANSFERASE,ALT 30 U/L (12-78); ALBUMIN 2.5 g/dL (3.4-5.0); ALKALINE PHOSPHATASE 85 U/L (46-116); ASPARTATE AMNIOTRANSFERASE,AST 37 U/L (15-37); BILIRUBIN TOTAL 0.4 mg/dL (0.2-1.0); BLOOD UREA NITROGEN,BUN 24 mg/dL (7-18); CALCIUM 7.6 mg/dL (8.5-10.1); CARBON DIOXIDE,CO2 26 mmol/L (21-32); CHLORIDE,CL 98 mmol/L (100-108); CREATININE 1.4 mg/dL (0.6-1.0); EST CRCL DRUG DOSING (CG) 24.93 mL/min; ESTIMATED GFR 38 mL/min (>60); GLUCOSE RANDOM 130 mg/dL (74-106); PROTEIN TOTAL,TP 5.7 g/dL (6.4-8.2); SODIUM,NA 133 mmol/L (140-148); TROPONIN I HIGH SENSITIVITY 8.2 pg/mL (<=60.3)
[2024-05-06 23:51] LABS: ANION GAP 11.4 mmol/L (5.0-14.0); POTASSIUM,K 2.4 mmol/L (3.6-5.2)
[2024-05-07] MEDS: Potassium Chloride 20 MEQ Tab.ER PO ONE (00:20)
[2024-05-07] MEDS: Potassium Chloride 10 MEQ in Premix Bag 1 BAG IV ONE (00:21)
[2024-05-07 00:51] LABS: APPEARANCE,URINE SLIGHTLY CLOUDY (CLEAR); BILIRUBIN,URINE NEGATIVE (NEGATIVE); COLOR,URINE YELLOW (YELLOW); GLUCOSE,URINE NEGATIVE (NEGATIVE); KETONES,URINE NEGATIVE (NEGATIVE); LEUKOCYTE ESTERASE,URINE TRACE (NEGATIVE); NITRITE,URINE NEGATIVE (NEGATIVE); OCCULT BLOOD,URINE TRACE-LYSED (NEGATIVE); PH,URINE 5.5 (5.0-8.0); PROTEIN,URINE NEGATIVE (NEGATIVE); UROBILINOGEN,URINE 0.2 EU/dL (0.2-1.0)
[2024-05-07 01:00] LABS: AMORPHOUS SEDIMENT,URINE NOT SEEN; BACTERIA,URINE FEW; EPITHELIAL CELLS,URINE FEW; MUCUS,URINE FEW; RBC,URINE 0-5 (0-5)
[2024-05-07] MEDS ORDERED: Ondansetron 4 MG Tab.DIS PO PRN (05:31)
[2024-05-07] MEDS ORDERED: Albuterol 6.7 GM Inhaler INH PRN (05:31)
[2024-05-07] MEDS ORDERED: Docusate Sodium 100 MG Cap PO PRN (05:31)
[2024-05-07] MEDS ORDERED: diphenhydrAMINE 25 MG Cap PO PRN (05:31)
[2024-05-07] MEDS: Acetaminophen 325 MG Tab PO PRN (05:48)
[2024-05-07] MEDS: Sodium Chloride 0.9% 1,000 ML IV SCH (05:51)
[2024-05-07] MEDS: cefTRIAXone 1 GM in Sodium Chloride 0.9% 50 ML IV SCH (05:54)
[2024-05-07] MEDS: Fluorometholone 0.1% Ophth Susp 5 ML Bottle EYEBOTH SCH (06:35)
[2024-05-07] MEDS: Potassium Chloride 10 MEQ in Premix Bag 1 BAG IV SCH (06:47)
[2024-05-07] MEDS: Potassium Chloride 20 MEQ in Premix Bag 1 BAG IV ONE (06:50)
[2024-05-07] MEDS: Pantoprazole 40 MG Vial IVPUSH SCH (08:05)
[2024-05-07] MEDS: Enoxaparin 30 MG/0.3 ML Syringe SUBCUT SCH (08:06)
[2024-05-07] MEDS ORDERED: Vibegron [Gemtesa] 75 MG Tablet PO SCH (09:00)
[2024-05-07] MEDS ORDERED: Amoxicillin 500 MG Cap PO SCH (09:00)
[2024-05-07] MEDS: FOLIC ACID 1 MG PO SCH (10:07)
[2024-05-07] MEDS: DULOXETINE 20 MG PO SCH (10:07)
[2024-05-07] MEDS: TERAZOSIN 2 MG PO SCH (10:07)
[2024-05-07] MEDS: Hypromellose 0.3% Ophth Soln 15 ML Bottle EYEBOTH SCH (10:07)
[2024-05-07] MEDS: Metoprolol Tartrate 25 MG Tab*POM PO SCH (10:08)
[2024-05-07] MEDS: PREDNISONE 5 MG PO SCH (10:08)
[2024-05-07] MEDS: Furosemide 20 MG Tab*POM PO SCH (10:08)
[2024-05-07] MEDS: Lisinopril 20 MG Tab*POM PO SCH (10:08)
[2024-05-07] MEDS: VITAMIN B12 SL SCH (10:08)
[2024-05-07] MEDS: GABAPENTIN 400 MG PO SCH ×2 (11:41→21:45)
[2024-05-07] MEDS: Calcium Carbonate 500 MG Tab.Chew PO PRN (22:12)
[2024-05-08 05:40] VITALS: BP 156/80
[2024-05-08] MEDS: Pantoprazole 40 MG Tab.CR PO SCH (08:23)
[2024-05-08 08:28] VITALS: PULSE 74
== END 2024-05-08 13:29 | disposition home health service (06) ==
LOC: JP.ED 23:03 → JP.2SS 05-07 04:59
PROVIDERS: ADMIT Internal Medicine; ATTEND Internal Medicine
DX: I95.9 Hypotension, unspecified (principal); R55 Syncope and collapse; I10 Essential (primary) hypertension; K21.9 Gastro-esophageal reflux disease without esophagitis; Z86.73 Personal history of transient ischemic attack (TIA), and cerebral infarction without residual deficits; Z86.16 Personal history of COVID-19; Z79.899 Other long term (current) drug therapy; Z79.82 Long term (current) use of aspirin; Z91.013 Allergy to seafood; Z91.048 Other nonmedicinal substance allergy status; Z88.8 Allergy status to other drugs, medicaments and biological substances
CPT/HCPCS: 36415; 71045; 71045-26; 80053; 80307; 81001; 83605; 83880; 84132; 84145; 84484; 85025; 86140; 87086; 93010; 96361; 96365; 96366; 96367; 96368; 96372; 96376; 99222; 99238; 99285; 99285-25; A9270-GY; C9113; G0378; J0696; J1650; J3480; J3490; J7030; J7512

== ENCOUNTER 2024-07-24 12:34 | Emergency (ER) | payer MEDICARE, BC ==
[2024-07-24 12:52] VITALS: BP 157/93
[2024-07-24 13:00] VITALS: PULSE 60
== END 2024-07-24 16:43 | disposition home or self-care (01) ==
LOC: JP.ED 12:34
DX: S01.01XA Laceration without foreign body of scalp, initial encounter (principal); S01.21XA Laceration without foreign body of nose, initial encounter; S20.219A Contusion of unspecified front wall of thorax, initial encounter; I10 Essential (primary) hypertension; E78.00 Pure hypercholesterolemia, unspecified; K21.9 Gastro-esophageal reflux disease without esophagitis; Z79.899 Other long term (current) drug therapy; Z79.82 Long term (current) use of aspirin; Z91.013 Allergy to seafood; Z91.048 Other nonmedicinal substance allergy status; Z88.8 Allergy status to other drugs, medicaments and biological substances; W18.30XA Fall on same level, unspecified, initial encounter
CPT/HCPCS: 70450; 70450-26; 70486; 70486-26; 71046; 71046-26; 72125; 72125-26; 76377; 99283

== ENCOUNTER 2024-11-15 11:11 | Day surgery (SDC) | payer MEDICARE, BC ==
[2024-11-15 11:35] LABS: BASOPHILS ABSOLUTE AUTO 0.03 K/uL (0.00-0.10); BASOPHILS PERCENT AUTO 0.4 % (0.1-1.3); EOSINOPHILS ABSOLUTE AUTO 0.27 K/uL (0.00-0.40); HEMATOCRIT 36.8 % (34.3-46.0); HEMOGLOBIN 12.3 g/dL (11.2-15.5); IMMATURE GRAN PERCENT AUTO 0.1 % (0.0-0.7); LYMPHOCYTES ABSOLUTE AUTO 0.68 K/uL (0.8-3.3); MEAN CORPUSCULAR HGB CONC 33.4 g/dL (31.6-35.5); MEAN CORPUSCULAR VOLUME 86.8 fL (81.4-99.0); MONOCYTES ABSOLUTE AUTO 0.63 K/uL (0.20-0.90); MONOCYTES PERCENT AUTO 9.3 % (3.3-12.6); NEUTROPHILS ABSOLUTE AUTO 5.18 K/uL (1.0-7.6); NEUTROPHILS PERCENT AUTO 76.2 % (40.0-78.1); PLATELET COUNT,PLT 340 K/uL (130-375); RED BLOOD CELL COUNT 4.24 M/uL (3.77-5.24); WHITE BLOOD CELL COUNT,WBC 6.8 K/uL (3.2-11.0)
[2024-11-15 11:37] LABS: IMMATURE GRAN ABSOLUTE AUTO 0.01 K/uL (0.00-0.23)
[2024-11-15] MEDS: Glucagon,Human Recombinant 1 MG Vial IV ONE (11:57)
[2024-11-15] MEDS: Sodium Chloride 0.9% 500 ML IV ONE (11:59)
[2024-11-15 12:00] LABS: A/G RATIO 0.8 (1.2-2.2); ALANINE AMINOTRANSFERASE,ALT 21 U/L (12-78); ALBUMIN 3.2 g/dL (3.4-5.0); ALKALINE PHOSPHATASE 101 U/L (46-116); ASPARTATE AMNIOTRANSFERASE,AST 23 U/L (15-37); BILIRUBIN TOTAL 0.9 mg/dL (0.2-1.0); BLOOD UREA NITROGEN,BUN 16 mg/dL (7-18); CALCIUM 7.9 mg/dL (8.5-10.1); CARBON DIOXIDE,CO2 31 mmol/L (21-32); CHLORIDE,CL 98 mmol/L (100-108); CREATININE 0.8 mg/dL (0.6-1.0); ESTIMATED GFR 74 mL/min (>60); GLUCOSE RANDOM 84 mg/dL (74-106); POTASSIUM,K 3.3 mmol/L (3.6-5.2); PROTEIN TOTAL,TP 7.4 g/dL (6.4-8.2); SODIUM,NA 138 mmol/L (140-148)
[2024-11-15 12:06] LABS: ANION GAP 12.3 mmol/L (5.0-14.0)
[2024-11-15] MEDS: Sodium Chloride 0.9% 1,000 ML IV SCH (13:20)
[2024-11-15] MEDS: Dexamethasone 4 MG/ML SDV IVPUSH ONE (14:52)
[2024-11-15] MEDS: Pantoprazole 40 MG Vial IVPUSH ONE (14:54)
[2024-11-15] MEDS ORDERED: Ondansetron 4 MG/2 ML SDV ONE (15:31)
[2024-11-15] MEDS ORDERED: Succinylcholine 200 MG/10 ML MDV ONE (15:31)
[2024-11-15] MEDS ORDERED: Dexamethasone 4 MG/ML SDV ONE (15:31)
[2024-11-15] MEDS ORDERED: Propofol 200 MG/20 ML SDV ONE (15:31)
[2024-11-15] MEDS ORDERED: Rocuronium 50 MG/5 ML Vial ONE (15:32)
[2024-11-15] MEDS ORDERED: fentaNYL 100 MCG/2 ML SDV ONE (15:33)
[2024-11-15] MEDS ORDERED: Glycopyrrolate 0.2 MG/ML 5 ML MDV ONE (16:14)
[2024-11-15 18:29] VITALS: BP 155/79; PULSE 79
== END 2024-11-15 18:25 | disposition home or self-care (01) ==
LOC: JP.ED 11:11 → JP.SDS 16:16 → JP.ED 18:25 → JP.SDS 18:25
PROVIDERS: ATTEND Surgery
DX: T18.128A Food in esophagus causing other injury, initial encounter (principal); I10 Essential (primary) hypertension; E78.00 Pure hypercholesterolemia, unspecified; K21.9 Gastro-esophageal reflux disease without esophagitis; M19.90 Unspecified osteoarthritis, unspecified site; Z86.73 Personal history of transient ischemic attack (TIA), and cerebral infarction without residual deficits; Z90.49 Acquired absence of other specified parts of digestive tract; Z90.710 Acquired absence of both cervix and uterus; Z96.659 Presence of unspecified artificial knee joint; Z88.8 Allergy status to other drugs, medicaments and biological substances; Z91.013 Allergy to seafood; Z91.048 Other nonmedicinal substance allergy status; Z79.51 Long term (current) use of inhaled steroids; Z79.82 Long term (current) use of aspirin; Z79.52 Long term (current) use of systemic steroids; Z79.899 Other long term (current) drug therapy; W44.F3XA Food entering into or through a natural orifice, initial encounter
CPT/HCPCS: 00731; 36415; 71045; 80053; 85025; 96361; 96374; 96375; 99283; C1726; C1773; J0330; J1100; J1596; J1610; J2405; J2470; J2704; J3010; J7030; J7040; 99284; J3490

== ENCOUNTER 2025-07-11 15:31 | Emergency (ER) | payer MEDICARE, BC ==
[2025-07-11 16:11] LABS: BASOPHILS ABSOLUTE AUTO 0.05 K/uL (0.00-0.10); BASOPHILS PERCENT AUTO 0.5 % (0.1-1.3); EOSINOPHILS ABSOLUTE AUTO 0.89 K/uL (0.00-0.40); EOSINOPHILS PERCENT AUTO 9.3 % (0.0-5.4); IMMATURE GRAN ABSOLUTE AUTO 0.08 K/uL (0.00-0.23); IMMATURE GRAN PERCENT AUTO 0.8 % (0.0-0.7); LYMPHOCYTES ABSOLUTE AUTO 0.85 K/uL (0.8-3.3); LYMPHOCYTES PERCENT AUTO 8.9 % (11.4-47.7); MONOCYTES ABSOLUTE AUTO 0.78 K/uL (0.20-0.90); MONOCYTES PERCENT AUTO 8.1 % (3.3-12.6); NEUTROPHILS ABSOLUTE AUTO 6.94 K/uL (1.0-7.6); NEUTROPHILS PERCENT AUTO 72.4 % (40.0-78.1); PLATELET COUNT,PLT 355 K/uL (130-375); RED BLOOD CELL COUNT 3.80 M/uL (3.77-5.24); WHITE BLOOD CELL COUNT,WBC 9.6 K/uL (3.2-11.0)
[2025-07-11 16:32] LABS: A/G RATIO 0.6 (1.2-2.2); ALANINE AMINOTRANSFERASE,ALT 22 U/L (12-78); ASPARTATE AMNIOTRANSFERASE,AST 30 U/L (15-37); BILIRUBIN TOTAL 0.5 mg/dL (0.2-1.0); BLOOD UREA NITROGEN,BUN 18 mg/dL (7-18); CARBON DIOXIDE,CO2 28 mmol/L (21-32); CHLORIDE,CL 99 mmol/L (100-108); CREATININE 0.7 mg/dL (0.6-1.0); EST CRCL DRUG DOSING (CG) 48.16 mL/min; ESTIMATED GFR 86 mL/min (>60); GLUCOSE RANDOM 115 mg/dL (74-106); POTASSIUM,K 4.0 mmol/L (3.6-5.2); PROTEIN TOTAL,TP 6.6 g/dL (6.4-8.2); SODIUM,NA 133 mmol/L (140-148)
[2025-07-11] MEDS: Iopamidol 755 Mg/ML 100 ML Bottle IV SCH (17:30)
[2025-07-11 21:34] VITALS: BP 152/99; PULSE 66
== END 2025-07-11 21:50 ==
LOC: JP.ED 15:31
DX: I63.9 Cerebral infarction, unspecified (principal); I10 Essential (primary) hypertension; E78.00 Pure hypercholesterolemia, unspecified; M19.90 Unspecified osteoarthritis, unspecified site; Z90.49 Acquired absence of other specified parts of digestive tract; Z90.710 Acquired absence of both cervix and uterus; Z88.8 Allergy status to other drugs, medicaments and biological substances; Z91.013 Allergy to seafood; Z91.048 Other nonmedicinal substance allergy status; Z79.82 Long term (current) use of aspirin; Z79.51 Long term (current) use of inhaled steroids; Z79.899 Other long term (current) drug therapy
CPT/HCPCS: 36415; 70450; 70496; 70498; 80053; 82947; 85025; 93005; 93010; 99285; A9270; J7030; Q9967